=== PATIENT | male | born 1950 | race Caucasian/White ===

== ENCOUNTER 2017-06-16 07:45 | Day surgery (SDC) | payer MEDICARE, OTHER ==
[~2017-06-16] VITALS: Ht 188 cm; Wt 72.6 kg
--- OUTSIDE RECORDS SUMMARY | 2017-06-16 07:51 | XMS REPORT ---
Author Author [facility] Medical Staff Organization [facility] Address [address] [place] [id number] Phone [phone] Summary purpose CCDA Sent to [facility] Chief Complaint and Reason for Visit Admit Diagnosis 1 LEFT UPPER ARM PAIN - FALL Problem list No authorized problems tracked for continuity of care are available for this visit. Encounters No authorized problems tracked for encounter diagnoses are available for this visit. Medications Discharge Medications Status Medication Directions Current acetaminophen 500 mg tablet 500 miligram(s) oral oral FOUR TIMES A DAY NEEDED for pain Current amLODIPine 5 mg tablet 2.5 miligram(s) oral TWO TIMES A DAY Current aspirin 81 mg tablet 81 miligram(s) oral ONE TIME A DAY Current benztropine 2 mg tablet 2 miligram(s) oral TWO TIMES A DAY also may take 1 tab daily prn extra Current bethanechol chloride 25 mg tablet 50 miligram(s) oral FOUR TIMES A DAY Current busPIRone 10 mg tablet 20 miligram(s) oral THREE TIMES A DAY Current Calcium 500 + D 500 mg (1,250 mg)-200 unit tablet 2 tab(s) oral TWO TIMES A DAY Current carboxymethylcellulose sodium 0.5 % eye drops 1 drop(s) ophthalmic FOUR TIMES A DAY both eyes Current carvedilol 25 mg tablet 12.5 miligram(s) oral TWO TIMES A DAY Current cholecalciferol (vitamin D3) 1,000 unit capsule 2 tab(s) oral ONE TIME A DAY Current clomiPRAMINE 75 mg capsule 75 miligram(s) oral TWO TIMES A DAY Current cyanocobalamin (vit B-12) 1,000 mcg tablet 1 tab(s) oral ONE TIME A DAY Current donepezil 10 mg tablet 10 miligram(s) oral BEDTIME Current ferrous gluconate 325 mg (37.5 mg iron) tablet 325 miligram(s) oral ONE TIME A DAY Current FLUPHENAZINE DECANOATE 25MG/ML 37.5 miligram(s) Intramuscular EVERY TWO WEEKS Current ipratropium 20 mcg-albuterol 100 mcg/actuation mist for inhalation 1 puff(s) inhalation THREE TIMES A DAY Current latanoprost 0.005 % eye drops 1 drop(s) ophthalmic BEDTIME Current methenamine hippurate 1 gram tablet 1 gram(s) oral TWO TIMES A DAY Current Multivitamin & Mineral Formula tablet 1 tab(s) oral ONE TIME A DAY Current potassium chloride ER 20 mEq tablet,extended release 40 milliequivilant(s) oral ONE TIME A DAY Current sodium bicarbonate 325 mg tablet 325 miligram(s) oral ONE TIME A DAY Current sodium chloride 0.65 % nasal spray 1 spray(s) nasal nasl TWO TIMES A DAY NEEDED for nasal discharge each nostril Current tamsulosin ER 0.4 mg capsule,extended release 24 hr 0.4 miligram(s) oral ONE TIME A DAY Stopped lisinopril 10 mg tablet 5 miligram(s) oral ONE TIME A DAY Allergies, adverse reactions, alerts Allergen Category Ingredient Status Reaction Severity Onset [place] Drug [place] Active Penicillins Drug Penicillins Active Immunizations No immunizations recorded for this patient visit Relevant diagnostic tests and/or laboratory data RESULTS CBC [id number]:50:00 Result Normal Range Units WBC 7.63 4.60-10.20 x 103/uL RBC L 2.94 4.04-6.13 x 106/uL Hemoglobin L 10.2 12.2-18.1 g/dl Hematocrit L 30.4 37.7-53.7 % MCV H 103.4 80.0-97.0 FL MCH H 34.7 27.0-31.2 pg MCHC 33.6 31.8-35.4 g/dl RDW 12.7 11.6-14.8 % Platelets 228 142-424 x 103/uL MPV L 8.6 9.4-12.4 FL Manual Diff Not Indicated Neutrophil % 62.8 37-80 % Neutrophils 4.79 2.0-6.9 x 103/uL Lymphocyte % 19.1 10-50 % Lymphocytes 1.46 0.6-3.4 x 103/uL Monocyte % H 14.4 0-12 % Monocytes H 1.10 0.0-1.0 x 103/uL Eosinophil % 3.4 0-7 % Eosinophils 0.26 0-0.7 x 103/uL Basophil % 0.3 0-2 % Basophils 0.02 0.0-0.1 x 103/uL Urinalysis :55:00 Result Normal Range Units Site Voided Urine Color Yellow Yellow Urine Appearance Clear Clear Urine Glucose Negative Negative Urine Bilirubin Negative Negative Urine Ketones Negative Negative Urine Specific Frakes 1.010 1.010-1.020 Urine PH 7.0 5.5-7.5 Urine Protein Negative Negative Urine Urobilinogen 0.2 0.2-1.0 Urine Nitrites AB Positive Negative Urine Blood AB Trace Negative Urine Leukocytes AB Trace Negative Urine WBC's 11-15 Urine RBC's 0-2 Urine Bacteria 4+ Chemistry Group :50:00 Result Normal Range Units Glucose H 101 70-99 mg/dl BUN H 28 7-26 mg/dl Creatinine H 1.7 0.6-1.3 mg/dl Sodium 138 136-145 mmol/L Potassium 4.0 3.5-5.1 mmol/L Chloride 103 98-107 mmol/L CO2 H 30 22-29 mmol/L BUN/Creatinine Ratio 16 7-25 Ratio Calcium 9.4 8.4-10.2 mg/dl Protein Total L 6.1 6.4-8.3 g/dl Albumin L 3.2 3.5-5.0 g/dl A/G Ratio L 1.1 1.2-2.2 Ratio AST 16 5-34 U/L ALT 18 0-55 U/L ALP 67 40-150 U/L Bilirubin Total 0.5 0.2-1.2 mg/dl Osmolality 272 261-280 mOsm/kg Globulin 2.9 2.4-3.5 g/dl Amylase 29 25-125 U/L Lipase 16 8-78 U/L Urinalysis :55:00 Result Normal Range Units Site Voided Urine Color Yellow Yellow Urine Appearance Clear Clear Urine Glucose Negative Negative Urine Bilirubin Negative Negative Urine Ketones Negative Negative Urine Specific Frakes 1.010 1.010-1.020 Urine PH 7.0 5.5-7.5 Urine Protein Negative Negative Urine Urobilinogen 0.2 0.2-1.0 Urine Nitrites AB Positive Negative Urine Blood AB Trace Negative Urine Leukocytes AB Trace Negative Urine WBC's 11-15 Urine RBC's 0-2 Urine Bacteria 4+ History of procedures No procedures recorded for this patient visit. Functional status Cognitive Status Finding Observation Time Level of Consciousne Alert :15 Oriented to Person Yes :[address] Yes :15 Oriented to Time Yes :15 Vital signs Type Value Date Respirations 20 :05 Pulse 64 :05 O2 Saturation 95% :05 Systolic Blood Press 152mm/HG :05 Diastolic Blood Pres 88mm/HG :05 Temperature (Fahr) 97.5Degrees :05 Social history Type Value Smoking Status CURRENT EVERY DAY SMOKER Treatment Plan No treatment plan text is available for this visit. Hospital discharge instructions Diagnosis left humerus fracture, constipation, UTI Med Dispensed by [facility] macrobid 100mg by mouth twice per day x 7 days. lactulose 30ml by mouth every 12 hours until good bm. Dispense 6 doses. Follow up with PCP Appointment Date and tomorrow Follow up with Orthopedic specialis Comment: The clinic will set you up with an data support specialist in the morning and will let you know the date and time. Ice the arm three times per day for 20 minutes and take Tylenol for the pain. Avoid ibuprofen. Other Instructions Wear the shoulder immobilizer until seen by data support specialist and avoid use of left arm.
--- OUTSIDE RECORDS SUMMARY | 2017-06-16 07:51 | XMS REPORT ---
Author Author [facility] Medical Staff Organization [facility] Address [address] [place] [id number] Phone [phone] Summary purpose CCDA Sent to [facility] Chief Complaint and Reason for Visit No authorized Reason for Visit (Admitting Diagnosis) is available for this visit. Problem list No authorized problems tracked for continuity of care are available for this visit. Encounters No authorized problems tracked for encounter diagnoses are available for this visit. Medications No medications recorded for this patient visit Allergies, adverse reactions, alerts Allergen Category Ingredient Status Reaction Severity Onset [place] Drug [place] Active Penicillins Drug Penicillins Active Immunizations No immunizations recorded for this patient visit Relevant diagnostic tests and/or laboratory data No authorized results are available for this patient visit History of procedures Procedure Code Code Type Description Date Performed Performing Physician 70898 CPT-4 EMERGENCY DEPT VISIT 12-02-2015 SIMI SAVAGE Functional status No functional or cognitive status observations are available for this visit. Vital signs No authorized vital signs are available for this visit. Social history No Social History or smoking status observations were recorded for this visit. ( Unknown if ever smoked.) Treatment Plan No treatment plan text is available for this visit. Hospital discharge instructions No discharge instruction text is available for this visit.
--- OUTSIDE RECORDS SUMMARY | 2017-06-16 07:52 | XMS REPORT ---
Author Author [facility] Medical Staff Organization [facility] Address [address] [place] [id number] Phone [phone] Summary purpose CCDA Sent to [facility] Chief Complaint and Reason for [...] Allergen Category Ingredient Status Reaction Severity Onset [place] Drug [place] Active Penicillins Drug Penicillins Active Immunizations No immunizations recorded for this patient visit Relevant diagnostic tests and/or laboratory data No authorized results are available for this patient visit History of procedures Procedure Code Code Type Description Date Performed Performing Physician A0427 CPT-4 ALS1 EMERGENCY 12-07-2015 THOR SANCHEZ A0425 CPT-4 GROUND MILEAGE 12-07-2015 THOR SANCHEZ Functional status No functional or cognitive status [...]
--- OUTSIDE RECORDS SUMMARY | 2017-06-16 07:52 | XMS REPORT ---
Author Author [facility] Medical Staff Organization [facility] Address [address] [place] [id number] Phone [phone] Care Team Providers Care [place] Edger Name Role Phone SIMI SAVAGE DO PP [phone] SIMI SAVAGE DO PP [phone] Summary purpose CCDA Sent to [facility] Chief Complaint and Reason for Visit Admit Diagnosis 1 LT LEG PAIN - FALL Problem list No authorized problems tracked for continuity of care are available for this visit. Encounters No authorized problems tracked for encounter diagnoses are available for this visit. Medications No medications recorded for this patient visit Allergies, adverse reactions, alerts Allergen Category Ingredient Status Reaction Severity Onset [place] Drug [place] Active Penicillins Drug Penicillins Active Immunizations No immunizations recorded for this patient visit Relevant diagnostic tests and/or laboratory data No authorized results are available for this patient visit History of procedures Procedure Code Code Type Description Date Performed Performing Physician 38531 CPT-4 EMERGENCY DEPT VISIT 12-02-2015 SIMI JANETTE Functional status Cognitive Status Finding Observation Time Level of Consciousne Alert [id number]:15 Oriented to Person Yes [id number]:[address] Yes [id number]:15 Oriented to Time Yes :15 Vital signs Type Value Date Respirations 18 :56 Pulse 69 :56 O2 Saturation 97% :56 Systolic Blood Press 120mm/HG :56 Diastolic Blood Pres 80mm/HG :56 Temperature (Fahr) 97.6Degrees :56 Social history Type Value Smoking Status CURRENT EVERY DAY SMOKER Treatment Plan No treatment plan text is available for this visit. Hospital discharge instructions Diagnosis contushion to left leg but exam negative Diet Regular diet Activity Level as able Med Dispensed by Pro You are to continue the ibupropen for the pain and may use the cane in the left hand for support.. Follow up with your provider Appointment Date and next weej Other Instructions Notify if pain persists or worsens or if has further questions..
--- OUTSIDE RECORDS SUMMARY | 2017-06-16 07:52 | XMS REPORT ---
Author Author [facility] Medical Staff Organization [facility] Address [address] [place] [id number] Phone [phone] Summary purpose CCDA Sent to [facility] Chief Complaint and Reason for Visit Admit Diagnosis 1 CHEST PAIN MID STERNAL Problem list No authorized problems tracked for [...] 2 miligram(s) oral TWO TIMES A DAY Current bethanechol chloride 25 mg tablet 50 miligram(s) oral FOUR TIMES A DAY Current busPIRone 10 mg tablet 20 miligram(s) oral THREE TIMES A DAY Current carvedilol 25 mg tablet 12.5 miligram(s) [...] TIME A DAY Current FLUPHENAZINE DECANOATE 25MG/ML 25 miligram(s) Intramuscular EVERY TWO WEEKS Current latanoprost 0.005 % eye drops 1 drop(s) ophthalmic BEDTIME Current lisinopril 10 mg tablet 5 miligram(s) oral ONE TIME A DAY Current methenamine hippurate 1 gram tablet 1 gram(s) oral TWO TIMES A DAY Current Multivitamin & Mineral Formula tablet 1 tab(s) oral ONE TIME A DAY Current potassium chloride ER 20 mEq tablet,extended release 40 milliequivilant(s) oral ONE TIME A DAY Current sodium bicarbonate 325 mg tablet 325 miligram(s) oral ONE TIME A DAY Current tamsulosin ER 0.4 mg capsule,extended release 24 hr 0.4 miligram(s) oral ONE TIME A DAY Allergies, adverse reactions, alerts Allergen Category Ingredient Status Reaction Severity Onset [place] Drug [place] Active Penicillins Drug Penicillins Active Immunizations No immunizations recorded for this patient visit Relevant diagnostic tests and/or laboratory data RESULTS CBC :22:00 Result Normal Range Units WBC 7.99 4.60-10.20 x 103/uL RBC L 3.55 4.04-6.13 x 106/uL Hemoglobin 12.4 12.2-18.1 g/dl Hematocrit L 35.9 37.7-53.7 % MCV H 101.1 80.0-97.0 FL MCH H 34.9 27.0-31.2 pg MCHC 34.5 31.8-35.4 g/dl RDW 12.9 11.6-14.8 % Platelets 227 142-424 x 103/uL MPV 9.9 9.4-12.4 FL Manual Diff Not Indicated Neutrophil % 52.9 37-80 % Neutrophils 4.23 2.0-6.9 x 103/uL Lymphocyte % 28.3 10-50 % Lymphocytes 2.26 0.6-3.4 x 103/uL Monocyte % 12.0 0-12 % Monocytes 0.96 0.0-1.0 x 103/uL Eosinophil % 6.4 0-7 % Eosinophils 0.51 0-0.7 x 103/uL Basophil % 0.4 0-2 % Basophils 0.03 0.0-0.1 x 103/uL Chemistry Group :22:00 Result Normal Range Units Glucose 94 70-99 mg/dl BUN H 42 7-26 mg/dl Creatinine H 1.9 0.6-1.3 mg/dl Sodium 138 136-145 mmol/L Potassium 4.4 3.5-5.1 mmol/L Chloride 105 98-107 mmol/L CO2 25 22-29 mmol/L BUN/Creatinine Ratio 22 7-25 Ratio Calcium 9.3 8.4-10.2 mg/dl Protein Total 6.9 6.4-8.3 g/dl Albumin L 3.4 3.5-5.0 g/dl A/G Ratio L 1.0 1.2-2.2 Ratio AST 17 5-34 U/L ALT 12 0-55 U/L ALP 108 40-150 U/L Bilirubin Total 0.3 0.2-1.2 mg/dl Osmolality 277 261-280 mOsm/kg Globulin 3.5 2.4-3.5 g/dl CK 66 30-170 U/L CKMB 3.5 <=6 ng/ml BNP 17.6 <=100 pg/ml Troponin 0.02 <=0.20 ng/ml Magnesium 2.3 1.6-2.8 mg/dl Myoglobin H 127.1 10-85 ng/ml Reference Lab Group :21:00 EKG See Manual Report History of procedures No procedures recorded for this patient visit. Functional status Cognitive Status Finding Observation Time Level of Consciousne Alert :10 Oriented to Person Yes :[address] Yes [id number]:10 Oriented to Time Yes :10 Vital signs Type Value Date Respirations 18 :30 Pulse 65 :30 O2 Saturation 98% :30 Systolic Blood Press 148mm/HG :30 Diastolic Blood Pres 88mm/HG :30 Temperature (Fahr) 97.0Degrees :10 Social history Type Value Smoking Status CURRENT EVERY DAY SMOKER Treatment Plan No treatment plan text is available for this visit. Hospital discharge instructions Diagnosis Chest Pain, Dehydration Diet drink plenty of fluids Activity Level as tolerated Med Dispensed by Pro You were given IV fluids in the ER. Follow up with PA doctor Appointment Date and Thursday Other Instructions Please call the PA Thursday for an appointment so that you can have a full work up for your heart and leg pains.
--- OUTSIDE RECORDS SUMMARY | 2017-06-16 07:52 | XMS REPORT ---
Author Author [facility] Medical Staff Organization [facility] Address [address] [place] [id number] Phone [phone] Summary purpose CCDA Sent to [facility] Chief Complaint and Reason for Visit No [...] Allergen Category Ingredient Status Reaction Severity Onset [place] Drug [place] Active Penicillins Drug Penicillins Active Immunizations No immunizations recorded for this patient visit Relevant diagnostic tests and/or laboratory data No authorized results are available for this patient visit History of procedures No procedures recorded for this patient visit. Functional status No functional or cognitive status [...]
--- OUTSIDE RECORDS SUMMARY | 2017-06-16 07:52 | XMS REPORT ---
Author Author [facility] Medical Staff Organization [facility] Address [address] [place] [id number] Phone [phone] Summary purpose CCDA Sent to [facility] Chief Complaint and Reason for [...] Allergen Category Ingredient Status Reaction Severity Onset [place] Drug [place] Active Penicillins Drug Penicillins Active Immunizations No [...]
--- OUTSIDE RECORDS SUMMARY | 2017-06-16 07:52 | XMS REPORT ---
Author Author [facility] Medical Staff Organization [facility] Address [address] [place] [id number] Phone [phone] Summary purpose CCDA Sent to [facility] Chief Complaint and Reason for Visit Admit Diagnosis 1 R OUTER EYE RED & BLOODSHOT/HIT EYE Problem list No authorized problems tracked for continuity of care are available for this visit. Encounters No authorized problems tracked for encounter diagnoses are available for this visit. Medications No medications recorded for this patient visit Allergies, adverse reactions, alerts Allergen Category Ingredient Status Reaction Severity Onset [place] Drug [place] Active Penicillins Drug Penicillins Active Immunizations No immunizations recorded for this patient visit Relevant diagnostic tests and/or laboratory data No authorized results are available for this patient visit History of procedures Procedure Code Code Type Description Date Performed Performing Physician 59906 CPT-4 EMERGENCY DEPT VISIT 02-25-2016 DONALD OCONNELL Functional status Cognitive Status Finding Observation Time Level of Consciousne Alert :10 Oriented to Person Yes :[address] Yes [id number]:10 Oriented to Time Yes :10 Vital signs Type Value Date Respirations 18 :40 Pulse 67 :40 O2 Saturation 98% :40 Systolic Blood Press 140mm/HG [id number]:40 Diastolic Blood Pres 83mm/HG :40 Temperature (Fahr) 97.6Degrees :10 Social history Type Value Smoking Status CURRENT EVERY DAY SMOKER Treatment Plan No treatment plan text is available for this visit. Hospital discharge instructions Diagnosis Right eye injury/hematoma Diet as tolerated Activity Level as tolerated. Follow up with Dr. Robles Appointment Date and NOW Other Instructions Avoid touching your eye.
--- OUTSIDE RECORDS SUMMARY | 2017-06-16 07:52 | XMS REPORT ---
Author Author [facility] Medical Staff Organization [facility] Address [address] [place] [id number] Phone [phone] Summary purpose CCDA Sent to [facility] Chief Complaint and Reason for Visit [...] Allergen Category Ingredient Status Reaction Severity Onset [place] Drug [place] Active Penicillins Drug Penicillins Active Immunizations No immunizations recorded for this patient visit Relevant diagnostic tests and/or laboratory data No authorized results are available for this patient visit History of procedures Procedure Code Code Type Description Date Performed Performing Physician 63703 CPT-4 EMERGENCY DEPT VISIT 02-25-2016 DONALD OCONNELL Functional status No functional or cognitive status [...]
--- OUTSIDE RECORDS SUMMARY | 2017-06-16 07:52 | XMS REPORT ---
Author Author [facility] Medical Staff Organization [facility] Address [address] [place] [id number] Phone [phone] Summary purpose CCDA Sent to [facility] Chief Complaint and Reason for [...] Allergen Category Ingredient Status Reaction Severity Onset [place] Drug [place] Active Penicillins Drug Penicillins Active Immunizations No [...]
--- OUTSIDE RECORDS SUMMARY | 2017-06-16 07:53 | XMS REPORT | Continuity of Care Document ---
Author Author [facility] Organization [facility] Address Unknown Phone Unavailable Allergies Active Description Code Type Severity Reaction Onset Reported/Identified Relationship to Patient Clinical Status Yes [place] 1532 Drug Allergy N/A N/A 06/03/2013 Yes Penicillins 476 Drug Allergy N/ A N/A 06/03/2013 Medications There is no data. Problems Date Dx Coded Attending Type Code Diagnosis Diagnosed By 02/17/2011 D 870.8 OPN WND OCULAR ADNEX NEC 02/17/2011 D 959.01 HEAD INJURY UNSPECIFIED 02/17/2011 D E849.0 ACCIDENT IN HOME 02/17/2011 D E888.9 FALL NOS 11/11/2012 SIMI SAVAGE DO D 780.79 OTHER MALAISE & FATIGUE 11/11/2012 SIMI SAVAGE DO L D 787.91 DIARRHEA 11/11/2012 SIMI SAVAGE DO L D 789.00 ABDOMINAL PAIN, UNSPECIF 11/11/2012 SIMI SAVAGE DO D 038.10 STAPHYLOCOCC SEPT UNSPEC 11/11/2012 SIMI SAVAGE DO L D 427.89 CARDIAC DYSRHYTHMIAS NEC 11/11/2012 SIMI SAVAGE DO L D 458.9 HYPOTENSION NOS 11/11/2012 SIMI SAVAGE DO L D 995.91 SEPSIS 11/11/2012 SIMI SAVAGE DO D 038.10 STAPHYLOCOCC SEPT UNSPEC 11/11/2012 SIMI SAVAGE DO L D 427.89 CARDIAC DYSRHYTHMIAS NEC 11/11/2012 SIMI SAVAGE DO L D 458.9 HYPOTENSION NOS 11/11/2012 SIMI SAVAGE DO L D 995.91 SEPSIS 11/11/2012 SIMI SAVAGE DO D 038.10 STAPHYLOCOCC SEPT UNSPEC 11/11/2012 SIMI SAVAGE DO L D 427.89 CARDIAC DYSRHYTHMIAS NEC 11/11/2012 SIMI SAVAGE DO L D 458.9 HYPOTENSION NOS 11/11/2012 SIMI SAVAGE DO L D 995.91 SEPSIS 11/11/2012 Kassidy RENTERIA, Sherrie Lovell 009.2 INFECTIOUS DIARRHEA NOS 11/11/2012 Kassidy RENTERIA, Sherrie Lovell 038.9 SEPTICEMIA NOS 11/11/2012 Kassidy RENTERIA, Sherrie Lovell 272.4 HYPERLIPIDEMIA NEC/NOS 11/11/2012 Kassidy RENTERIA, Sherrie Lovell 276.1 HYPOSMOLALITY 11/11/2012 Kassidy RENTERIA, Sherrie Lovell 294.20 DEMENTIA, UNSPECIFIED, WITHOUT BEHAVIORAL DISTURBA 11/11/2012 Kassidy RENTERIA, Sherrie Lovell 295.90 SCHIZOPHRENIA NOS-UNSPEC 11/11/2012 Kassidy RENTERIA, Sherrie Lovell 401.9 HYPERTENSION NOS 11/11/2012 Kassidy RENTERIA, Sherrie Lovell 584.9 ACUTE RENAL FAILURE, UNSPECIFIED 11/11/2012 Kassidy RENTERIA, Sherrie Lovell 785.52 SEPTIC SHOCK 11/11/2012 Kassidy RENTERIA, Sherrie Lovell 995.92 SEVERE SEPSIS 06/03/2013 SIMI SAVAGE DO 276.1 HYPOSMOLALITY 06/03/2013 SIMI SAVAGE DO 276.1 HYPOSMOLALITY 12/02/2015 SIMI SAVAGE DO S83.92XA Sprain of unspecified site of left knee, initial encounter 12/02/2015 SIMI SAVAGE DO W08.XXXA Fall from other furniture, initial encounter 12/02/2015 SIMI SAVAGE DO Y92.[address] in single-family (private) house as place 12/02/2015 SIMI SAVAGE DO Y93.9 Activity, unspecified 12/02/2015 SIMI SAVAGE DO Y99.9 Unspecified external cause status 12/02/2015 SIMI SAVAGE DO S83.92XA Sprain of unspecified site of left knee, initial encounter 12/02/2015 SIMI SAVAGE DO W08.XXXA Fall from other furniture, initial encounter 12/02/2015 SIMI SAVAGE DO Y92.[address] in single-family (private) house as place 12/02/2015 SIMI SAVAGE DO Y93.9 Activity, unspecified 12/02/2015 SIMI SAVAGE DO Y99.9 Unspecified external cause status 12/07/2015 LAURA RENTERIA, THOR Rodrigues R07.9 Chest pain, unspecified 12/07/2015 THOR SANCHEZ MD E86.0 Dehydration 12/07/2015 THOR SANCHEZ MD M79.604 Pain in right leg 12/07/2015 LAURA RENTERIA, THOR Rodrigues M79.605 Pain in left leg 12/07/2015 THOR SANCHEZ MD R07.9 Chest pain, unspecified 12/07/2015 THOR SANCHEZ MD E86.0 Dehydration 12/07/2015 THOR SANCHEZ MD M79.604 Pain in right leg 12/07/2015 THOR SANCHEZ MD M79.605 Pain in left leg 12/07/2015 THOR SANCHEZ MD R07.9 Chest pain, unspecified 12/07/2015 THOR SANCHEZ MD E86.0 Dehydration 12/07/2015 THOR SANCHEZ MD M79.604 Pain in right leg 12/07/2015 THOR SANCHEZ MD M79.605 Pain in left leg 12/07/2015 THOR SANCHEZ MD R07.9 Chest pain, unspecified 02/25/2016 DONALD GONZÁLES S05.11XA Contusion of eyeball and orbital tissues, right eye, init 02/25/2016 DONALD GONZÁLES Y92.[address] or not applicable 02/25/2016 DONALD GONZÁLES Y93.9 Activity, unspecified 02/25/2016 DONALD GONZÁLES Y99.9 Unspecified external cause status 04/03/2016 DONALD GONZÁLES K59.00 Constipation, unspecified 04/03/2016 DONALD GONZÁLES N39.0 Urinary tract infection, site not specified 04/03/2016 DONALD GONZÁLES S42.292A Oth disp fx of upper end of left humerus, init for clos fx 04/03/2016 DONALD GONZÁLES W06.XXXA Fall from bed, initial encounter 04/03/2016 DONALD GONZÁLES Y92.003 [facility] (private) residence as place 04/03/2016 DONALD GONZÁLES Y93.9 Activity, unspecified 04/03/2016 DONALD GONZÁLES Y99.9 Unspecified external cause status Procedures Code Description [place] [address] REPAIR EYELID WOUND SIMI SAVAGE DO 02/17/2011 85778 IMMUNIZATION ADMIN SIMI SAVAGE DO 02/17/2011 82902 TD VACCINE > 7, IM SIMI SAVAGE DO 02/17/2011 95188 EMERGENCY DEPT VISIT SIMI SAVAGE DO 02/17/2011 92437 ROUTINE VENIPUNCTURE SIMI SAVAGE DO 11/11/2012 52181 INSERT TEMP BLADDER CATH SIMI SAVAGE DO 11/11/2012 18886 CHEST X-RAY SIMI SAVAGE DO 11/11/2012 14953 X-RAY EXAM OF ABDOMEN SIMI SAVAGE DO 11/11/2012 01952 COMPREHEN METABOLIC PANEL SIMI SAVAGE DO 11/11/2012 80561 URINALYSIS, AUTO W/SCOPE SIMI SAVAGE DO 11/11/2012 06123 ASSAY OF CK (CPK) SIMI SAVAGE DO 11/11/2012 34179 CREATINE, MB FRACTION SIMI SAVAGE DO 11/11/2012 98390 NATRIURETIC PEPTIDE SIMI SAVAGE DO 11/11/2012 71979 ASSAY OF TROPONIN, QUANT SIMI SAVAGE DO 11/11/2012 13851 COMPLETE CBC W/AUTO DIFF WBC SIMI SAVAGE DO 11/11/2012 66034 BLOOD CULTURE FOR BACTERIA SIMI SAVAGE DO 11/11/2012 08700 URINE CULTURE/COLONY COUNT SIMI SAVAGE DO 11/11/2012 00637 URINE BACTERIA CULTURE SIMI SAVAGE DO 11/11/2012 91215 CULTURE TYPE, IMMUNOLOGIC SIMI SAVAGE DO 11/11/2012 96438 MICROBE SUSCEPTIBLE, DWAIN SIMI SAVAGE DO 11/11/2012 50370 ELECTROCARDIOGRAM, TRACING SIMI SAVAGE DO 11/11/2012 70067 HYDRATE IV INFUSION, ADD-ON SIMI SAVAGE DO 11/11/2012 14966 THER/PROPH/DIAG INJ, IV PUSH SIMI SAVAGE DO 11/11/2012 35927 EMERGENCY DEPT VISIT SIMI SAVAGE DO 11/11/2012 J1265 DOPAMINE INJECTION SIMI SAVAGE DO 11/11/2012 J3370 VANCOMYCIN HCL INJECTION SIMI SAVAGE DO 11/11/2012 A0425 GROUND MILEAGE SIMI SAVAGE DO 11/11/2012 A0427 ALS1 EMERGENCY SIMI SAVAGE DO 11/11/2012 88972 ELECTROCARDIOGRAM REPORT FABIO RENTERIAMARIIA 11/11/2012 39517 EMERGENCY DEPT VISIT SIMI SAVAGE DO 11/11/2012 38.97 CENTRAL VENOUS CATHETER PLACEMENT WITH GUIDANCE Gopal De Los Santos MD 11/11/2012 74807 COMPREHEN METABOLIC PANEL SIMI SAVAGE DO 06/03/2013 20816 NATRIURETIC PEPTIDE SIMI SAVAGE DO 06/03/2013 11718 COMPLETE CBC W/AUTO DIFF WBC SIMI SAVAGE DO 06/03/2013 48721 HYDRATION IV INFUSION, INIT SIMI SAVAGE DO 06/03/2013 02012 EMERGENCY DEPT VISIT SIMI SAVAGE DO 06/03/2013 A9270 Non-covered item or service SIMI SAVAGE DO 06/03/2013 44498 EMERGENCY DEPT VISIT SIMI SAVAGE DO 06/03/2013 06856 EMERGENCY DEPT VISIT SIMI SAVAGE DO 12/02/2015 42250 EMERGENCY DEPT VISIT SIMI SAVAGE DO 12/02/2015 39630 CHEST X-RAY 1 VIEW FRONTAL THOR SANCHEZ MD 12/07/2015 60084 COMPREHEN METABOLIC PANEL THOR SANCHEZ MD 12/07/2015 77796 ASSAY OF CK (CPK) THOR SANCHEZ MD 12/07/2015 31502 CREATINE MB FRACTION THOR SANCHEZ MD 12/07/2015 58923 ASSAY OF MAGNESIUM THOR SANCHEZ MD 12/07/2015 99430 ASSAY OF MYOGLOBIN THOR SANCHEZ MD 12/07/2015 92307 ASSAY OF NATRIURETIC PEPTIDE THOR SANCHEZ MD 12/07/2015 42603 ASSAY OF TROPONIN QUANT THOR SANCHEZ MD 12/07/2015 18787 COMPLETE CBC W/AUTO DIFF WBC THOR SANCHEZ MD 12/07/2015 44230 ELECTROCARDIOGRAM TRACING THOR SANCHEZ MD 12/07/2015 92629 HYDRATION IV INFUSION INIT THOR SANCHEZ MD 12/07/2015 40748 EMERGENCY DEPT VISIT THOR SANCHEZ MD 12/07/2015 J7040 NORMAL SALINE SOLUTION INFUS THOR SANCHEZ MD 12/07/2015 A0425 [facility] THOR SANCHEZ MD 12/07/2015 A0427 ALS1-EMERGENCY THOR SANCHEZ MD 12/07/2015 37409 ELECTROCARDIOGRAM REPORT FABIO RENTERIA, MARIIA Reilly 12/07/2015 53621 EMERGENCY DEPT VISIT THOR SANCHEZ MD 12/07/2015 80867 EMERGENCY DEPT VISIT DONALD GONZÁLES 02/25/2016 27576 ROUTINE VENIPUNCTURE ANISH KRAMERDONALD Boothe 04/03/2016 30273 X-RAY EXAM OF HUMERUS ANISH DONALD NARANJO 04/03/2016 62412 X-RAY EXAM OF WRIST ANISH DONALD NARANJO 04/03/[address] ABD & PELVIS W/O CONTRAST ANISH DONALD NARANJO 04/03/2016 74967 COMPREHEN METABOLIC PANEL ANISH DONALD NARANJO 04/03/2016 83178 URINALYSIS AUTO W/SCOPE ANISH KRAMERDONALD Boothe 04/03/2016 90821 ASSAY OF AMYLASE ANISH DONALD NARANJO 04/03/2016 05954 ASSAY OF LIPASE ANISH KRAMERDONALD Boothe D 04/03/2016 15895 COMPLETE CBC W/AUTO DIFF WBC ANISH KRAMERDONALD Boothe D 04/03/2016 64431 CULTURE AEROBIC IDENTIFY ANISH DONALD NARANJO 04/03/2016 91243 URINE CULTURE/COLONY COUNT ANISH KRAMERDONALD Boothe D 04/03/2016 04254 MICROBE SUSCEPTIBLE DWAIN ANISH DONALD NARANJO D 04/03/2016 73515 THER/PROPH/DIAG INJ IV PUSH ANISH KRAMERDONALD Boothe 04/03/2016 52079 EMERGENCY DEPT VISIT DONALD GONZÁLES 04/03/2016 J0696 CEFTRIAXONE SODIUM INJECTION ANISH KRAMERDONALD Boothe 04/03/2016 J1885 KETOROLAC TROMETHAMINE INJ ANISH KRAMERDONALD Boothe 04/03/2016 J7050 NORMAL SALINE SOLUTION INFUS ANISH DONALD NARANJO 04/03/2016 < section xmlns="urn:hl7-org:v3" xmlns:xsi="http://www.3.org/2001/XMLSchema- instance"> <templateId root="[email or web address]" /> <templateId root="[email or web address]" /> <code codeSystemName="LOINC" codeSystem="[id number]" code="39805-3" displayName="Results" /> < title>Results</title> <text> <table> <thead> <tr> <th> Test</th> <th>Result</th> <th>Range</th> </tr> </ thead> <tbody> <tr> <th colspan="10">Blood Culture - 11:11</th> </tr> <tr> <td>Blood Culture</td> <td>SMR </td> <td /> </tr> <tr> <th colspan="10 ">Blood Culture - 11/11/12 11:11</th> </tr> <tr> <td> Blood Culture</td> <td>SMR </td> <td /> </tr> < tr> <th colspan="10">Troponin I - 11/11/12 11:29</th> </tr> <tr> <td>Troponin I</td> <td>0.01 NG/ML</td> <td> <=0.20</td> </tr> <tr> <th colspan="10">CPK - 11:29</th> </tr> <tr> <td>CPK</td> <td>126 U/ L</td> <td>30-170</td> </tr> <tr> <th colspan= "10">CKMB - 08/08/13 11:29</th> </tr> <tr> <td>CKMB</td> <td>5.5 NG/ML</td> <td><=6</td> </tr> <tr> <th colspan="10">[facility] - 11/11/12 11:29</th> </tr> <tr> <td>Osmo Calculated</td> <td>261 MOSM</td> <td>261-280< /td> </tr> <tr> <td>Sodium</td> <td>130 MMOLL</ td> <td>137-145</td> </tr> <tr> <td>T. Protein</ td> <td>6.6 G/DL</td> <td>6.3-8.2</td> </tr> <tr > <td>Potassium</td> <td>3.5 MMOLL</td> <td>3.6-5.0</ td> </tr> <tr> <td>T Bili</td> <td>1.1 MG/DL</td > <td>0.2-1.3</td> </tr> <tr> <td>Calcium</td> <td>9.5 MG/DL</td> <td>8.4-10.2</td> </tr> <tr> <td>BUN</td> <td>37 MG/DL</td> <td>7-21</td> </tr> <tr> <td>Chloride</td> <td>93 MMOLL</td> <td>98-107</td> </tr> <tr> <td>AST</td> <td> 34 U/L</td> <td>15-46</td> </tr> <tr> <td>ALT</ td> <td>27 U/L</td> <td>7-56</td> </tr> <tr> <td>Albumin</td> <td>3.7 G/DL</td> <td>3.5-5.0</td> </tr> <tr> <td>A/G Ratio</td> <td>1.3 RATIO</td> <td>1.2-2.2</td> </tr> <tr> <td>Bun/Creat</td> <td>20.2 RATIO</td> <td>7-25</td> </tr> <tr> <td>Alk Phos</td> <td>94 U/L</td> <td>38-126</td> </tr> <tr> <td>CO2</td> <td>23 MMOLL</td> < td>22-30</td> </tr> <tr> <td>Glucose</td> <td> 119 MG/DL</td> <td>65-110</td> </tr> <tr> <td> Globulin</td> <td>2.9 </td> <td>2.4-3.5</td> </tr> <tr> <td>Creatinine</td> <td>1.8 MG/DL</td> <td> 0.7-1.5</td> </tr> <tr> <th colspan="10">BNP - 11/11/12 11:29</th> </tr> <tr> <td>BNP</td> <td>33.3 PG/ ML</td> <td><=100</td> </tr> <tr> <th colspan ="10">COMPLETE BLOOD COUNT - 11/11/12 11:29</th> </tr> <tr> <td>Platelet</td> <td>246 10^3u</td> <td>142-424</td> </tr> <tr> <td>MPV</td> <td>8.9 FL</td> < td>9.4-12.4</td> </tr> <tr> <td>[place] #</td> <td> 0.29 10^3u</td> <td>0.0-1.0</td> </tr> <tr> <td> RBC</td> <td>3.67 10^6u</td> <td>4.04-6.13</td> </tr> <tr> <td>[place] %</td> <td>4.5 %</td> < td>0-12</td> </tr> <tr> <td>RDW</td> <td>11.9 &# 37;</td> <td>11.6-14.8</td> </tr> <tr> <td>Neut #</td> <td>5.08 10^3u</td> <td>2.0-6.9</td> </tr> <tr> <td>Neut %</td> <td>78.7 %</td> <td> 37-80</td> </tr> <tr> <td>WBC</td> <td>6.45 10^ 3u</td> <td>4.60-10.20</td> </tr> <tr> <td>MCV</ td> <td>92.4 FL</td> <td>80.0-97.0</td> </tr> < tr> <td>Baso #</td> <td>0.03 10^3u</td> <td>0.0-0.1</ td> </tr> <tr> <td>Baso %</td> <td>0.5 % </td> <td>0-2</td> </tr> <tr> <td>Eos #</td> <td>0.27 10^3u</td> <td>0-0.7</td> </tr> <tr> <td>Eos %</td> <td>4.2 %</td> <td>0-7</td> </tr> <tr> <td>Lymph %</td> <td>12.1 %</td> <td>10-50</td> </tr> <tr> <td>MCHC</td> <td>36.6 G/DL</td> <td>31.8-35.4</td> </tr> <tr> <td>MCH</td> <td>33.8 PG</td> <td>27.0-31.2</td> < /tr> <tr> <td>Lymph #</td> <td>0.78 10^3u</td> <td>0.6-3.4</td> </tr> <tr> <td>HGB</td> <td> 12.4 G/DL</td> <td>12.2-18.1</td> </tr> <tr> <td >HCT</td> <td>33.9 %</td> <td>37.7-53.7</td> </tr> <tr> < colspan="10">EKG - 11/11/12 11:29</th> </tr> <tr> <td>EKG</td> <td>SMR </td> <td /> < /tr> <tr> < colspan="10">Urinalysis - 11/11/12 12:46</th> </tr> <tr> <td>Glucose</td> <td>Negative </td> <td>Negative</td> </tr> <tr> <td>Leukocyte</td> <td>1+ </td> <td>Negative</td> </tr> <tr> <td>Nitrite</td> <td>Positive </td> <td>Negative</td> </tr> <tr> <td>pH</td> <td>6.5 </td> <td>5.5 -7.5</td> </tr> <tr> <td>Urine Appearance</td> < td>Clear </td> <td>Clear</td> </tr> <tr> <td> Protein</td> <td>Negative </td> <td>Negative</td> </tr > <tr> <td>Ketones</td> <td>Negative </td> <td >Negative</td> </tr> <tr> <td>Urobilinogen</td> <td>0.2 </td> <td>0.2-1.0</td> </tr> <tr> <td> Specific [place]</td> <td>1.010 </td> <td>1.010-1.020</td> </tr> <tr> <td>Urine WBC</td> <td>N3-5 </td> <td /> </tr> <tr> <td>Urine Bacteria</td> < td>3+ </td> <td /> </tr> <tr> <td>Blood</td> <td>Negative </td> <td>Negative</td> </tr> <tr> <td>Color</td> <td>Yellow </td> <td>Yellow</td> </tr> <tr> <td>Bilirubin</td> <td>Negative </td> <td>Negative</td> </tr> <tr> <th colspan="10"> Urine Culture - 11/11/12 13:05</th> </tr> <tr> <td>Urine Culture</td> <td>SMR </td> <td /> </tr> <tr> <th colspan="10">CHEM/HEM PROFILE-BEDSIDE - 11/11/12 14:15</th> </ tr> <tr> <td>POTASSIUM</td> <td>3.6 mmol/L</td> <td>3.5-5.3</td> </tr> <tr> <td>METHOD</td> < td>Bedside </td> <td /> </tr> <tr> <td>ANION GAP </td> <td>16 mmol/L</td> <td>10-20</td> </tr> < tr> <td>METHOD</td> <td>Bedside </td> <td /> < /tr> <tr> <td>GLUCOSE</td> <td>154 mg/dL</td> <td>70-99</td> </tr> <tr> <td>BLOOD UREA NITROGEN</td> <td>40 mg/dL</td> <td>7-20</td> </tr> <tr> <td>CREATININE</td> <td>2.2 mg/dL</td> <td>0.8-1.3</td> </tr> <tr> <td>HEMOGLOBIN</td> <td>13.3 gm/dL</td > <td>14.0-18.0</td> </tr> <tr> <td>HEMATOCRIT</ td> <td>39.0 %</td> <td>40.0-54.0</td> </tr> <tr> <td>SODIUM</td> <td>132 mmol/L</td> <td>135- 148</td> </tr> <tr> <td>CHLORIDE</td> <td>98 mmol/L</td> <td>98-110</td> </tr> <tr> <td> CARBON DIOXIDE</td> <td>22 mmol/L</td> <td>21-32</td> < /tr> <tr> <td>CALCIUM IONIZED</td> <td>4.7 mg/dL</td> <td>4.5-5.3</td> </tr> <tr> <th colspan="10"> TROPONIN I BEDSIDE - 11/11/12 14:19</th> </tr> <tr> <td> METHOD</td> <td>Bedside </td> <td /> </tr> <tr> <td>TROPONIN I</td> <td>< 0.04 ng/mL</td> <td>&lt ; 0.11</td> </tr> <tr> <th colspan="10">CBC W/DIFF - 11/16 14:20</th> </tr> <tr> <td>GRANULOCYTE #</td> <td>16.8 k/cumm</td> <td>2.0-9.0</td> </tr> <tr> <td>LYMPHOCYTE #</td> <td>0.9 k/cumm</td> <td>1.0-4.0</ td> </tr> <tr> <td>LYMPHOCYTE %</td> <td>5 & #37;</td> <td>20-30</td> </tr> <tr> <td>MEAN CELL HGB</td> <td>33.3 pg</td> <td>27.0-33.0</td> </tr > <tr> <td>MEAN CELL HGB CONCENTRATION</td> <td>35.5 g/ dL</td> <td>32.0-37.0</td> </tr> <tr> <td>MEAN CELL VOLUME</td> <td>93.7 fl</td> <td>80.0-100.0</td> < /tr> <tr> <td>MONOCYTE #</td> <td>0.2 k/cumm</td> <td>0.1-1.0</td> </tr> <tr> <td>MONOCYTE %</td> <td>1 %</td> <td>4-6</td> </tr> <tr> <td>RED BLOOD CELL</td> <td>4.12 m/cumm</td> <td>4.00-6.00 </td> </tr> <tr> <td>RED CELL DISTRIBUTION WIDTH</td> <td>12.0 %</td> <td>11.0-15.6</td> </tr> <tr> <td>WHITE BLOOD CELL</td> <td>17.9 k/cumm</td> <td> 5.0-10.0</td> </tr> <tr> <td>HEMOGLOBIN</td> <td >13.7 gm/dL</td> <td>14.0-18.0</td> </tr> <tr> < td>HEMATOCRIT</td> <td>38.6 %</td> <td>40.0-54.0</td> </tr> <tr> <td>PLATELET COUNT</td> <td>246 k/cumm</ td> <td>150-400</td> </tr> <tr> <th colspan="10 ">MANUAL DIFF(R) - 11/11/12 14:20</th> </tr> <tr> <td> BAND %</td> <td>8 %</td> <td>0-10</td> </tr> <tr> <td>DIFFERENTIAL</td> <td>MANUAL </td> < td /> </tr> <tr> <td>RBC MORPH</td> <td>NOTED </ td> <td /> </tr> <tr> <td>SEGMENTED NEUTROPHIL & #37;</td> <td>86 %</td> <td>50-70</td> </tr> <tr> <th colspan="10">METABOLIC PANEL, COMPREHN - 11/11/12 14:20</th > </tr> <tr> <td>POTASSIUM</td> <td>3.6 mmol/L</ td> <td>3.5-5.3</td> </tr> <tr> <td>EST GFR ( MDRD)</td> <td>33 mL/min</td> <td>> 59</td> </tr> <tr> <td>ANION GAP</td> <td>11 mmol/L</td> <td> 5-15</td> </tr> <tr> <td>GLUCOSE</td> <td>161 mg /dL</td> <td>70-99</td> </tr> <tr> <td>CALCIUM</ td> <td>9.1 mg/dL</td> <td>8.5-10.1</td> </tr> < tr> <td>BLOOD UREA NITROGEN</td> <td>43 mg/dL</td> < td>7-20</td> </tr> <tr> <td>CREATININE</td> <td> 2.2 mg/dL</td> <td>0.8-1.3</td> </tr> <tr> <td> SODIUM</td> <td>131 mmol/L</td> <td>135-148</td> </tr> <tr> <td>CHLORIDE</td> <td>96 mmol/L</td> <td >98-110</td> </tr> <tr> <td>AST/SGOT</td> <td> 29 Units/L</td> <td>10-37</td> </tr> <tr> <td> ALT/SGPT</td> <td>26 Units/L</td> <td>< 66</td> </tr > <tr> <td>CARBON DIOXIDE</td> <td>24 mmol/L</td> <td>21-32</td> </tr> <tr> <td>TOTAL PROTEIN</td> <td>6.9 gm/dL</td> <td>6.4-8.2</td> </tr> <tr> <td>ALBUMIN</td> <td>3.6 gm/dL</td> <td>3.4-5.0</td> </tr> <tr> <td>BILI TOTAL</td> <td>1.1 mg/dL</td > <td>0.0-1.0</td> </tr> <tr> <td>ALKALINE PHOSPHATASE TOTAL</td> <td>125 Units/L</td> <td>50-136</td> </tr> <tr> <th colspan="10">BLOOD CULTURE - 11/11/12 14:40 </th> </tr> <tr> <td>Uncategorized</td> <td> </ td> <td /> </tr> <tr> <th colspan="10">BLOOD CULTURE - 11/11/12 14:45</th> </tr> <tr> <td> Uncategorized</td> <td> </td> <td /> </tr> <tr> <th colspan="10">URINALYSIS, ROUTINE - 11/11/12 15:10</th> </tr > <tr> <td>UA LEUKOCYTE ESTERASE DIPSTICK</td> <td> TRACE </td> <td>NEGATIVE</td> </tr> <tr> <td>UA NITRITE DIPSTICK</td> <td>NEGATIVE </td> <td>NEGATIVE</td> </tr> <tr> <td>UA PROTEIN DIPSTICK</td> <td>1+ </ td> <td>NEGATIVE</td> </tr> <tr> <td>UA GLUCOSE DIPSTICK</td> <td>NEGATIVE </td> <td>NEGATIVE</td> </tr > <tr> <td>UA KETONE DIPSTICK</td> <td>NEGATIVE </td> <td>NEGATIVE</td> </tr> <tr> <td>UA UROBILINOGEN DIPSTICK</td> <td>2+ </td> <td>NORMAL</td> </tr> <tr> <td>UA BILIRUBIN DIPSTICK</td> <td> POSITIVE </td> <td>NEGATIVE</td> </tr> <tr> <td> UA BLOOD DIPSTICK</td> <td>2+ </td> <td>NEGATIVE</td> < /tr> <tr> <td>UA COMMENT</td> <td> </td> < td /> </tr> <tr> <td>UA SPECIFIC GRAVITY</td> < td>1.007 </td> <td>1.015-1.025</td> </tr> <tr> < td>UR PH</td> <td>7.0 </td> <td>5.0-7.0</td> </tr> <tr> <th colspan="10">UA MICROSCOPIC, NO REFLEX CULT - 11/11/12 15: 10</th> </tr> <tr> <td>UA EPITHELIAL CELLS</td> <td>4+ epi/hpf</td> <td>0 - 1+</td> </tr> <tr> < td>UA HYALINE CAST</td> <td>5-10 cast/lpf</td> <td>0 - 1</td> </tr> <tr> <td>UA MUCUS</td> <td>4+ </td> <td>NEG TO 1+</td> </tr> <tr> <td>UA RBC</td> <td>>100 rbc/hpf</td> <td>0 - 3</td> </tr> <tr> <td>UA VOLUME FOR EXAM</td> <td>12.0 mL</td> <td>( 12mL STD)</td> </tr> <tr> <td>UA WBC</td> <td>2- 5 wbc/hpf</td> <td>0 - 5</td> </tr> <tr> <th colspan="10">URINE CULTURE - 11/11/12 15:10</th> </tr> <tr> <td>Uncategorized</td> <td> </td> <td /> </tr> <tr> <th colspan="10">CLOSTRIDIUM DIFFICILE DNA - 11/11/12 16:09</ th> </tr> <tr> <td>Uncategorized</td> <td> </td > <td /> </tr> <tr> <th colspan="10">MRSA SURVEILLANCE SCREEN - 11/11/12 17:58</th> </tr> <tr> <td> Uncategorized</td> <td> </td> <td /> </tr> <tr> <th colspan="10">ARTERIAL BLOOD GAS - 11/11/12 19:35</th> </tr > <tr> <td>ABG BASE EXCESS</td> <td>-7.3 meq/L</td> <td>-3.0-3.0</td> </tr> <tr> <td>ABG DEVICE</td> <td>NC </td> <td /> </tr> <tr> <td>ABG BICARBONATE</td> <td>17.2 meq/L</td> <td>23.0-28.0</td> </tr> <tr> <td>ABG L/M</td> <td>4.0 </td> < td /> </tr> <tr> <td>ABG PCO2</td> <td>32 mm Hg< /td> <td>34-45</td> </tr> <tr> <td>ABG PH</td> <td>7.35 </td> <td>7.35-7.45</td> </tr> <tr> <td>ABG PO2</td> <td>98 mm Hg</td> <td>75-100</td> </tr> <tr> <td>ABG O2 SATURATION</td> <td>97 %< /td> <td>93-100</td> </tr> <tr> <td>ABG SITE</td > <td>ART LINE </td> <td /> </tr> <tr> < colspan="10">LACTIC ACID - 11/11/12 19:35</th> </tr> <tr> <td>LACTIC ACID</td> <td>0.7 mmol/L</td> <td>0.5-2.2</td > </tr> <tr> <th colspan="10">VALPROIC ACID (DEPAKENE) - 11/11/12 19:35</th> </tr> <tr> <td>VALPROIC ACID ( DEPAKENE)</td> <td>< 3 mcg/mL</td> <td>50-100</td> < /tr> <tr> <th colspan="10">AG STREPTOCOCCUS PNEUMONIAE - 20:08</th> </tr> <tr> <td>Uncategorized</td> <td> </td> <td /> </tr> <tr> <th colspan="10"> URINALYSIS, ROUTINE - 11/11/12 20:08</th> </tr> <tr> <td> UA LEUKOCYTE ESTERASE DIPSTICK</td> <td>NEGATIVE </td> <td> NEGATIVE</td> </tr> <tr> <td>UA NITRITE DIPSTICK</td> <td>NEGATIVE </td> <td>NEGATIVE</td> </tr> <tr> <td>UA PROTEIN DIPSTICK</td> <td>NEGATIVE </td> <td> NEGATIVE</td> </tr> <tr> <td>UA GLUCOSE DIPSTICK</td> <td>NEGATIVE </td> <td>NEGATIVE</td> </tr> <tr> <td>UA KETONE DIPSTICK</td> <td>NEGATIVE </td> <td> NEGATIVE</td> </tr> <tr> <td>UA UROBILINOGEN DIPSTICK</td > <td>NORMAL </td> <td>NORMAL</td> </tr> <tr> <td>UA BILIRUBIN DIPSTICK</td> <td>NEGATIVE </td> <td> NEGATIVE</td> </tr> <tr> <td>UA BLOOD DIPSTICK</td> <td>4+ </td> <td>NEGATIVE</td> </tr> <tr> < td>UA EPITHELIAL CELLS</td> <td>1+ epi/hpf</td> <td>0 - 1+</td > </tr> <tr> <td>UA MUCUS</td> <td>1+ </td> <td>NEG TO 1+</td> </tr> <tr> <td>UA RBC</td> <td>>100 rbc/hpf</td> <td>0 - 3</td> </tr> <tr> <td>UA VOLUME FOR EXAM</td> <td>12.0 mL</td> <td>( 12mL STD)</td> </tr> <tr> <td>UA WBC</td> <td>0- 1 wbc/hpf</td> <td>0 - 5</td> </tr> <tr> <td>UA SPECIFIC GRAVITY</td> <td>1.005 </td> <td>1.015-1.025</td> </tr> <tr> <td>UR PH</td> <td>5.0 </td> < td>5.0-7.0</td> </tr> <tr> <th colspan="10">GLUCOSE (POC ) - 11/11/12 22:25</th> </tr> <tr> <td>GLUCOSE (POC)</td > <td>160 mg/dL</td> <td>70-99</td> </tr> <tr> <th colspan="10">GLUCOSE (POC) - 11/11/12 23:39</th> </tr> <tr> <td>GLUCOSE (POC)</td> <td>203 mg/dL</td> <td >70-99</td> </tr> <tr> <th colspan="10">GLUCOSE (POC) - 11/11/12 23:49</th> </tr> <tr> <td>GLUCOSE (POC)</td> <td>140 mg/dL</td> <td>70-99</td> </tr> <tr> <th colspan="10">CBC W/DIFF - 11/12/12 04:23</th> </tr> <tr> <td>COMMENT</td> <td>REVIEWED </td> <td /> </ tr> <tr> <td>GRANULOCYTE #</td> <td>12.5 k/cumm</td> <td>2.0-9.0</td> </tr> <tr> <td>GRANULOCYTE % </td> <td>88 %</td> <td>50-75</td> </tr> <tr > <td>LYMPHOCYTE #</td> <td>0.7 k/cumm</td> <td>1.0- 4.0</td> </tr> <tr> <td>LYMPHOCYTE %</td> < td>5 %</td> <td>20-30</td> </tr> <tr> <td> MEAN CELL HGB</td> <td>33.5 pg</td> <td>27.0-33.0</td> </tr> <tr> <td>MEAN CELL HGB CONCENTRATION</td> <td> 35.5 g/dL</td> <td>32.0-37.0</td> </tr> <tr> <td >MEAN CELL VOLUME</td> <td>94.5 fl</td> <td>80.0-100.0</td> </tr> <tr> <td>MONOCYTE #</td> <td>1.0 k/cumm</td > <td>0.1-1.0</td> </tr> <tr> <td>MONOCYTE % </td> <td>7 %</td> <td>4-6</td> </tr> <tr> <td>RED BLOOD CELL</td> <td>3.10 m/cumm</td> <td>4.00 -6.00</td> </tr> <tr> <td>RED CELL DISTRIBUTION WIDTH</td > <td>12.1 %</td> <td>11.0-15.6</td> </tr> < tr> <td>WHITE BLOOD CELL</td> <td>14.3 k/cumm</td> < td>5.0-10.0</td> </tr> <tr> <td>HEMOGLOBIN</td> <td>10.4 gm/dL</td> <td>14.0-18.0</td> </tr> <tr> <td>HEMATOCRIT</td> <td>29.3 %</td> <td>40.0-54.0</td> </tr> <tr> <td>PLATELET COUNT</td> <td>176 k/ cumm</td> <td>150-400</td> </tr> <tr> <th colspan="10">PROTHROMBIN TIME WITH INR - 11/12/12 04:23</th> </tr> <tr> <td>INTERNATIONAL NORMAL RATIO</td> <td>1.1 </td> <td>0.9-1.1</td> </tr> <tr> <td>PROTHROMBIN TIME</td > <td>12.4 sec</td> <td>9.3-12.2</td> </tr> <tr > <th colspan="10">LACTIC ACID - 11/12/12 04:23</th> </tr> <tr> <td>LACTIC ACID</td> <td>0.8 mmol/L</td> <td> 0.5-2.2</td> </tr> <tr> <th colspan="10">RENAL FUNCTION PANEL - 11/12/12 04:23</th> </tr> <tr> <td>POTASSIUM</td > <td>2.9 mmol/L</td> <td>3.5-5.3</td> </tr> <tr > <td>EST GFR (MDRD)</td> <td>41 mL/min</td> <td>&gt ; 59</td> </tr> <tr> <td>ANION GAP</td> <td>12 mmol/L</td> <td>5-15</td> </tr> <tr> <td>GLUCOSE </td> <td>100 mg/dL</td> <td>70-99</td> </tr> < tr> <td>CALCIUM</td> <td>7.0 mg/dL</td> <td>8.5-10.1< /td> </tr> <tr> <td>BLOOD UREA NITROGEN</td> <td >31 mg/dL</td> <td>7-20</td> </tr> <tr> <td> CREATININE</td> <td>1.8 mg/dL</td> <td>0.8-1.3</td> </ tr> <tr> <td>SODIUM</td> <td>140 mmol/L</td> < td>135-148</td> </tr> <tr> <td>CHLORIDE</td> <td >108 mmol/L</td> <td>98-110</td> </tr> <tr> <td> CARBON DIOXIDE</td> <td>20 mmol/L</td> <td>21-32</td> < /tr> <tr> <td>ALBUMIN</td> <td>2.5 gm/dL</td> <td>3.4-5.0</td> </tr> <tr> <td>PHOSPHORUS</td> <td>4.5 mg/dL</td> <td>2.5-4.9</td> </tr> <tr> < th colspan="10">LIPID PANEL - 11/12/12 04:23</th> </tr> <tr> <td>CHOLESTEROL/HDL RATIO</td> <td>1.8 </td> <td> < 5.0</td> </tr> <tr> <td>LDL CHOLESTEROL</td> <td >31 mg/dL</td> <td>< 100</td> </tr> <tr> <td> VLDL CHOLESTEROL</td> <td>6 mg/dL</td> <td>< 30</td> </tr> <tr> <td>TRIGLYCERIDES</td> <td>31 mg/dL</td> <td>< 150</td> </tr> <tr> <td>CHOLESTEROL</td > <td>82 mg/dL</td> <td>< 200</td> </tr> <tr > <td>HDL CHOLESTEROL</td> <td>45 mg/dL</td> <td>&gt ; 39</td> </tr> <tr> <th colspan="10">MAGNESIUM - 04:23</th> </tr> <tr> <td>MAGNESIUM</td> <td> 1.4 mg/dL</td> <td>1.8-2.4</td> </tr> <tr> <th colspan="10">CAMPYLOBACTER ANTIGEN - 11/12/12 09:30</th> </tr> <tr > <td>Uncategorized</td> <td> </td> <td /> </ tr> <tr> <th colspan="10">STOOL LEUKOCYTES - 11/12/12 09:30</th > </tr> <tr> <td>Uncategorized</td> <td> </td> <td /> </tr> <tr> <th colspan="10">OVA AND PARASITES - 11/12/12 09:30</th> </tr> <tr> <td> Uncategorized</td> <td> </td> <td /> </tr> <tr> <th colspan="10">GLUCOSE (POC) - 11/12/12 17:02</th> </tr> <tr> <td>GLUCOSE (POC)</td> <td>131 mg/dL</td> < td>70-99</td> </tr> <tr> <th colspan="10">CBC W/DIFF - 04:09</th> </tr> <tr> <td>EOSINOPHIL #</td> <td>0.1 k/cumm</td> <td>0.1-0.5</td> </tr> <tr> <td>EOSINOPHIL %</td> <td>1 %</td> <td>2-4</td> </tr> <tr> <td>GRANULOCYTE #</td> <td>9.2 k/cumm </td> <td>2.0-9.0</td> </tr> <tr> <td> GRANULOCYTE %</td> <td>82 %</td> <td>50-75</td> </tr> <tr> <td>LYMPHOCYTE #</td> <td>1.0 k/cumm</td> <td>1.0-4.0</td> </tr> <tr> <td>LYMPHOCYTE &#37 ;</td> <td>9 %</td> <td>20-30</td> </tr> <tr > <td>MEAN CELL HGB</td> <td>33.4 pg</td> <td>27.0- 33.0</td> </tr> <tr> <td>MEAN CELL HGB CONCENTRATION</td > <td>34.9 g/dL</td> <td>32.0-37.0</td> </tr> < tr> <td>MEAN CELL VOLUME</td> <td>95.8 fl</td> <td> 80.0-100.0</td> </tr> <tr> <td>MONOCYTE #</td> < td>0.9 k/cumm</td> <td>0.1-1.0</td> </tr> <tr> < td>MONOCYTE %</td> <td>8 %</td> <td>4-6</td> </ tr> <tr> <td>RED BLOOD CELL</td> <td>3.11 m/cumm</td> <td>4.00-6.00</td> </tr> <tr> <td>RED CELL DISTRIBUTION WIDTH</td> <td>12.5 %</td> <td>11.0-15.6</td > </tr> <tr> <td>WHITE BLOOD CELL</td> <td>11.2 k/cumm</td> <td>5.0-10.0</td> </tr> <tr> <td> HEMOGLOBIN</td> <td>10.4 gm/dL</td> <td>14.0-18.0</td> </tr> <tr> <td>HEMATOCRIT</td> <td>29.8 %</td> <td>40.0-54.0</td> </tr> <tr> <td>PLATELET COUNT</ td> <td>166 k/cumm</td> <td>150-400</td> </tr> < tr> < colspan="10">RENAL FUNCTION PANEL - 11/13/12 04:09</th> </tr> <tr> <td>POTASSIUM</td> <td>2.8 mmol/L</td> <td>3.5-5.3</td> </tr> <tr> <td>EST GFR (MDRD)</td> <td>47 mL/min</td> <td>> 59</td> </tr> <tr> <td>ANION GAP</td> <td>9 mmol/L</td> <td>5-15</td> </tr> <tr> <td>GLUCOSE</td> <td>193 mg/dL</td> <td>70-99</td> </tr> <tr> <td>CALCIUM</td> <td>7.9 mg/dL</td> <td>8.5-10.1</td> </tr> <tr> <td>BLOOD UREA NITROGEN</td> <td>25 mg/dL</td> <td>7-20< /td> </tr> <tr> <td>CREATININE</td> <td>1.6 mg/ dL</td> <td>0.8-1.3</td> </tr> <tr> <td>SODIUM</ td> <td>140 mmol/L</td> <td>135-148</td> </tr> < tr> <td>CHLORIDE</td> <td>108 mmol/L</td> <td>98-110< /td> </tr> <tr> <td>CARBON DIOXIDE</td> <td>23 mmol/L</td> <td>21-32</td> </tr> <tr> <td> ALBUMIN</td> <td>2.3 gm/dL</td> <td>3.4-5.0</td> </tr> <tr> <td>PHOSPHORUS</td> <td>0.9 mg/dL</td> < td>2.5-4.9</td> </tr> <tr> <th colspan="10">MAGNESIUM - 11/13/12 04:09</th> </tr> <tr> <td>MAGNESIUM</td> <td>1.7 mg/dL</td> <td>1.8-2.4</td> </tr> <tr> <th colspan="10">GLUCOSE (POC) - 11/13/12 04:10</th> </tr> <tr > <td>GLUCOSE (POC)</td> <td>219 mg/dL</td> <td>70-99 </td> </tr> <tr> <th colspan="10">GLUCOSE (POC) - 10:50</th> </tr> <tr> <td>GLUCOSE (POC)</td> <td>67 mg/dL</td> <td>70-99</td> </tr> <tr> <th colspan="10">RENAL FUNCTION PANEL - 11/13/12 14:56</th> </tr> <tr > <td>POTASSIUM</td> <td>3.6 mmol/L</td> <td>3.5-5.3< /td> </tr> <tr> <td>EST GFR (MDRD)</td> <td>51 mL/min</td> <td>> 59</td> </tr> <tr> <td> ANION GAP</td> <td>8 mmol/L</td> <td>5-15</td> </tr> <tr> <td>GLUCOSE</td> <td>167 mg/dL</td> <td>70 -99</td> </tr> <tr> <td>CALCIUM</td> <td>7.8 mg/ dL</td> <td>8.5-10.1</td> </tr> <tr> <td>BLOOD UREA NITROGEN</td> <td>19 mg/dL</td> <td>7-20</td> </tr > <tr> <td>CREATININE</td> <td>1.5 mg/dL</td> <td>0.8-1.3</td> </tr> <tr> <td>SODIUM</td> <td> 137 mmol/L</td> <td>135-148</td> </tr> <tr> <td> CHLORIDE</td> <td>104 mmol/L</td> <td>98-110</td> </tr > <tr> <td>CARBON DIOXIDE</td> <td>25 mmol/L</td> <td>21-32</td> </tr> <tr> <td>ALBUMIN</td> <td>2.4 gm/dL</td> <td>3.4-5.0</td> </tr> <tr> < td>PHOSPHORUS</td> <td>2.8 mg/dL</td> <td>2.5-4.9</td> </tr> <tr> <th colspan="10">GLUCOSE (POC) - 11/13/12 16:30</th> </tr> <tr> <td>GLUCOSE (POC)</td> <td>107 mg/dL </td> <td>70-99</td> </tr> <tr> <th colspan="10 ">GLUCOSE (POC) - 11/13/12 19:38</th> </tr> <tr> <td> GLUCOSE (POC)</td> <td>87 mg/dL</td> <td>70-99</td> </ tr> <tr> <th colspan="10">GLUCOSE (POC) - 11/14/12 06:14</th> </tr> <tr> <td>GLUCOSE (POC)</td> <td>115 mg/dL</ td> <td>70-99</td> </tr> <tr> <th colspan="10"> GLUCOSE (POC) - 11/14/12 10:14</th> </tr> <tr> <td> GLUCOSE (POC)</td> <td>51 mg/dL</td> <td>70-99</td> </ tr> <tr> <th colspan="10">GLUCOSE (POC) - 11/14/12 11:43</th> </tr> <tr> <td>GLUCOSE (POC)</td> <td>102 mg/dL</ td> <td>70-99</td> </tr> <tr> <th colspan="10"> CBC W/DIFF - 11/14/12 12:13</th> </tr> <tr> <td> EOSINOPHIL #</td> <td>0.3 k/cumm</td> <td>0.1-0.5</td> </tr> <tr> <td>EOSINOPHIL %</td> <td>4 %</td> <td>2-4</td> </tr> <tr> <td>GRANULOCYTE #</td> <td>6.8 k/cumm</td> <td>2.0-9.0</td> </tr> <tr> <td>GRANULOCYTE %</td> <td>74 %</td> <td>50- 75</td> </tr> <tr> <td>LYMPHOCYTE #</td> <td> 1.4 k/cumm</td> <td>1.0-4.0</td> </tr> <tr> <td> LYMPHOCYTE %</td> <td>15 %</td> <td>20-30</td> </tr> <tr> <td>MEAN CELL HGB</td> <td>32.9 pg</td> <td>27.0-33.0</td> </tr> <tr> <td>MEAN CELL HGB CONCENTRATION</td> <td>34.1 g/dL</td> <td>32.0-37.0</td> </tr> <tr> <td>MEAN CELL VOLUME</td> <td>96.3 fl</td > <td>80.0-100.0</td> </tr> <tr> <td>MONOCYTE #< /td> <td>0.7 k/cumm</td> <td>0.1-1.0</td> </tr> <tr> <td>MONOCYTE %</td> <td>7 %</td> <td>4-6 </td> </tr> <tr> <td>RED BLOOD CELL</td> <td> 3.47 m/cumm</td> <td>4.00-6.00</td> </tr> <tr> < td>RED CELL DISTRIBUTION WIDTH</td> <td>13.0 %</td> <td> 11.0-15.6</td> </tr> <tr> <td>WHITE BLOOD CELL</td> <td>9.2 k/cumm</td> <td>5.0-10.0</td> </tr> <tr> <td>HEMOGLOBIN</td> <td>11.4 gm/dL</td> <td>14.0-18.0</ td> </tr> <tr> <td>HEMATOCRIT</td> <td>33.4 &#37 ;</td> <td>40.0-54.0</td> </tr> <tr> <td> PLATELET COUNT</td> <td>181 k/cumm</td> <td>150-400</td> </tr> <tr> <th colspan="10">RENAL FUNCTION PANEL - 11/14/12 12:13</th> </tr> <tr> <td>POTASSIUM</td> <td> 4.0 mmol/L</td> <td>3.5-5.3</td> </tr> <tr> <td> EST GFR (MDRD)</td> <td>60 mL/min</td> <td>> 59</td> </tr> <tr> <td>ANION GAP</td> <td>9 mmol/L</td> <td>5-15</td> </tr> <tr> <td>GLUCOSE</td> < td>107 mg/dL</td> <td>70-99</td> </tr> <tr> <td> CALCIUM</td> <td>8.7 mg/dL</td> <td>8.5-10.1</td> </tr > <tr> <td>BLOOD UREA NITROGEN</td> <td>17 mg/dL</td> <td>7-20</td> </tr> <tr> <td>CREATININE</td> <td>1.3 mg/dL</td> <td>0.8-1.3</td> </tr> <tr> <td>SODIUM</td> <td>137 mmol/L</td> <td>135-148</td> </tr> <tr> <td>CHLORIDE</td> <td>101 mmol/L</td> <td>98-110</td> </tr> <tr> <td>CARBON DIOXIDE</ td> <td>27 mmol/L</td> <td>21-32</td> </tr> <tr > <td>ALBUMIN</td> <td>3.0 gm/dL</td> <td>3.4-5.0</td > </tr> <tr> <td>PHOSPHORUS</td> <td>2.9 mg/dL</ td> <td>2.5-4.9</td> </tr> <tr> < colspan="10 ">MAGNESIUM - 11/14/12 12:13</th> </tr> <tr> <td> MAGNESIUM</td> <td>1.5 mg/dL</td> <td>1.8-2.4</td> </tr > <tr> <th colspan="10">GLUCOSE (POC) - 11/14/12 14:34</th> </tr> <tr> <td>GLUCOSE (POC)</td> <td>63 mg/dL</td > <td>70-99</td> </tr> <tr> <th colspan="10"> GLUCOSE (POC) - 11/14/12 15:02</th> </tr> <tr> <td> GLUCOSE (POC)</td> <td>40 mg/dL</td> <td>70-99</td> </ tr> <tr> <th colspan="10">GLUCOSE (POC) - 11/14/12 15:43</th> </tr> <tr> <td>GLUCOSE (POC)</td> <td>88 mg/dL</ td> <td>70-99</td> </tr> <tr> <th colspan="10"> GLUCOSE (POC) - 11/14/12 19:49</th> </tr> <tr> <td> GLUCOSE (POC)</td> <td>97 mg/dL</td> <td>70-99</td> </ tr> <tr> <th colspan="10">GLUCOSE (POC) - 11/15/12 05:42</th> </tr> <tr> <td>GLUCOSE (POC)</td> <td>148 mg/dL</ td> <td>70-99</td> </tr> <tr> <th colspan="10"> CBC W/DIFF - 11/15/12 06:20</th> </tr> <tr> <td> EOSINOPHIL #</td> <td>0.4 k/cumm</td> <td>0.1-0.5</td> </tr> <tr> <td>EOSINOPHIL %</td> <td>5 %</td> <td>2-4</td> </tr> <tr> <td>GRANULOCYTE #</td> <td>5.2 k/cumm</td> <td>2.0-9.0</td> </tr> <tr> <td>GRANULOCYTE %</td> <td>67 %</td> <td>50- 75</td> </tr> <tr> <td>LYMPHOCYTE #</td> <td> 1.3 k/cumm</td> <td>1.0-4.0</td> </tr> <tr> <td> LYMPHOCYTE %</td> <td>17 %</td> <td>20-30</td> </tr> <tr> <td>MEAN CELL HGB</td> <td>32.6 pg</td> <td>27.0-33.0</td> </tr> <tr> <td>MEAN CELL HGB CONCENTRATION</td> <td>34.1 g/dL</td> <td>32.0-37.0</td> </tr> <tr> <td>MEAN CELL VOLUME</td> <td>95.3 fl</td > <td>80.0-100.0</td> </tr> <tr> <td>MONOCYTE #< /td> <td>0.8 k/cumm</td> <td>0.1-1.0</td> </tr> <tr> <td>MONOCYTE %</td> <td>10 %</td> <td>4- 6</td> </tr> <tr> <td>RED BLOOD CELL</td> <td> 3.44 m/cumm</td> <td>4.00-6.00</td> </tr> <tr> < td>RED CELL DISTRIBUTION WIDTH</td> <td>12.9 %</td> <td> 11.0-15.6</td> </tr> <tr> <td>WHITE BLOOD CELL</td> <td>7.8 k/cumm</td> <td>5.0-10.0</td> </tr> <tr> <td>HEMOGLOBIN</td> <td>11.2 gm/dL</td> <td>14.0-18.0</ td> </tr> <tr> <td>HEMATOCRIT</td> <td>32.8 &#37 ;</td> <td>40.0-54.0</td> </tr> <tr> <td> PLATELET COUNT</td> <td>202 k/cumm</td> <td>150-400</td> </tr> <tr> <th colspan="10">RENAL FUNCTION PANEL - 11/15/12 06:20</th> </tr> <tr> <td>POTASSIUM</td> <td> 3.9 mmol/L</td> <td>3.5-5.3</td> </tr> <tr> <td> EST GFR (MDRD)</td> <td>> 60 mL/min</td> <td>> 59</td> </tr> <tr> <td>ANION GAP</td> <td>10 mmol/L</td > <td>5-15</td> </tr> <tr> <td>GLUCOSE</td> <td>107 mg/dL</td> <td>70-99</td> </tr> <tr> <td>CALCIUM</td> <td>8.9 mg/dL</td> <td>8.5-10.1</td> </tr> <tr> <td>BLOOD UREA NITROGEN</td> <td>21 mg/ dL</td> <td>7-20</td> </tr> <tr> <td>CREATININE< /td> <td>1.2 mg/dL</td> <td>0.8-1.3</td> </tr> < tr> <td>SODIUM</td> <td>141 mmol/L</td> <td>135-148</ td> </tr> <tr> <td>CHLORIDE</td> <td>106 mmol/L< /td> <td>98-110</td> </tr> <tr> <td>CARBON DIOXIDE</td> <td>25 mmol/L</td> <td>21-32</td> </tr> <tr> <td>ALBUMIN</td> <td>2.9 gm/dL</td> <td> 3.4-5.0</td> </tr> <tr> <td>PHOSPHORUS</td> <td> 3.7 mg/dL</td> <td>2.5-4.9</td> </tr> <tr> < colspan="10">MAGNESIUM - 11/15/12 06:20</th> </tr> <tr> < td>MAGNESIUM</td> <td>1.4 mg/dL</td> <td>1.8-2.4</td> < /tr> <tr> < colspan="10">GLUCOSE (POC) - 11/15/12 11:04</th> </tr> <tr> <td>GLUCOSE (POC)</td> <td>59 mg/dL</ td> <td>70-99</td> </tr> <tr> < colspan="10"> GLUCOSE (POC) - 11/15/12 11:25</th> </tr> <tr> <td> GLUCOSE (POC)</td> <td>104 mg/dL</td> <td>70-99</td> </ tr> <tr> <th colspan="10">GLUCOSE (POC) - 11/15/12 16:40</th> </tr> <tr> <td>GLUCOSE (POC)</td> <td>101 mg/dL</ td> <td>70-99</td> </tr> <tr> <th colspan="10"> GLUCOSE (POC) - 11/15/12 20:06</th> </tr> <tr> <td> GLUCOSE (POC)</td> <td>57 mg/dL</td> <td>70-99</td> </ tr> <tr> <th colspan="10">GLUCOSE (POC) - 11/15/12 21:06</th> </tr> <tr> <td>GLUCOSE (POC)</td> <td>108 mg/dL</ td> <td>70-99</td> </tr> <tr> <th colspan="10"> CBC W/DIFF - 11/16/12 05:19</th> </tr> <tr> <td>BASOPHIL #</td> <td>0.0 k/cumm</td> <td>0.0-0.2</td> </tr> <tr> <td>BASOPHIL %</td> <td>1 %</td> <td> 0-1</td> </tr> <tr> <td>EOSINOPHIL #</td> <td> 0.6 k/cumm</td> <td>0.1-0.5</td> </tr> <tr> <td> EOSINOPHIL %</td> <td>7 %</td> <td>2-4</td> </ tr> <tr> <td>GRANULOCYTE #</td> <td>4.5 k/cumm</td> <td>2.0-9.0</td> </tr> <tr> <td>GRANULOCYTE %< /td> <td>53 %</td> <td>50-75</td> </tr> <tr > <td>LYMPHOCYTE #</td> <td>2.1 k/cumm</td> <td>1.0- 4.0</td> </tr> <tr> <td>LYMPHOCYTE %</td> < td>25 %</td> <td>20-30</td> </tr> <tr> <td> MEAN CELL HGB</td> <td>32.3 pg</td> <td>27.0-33.0</td> </tr> <tr> <td>MEAN CELL HGB CONCENTRATION</td> <td> 33.8 g/dL</td> <td>32.0-37.0</td> </tr> <tr> <td >MEAN CELL VOLUME</td> <td>95.4 fl</td> <td>80.0-100.0</td> </tr> <tr> <td>MONOCYTE #</td> <td>1.1 k/cumm</td > <td>0.1-1.0</td> </tr> <tr> <td>MONOCYTE % </td> <td>13 %</td> <td>4-6</td> </tr> <tr> <td>RED BLOOD CELL</td> <td>3.47 m/cumm</td> <td> 4.00-6.00</td> </tr> <tr> <td>RED CELL DISTRIBUTION WIDTH </td> <td>12.8 %</td> <td>11.0-15.6</td> </tr> <tr> <td>WHITE BLOOD CELL</td> <td>8.4 k/cumm</td> <td>5.0-10.0</td> </tr> <tr> <td>HEMOGLOBIN</td> <td>11.2 gm/dL</td> <td>14.0-18.0</td> </tr> <tr> <td>HEMATOCRIT</td> <td>33.1 %</td> <td>40.0-54.0< /td> </tr> <tr> <td>PLATELET COUNT</td> <td>231 k/cumm</td> <td>150-400</td> </tr> <tr> <th colspan="10">METABOLIC PANEL, BASIC - 11/16/12 05:19</th> </tr> < tr> <td>POTASSIUM</td> <td>3.9 mmol/L</td> <td>3.5- 5.3</td> </tr> <tr> <td>EST GFR (MDRD)</td> <td> 60 mL/min</td> <td>> 59</td> </tr> <tr> <td> ANION GAP</td> <td>10 mmol/L</td> <td>5-15</td> </tr> <tr> <td>GLUCOSE</td> <td>78 mg/dL</td> <td>70 -99</td> </tr> <tr> <td>CALCIUM</td> <td>9.1 mg/ dL</td> <td>8.5-10.1</td> </tr> <tr> <td>BLOOD UREA NITROGEN</td> <td>24 mg/dL</td> <td>7-20</td> </tr > <tr> <td>CREATININE</td> <td>1.3 mg/dL</td> <td>0.8-1.3</td> </tr> <tr> <td>SODIUM</td> <td> 128 mmol/L</td> <td>135-148</td> </tr> <tr> <td> CHLORIDE</td> <td>93 mmol/L</td> <td>98-110</td> </tr> <tr> <td>CARBON DIOXIDE</td> <td>25 mmol/L</td> <td>21-32</td> </tr> <tr> <th colspan="10">MAGNESIUM - 11/16/12 05:19</th> </tr> <tr> <td>MAGNESIUM</td> <td>1.6 mg/dL</td> <td>1.8-2.4</td> </tr> <tr> <th colspan="10">GLUCOSE (POC) - 11/16/12 06:10</th> </tr> < tr> <td>GLUCOSE (POC)</td> <td>43 mg/dL</td> <td>70- 99</td> </tr> <tr> <th colspan="10">GLUCOSE (POC) - 11/16 06:12</th> </tr> <tr> <td>GLUCOSE (POC)</td> <td>34 mg/dL</td> <td>70-99</td> </tr> <tr> < th colspan="10">GLUCOSE (POC) - 11/16/12 07:11</th> </tr> <tr> <td>GLUCOSE (POC)</td> <td>39 mg/dL</td> <td>70-99</td > </tr> <tr> <th colspan="10">GLUCOSE (POC) - 11/16/12 11 :11</th> </tr> <tr> <td>GLUCOSE (POC)</td> <td> 88 mg/dL</td> <td>70-99</td> </tr> <tr> <th colspan="10">METABOLIC PANEL, BASIC - 11/16/12 13:54</th> </tr> < tr> <td>POTASSIUM</td> <td>3.8 mmol/L</td> <td>3.5- 5.3</td> </tr> <tr> <td>EST GFR (MDRD)</td> <td> 60 mL/min</td> <td>> 59</td> </tr> <tr> <td> ANION GAP</td> <td>10 mmol/L</td> <td>5-15</td> </tr> <tr> <td>GLUCOSE</td> <td>82 mg/dL</td> <td>70 -99</td> </tr> <tr> <td>CALCIUM</td> <td>9.0 mg/ dL</td> <td>8.5-10.1</td> </tr> <tr> <td>BLOOD UREA NITROGEN</td> <td>28 mg/dL</td> <td>7-20</td> </tr > <tr> <td>CREATININE</td> <td>1.3 mg/dL</td> <td>0.8-1.3</td> </tr> <tr> <td>SODIUM</td> <td> 132 mmol/L</td> <td>135-148</td> </tr> <tr> <td> CHLORIDE</td> <td>94 mmol/L</td> <td>98-110</td> </tr> <tr> <td>CARBON DIOXIDE</td> <td>28 mmol/L</td> <td>21-32</td> </tr> <tr> <th colspan="10">COMPLETE BLOOD COUNT - 06/03/13 10:55</th> </tr> <tr> <td>Platelet </td> <td>217 10^3u</td> <td>142-424</td> </tr> <tr> <td>MPV</td> <td>8.8 FL</td> <td>9.4-12.4</td> </tr> <tr> <td>Bre[place] #</td> <td>0.65 10^3u</td> <td>0.0-1.0</td> </tr> <tr> <td>RBC</td> <td>3.45 10^6u</td> <td>4.04-6.13</td> </tr> <tr> <td>Breathitt %</td> <td>8.9 %</td> <td>0-12</td> </tr> <tr> <td>RDW</td> <td>12.6 %</td> <td>11.6-14.8</td> </tr> <tr> <td>Neut #</td> <td>4.81 10^3u</td> <td>2.0-6.9</td> </tr> <tr> <td>Neut %</td> <td>65.6 %</td> <td>37-80</td> </tr> <tr> <td>WBC</td> <td>7.33 10^3u</td> <td>4.60-10.20</td> </tr> <tr> <td>MCV</td> <td>96.5 FL</td> <td>80.0-97.0</td> </tr> <tr> < td>Baso #</td> <td>0.04 10^3u</td> <td>0.0-0.1</td> </ tr> <tr> <td>Baso %</td> <td>0.5 %</td> <td>0-2</td> </tr> <tr> <td>Eos #</td> <td> 0.38 10^3u</td> <td>0-0.7</td> </tr> <tr> <td> Eos %</td> <td>5.2 %</td> <td>0-7</td> </tr> <tr> <td>Lymph %</td> <td>19.8 %</td> < td>10-50</td> </tr> <tr> <td>MCHC</td> <td>34.5 G/DL</td> <td>31.8-35.4</td> </tr> <tr> <td>MCH< /td> <td>33.3 PG</td> <td>27.0-31.2</td> </tr> < tr> <td>Lymph #</td> <td>1.45 10^3u</td> <td>0.6-3.4< /td> </tr> <tr> <td>HGB</td> <td>11.5 G/DL</td> <td>12.2-18.1</td> </tr> <tr> <td>HCT</td> <td>33.3 %</td> <td>37.7-53.7</td> </tr> <tr> <th colspan="10">[facility] - 06/03/13 10:55</th> </tr> <tr> <td>Osmo Calculated</td> <td>267 MOSM</td> <td>261-280< /td> </tr> <tr> <td>Sodium</td> <td>135 MMOLL</ td> <td>137-145</td> </tr> <tr> <td>T. Protein</ td> <td>6.3 G/DL</td> <td>6.3-8.2</td> </tr> <tr > <td>Potassium</td> <td>4.0 MMOLL</td> <td>3.6-5.0</ td> </tr> <tr> <td>T Bili</td> <td>0.3 MG/DL</td > <td>0.2-1.3</td> </tr> <tr> <td>Calcium</td> <td>9.2 MG/DL</td> <td>8.4-10.2</td> </tr> <tr> <td>BUN</td> <td>30 MG/DL</td> <td>7-21</td> </tr> <tr> <td>Chloride</td> <td>99 MMOLL</td> <td>98-107</td> </tr> <tr> <td>AST</td> <td> 20 U/L</td> <td>15-46</td> </tr> <tr> <td>ALT</ td> <td>28 U/L</td> <td>7-56</td> </tr> <tr> <td>Albumin</td> <td>3.6 G/DL</td> <td>3.5-5.0</td> </tr> <tr> <td>A/G Ratio</td> <td>1.4 RATIO</td> <td>1.2-2.2</td> </tr> <tr> <td>Bun/Creat</td> <td>18.5 RATIO</td> <td>7-25</td> </tr> <tr> <td>Alk Phos</td> <td>88 U/L</td> <td>38-126</td> </tr> <tr> <td>CO2</td> <td>29 MMOLL</td> < td>22-30</td> </tr> <tr> <td>Glucose</td> <td> 73 MG/DL</td> <td>65-110</td> </tr> <tr> <td> Globulin</td> <td>2.7 </td> <td>2.4-3.5</td> </tr> <tr> <td>Creatinine</td> <td>1.6 MG/DL</td> <td> 0.7-1.5</td> </tr> <tr> <th colspan="10">BNP - 06/03/13 10:55</th> </tr> <tr> <td>BNP</td> <td>57.0 PG/ ML</td> <td><=100</td> </tr> <tr> <th colspan ="10">COMPLETE BLOOD COUNT - 12/07/15 17:34</th> </tr> <tr> <td>Platelet</td> <td>227 10^3u</td> <td>142-424</td> </tr> <tr> <td>MPV</td> <td>9.9 FL</td> < td>9.4-12.4</td> </tr> <tr> <td>Breath[place] #</td> <td> 0.96 10^3u</td> <td>0.0-1.0</td> </tr> <tr> <td> RBC</td> <td>3.55 10^6u</td> <td>4.04-6.13</td> </tr> <tr> <td>Breath[place] %</td> <td>12.0 %</td> < td>0-12</td> </tr> <tr> <td>RDW</td> <td>12.9 &# 37;</td> <td>11.6-14.8</td> </tr> <tr> <td>Neut #</td> <td>4.23 10^3u</td> <td>2.0-6.9</td> </tr> <tr> <td>Neut %</td> <td>52.9 %</td> <td> 37-80</td> </tr> <tr> <td>WBC</td> <td>7.99 10^ 3u</td> <td>4.60-10.20</td> </tr> <tr> <td>MCV</ td> <td>101.1 FL</td> <td>80.0-97.0</td> </tr> < tr> <td>Baso #</td> <td>0.03 10^3u</td> <td>0.0-0.1</ td> </tr> <tr> <td>Baso %</td> <td>0.4 % </td> <td>0-2</td> </tr> <tr> <td>Eos #</td> <td>0.51 10^3u</td> <td>0-0.7</td> </tr> <tr> <td>Eos %</td> <td>6.4 %</td> <td>0-7</td> </tr> <tr> <td>Lymph %</td> <td>28.3 %</td> <td>10-50</td> </tr> <tr> <td>MCHC</td> <td>34.5 G/DL</td> <td>31.8-35.4</td> </tr> <tr> <td>MCH</td> <td>34.9 PG</td> <td>27.0-31.2</td> < /tr> <tr> <td>Lymph #</td> <td>2.26 10^3u</td> <td>0.6-3.4</td> </tr> <tr> <td>HGB</td> <td> 12.4 G/DL</td> <td>12.2-18.1</td> </tr> <tr> <td >HCT</td> <td>35.9 %</td> <td>37.7-53.7</td> </tr> <tr> <th colspan="10">BNP - 12/07/15 17:59</th> </tr> <tr> <td>BNP</td> <td>17.6 PG/ML</td> <td><= 100</td> </tr> <tr> <th colspan="10">Troponin I - 18:09</th> </tr> <tr> <td>Troponin I</td> <td >0.02 NG/ML</td> <td><=0.20</td> </tr> <tr> < th colspan="10">CPK - 12/07/15 18:09</th> </tr> <tr> <td> CPK</td> <td>66 U/L</td> <td>30-170</td> </tr> < tr> <th colspan="10">CKMB - 12/07/15 18:09</th> </tr> <tr > <td>CKMB</td> <td>3.5 NG/ML</td> <td><=6</td> </tr> <tr> <th colspan="10">CMP - 12/07/15 18:09</th> </tr> <tr> <td>Osmo Calculated</td> <td>277 MOSM</ td> <td>261-280</td> </tr> <tr> <td>Sodium</td> <td>138 MMOLL</td> <td>136-145</td> </tr> <tr> <td>T. Protein</td> <td>6.9 G/DL</td> <td>6.4-8.3</ td> </tr> <tr> <td>Potassium</td> <td>4.4 MMOLL< /td> <td>3.5-5.1</td> </tr> <tr> <td>T Bili</td > <td>0.3 MG/DL</td> <td>0.2-1.2</td> </tr> <tr > <td>Calcium</td> <td>9.3 MG/DL</td> <td>8.4-10.2</ td> </tr> <tr> <td>BUN</td> <td>42 MG/DL</td> <td>7-26</td> </tr> <tr> <td>Chloride</td> <td>105 MMOLL</td> <td>98-107</td> </tr> <tr> <td>AST</td> <td>17 U/L</td> <td>5-34</td> </tr> <tr> <td>ALT</td> <td>12 U/L</td> <td>0-55</td> </tr> <tr> <td>Albumin</td> <td>3.4 G/DL</td> <td>3.5-5.0</td> </tr> <tr> <td>A/G Ratio</td> <td>1.0 RATIO</td> <td>1.2-2.2</td> </tr> <tr> <td>Bun/Creat</td> <td>22 RATIO</td> <td>7-25</td> </tr> <tr> <td>Alk Phos</td> <td>108 U/L</td> <td>40-150</td> </tr> <tr> <td>CO2</td> < td>25 MMOLL</td> <td>22-29</td> </tr> <tr> <td> Glucose</td> <td>94 MG/DL</td> <td>70-99</td> </tr> <tr> <td>Globulin</td> <td>3.5 G/DL</td> <td>2.4 -3.5</td> </tr> <tr> <td>Creatinine</td> <td> 1.9 MG/DL</td> <td>0.6-1.3</td> </tr> <tr> < colspan="10">Magnesium - 12/07/15 18:09</th> </tr> <tr> < td>Magnesium</td> <td>2.3 MG/DL</td> <td>1.6-2.8</td> < /tr> <tr> < colspan="10">Myoglobin - 12/07/15 18:09</th> </tr> <tr> <td>Myoglobin</td> <td>127.1 NG/ML</td> <td>10-85</td> </tr> <tr> < colspan="10">EKG - 12/11/15 03:26</th> </tr> <tr> <td>EKG</td> < td>SMR </td> <td /> </tr> <tr> <th colspan="10"> [facility] - 04/03/16 16:22</th> </tr> <tr> <td>Osmo Calculated< /td> <td>272 MOSM</td> <td>261-280</td> </tr> < tr> <td>Sodium</td> <td>138 MMOLL</td> <td>136-145</ td> </tr> <tr> <td>T. Protein</td> <td>6.1 G/DL< /td> <td>6.4-8.3</td> </tr> <tr> <td>Potassium</ td> <td>4.0 MMOLL</td> <td>3.5-5.1</td> </tr> < tr> <td>T Bili</td> <td>0.5 MG/DL</td> <td>0.2-1.2</ td> </tr> <tr> <td>Calcium</td> <td>9.4 MG/DL</ td> <td>8.4-10.2</td> </tr> <tr> <td>BUN</td> <td>28 MG/DL</td> <td>7-26</td> </tr> <tr> <td>Chloride</td> <td>103 MMOLL</td> <td>98-107</td> </tr> <tr> <td>AST</td> <td>16 U/L</td> <td >5-34</td> </tr> <tr> <td>ALT</td> <td>18 U/L</ td> <td>0-55</td> </tr> <tr> <td>Albumin</td> <td>3.2 G/DL</td> <td>3.5-5.0</td> </tr> <tr> <td>A/G Ratio</td> <td>1.1 RATIO</td> <td>1.2-2.2</td> </tr> <tr> <td>Bun/Creat</td> <td>16 RATIO</td > <td>7-25</td> </tr> <tr> <td>Alk Phos</td> <td>67 U/L</td> <td>40-150</td> </tr> <tr> <td>CO2</td> <td>30 MMOLL</td> <td>22-29</td> </tr> <tr> <td>Glucose</td> <td>101 MG/DL</td> <td> 70-99</td> </tr> <tr> <td>Globulin</td> <td>2.9 G/DL</td> <td>2.4-3.5</td> </tr> <tr> <td> Creatinine</td> <td>1.7 MG/DL</td> <td>0.6-1.3</td> </ tr> <tr> <th colspan="10">Amylase - 04/03/16 16:22</th> < /tr> <tr> <td>Amylase</td> <td>29 U/L</td> <td >25-125</td> </tr> <tr> <th colspan="10">Lipase - 16:22</th> </tr> <tr> <td>Lipase</td> <td>16 U/L</td> <td>8-78</td> </tr> <tr> <th colspan= "10">COMPLETE BLOOD COUNT - 04/03/16 16:29</th> </tr> <tr> <td>Platelet</td> <td>228 10^3u</td> <td>142-424</td> </tr> <tr> <td>MPV</td> <td>8.6 FL</td> <td >9.4-12.4</td> </tr> <tr> <td>Bre[place] #</td> <td> 1.10 10^3u</td> <td>0.0-1.0</td> </tr> <tr> <td> RBC</td> <td>2.94 10^6u</td> <td>4.04-6.13</td> </tr> <tr> <td>Breathitt %</td> <td>14.4 %</td> < td>0-12</td> </tr> <tr> <td>RDW</td> <td>12.7 &# 37;</td> <td>11.6-14.8</td> </tr> <tr> <td>Neut #</td> <td>4.79 10^3u</td> <td>2.0-6.9</td> </tr> <tr> <td>Neut %</td> <td>62.8 %</td> <td> 37-80</td> </tr> <tr> <td>WBC</td> <td>7.63 10^ 3u</td> <td>4.60-10.20</td> </tr> <tr> <td>MCV</ td> <td>103.4 FL</td> <td>80.0-97.0</td> </tr> < tr> <td>Baso #</td> <td>0.02 10^3u</td> <td>0.0-0.1</ td> </tr> <tr> <td>Baso %</td> <td>0.3 % </td> <td>0-2</td> </tr> <tr> <td>Eos #</td> <td>0.26 10^3u</td> <td>0-0.7</td> </tr> <tr> <td>Eos %</td> <td>3.4 %</td> <td>0-7</td> </tr> <tr> <td>Lymph %</td> <td>19.1 %</td> <td>10-50</td> </tr> <tr> <td>MCHC</td> <td>33.6 G/DL</td> <td>31.8-35.4</td> </tr> <tr> <td>MCH</td> <td>34.7 PG</td> <td>27.0-31.2</td> < /tr> <tr> <td>Lymph #</td> <td>1.46 10^3u</td> <td>0.6-3.4</td> </tr> <tr> <td>HGB</td> <td> 10.2 G/DL</td> <td>12.2-18.1</td> </tr> <tr> <td >HCT</td> <td>30.4 %</td> <td>37.7-53.7</td> </tr> <tr> < colspan="10">Urinalysis - 04/03/16 17:16</th> < /tr> <tr> <td>Glucose</td> <td>Negative </td> <td>Negative</td> </tr> <tr> <td>Leukocyte</td> <td>Trace </td> <td>Negative</td> </tr> <tr> <td >Nitrite</td> <td>Positive </td> <td>Negative</td> </tr > <tr> <td>pH</td> <td>7.0 </td> <td>5.5-7.5</ td> </tr> <tr> <td>Urine Appearance</td> <td> Clear </td> <td>Clear</td> </tr> <tr> <td> Protein</td> <td>Negative </td> <td>Negative</td> </tr > <tr> <td>Ketones</td> <td>Negative </td> <td >Negative</td> </tr> <tr> <td>Urobilinogen</td> <td>0.2 </td> <td>0.2-1.0</td> </tr> <tr> <td> Urine RBC</td> <td>N0-2 </td> <td /> </tr> <tr> <td>Specific [place]</td> <td>1.010 </td> <td>1.010- 1.020</td> </tr> <tr> <td>Urine WBC</td> <td>N11 -15 </td> <td /> </tr> <tr> <td>Urine Bacteria</ td> <td>4+ </td> <td /> </tr> <tr> <td> Blood</td> <td>Trace </td> <td>Negative</td> </tr> <tr> <td>Color</td> <td>Yellow </td> <td>Yellow</ td> </tr> <tr> <td>Bilirubin</td> <td>Negative < /td> <td>Negative</td> </tr> <tr> <td>Site</td> <td>VOID </td> <td /> </tr> </tbody> </table> </text> <entry> <organizer moodCode="EVN" classCode="BATTERY"> < templateId root="05.22.840.1.331511.10..4.1" /> <id nullFlavor="NA" /> <code codeSystem="local" code="CBLDR" displayName="Blood Culture" /> <statusCode code="completed" /> <component> <observation moodCode= "EVN" classCode="OBS"> <templateId root="16.840.1.393309.10...4.2 " /> <id nullFlavor="NA" /> <code codeSystem="local" code= "CBLDR" displayName="Blood Culture" /> <statusCode code="completed" /> <effectiveTime value="[id number]" /> <value unit="" xsi: type="PQ" value="SMR" /> <referenceRange> <observationRange > <text /> </observationRange> </referenceRange > </observation> </component> </organizer> </entry> <entry> <organizer moodCode="EVN" classCode="BATTERY"> <templateId root= "16.840.1.917524.01.23.22.4.1" /> <id nullFlavor="NA" /> <code codeSystem="local" code="CBLDR" displayName="Blood Culture" /> <statusCode code="completed" /> <component> <observation moodCode="EVN" classCode="OBS"> <templateId root="16.840.1.993973.01.23.22.4.2" /> <id nullFlavor="NA" /> <code codeSystem="local" code="CBLDR" displayName="Blood Culture" /> <statusCode code="completed" /> <effectiveTime value="" /> <value unit="" xsi:type="PQ" value="SMR" /> <referenceRange> <observationRange> <text /> </observationRange> </referenceRange> < /observation> </component> </organizer> </entry> <entry> < organizer moodCode="EVN" classCode="BATTERY"> <templateId root= "05.22.840.1.965141.01.23.22.4.1" /> <id nullFlavor="NA" /> <code codeSystem="local" code="TROP" displayName="Troponin I" /> <statusCode code ="completed" /> <component> <observation moodCode="EVN" classCode= "OBS"> <templateId root="05.22.840.1.291441.01.23.22.4.2" /> < id nullFlavor="NA" /> <code codeSystem="local" code="TROP" displayName= "Troponin I" /> <statusCode code="completed" /> < effectiveTime value="987038310820" /> <value unit="NG/ML" xsi:type="PQ " value="0.01" /> <referenceRange> <observationRange> <text><=0.20</text> </observationRange> </ referenceRange> </observation> </component> </organizer> </entry > <entry> <organizer moodCode="EVN" classCode="BATTERY"> <templateId root="16.840.1.300973.10..22.4.1" /> <id nullFlavor="NA" /> <code codeSystem="local" code="CK" displayName="CPK" /> <statusCode code= "completed" /> <component> <observation moodCode="EVN" classCode= "OBS"> <templateId root="16.840.1.635575.10..22.4.2" /> < id nullFlavor="NA" /> <code codeSystem="local" code="CK" displayName= "CPK" /> <statusCode code="completed" /> <effectiveTime value= "137332938143" /> <value unit="U/L" xsi:type="PQ" value="126" /> <referenceRange> <observationRange> <text>30-170</ text> </observationRange> </referenceRange> </ observation> </component> </organizer> </entry> <entry> <organizer moodCode="EVN" classCode="BATTERY"> <templateId root= "16.840.1.434059.10..22.4.1" /> <id nullFlavor="NA" /> <code codeSystem="local" code="MB" displayName="CKMB" /> <statusCode code= "completed" /> <component> <observation moodCode="EVN" classCode= "OBS"> <templateId root="16.840.1.615321.10...4.2" /> < id nullFlavor="NA" /> <code codeSystem="local" code="MB" displayName= "CKMB" /> <statusCode code="completed" /> <effectiveTime value ="070900025006" /> <value unit="NG/ML" xsi:type="PQ" value="5.5" /> <referenceRange> <observationRange> <text><=6< /text> </observationRange> </referenceRange> </ observation> </component> </organizer> </entry> <entry> <organizer moodCode="EVN" classCode="BATTERY"> <templateId root= "05.22.840.1.950522.10...4.1" /> <id nullFlavor="NA" /> <code codeSystem="local" code="CMP11" displayName="CMP" /> <statusCode code= "completed" /> <component> <observation moodCode="EVN" classCode= "OBS"> <templateId root="05.22.840.1.859041.10...4.2" /> < id nullFlavor="NA" /> <code codeSystem="local" code="OSMCAL" displayName="Osmo Calculated" /> <statusCode code="completed" /> <effectiveTime value="820421519720" /> <value unit="MOSM" xsi:type= "PQ" value="261" /> <referenceRange> <observationRange> <text>261-280</text> </observationRange> </ referenceRange> </observation> </component> <component> <observation moodCode="EVN" classCode="OBS"> <templateId root= "16.840.1.381737.10..22.4.2" /> <id nullFlavor="NA" /> < code codeSystem="local" code="NA" displayName="Sodium" /> <statusCode code="completed" /> <effectiveTime value="" /> < value unit="MMOLL" xsi:type="PQ" value="130" /> <interpretationCode codeSystem="local" code="L" /> <referenceRange> < observationRange> <text>137-145</text> </ observationRange> </referenceRange> </observation> </ component> <component> <observation moodCode="EVN" classCode="OBS"> <templateId root="16.840.1.169910...4.2" /> <id nullFlavor="NA" /> <code codeSystem="local" code="TP" displayName="T. Protein" /> <statusCode code="completed" /> <effectiveTime value="" /> <value unit="G/DL" xsi:type="PQ" value="6.6" / > <referenceRange> <observationRange> <text>6.3 -8.2</text> </observationRange> </referenceRange> </ observation> </component> <component> <observation moodCode= "EVN" classCode="OBS"> <templateId root="05.22.840.1.867775.10.20.22.4.2 " /> <id nullFlavor="NA" /> <code codeSystem="local" code="K" displayName="Potassium" /> <statusCode code="completed" /> < effectiveTime value="" /> <value unit="MMOLL" xsi:type="PQ " value="3.5" /> <interpretationCode codeSystem="local" code="L" /> <referenceRange> <observationRange> <text>3.6-5.0 </text> </observationRange> </referenceRange> </ observation> </component> <component> <observation moodCode= "EVN" classCode="OBS"> <templateId root="16.840.1.015733.10..22.4.2 " /> <id nullFlavor="NA" /> <code codeSystem="local" code= "TBIL" displayName="T Bili" /> <statusCode code="completed" /> <effectiveTime value="549498590965" /> <value unit="MG/DL" xsi:type= "PQ" value="1.1" /> <referenceRange> <observationRange> <text>0.2-1.3</text> </observationRange> </ referenceRange> </observation> </component> <component> <observation moodCode="EVN" classCode="OBS"> <templateId root= "05.22.840.1.974394.10...4.2" /> <id nullFlavor="NA" /> < code codeSystem="local" code="CA" displayName="Calcium" /> <statusCode code="completed" /> <effectiveTime value="168639828591" /> < value unit="MG/DL" xsi:type="PQ" value="9.5" /> <referenceRange> <observationRange> <text>8.4-10.2</text> </ observationRange> </referenceRange> </observation> </ component> <component> <observation moodCode="EVN" classCode="OBS"> <templateId root="05.22.840.1.110454.10..22.4.2" /> <id nullFlavor="NA" /> <code codeSystem="local" code="BUN" displayName="BUN " /> <statusCode code="completed" /> <effectiveTime value= "475384409831" /> <value unit="MG/DL" xsi:type="PQ" value="37" /> <interpretationCode codeSystem="local" code="H" /> <referenceRange > <observationRange> <text>7-21</text> </ observationRange> </referenceRange> </observation> </ component> <component> <observation moodCode="EVN" classCode="OBS"> <templateId root="216.840.1.300625.10..22.4.2" /> <id nullFlavor="NA" /> <code codeSystem="local" code="CL" displayName= "Chloride" /> <statusCode code="completed" /> <effectiveTime value="838160878003" /> <value unit="MMOLL" xsi:type="PQ" value="93" / > <interpretationCode codeSystem="local" code="L" /> < referenceRange> <observationRange> <text>98-107</text> </observationRange> </referenceRange> </observation> </component> <component> <observation moodCode="EVN" classCode ="OBS"> <templateId root="16.840.1.588793.10.20.22.4.2" /> < id nullFlavor="NA" /> <code codeSystem="local" code="AST" displayName= "AST" /> <statusCode code="completed" /> <effectiveTime value= "119417120928" /> <value unit="U/L" xsi:type="PQ" value="34" /> <referenceRange> <observationRange> <text>15-46</text > </observationRange> </referenceRange> </observation > </component> <component> <observation moodCode="EVN" classCode="OBS"> <templateId root="16.840.1.399592.10..22.4.2" /> <id nullFlavor="NA" /> <code codeSystem="local" code="ALT" displayName="ALT" /> <statusCode code="completed" /> < effectiveTime value="" /> <value unit="U/L" xsi:type="PQ" value="27" /> <referenceRange> <observationRange> <text>7-56</text> </observationRange> </referenceRange> </observation> </component> <component> <observation moodCode="EVN" classCode="OBS"> <templateId root= "16.840.1.719615.01.23.22.4.2" /> <id nullFlavor="NA" /> < code codeSystem="local" code="ALB" displayName="Albumin" /> < statusCode code="completed" /> <effectiveTime value="" /> <value unit="G/DL" xsi:type="PQ" value="3.7" /> < referenceRange> <observationRange> <text>3.5-5.0</text> </observationRange> </referenceRange> </observation > </component> <component> <observation moodCode="EVN" classCode="OBS"> <templateId root="05.22.840.1.795204.22.4.2" /> <id nullFlavor="NA" /> <code codeSystem="local" code="AG" displayName="A/G Ratio" /> <statusCode code="completed" /> < effectiveTime value="" /> <value unit="RATIO" xsi:type="PQ " value="1.3" /> <referenceRange> <observationRange> <text>1.2-2.2</text> </observationRange> </ referenceRange> </observation> </component> <component> <observation moodCode="EVN" classCode="OBS"> <templateId root= "216.840.1.843422.10.22.4.2" /> <id nullFlavor="NA" /> < code codeSystem="local" code="BCR" displayName="Bun/Creat" /> < statusCode code="completed" /> <effectiveTime value="" /> <value unit="RATIO" xsi:type="PQ" value="20.2" /> < referenceRange> <observationRange> <text>7-25</text> </observationRange> </referenceRange> </observation> </component> <component> <observation moodCode="EVN" classCode= "OBS"> <templateId root="2.840.1.880274.22.4.2" /> < id nullFlavor="NA" /> <code codeSystem="local" code="ALP" displayName= "Alk Phos" /> <statusCode code="completed" /> <effectiveTime value="" /> <value unit="U/L" xsi:type="PQ" value="94" /> <referenceRange> <observationRange> <text>38- 126</text> </observationRange> </referenceRange> </ observation> </component> <component> <observation moodCode= "EVN" classCode="OBS"> <templateId root="216.840.1.117034.10.22.4.2 " /> <id nullFlavor="NA" /> <code codeSystem="local" code="CO2 " displayName="CO2" /> <statusCode code="completed" /> < effectiveTime value="" /> <value unit="MMOLL" xsi:type="PQ " value="23" /> <referenceRange> <observationRange> <text>22-30</text> </observationRange> </ referenceRange> </observation> </component> <component> <observation moodCode="EVN" classCode="OBS"> <templateId root= "05.22.840.1.856946.10.20.22.4.2" /> <id nullFlavor="NA" /> < code codeSystem="local" code="GLU" displayName="Glucose" /> < statusCode code="completed" /> <effectiveTime value="951340412801" /> <value unit="MG/DL" xsi:type="PQ" value="119" /> < interpretationCode codeSystem="local" code="H" /> <referenceRange> <observationRange> <text>65-110</text> </ observationRange> </referenceRange> </observation> </ component> <component> <observation moodCode="EVN" classCode="OBS"> <templateId root="840.1.960109.1022.4.2" /> <id nullFlavor="NA" /> <code codeSystem="local" code="GLOB" displayName= "Globulin" /> <statusCode code="completed" /> <effectiveTime value="228906558137" /> <value unit="" xsi:type="PQ" value="2.9" /> <referenceRange> <observationRange> <text>2.4-3.5 </text> </observationRange> </referenceRange> </ observation> </component> <component> <observation moodCode= "EVN" classCode="OBS"> <templateId root="05.22.840.1.708988.10.20.22.4.2 " /> <id nullFlavor="NA" /> <code codeSystem="local" code= "CREAT" displayName="Creatinine" /> <statusCode code="completed" /> <effectiveTime value="535646445413" /> <value unit="MG/DL" xsi: type="PQ" value="1.8" /> <interpretationCode codeSystem="local" code="H " /> <referenceRange> <observationRange> <text> 0.7-1.5</text> </observationRange> </referenceRange> </observation> </component> </organizer> </entry> <entry> < organizer moodCode="EVN" classCode="BATTERY"> <templateId root= "216.840.1.591017.10..22.4.1" /> <id nullFlavor="NA" /> <code codeSystem="local" code="BNP" displayName="BNP" /> <statusCode code= "completed" /> <component> <observation moodCode="EVN" classCode= "OBS"> <templateId root="216.840.1.996381.10..22.4.2" /> < id nullFlavor="NA" /> <code codeSystem="local" code="BNP" displayName= "BNP" /> <statusCode code="completed" /> <effectiveTime value= "283324827883" /> <value unit="PG/ML" xsi:type="PQ" value="33.3" /> <referenceRange> <observationRange> <text><= 100</text> </observationRange> </referenceRange> </ observation> </component> </organizer> </entry> <entry> <organizer moodCode="EVN" classCode="BATTERY"> <templateId root= "216.840.1.832657.10..22.4.1" /> <id nullFlavor="NA" /> <code codeSystem="local" code="CBC" displayName="COMPLETE BLOOD COUNT" /> < statusCode code="completed" /> <component> <observation moodCode= "EVN" classCode="OBS"> <templateId root="05.22.840.1.835482.10.2022.4.2 " /> <id nullFlavor="NA" /> <code codeSystem="local" code="PLT " displayName="Platelet" /> <statusCode code="completed" /> < effectiveTime value="" /> <value unit="10^3u" xsi:type="PQ " value="246" /> <referenceRange> <observationRange> <text>142-424</text> </observationRange> </ referenceRange> </observation> </component> <component> <observation moodCode="EVN" classCode="OBS"> <templateId root= "840.1.533528.22.4.2" /> <id nullFlavor="NA" /> < code codeSystem="local" code="MPV" displayName="MPV" /> <statusCode code="completed" /> <effectiveTime value="" /> < value unit="FL" xsi:type="PQ" value="8.9" /> <interpretationCode codeSystem="local" code="L" /> <referenceRange> < observationRange> <text>9.4-12.4</text> </ observationRange> </referenceRange> </observation> </ component> <component> <observation moodCode="EVN" classCode="OBS"> <templateId root="05.22.840.1.855596.10.20.22.4.2" /> <id nullFlavor="NA" /> <code codeSystem="local" code="MONO#" displayName= "[place] #" /> <statusCode code="completed" /> <effectiveTime value="" /> <value unit="10^3u" xsi:type="PQ" value="0.29" /> <referenceRange> <observationRange> <text> 0.0-1.0</text> </observationRange> </referenceRange> </observation> </component> <component> <observation moodCode= "EVN" classCode="OBS"> <templateId root="216.840.1.535584.10..22.4.2 " /> <id nullFlavor="NA" /> <code codeSystem="local" code="RBC " displayName="RBC" /> <statusCode code="completed" /> < effectiveTime value="149721064832" /> <value unit="10^6u" xsi:type="PQ " value="3.67" /> <interpretationCode codeSystem="local" code="L" /> <referenceRange> <observationRange> <text>4.04- 6.13</text> </observationRange> </referenceRange> </ observation> </component> <component> <observation moodCode= "EVN" classCode="OBS"> <templateId root="05.22.840.1.926689...4.2 " /> <id nullFlavor="NA" /> <code codeSystem="local" code= "MONO%" displayName="[place] %" /> <statusCode code="completed" / > <effectiveTime value="275132850731" /> <value unit="%" xsi:type="PQ" value="4.5" /> <referenceRange> < observationRange> <text>0-12</text> </observationRange> </referenceRange> </observation> </component> < component> <observation moodCode="EVN" classCode="OBS"> < templateId root="216.840.1.747090.10..22.4.2" /> <id nullFlavor="NA " /> <code codeSystem="local" code="RDW" displayName="RDW" /> <statusCode code="completed" /> <effectiveTime value="766589374825" /> <value unit="%" xsi:type="PQ" value="11.9" /> < referenceRange> <observationRange> <text>11.6-14.8</text > </observationRange> </referenceRange> </observation > </component> <component> <observation moodCode="EVN" classCode="OBS"> <templateId root="2.16.840.1.435845.10.20.22.4.2" /> <id nullFlavor="NA" /> <code codeSystem="local" code="SEG#" displayName="Neut #" /> <statusCode code="completed" /> < effectiveTime value="702105044177" /> <value unit="10^3u" xsi:type="PQ " value="5.08" /> <referenceRange> <observationRange> <text>2.0-6.9</text> </observationRange> </ referenceRange> </observation> </component> <component> <observation moodCode="EVN" classCode="OBS"> <templateId root= "2.16.840.1.388851.10.20.22.4.2" /> <id nullFlavor="NA" /> < code codeSystem="local" code="SEG%" displayName="Neut %" /> < statusCode code="completed" /> <effectiveTime value="143128704964" /> <value unit="%" xsi:type="PQ" value="78.7" /> < referenceRange> <observationRange> <text>37-80</text> </observationRange> </referenceRange> </observation> </component> <component> <observation moodCode="EVN" classCode= "OBS"> <templateId root="840.1.283757.10.20.22.4.2" /> < id nullFlavor="NA" /> <code codeSystem="local" code="WBC" displayName= "WBC" /> <statusCode code="completed" /> <effectiveTime value= "" /> <value unit="10^3u" xsi:type="PQ" value="6.45" /> <referenceRange> <observationRange> <text>4.60- 10.20</text> </observationRange> </referenceRange> </ observation> </component> <component> <observation moodCode= "EVN" classCode="OBS"> <templateId root="840.1.833607.102022.4.2 " /> <id nullFlavor="NA" /> <code codeSystem="local" code="MCV " displayName="MCV" /> <statusCode code="completed" /> < effectiveTime value="" /> <value unit="FL" xsi:type="PQ" value="92.4" /> <referenceRange> <observationRange> <text>80.0-97.0</text> </observationRange> </ referenceRange> </observation> </component> <component> <observation moodCode="EVN" classCode="OBS"> <templateId root= "840.1.712672.10.20.22.4.2" /> <id nullFlavor="NA" /> < code codeSystem="local" code="BASO#" displayName="Baso #" /> < statusCode code="completed" /> <effectiveTime value="" /> <value unit="10^3u" xsi:type="PQ" value="0.03" /> < referenceRange> <observationRange> <text>0.0-0.1</text> </observationRange> </referenceRange> </observation > </component> <component> <observation moodCode="EVN" classCode="OBS"> <templateId root="216.840.1.225256.10..4.2" /> <id nullFlavor="NA" /> <code codeSystem="local" code="BASO&#37 ;" displayName="Baso %" /> <statusCode code="completed" /> <effectiveTime value="393426439488" /> <value unit="%" xsi:type= "PQ" value="0.5" /> <referenceRange> <observationRange> <text>0-2</text> </observationRange> </ referenceRange> </observation> </component> <component> <observation moodCode="EVN" classCode="OBS"> <templateId root= "05.22.840.1.501992.01.23.22.4.2" /> <id nullFlavor="NA" /> < code codeSystem="local" code="EOS#" displayName="Eos #" /> <statusCode code="completed" /> <effectiveTime value="451605225969" /> < value unit="10^3u" xsi:type="PQ" value="0.27" /> <referenceRange> <observationRange> <text>0-0.7</text> </ observationRange> </referenceRange> </observation> </ component> <component> <observation moodCode="EVN" classCode="OBS"> <templateId root="216.840.1.796413.10..4.2" /> <id nullFlavor="NA" /> <code codeSystem="local" code="EOS%" displayName ="Eos %" /> <statusCode code="completed" /> < effectiveTime value="008007975096" /> <value unit="%" xsi:type="PQ " value="4.2" /> <referenceRange> <observationRange> <text>0-7</text> </observationRange> </referenceRange > </observation> </component> <component> <observation moodCode="EVN" classCode="OBS"> <templateId root= "216.840.1.888946.10..4.2" /> <id nullFlavor="NA" /> < code codeSystem="local" code="LYMPH%" displayName="Lymph %" /> <statusCode code="completed" /> <effectiveTime value="821990183730" /> <value unit="%" xsi:type="PQ" value="12.1" /> < referenceRange> <observationRange> <text>10-50</text> </observationRange> </referenceRange> </observation> </component> <component> <observation moodCode="EVN" classCode= "OBS"> <templateId root="216.840.1.797768.10...4.2" /> < id nullFlavor="NA" /> <code codeSystem="local" code="MCHC" displayName= "MCHC" /> <statusCode code="completed" /> <effectiveTime value ="161625495059" /> <value unit="G/DL" xsi:type="PQ" value="36.6" /> <interpretationCode codeSystem="local" code="H" /> < referenceRange> <observationRange> <text>31.8-35.4</text > </observationRange> </referenceRange> </observation > </component> <component> <observation moodCode="EVN" classCode="OBS"> <templateId root="05.22.840.1.614757.10..22.4.2" /> <id nullFlavor="NA" /> <code codeSystem="local" code="MCH" displayName="MCH" /> <statusCode code="completed" /> < effectiveTime value="" /> <value unit="PG" xsi:type="PQ" value="33.8" /> <interpretationCode codeSystem="local" code="H" /> <referenceRange> <observationRange> <text>27.0- 31.2</text> </observationRange> </referenceRange> </ observation> </component> <component> <observation moodCode= "EVN" classCode="OBS"> <templateId root="840.1.342806..22.4.2 " /> <id nullFlavor="NA" /> <code codeSystem="local" code= "LYMPH#" displayName="Lymph #" /> <statusCode code="completed" /> <effectiveTime value="" /> <value unit="10^3u" xsi: type="PQ" value="0.78" /> <referenceRange> <observationRange > <text>0.6-3.4</text> </observationRange> </ referenceRange> </observation> </component> <component> <observation moodCode="EVN" classCode="OBS"> <templateId root= "840.1.473616.10.20.22.4.2" /> <id nullFlavor="NA" /> < code codeSystem="local" code="HGB" displayName="HGB" /> <statusCode code="completed" /> <effectiveTime value="" /> < value unit="G/DL" xsi:type="PQ" value="12.4" /> <referenceRange> <observationRange> <text>12.2-18.1</text> </ observationRange> </referenceRange> </observation> </ component> <component> <observation moodCode="EVN" classCode="OBS"> <templateId root="05.22.840.1.288658.1022.4.2" /> <id nullFlavor="NA" /> <code codeSystem="local" code="HCT" displayName="HCT " /> <statusCode code="completed" /> <effectiveTime value= "382699532553" /> <value unit="%" xsi:type="PQ" value="33.9" /> <interpretationCode codeSystem="local" code="L" /> < referenceRange> <observationRange> <text>37.7-53.7</text > </observationRange> </referenceRange> </observation > </component> </organizer> </entry> <entry> <organizer moodCode= "EVN" classCode="BATTERY"> <templateId root="05.22.840.1.706190.10...4.1 " /> <id nullFlavor="NA" /> <code codeSystem="local" code="EKG" displayName="EKG" /> <statusCode code="completed" /> <component> <observation moodCode="EVN" classCode="OBS"> <templateId root= "05.22.840.1.486231.10.22.4.2" /> <id nullFlavor="NA" /> < code codeSystem="local" code="EKG" displayName="EKG" /> <statusCode code="completed" /> <effectiveTime value="546062899081" /> < value unit="" xsi:type="PQ" value="SMR" /> <referenceRange> <observationRange> <text /> </observationRange> </referenceRange> </observation> </component> </organizer> </ entry> <entry> <organizer moodCode="EVN" classCode="BATTERY"> < templateId root="840.1.026770.10.22.4.1" /> <id nullFlavor="NA" /> <code codeSystem="local" code="UAD" displayName="Urinalysis" /> < statusCode code="completed" /> <component> <observation moodCode= "EVN" classCode="OBS"> <templateId root="05.22.840.1.175947.10..[id number] " /> <id nullFlavor="NA" /> <code codeSystem="local" code= "UAGLU" displayName="Glucose" /> <statusCode code="completed" /> <effectiveTime value="[id number]" /> <value unit="" xsi:type="PQ " value="Negative" /> <referenceRange> <observationRange> <text>Negative</text> </observationRange> </ referenceRange> </observation> </component> <component> <observation moodCode="EVN" classCode="OBS"> <templateId root= "[id number]...4.2" /> <id nullFlavor="NA" /> < code codeSystem="local" code="UALEUK" displayName="Leukocyte" /> < statusCode code="completed" /> <effectiveTime value="[id number]" /> <value unit="" xsi:type="PQ" value="1+" /> < interpretationCode codeSystem="local" code="AB" /> <referenceRange> <observationRange> <text>Negative</text> </ observationRange> </referenceRange> </observation> </ component> <component> <observation moodCode="EVN" classCode="OBS"> <templateId root=".1.862015.10.4.2" /> <id nullFlavor="NA" /> <code codeSystem="local" code="UANIT" displayName= "Nitrite" /> <statusCode code="completed" /> <effectiveTime value="[id number]" /> <value unit="" xsi:type="PQ" value="Positive" / > <interpretationCode codeSystem="local" code="AB" /> < referenceRange> <observationRange> <text>Negative</text > </observationRange> </referenceRange> </observation > </component> <component> <observation moodCode="EVN" classCode="OBS"> <templateId root="16.840.1.126730.01.23.22.4.2" /> <id nullFlavor="NA" /> <code codeSystem="local" code="UAPH" displayName="pH" /> <statusCode code="completed" /> < effectiveTime value="" /> <value unit="" xsi:type="PQ" value="6.5" /> <referenceRange> <observationRange> <text>5.5-7.5</text> </observationRange> </ referenceRange> </observation> </component> <component> <observation moodCode="EVN" classCode="OBS"> <templateId root= "16.840.1.675343.01.23.22.4.2" /> <id nullFlavor="NA" /> < code codeSystem="local" code="UAPP" displayName="Urine Appearance" /> < statusCode code="completed" /> <effectiveTime value="" /> <value unit="" xsi:type="PQ" value="Clear" /> <referenceRange > <observationRange> <text>Clear</text> </ observationRange> </referenceRange> </observation> </ component> <component> <observation moodCode="EVN" classCode="OBS"> <templateId root="216.840.1.102378.10..4.2" /> <id nullFlavor="NA" /> <code codeSystem="local" code="UAPRO" displayName= "Protein" /> <statusCode code="completed" /> <effectiveTime value="" /> <value unit="" xsi:type="PQ" value="Negative" / > <referenceRange> <observationRange> <text> Negative</text> </observationRange> </referenceRange> </observation> </component> <component> <observation moodCode ="EVN" classCode="OBS"> <templateId root= "216.840.1.991683...4.2" /> <id nullFlavor="NA" /> < code codeSystem="local" code="UAKET" displayName="Ketones" /> < statusCode code="completed" /> <effectiveTime value="" /> <value unit="" xsi:type="PQ" value="Negative" /> < referenceRange> <observationRange> <text>Negative</text > </observationRange> </referenceRange> </observation > </component> <component> <observation moodCode="EVN" classCode="OBS"> <templateId root="16.840.1.940795.10.22.4.2" /> <id nullFlavor="NA" /> <code codeSystem="local" code="UAURO" displayName="Urobilinogen" /> <statusCode code="completed" /> <effectiveTime value="" /> <value unit="" xsi:type="PQ" value="0.2" /> <referenceRange> <observationRange> <text>0.2-1.0</text> </observationRange> </ referenceRange> </observation> </component> <component> <observation moodCode="EVN" classCode="OBS"> <templateId root= "16.840.1.605160.01.23.22.4.2" /> <id nullFlavor="NA" /> < code codeSystem="local" code="USG" displayName="Specific [place]" /> < statusCode code="completed" /> <effectiveTime value="" /> <value unit="" xsi:type="PQ" value="1.010" /> <referenceRange > <observationRange> <text>1.010-1.020</text> </observationRange> </referenceRange> </observation> </ component> <component> <observation moodCode="EVN" classCode="OBS"> <templateId root="05.22.840.1.729462.01.23.22.4.2" /> <id nullFlavor="NA" /> <code codeSystem="local" code="UWBC" displayName= "Urine WBC" /> <statusCode code="completed" /> <effectiveTime value="" /> <value unit="" xsi:type="PQ" value="N3-5" /> <referenceRange> <observationRange> <text /> </observationRange> </referenceRange> </observation> </component> <component> <observation moodCode="EVN" classCode= "OBS"> <templateId root="16.840.1.529988.01.23.22.4.2" /> < id nullFlavor="NA" /> <code codeSystem="local" code="UBACT+" displayName="Urine Bacteria" /> <statusCode code="completed" /> <effectiveTime value="" /> <value unit="" xsi:type="PQ" value="3+" /> <referenceRange> <observationRange> <text /> </observationRange> </referenceRange> </ observation> </component> <component> <observation moodCode= "EVN" classCode="OBS"> <templateId root="16.840.1.276097.10..4.2 " /> <id nullFlavor="NA" /> <code codeSystem="local" code= "UABLD" displayName="Blood" /> <statusCode code="completed" /> <effectiveTime value="" /> <value unit="" xsi:type="PQ" value="Negative" /> <referenceRange> <observationRange> <text>Negative</text> </observationRange> </ referenceRange> </observation> </component> <component> <observation moodCode="EVN" classCode="OBS"> <templateId root= "05.22.840.1.510468.10.4.2" /> <id nullFlavor="NA" /> < code codeSystem="local" code="UACOLOR" displayName="Color" /> < statusCode code="completed" /> <effectiveTime value="[id number]" /> <value unit="" xsi:type="PQ" value="Yellow" /> <referenceRange > <observationRange> <text>Yellow</text> </ observationRange> </referenceRange> </observation> </ component> <component> <observation moodCode="EVN" classCode="OBS"> <templateId root="05.22.840.1.549369.10.4.2" /> <id nullFlavor="NA" /> <code codeSystem="local" code="UABILI" displayName= "Bilirubin" /> <statusCode code="completed" /> <effectiveTime value="155832213511" /> <value unit="" xsi:type="PQ" value="Negative" / > <referenceRange> <observationRange> <text> Negative</text> </observationRange> </referenceRange> </observation> </component> </organizer> </entry> <entry> < organizer moodCode="EVN" classCode="BATTERY"> <templateId root= "840.1.630787.10..22.4.1" /> <id nullFlavor="NA" /> <code codeSystem="local" code="CUAR" displayName="Urine Culture" /> <statusCode code="completed" /> <component> <observation moodCode="EVN" classCode="OBS"> <templateId root="840.1.790992.10...4.2" /> <id nullFlavor="NA" /> <code codeSystem="local" code="CUAR" displayName="Urine Culture" /> <statusCode code="completed" /> <effectiveTime value="264836101891" /> <value unit="" xsi:type="PQ" value="SMR" /> <referenceRange> <observationRange> <text /> </observationRange> </referenceRange> < /observation> </component> </organizer> </entry> <entry> < organizer moodCode="EVN" classCode="BATTERY"> <templateId root= "05.22.840.1.260756.10..22.4.1" /> <id nullFlavor="NA" /> <code codeSystem="local" code="iCHEM8" displayName="CHEM/HEM PROFILE-BEDSIDE" /> <statusCode code="completed" /> <component> <observation moodCode= "EVN" classCode="OBS"> <templateId root="05.22.840.1.541416.10...4.2 " /> <id nullFlavor="NA" /> <code codeSystem="local" code="K" displayName="POTASSIUM" /> <statusCode code="completed" /> < effectiveTime value="" /> <value unit="mmol/L" xsi:type="PQ " value="3.6" /> <referenceRange> <observationRange> <text>3.5-5.3</text> </observationRange> </ referenceRange> </observation> </component> <component> <observation moodCode="EVN" classCode="OBS"> <templateId root= "216.840.1.639444.10..22.4.2" /> <id nullFlavor="NA" /> < code codeSystem="local" code="CMETHOD" displayName="METHOD" /> < statusCode code="completed" /> <effectiveTime value="" /> <value unit="" xsi:type="PQ" value="Bedside" /> < referenceRange> <observationRange> <text /> < /observationRange> </referenceRange> </observation> </ component> <component> <observation moodCode="EVN" classCode="OBS"> <templateId root="16.840.1.118935.10..22.4.2" /> <id nullFlavor="NA" /> <code codeSystem="local" code="GAP" displayName= "ANION GAP" /> <statusCode code="completed" /> <effectiveTime value="" /> <value unit="mmol/L" xsi:type="PQ" value="16" / > <referenceRange> <observationRange> <text>10- 20</text> </observationRange> </referenceRange> </ observation> </component> <component> <observation moodCode= "EVN" classCode="OBS"> <templateId root="840.1.744174.10..22.4.2 " /> <id nullFlavor="NA" /> <code codeSystem="local" code= "HMETHOD" displayName="METHOD" /> <statusCode code="completed" /> <effectiveTime value="" /> <value unit="" xsi:type="PQ " value="Bedside" /> <referenceRange> <observationRange> <text /> </observationRange> </referenceRange> </observation> </component> <component> <observation moodCode="EVN" classCode="OBS"> <templateId root= "216.840.1.246514...4.2" /> <id nullFlavor="NA" /> < code codeSystem="local" code="GLU" displayName="GLUCOSE" /> < statusCode code="completed" /> <effectiveTime value="" /> <value unit="mg/dL" xsi:type="PQ" value="154" /> < interpretationCode codeSystem="local" code="*" /> <referenceRange> <observationRange> <text>70-99</text> </ observationRange> </referenceRange> </observation> </ component> <component> <observation moodCode="EVN" classCode="OBS"> <templateId root="216.840.1.518719...4.2" /> <id nullFlavor="NA" /> <code codeSystem="local" code="BUN" displayName= "BLOOD UREA NITROGEN" /> <statusCode code="completed" /> < effectiveTime value="" /> <value unit="mg/dL" xsi:type="PQ " value="40" /> <interpretationCode codeSystem="local" code="*" /> <referenceRange> <observationRange> <text>7-20</ text> </observationRange> </referenceRange> </ observation> </component> <component> <observation moodCode= "EVN" classCode="OBS"> <templateId root="16.840.1.407481.10.22.4.2 " /> <id nullFlavor="NA" /> <code codeSystem="local" code= "CREAT" displayName="CREATININE" /> <statusCode code="completed" /> <effectiveTime value="" /> <value unit="mg/dL" xsi: type="PQ" value="2.2" /> <interpretationCode codeSystem="local" code="* " /> <referenceRange> <observationRange> <text> 0.8-1.3</text> </observationRange> </referenceRange> </observation> </component> <component> <observation moodCode= "EVN" classCode="OBS"> <templateId root="05.22.840.1.444319.22.4.2 " /> <id nullFlavor="NA" /> <code codeSystem="local" code= "HGBT" displayName="HEMOGLOBIN" /> <statusCode code="completed" /> <effectiveTime value="" /> <value unit="gm/dL" xsi: type="PQ" value="13.3" /> <interpretationCode codeSystem="local" code= "*" /> <referenceRange> <observationRange> < text>14.0-18.0</text> </observationRange> </referenceRange> </observation> </component> <component> <observation moodCode="EVN" classCode="OBS"> <templateId root= "05.22.840.1.980141.10.2022.4.2" /> <id nullFlavor="NA" /> < code codeSystem="local" code="HCTT" displayName="HEMATOCRIT" /> < statusCode code="completed" /> <effectiveTime value="" /> <value unit="%" xsi:type="PQ" value="39.0" /> < interpretationCode codeSystem="local" code="*" /> <referenceRange> <observationRange> <text>40.0-54.0</text> </ observationRange> </referenceRange> </observation> </ component> <component> <observation moodCode="EVN" classCode="OBS"> <templateId root="2.16.840.1.760779.10.20.22.4.2" /> <id nullFlavor="NA" /> <code codeSystem="local" code="NA" displayName= "SODIUM" /> <statusCode code="completed" /> <effectiveTime value="" /> <value unit="mmol/L" xsi:type="PQ" value="132" /> <interpretationCode codeSystem="local" code="*" /> < referenceRange> <observationRange> <text>135-148</text> </observationRange> </referenceRange> </observation > </component> <component> <observation moodCode="EVN" classCode="OBS"> <templateId root="2.16.840.1.585145.10.20.22.4.2" /> <id nullFlavor="NA" /> <code codeSystem="local" code="CL" displayName="CHLORIDE" /> <statusCode code="completed" /> < effectiveTime value="" /> <value unit="mmol/L" xsi:type="PQ " value="98" /> <referenceRange> <observationRange> <text>98-110</text> </observationRange> </ referenceRange> </observation> </component> <component> <observation moodCode="EVN" classCode="OBS"> <templateId root= "05.22.840.1.946518.10.22.4.2" /> <id nullFlavor="NA" /> < code codeSystem="local" code="CO2" displayName="CARBON DIOXIDE" /> < statusCode code="completed" /> <effectiveTime value="[id number]" /> <value unit="mmol/L" xsi:type="PQ" value="22" /> < referenceRange> <observationRange> <text>21-32</text> </observationRange> </referenceRange> </observation> </component> <component> <observation moodCode="EVN" classCode= "OBS"> <templateId root="840.1.482276.01.23.22.4.2" /> < id nullFlavor="NA" /> <code codeSystem="local" code="CAION" displayName ="CALCIUM IONIZED" /> <statusCode code="completed" /> < effectiveTime value="782639141085" /> <value unit="mg/dL" xsi:type="PQ " value="4.7" /> <referenceRange> <observationRange> <text>4.5-5.3</text> </observationRange> </ referenceRange> </observation> </component> </organizer> </entry > <entry> <organizer moodCode="EVN" classCode="BATTERY"> <templateId root="05.22.840.1.769091.22.4.1" /> <id nullFlavor="NA" /> <code codeSystem="local" code="iTROPI" displayName="TROPONIN I BEDSIDE" /> < statusCode code="completed" /> <component> <observation moodCode= "EVN" classCode="OBS"> <templateId root="05.22.840.1.222710.22.4.2 " /> <id nullFlavor="NA" /> <code codeSystem="local" code= "CMETHOD" displayName="METHOD" /> <statusCode code="completed" /> <effectiveTime value="" /> <value unit="" xsi:type="PQ " value="Bedside" /> <referenceRange> <observationRange> <text /> </observationRange> </referenceRange> </observation> </component> <component> <observation moodCode="EVN" classCode="OBS"> <templateId root= "840.1.439296.01.23.22.4.2" /> <id nullFlavor="NA" /> < code codeSystem="local" code="TROPI" displayName="TROPONIN I" /> < statusCode code="completed" /> <effectiveTime value="" /> <value unit="ng/mL" xsi:type="PQ" value="< 0.04" /> < referenceRange> <observationRange> <text>< 0.11</text > </observationRange> </referenceRange> </observation > </component> </organizer> </entry> <entry> <organizer moodCode= "EVN" classCode="BATTERY"> <templateId root="05.22.840.1.981262.01.23.22.4.1 " /> <id nullFlavor="NA" /> <code codeSystem="local" code="CBCD" displayName="CBC W/DIFF" /> <statusCode code="completed" /> <component > <observation moodCode="EVN" classCode="OBS"> <templateId root= "05.22.840.1.781390.01.23.22.4.2" /> <id nullFlavor="NA" /> < code codeSystem="local" code="GR#" displayName="GRANULOCYTE #" /> < statusCode code="completed" /> <effectiveTime value="" /> <value unit="k/cumm" xsi:type="PQ" value="16.8" /> < interpretationCode codeSystem="local" code="*" /> <referenceRange> <observationRange> <text>2.0-9.0</text> </ observationRange> </referenceRange> </observation> </ component> <component> <observation moodCode="EVN" classCode="OBS"> <templateId root="16.840.1.704966.10..22.4.2" /> <id nullFlavor="NA" /> <code codeSystem="local" code="LY#" displayName= "LYMPHOCYTE #" /> <statusCode code="completed" /> < effectiveTime value="" /> <value unit="k/cumm" xsi:type="PQ " value="0.9" /> <interpretationCode codeSystem="local" code="*" /> <referenceRange> <observationRange> <text>1.0-4.0 </text> </observationRange> </referenceRange> </ observation> </component> <component> <observation moodCode= "EVN" classCode="OBS"> <templateId root="16.840.1.836404.10.22.4.2 " /> <id nullFlavor="NA" /> <code codeSystem="local" code="LY& #37;" displayName="LYMPHOCYTE %" /> <statusCode code="completed" / > <effectiveTime value="" /> <value unit="%" xsi:type="PQ" value="5" /> <interpretationCode codeSystem="local" code= "*" /> <referenceRange> <observationRange> < text>20-30</text> </observationRange> </referenceRange> </observation> </component> <component> <observation moodCode="EVN" classCode="OBS"> <templateId root= "216.840.1.790232.10..4.2" /> <id nullFlavor="NA" /> < code codeSystem="local" code="MCH" displayName="MEAN CELL HGB" /> < statusCode code="completed" /> <effectiveTime value="" /> <value unit="pg" xsi:type="PQ" value="33.3" /> < interpretationCode codeSystem="local" code="*" /> <referenceRange> <observationRange> <text>27.0-33.0</text> </ observationRange> </referenceRange> </observation> </ component> <component> <observation moodCode="EVN" classCode="OBS"> <templateId root="05.22.840.1.755606.01.23.22.4.2" /> <id nullFlavor="NA" /> <code codeSystem="local" code="MCHC" displayName= "MEAN CELL HGB CONCENTRATION" /> <statusCode code="completed" /> <effectiveTime value="" /> <value unit="g/dL" xsi:type= "PQ" value="35.5" /> <referenceRange> <observationRange> <text>32.0-37.0</text> </observationRange> </ referenceRange> </observation> </component> <component> <observation moodCode="EVN" classCode="OBS"> <templateId root= "216.840.1.402792.01.23.22.4.2" /> <id nullFlavor="NA" /> < code codeSystem="local" code="MCV" displayName="MEAN CELL VOLUME" /> < statusCode code="completed" /> <effectiveTime value="" /> <value unit="fl" xsi:type="PQ" value="93.7" /> <referenceRange > <observationRange> <text>80.0-100.0</text> </observationRange> </referenceRange> </observation> </ component> <component> <observation moodCode="EVN" classCode="OBS"> <templateId root="216.840.1.432907.01.23.22.4.2" /> <id nullFlavor="NA" /> <code codeSystem="local" code="MO#" displayName= "MONOCYTE #" /> <statusCode code="completed" /> < effectiveTime value="" /> <value unit="k/cumm" xsi:type="PQ " value="0.2" /> <referenceRange> <observationRange> <text>0.1-1.0</text> </observationRange> </ referenceRange> </observation> </component> <component> <observation moodCode="EVN" classCode="OBS"> <templateId root= "216.840.1.513694.01.23.22.4.2" /> <id nullFlavor="NA" /> < code codeSystem="local" code="MO%" displayName="MONOCYTE %" /> <statusCode code="completed" /> <effectiveTime value="" /> <value unit="%" xsi:type="PQ" value="1" /> < interpretationCode codeSystem="local" code="*" /> <referenceRange> <observationRange> <text>4-6</text> </ observationRange> </referenceRange> </observation> </ component> <component> <observation moodCode="EVN" classCode="OBS"> <templateId root="216.840.1.653307.01.23.22.4.2" /> <id nullFlavor="NA" /> <code codeSystem="local" code="RBC" displayName=" RED BLOOD CELL" /> <statusCode code="completed" /> < effectiveTime value="" /> <value unit="m/cumm" xsi:type="PQ " value="4.12" /> <referenceRange> <observationRange> <text>4.00-6.00</text> </observationRange> </ referenceRange> </observation> </component> <component> <observation moodCode="EVN" classCode="OBS"> <templateId root= "2.16.840.1.687266.01.23.22.4.2" /> <id nullFlavor="NA" /> < code codeSystem="local" code="RDW" displayName="RED CELL DISTRIBUTION WIDTH" /> <statusCode code="completed" /> <effectiveTime value= "" /> <value unit="%" xsi:type="PQ" value="12.0" /> <referenceRange> <observationRange> <text>11.0- 15.6</text> </observationRange> </referenceRange> </ observation> </component> <component> <observation moodCode= "EVN" classCode="OBS"> <templateId root="2.16.840.1.478611.01.23.22.4.2 " /> <id nullFlavor="NA" /> <code codeSystem="local" code="WBC " displayName="WHITE BLOOD CELL" /> <statusCode code="completed" /> <effectiveTime value="" /> <value unit="k/cumm" xsi: type="PQ" value="17.9" /> <interpretationCode codeSystem="local" code= "*" /> <referenceRange> <observationRange> < text>5.0-10.0</text> </observationRange> </referenceRange> </observation> </component> <component> <observation moodCode="EVN" classCode="OBS"> <templateId root= "216.840.1.595673.10..4.2" /> <id nullFlavor="NA" /> < code codeSystem="local" code="HGBT" displayName="HEMOGLOBIN" /> < statusCode code="completed" /> <effectiveTime value="" /> <value unit="gm/dL" xsi:type="PQ" value="13.7" /> < interpretationCode codeSystem="local" code="*" /> <referenceRange> <observationRange> <text>14.0-18.0</text> </ observationRange> </referenceRange> </observation> </ component> <component> <observation moodCode="EVN" classCode="OBS"> <templateId root="05.22.840.1.598435...4.2" /> <id nullFlavor="NA" /> <code codeSystem="local" code="HCTT" displayName= "HEMATOCRIT" /> <statusCode code="completed" /> < effectiveTime value="" /> <value unit="%" xsi:type="PQ " value="38.6" /> <interpretationCode codeSystem="local" code="*" /> <referenceRange> <observationRange> <text>40.0- 54.0</text> </observationRange> </referenceRange> </ observation> </component> <component> <observation moodCode= "EVN" classCode="OBS"> <templateId root="16.840.1.909432.10.2022.4.2 " /> <id nullFlavor="NA" /> <code codeSystem="local" code="PLT " displayName="PLATELET COUNT" /> <statusCode code="completed" /> <effectiveTime value="" /> <value unit="k/cumm" xsi: type="PQ" value="246" /> <referenceRange> <observationRange > <text>150-400</text> </observationRange> </ referenceRange> </observation> </component> </organizer> </entry > <entry> <organizer moodCode="EVN" classCode="BATTERY"> <templateId root="216.840.1.576801.10...4.1" /> <id nullFlavor="NA" /> <code codeSystem="local" code="DIFFM" displayName="MANUAL DIFF(R)" /> < statusCode code="completed" /> <component> <observation moodCode= "EVN" classCode="OBS"> <templateId root="216.840.1.733092.10..4.2 " /> <id nullFlavor="NA" /> <code codeSystem="local" code= "BAND%" displayName="BAND %" /> <statusCode code="completed" / > <effectiveTime value="" /> <value unit="%" xsi:type="PQ" value="8" /> <referenceRange> < observationRange> <text>0-10</text> </observationRange> </referenceRange> </observation> </component> < component> <observation moodCode="EVN" classCode="OBS"> < templateId root="216.840.1.749284....4.2" /> <id nullFlavor="NA " /> <code codeSystem="local" code="MANDIFF" displayName="DIFFERENTIAL " /> <statusCode code="completed" /> <effectiveTime value= "" /> <value unit="" xsi:type="PQ" value="MANUAL" /> <referenceRange> <observationRange> <text /> </observationRange> </referenceRange> </observation> < /component> <component> <observation moodCode="EVN" classCode="OBS" > <templateId root="16.840.1.974558.10...4.2" /> <id nullFlavor="NA" /> <code codeSystem="local" code="RMORPH" displayName= "RBC MORPH" /> <statusCode code="completed" /> <effectiveTime value="" /> <value unit="" xsi:type="PQ" value="NOTED" /> <referenceRange> <observationRange> <text /> </observationRange> </referenceRange> </observation> </component> <component> <observation moodCode="EVN" classCode= "OBS"> <templateId root="16.840.1.631643.10...4.2" /> < id nullFlavor="NA" /> <code codeSystem="local" code="SEG%" displayName="SEGMENTED NEUTROPHIL %" /> <statusCode code="completed " /> <effectiveTime value="" /> <value unit="% " xsi:type="PQ" value="86" /> <interpretationCode codeSystem="local" code="*" /> <referenceRange> <observationRange> <text>50-70</text> </observationRange> </referenceRange> </observation> </component> </organizer> </entry> <entry> < organizer moodCode="EVN" classCode="BATTERY"> <templateId root= "16.840.1.770145.10..22.4.1" /> <id nullFlavor="NA" /> <code codeSystem="local" code="METABC" displayName="METABOLIC PANEL, COMPREHN" /> <statusCode code="completed" /> <component> <observation moodCode= "EVN" classCode="OBS"> <templateId root="05.22.840.1.938719.10..4.2 " /> <id nullFlavor="NA" /> <code codeSystem="local" code="K" displayName="POTASSIUM" /> <statusCode code="completed" /> < effectiveTime value="" /> <value unit="mmol/L" xsi:type="PQ " value="3.6" /> <referenceRange> <observationRange> <text>3.5-5.3</text> </observationRange> </ referenceRange> </observation> </component> <component> <observation moodCode="EVN" classCode="OBS"> <templateId root= "840.1.568388.01.23.22.4.2" /> <id nullFlavor="NA" /> < code codeSystem="local" code="eGFR" displayName="EST GFR (MDRD)" /> < statusCode code="completed" /> <effectiveTime value="" /> <value unit="mL/min" xsi:type="PQ" value="33" /> < interpretationCode codeSystem="local" code="*" /> <referenceRange> <observationRange> <text>> 59</text> </ observationRange> </referenceRange> </observation> </ component> <component> <observation moodCode="EVN" classCode="OBS"> <templateId root="05.22.840.1.144287.01.23.22.4.2" /> <id nullFlavor="NA" /> <code codeSystem="local" code="GAP" displayName= "ANION GAP" /> <statusCode code="completed" /> <effectiveTime value="" /> <value unit="mmol/L" xsi:type="PQ" value="11" / > <referenceRange> <observationRange> <text>5- 15</text> </observationRange> </referenceRange> </ observation> </component> <component> <observation moodCode= "EVN" classCode="OBS"> <templateId root="216.840.1.987053.10..4.2 " /> <id nullFlavor="NA" /> <code codeSystem="local" code="GLU " displayName="GLUCOSE" /> <statusCode code="completed" /> < effectiveTime value="" /> <value unit="mg/dL" xsi:type="PQ " value="161" /> <interpretationCode codeSystem="local" code="*" /> <referenceRange> <observationRange> <text>70-99</ text> </observationRange> </referenceRange> </ observation> </component> <component> <observation moodCode= "EVN" classCode="OBS"> <templateId root="05.22.840.1.133094.22.4.2 " /> <id nullFlavor="NA" /> <code codeSystem="local" code="CA " displayName="CALCIUM" /> <statusCode code="completed" /> < effectiveTime value="" /> <value unit="mg/dL" xsi:type="PQ " value="9.1" /> <referenceRange> <observationRange> <text>8.5-10.1</text> </observationRange> </ referenceRange> </observation> </component> <component> <observation moodCode="EVN" classCode="OBS"> <templateId root= "216.840.1.443926.01.23.22.4.2" /> <id nullFlavor="NA" /> < code codeSystem="local" code="BUN" displayName="BLOOD UREA NITROGEN" /> <statusCode code="completed" /> <effectiveTime value="" / > <value unit="mg/dL" xsi:type="PQ" value="43" /> < interpretationCode codeSystem="local" code="*" /> <referenceRange> <observationRange> <text>7-20</text> </ observationRange> </referenceRange> </observation> </ component> <component> <observation moodCode="EVN" classCode="OBS"> <templateId root="216.840.1.552155.01.23.22.4.2" /> <id nullFlavor="NA" /> <code codeSystem="local" code="CREAT" displayName= "CREATININE" /> <statusCode code="completed" /> < effectiveTime value="" /> <value unit="mg/dL" xsi:type="PQ " value="2.2" /> <interpretationCode codeSystem="local" code="*" /> <referenceRange> <observationRange> <text>0.8-1.3 </text> </observationRange> </referenceRange> </ observation> </component> <component> <observation moodCode= "EVN" classCode="OBS"> <templateId root="16.840.1.954140...4.2 " /> <id nullFlavor="NA" /> <code codeSystem="local" code="NA " displayName="SODIUM" /> <statusCode code="completed" /> < effectiveTime value="" /> <value unit="mmol/L" xsi:type="PQ " value="131" /> <interpretationCode codeSystem="local" code="*" /> <referenceRange> <observationRange> <text>135-148 </text> </observationRange> </referenceRange> </ observation> </component> <component> <observation moodCode= "EVN" classCode="OBS"> <templateId root="16.840.1.675828.10.20.22.4.2 " /> <id nullFlavor="NA" /> <code codeSystem="local" code="CL " displayName="CHLORIDE" /> <statusCode code="completed" /> < effectiveTime value="" /> <value unit="mmol/L" xsi:type="PQ " value="96" /> <interpretationCode codeSystem="local" code="*" /> <referenceRange> <observationRange> <text>98-110</ text> </observationRange> </referenceRange> </ observation> </component> <component> <observation moodCode= "EVN" classCode="OBS"> <templateId root="05.22.840.1.589138.10..4.2 " /> <id nullFlavor="NA" /> <code codeSystem="local" code="AST " displayName="AST/SGOT" /> <statusCode code="completed" /> < effectiveTime value="" /> <value unit="Units/L" xsi:type= "PQ" value="29" /> <referenceRange> <observationRange> <text>10-37</text> </observationRange> </ referenceRange> </observation> </component> <component> <observation moodCode="EVN" classCode="OBS"> <templateId root= "05.22.840.1.878275.10...4.2" /> <id nullFlavor="NA" /> < code codeSystem="local" code="ALT" displayName="ALT/SGPT" /> < statusCode code="completed" /> <effectiveTime value="" /> <value unit="Units/L" xsi:type="PQ" value="26" /> < referenceRange> <observationRange> <text>< 66</text> </observationRange> </referenceRange> </observation > </component> <component> <observation moodCode="EVN" classCode="OBS"> <templateId root="216.840.1.504559.1022.4.2" /> <id nullFlavor="NA" /> <code codeSystem="local" code="CO2" displayName="CARBON DIOXIDE" /> <statusCode code="completed" /> <effectiveTime value="" /> <value unit="mmol/L" xsi:type ="PQ" value="24" /> <referenceRange> <observationRange> <text>21-32</text> </observationRange> </ referenceRange> </observation> </component> <component> <observation moodCode="EVN" classCode="OBS"> <templateId root= "05.22.840.1.853072.22.4.2" /> <id nullFlavor="NA" /> < code codeSystem="local" code="TP" displayName="TOTAL PROTEIN" /> < statusCode code="completed" /> <effectiveTime value="" /> <value unit="gm/dL" xsi:type="PQ" value="6.9" /> < referenceRange> <observationRange> <text>6.4-8.2</text> </observationRange> </referenceRange> </observation > </component> <component> <observation moodCode="EVN" classCode="OBS"> <templateId root="216.840.1.821762..22.4.2" /> <id nullFlavor="NA" /> <code codeSystem="local" code="ALB" displayName="ALBUMIN" /> <statusCode code="completed" /> < effectiveTime value="" /> <value unit="gm/dL" xsi:type="PQ " value="3.6" /> <referenceRange> <observationRange> <text>3.4-5.0</text> </observationRange> </ referenceRange> </observation> </component> <component> <observation moodCode="EVN" classCode="OBS"> <templateId root= "2.16.840.1.419279.10..22.4.2" /> <id nullFlavor="NA" /> < code codeSystem="local" code="BILTOT" displayName="BILI TOTAL" /> < statusCode code="completed" /> <effectiveTime value="" /> <value unit="mg/dL" xsi:type="PQ" value="1.1" /> < interpretationCode codeSystem="local" code="*" /> <referenceRange> <observationRange> <text>0.0-1.0</text> </ observationRange> </referenceRange> </observation> </ component> <component> <observation moodCode="EVN" classCode="OBS"> <templateId root="2.16.840.1.009263.10..22.4.2" /> <id nullFlavor="NA" /> <code codeSystem="local" code="ALKP" displayName= "ALKALINE PHOSPHATASE TOTAL" /> <statusCode code="completed" /> <effectiveTime value="" /> <value unit="Units/L" xsi: type="PQ" value="125" /> <referenceRange> <observationRange > <text>50-136</text> </observationRange> </ referenceRange> </observation> </component> </organizer> </entry > <entry> <organizer moodCode="EVN" classCode="BATTERY"> <templateId root="216.840.1.831097.10...4.1" /> <id nullFlavor="NA" /> <code codeSystem="local" code="BC" displayName="BLOOD CULTURE" /> <statusCode code="completed" /> <component> <observation moodCode="EVN" classCode="OBS"> <templateId root="05.22.840.1.158626.10..4.2" /> <id nullFlavor="NA" /> <code codeSystem="local" code="UNC" displayName="Uncategorized" /> <statusCode code="completed" /> <effectiveTime value="[id number]" /> <value xsi:type="ST" value="< pre><b>BLOOD CULTURE</b> See BelowBLOOD CULTURE(F) Albaro Date/Time : 11/11/2012 14:40 Liza Date/Time: 11/17/2012 01: 25SOURCE: BLOODSPEC DESC: [id number] [phone] [place] [address]</pre>" /> <referenceRange> <observationRange> <text /> </observationRange> </referenceRange> </observation> </component> </ organizer> </entry> <entry> <organizer moodCode="EVN" classCode="BATTERY"> <templateId root="216.840.1.446994.10...4.1" /> <id nullFlavor= "NA" /> <code codeSystem="local" code="BC" displayName="BLOOD CULTURE" /> <statusCode code="completed" /> <component> <observation moodCode="EVN" classCode="OBS"> <templateId root= "216.840.1.514917.10..22.4.2" /> <id nullFlavor="NA" /> < code codeSystem="local" code="UNC" displayName="Uncategorized" /> < statusCode code="completed" /> <effectiveTime value="[id number]" /> <value xsi:type="ST" value="<pre><b>BLOOD CULTURE</b> See BelowBLOOD CULTURE(F) Albaro Date/Time: 11/11/2012 14:45 Liza Date/Time: 11/17/2012 01:25SOURCE: BLOODSPEC DESC: [id number] [id number] [place] [address]</ pre>" /> <referenceRange> <observationRange> < text /> </observationRange> </referenceRange> </ observation> </component> </organizer> </entry> <entry> <organizer moodCode="EVN" classCode="BATTERY"> <templateId root= "2.16.840.1.854761.10..22.4.1" /> <id nullFlavor="NA" /> <code codeSystem="local" code="UA" displayName="URINALYSIS, ROUTINE" /> < statusCode code="completed" /> <component> <observation moodCode= "EVN" classCode="OBS"> <templateId root="2.16.840.1.614815.10..22.4.2 " /> <id nullFlavor="NA" /> <code codeSystem="local" code= "LEUESU" displayName="UA LEUKOCYTE ESTERASE DIPSTICK" /> <statusCode code="completed" /> <effectiveTime value="[id number]" /> < value unit="" xsi:type="PQ" value="TRACE" /> <interpretationCode codeSystem="local" code="*" /> <referenceRange> < observationRange> <text>NEGATIVE</text> </ observationRange> </referenceRange> </observation> </ component> <component> <observation moodCode="EVN" classCode="OBS"> <templateId root="216.840.1.262382.10..4.2" /> <id nullFlavor="NA" /> <code codeSystem="local" code="NITRIU" displayName= "UA NITRITE DIPSTICK" /> <statusCode code="completed" /> < effectiveTime value="" /> <value unit="" xsi:type="PQ" value="NEGATIVE" /> <referenceRange> <observationRange> <text>NEGATIVE</text> </observationRange> </ referenceRange> </observation> </component> <component> <observation moodCode="EVN" classCode="OBS"> <templateId root= "216.840.1.134665.01.23.22.4.2" /> <id nullFlavor="NA" /> < code codeSystem="local" code="PROTEIU" displayName="UA PROTEIN DIPSTICK" /> <statusCode code="completed" /> <effectiveTime value= "" /> <value unit="" xsi:type="PQ" value="1+" /> < interpretationCode codeSystem="local" code="*" /> <referenceRange> <observationRange> <text>NEGATIVE</text> </ observationRange> </referenceRange> </observation> </ component> <component> <observation moodCode="EVN" classCode="OBS"> <templateId root="216.840.1.384614...4.2" /> <id nullFlavor="NA" /> <code codeSystem="local" code="DGLUU" displayName= "UA GLUCOSE DIPSTICK" /> <statusCode code="completed" /> < effectiveTime value="" /> <value unit="" xsi:type="PQ" value="NEGATIVE" /> <referenceRange> <observationRange> <text>NEGATIVE</text> </observationRange> </ referenceRange> </observation> </component> <component> <observation moodCode="EVN" classCode="OBS"> <templateId root= "16.840.1.658241.10..22.4.2" /> <id nullFlavor="NA" /> < code codeSystem="local" code="KETONU" displayName="UA KETONE DIPSTICK" /> <statusCode code="completed" /> <effectiveTime value="[id number] " /> <value unit="" xsi:type="PQ" value="NEGATIVE" /> < referenceRange> <observationRange> <text>NEGATIVE</text > </observationRange> </referenceRange> </observation > </component> <component> <observation moodCode="EVN" classCode="OBS"> <templateId root="05.22.840.1.659378.10..22.4.2" /> <id nullFlavor="NA" /> <code codeSystem="local" code="UROBILU " displayName="UA UROBILINOGEN DIPSTICK" /> <statusCode code="completed " /> <effectiveTime value="" /> <value unit="" xsi :type="PQ" value="2+" /> <interpretationCode codeSystem="local" code="* " /> <referenceRange> <observationRange> <text> NORMAL</text> </observationRange> </referenceRange> < /observation> </component> <component> <observation moodCode= "EVN" classCode="OBS"> <templateId root="05.22.840.1.301518.10..22.4.2 " /> <id nullFlavor="NA" /> <code codeSystem="local" code= "BILU" displayName="UA BILIRUBIN DIPSTICK" /> <statusCode code= "completed" /> <effectiveTime value="" /> <value unit="" xsi:type="PQ" value="POSITIVE" /> <interpretationCode codeSystem="local" code="*" /> <referenceRange> < observationRange> <text>NEGATIVE</text> </ observationRange> </referenceRange> </observation> </ component> <component> <observation moodCode="EVN" classCode="OBS"> <templateId root="2.16.840.1.196091.10..22.4.2" /> <id nullFlavor="NA" /> <code codeSystem="local" code="HEIDI" displayName="UA BLOOD DIPSTICK" /> <statusCode code="completed" /> < effectiveTime value="" /> <value unit="" xsi:type="PQ" value="2+" /> <interpretationCode codeSystem="local" code="*" /> <referenceRange> <observationRange> <text>NEGATIVE</ text> </observationRange> </referenceRange> </ observation> </component> <component> <observation moodCode= "EVN" classCode="OBS"> <templateId root="2.16.840.1.851258.10..22.4.2 " /> <id nullFlavor="NA" /> <code codeSystem="local" code= "COMU" displayName="UA COMMENT" /> <statusCode code="completed" /> <effectiveTime value="" /> <value unit="" xsi:type= "PQ" value="" /> <referenceRange> <observationRange> <text /> </observationRange> </referenceRange> </observation> </component> <component> <observation moodCode="EVN" classCode="OBS"> <templateId root= "05.22.840.1.796950.10..22.4.2" /> <id nullFlavor="NA" /> < code codeSystem="local" code="SPGRU" displayName="UA SPECIFIC GRAVITY" /> <statusCode code="completed" /> <effectiveTime value=" " /> <value unit="" xsi:type="PQ" value="1.007" /> < interpretationCode codeSystem="local" code="*" /> <referenceRange> <observationRange> <text>1.015-1.025</text> </ observationRange> </referenceRange> </observation> </ component> <component> <observation moodCode="EVN" classCode="OBS"> <templateId root="05.22.840.1.611577.01.23.22.4.2" /> <id nullFlavor="NA" /> <code codeSystem="local" code="MARISA" displayName="UR PH" /> <statusCode code="completed" /> <effectiveTime value= "" /> <value unit="" xsi:type="PQ" value="7.0" /> <referenceRange> <observationRange> <text>5.0-7.0</text > </observationRange> </referenceRange> </observation > </component> </organizer> </entry> <entry> <organizer moodCode= "EVN" classCode="BATTERY"> <templateId root="05.22.840.1.960690.10..22.4.1 " /> <id nullFlavor="NA" /> <code codeSystem="local" code="UAMICRONRC " displayName="UA MICROSCOPIC, NO REFLEX CULT" /> <statusCode code= "completed" /> <component> <observation moodCode="EVN" classCode= "OBS"> <templateId root="2.16.840.1.826094.10.22.4.2" /> < id nullFlavor="NA" /> <code codeSystem="local" code="EPIU" displayName= "UA EPITHELIAL CELLS" /> <statusCode code="completed" /> < effectiveTime value="" /> <value unit="epi/hpf" xsi:type= "PQ" value="4+" /> <interpretationCode codeSystem="local" code="*" /> <referenceRange> <observationRange> <text>0 - 1 +</text> </observationRange> </referenceRange> </ observation> </component> <component> <observation moodCode= "EVN" classCode="OBS"> <templateId root="840.1.394824.01.23.22.4.2 " /> <id nullFlavor="NA" /> <code codeSystem="local" code= "HYALU" displayName="UA HYALINE CAST" /> <statusCode code="completed" / > <effectiveTime value="" /> <value unit="cast/lpf " xsi:type="PQ" value="5-10" /> <interpretationCode codeSystem="local" code="*" /> <referenceRange> <observationRange> <text>0 - 1</text> </observationRange> </referenceRange> </observation> </component> <component> <observation moodCode="EVN" classCode="OBS"> <templateId root= "05.22.840.1.697967.10.22.4.2" /> <id nullFlavor="NA" /> < code codeSystem="local" code="MUCUSU" displayName="UA MUCUS" /> < statusCode code="completed" /> <effectiveTime value="" /> <value unit="" xsi:type="PQ" value="4+" /> < interpretationCode codeSystem="local" code="*" /> <referenceRange> <observationRange> <text>NEG TO 1+</text> </ observationRange> </referenceRange> </observation> </ component> <component> <observation moodCode="EVN" classCode="OBS"> <templateId root="216.840.1.683491.10.20.22.4.2" /> <id nullFlavor="NA" /> <code codeSystem="local" code="RBCU" displayName=" UA RBC" /> <statusCode code="completed" /> <effectiveTime value="" /> <value unit="rbc/hpf" xsi:type="PQ" value="> 100" /> <interpretationCode codeSystem="local" code="*" /> < referenceRange> <observationRange> <text>0 - 3</text> </observationRange> </referenceRange> </observation> </component> <component> <observation moodCode="EVN" classCode= "OBS"> <templateId root="05.22.840.1.698018...4.2" /> < id nullFlavor="NA" /> <code codeSystem="local" code="UAVOL" displayName ="UA VOLUME FOR EXAM" /> <statusCode code="completed" /> < effectiveTime value="" /> <value unit="mL" xsi:type="PQ" value="12.0" /> <referenceRange> <observationRange> <text>(12mL STD)</text> </observationRange> </ referenceRange> </observation> </component> <component> <observation moodCode="EVN" classCode="OBS"> <templateId root= "216.840.1.060589.10.20.22.4.2" /> <id nullFlavor="NA" /> < code codeSystem="local" code="WBCU" displayName="UA WBC" /> < statusCode code="completed" /> <effectiveTime value="895389108423" /> <value unit="wbc/hpf" xsi:type="PQ" value="2-5" /> < referenceRange> <observationRange> <text>0 - 5</text> </observationRange> </referenceRange> </observation> </component> </organizer> </entry> <entry> <organizer moodCode="EVN " classCode="BATTERY"> <templateId root="2.16.840.1.825682.10.20.22.4.1" / > <id nullFlavor="NA" /> <code codeSystem="local" code="UC" displayName="URINE CULTURE" /> <statusCode code="completed" /> < component> <observation moodCode="EVN" classCode="OBS"> < templateId root="2.16.840.1.452412.10.20.22.4.2" /> <id nullFlavor="NA " /> <code codeSystem="local" code="UNC" displayName="Uncategorized" / > <statusCode code="completed" /> <effectiveTime value= "601779463794" /> <value xsi:type="ST" value="<pre><b>URINE CULTURE</b > See BelowURINE CULTURE(F) Albaro Date/Time: 11/11/2012 15:10 Liza Date/Time: 11/13/2012 10:47SOURCE: URINESPEC DESC: CATHETERTREATMENT OF ASYMPTOMATIC BACTERIURIA IS NOT USUALLYCLINICALLY INDICATED.MIXED GRAM POSITIVE?[facility] [phone] [place] [address]</pre>" /> <referenceRange> <observationRange> <text /> </observationRange> </referenceRange> </observation> </component> </ organizer> </entry> <entry> <organizer moodCode="EVN" classCode="BATTERY"> <templateId root="216.840.1.551578.10..22.4.1" /> <id nullFlavor= "NA" /> <code codeSystem="local" code="CDTOX" displayName="CLOSTRIDIUM DIFFICILE DNA" /> <statusCode code="completed" /> <component> < observation moodCode="EVN" classCode="OBS"> <templateId root= "216.840.1.812722.10...4.2" /> <id nullFlavor="NA" /> < code codeSystem="local" code="UNC" displayName="Uncategorized" /> < statusCode code="completed" /> <effectiveTime value="769203021034" /> <value xsi:type="ST" value="<pre><b>CLOSTRIDIUM DIFFICILE DNA</b> See BelowCLOSTRIDIUM DIFFICILE DNA(F) Albaro Date/Time: 11/11/2012 16:09 Liza Date/Time: 11/12/2012 11:09SOURCE: STOOLSPEC DESC: LIQUIDC.DIFFICILE TOXINNEGATIVE FOR CLOSTRIDIUM DIFFICILE TOXIN B GENE [facility] - [id number] [place] [address]</pre>" /> <referenceRange> <observationRange> <text /> </observationRange> </referenceRange> </observation> </ component> </organizer> </entry> <entry> <organizer moodCode="EVN" classCode="BATTERY"> <templateId root="216.840.1.162515.10..22.4.1" /> <id nullFlavor="NA" /> <code codeSystem="local" code="MRSAS" displayName="MRSA SURVEILLANCE SCREEN" /> <statusCode code="completed" /> <component> <observation moodCode="EVN" classCode="OBS"> < templateId root="216.840.1.783482.10..22.4.2" /> <id nullFlavor="NA " /> <code codeSystem="local" code="UNC" displayName="Uncategorized" / > <statusCode code="completed" /> <effectiveTime value= "663279991148" /> <value xsi:type="ST" value="<pre><b>MRSA SURVEILLANCE SCREEN</b> See BelowMRSA SURVEILLANCE SCREEN(F) Albaro Date/Time: 11/11/2012 17:58 Liza Date/Time: 11/13/2012 07: 26SOURCE: ANTERIOR NARESSPEC DESC: NNO METHICILLIN [facility] [id number] [place] [address]</pre>" /> <referenceRange> <observationRange> <text /> </observationRange> </referenceRange> </observation> </component> </organizer> </entry> <entry> <organizer moodCode="EVN " classCode="BATTERY"> <templateId root="2.16.840.1.033010.10..22.4.1" / > <id nullFlavor="NA" /> <code codeSystem="local" code="ABG" displayName="ARTERIAL BLOOD GAS" /> <statusCode code="completed" /> < component> <observation moodCode="EVN" classCode="OBS"> < templateId root="2.16.840.1.445712.10..22.4.2" /> <id nullFlavor="NA " /> <code codeSystem="local" code="RICCI" displayName="ABG BASE EXCESS" /> <statusCode code="completed" /> <effectiveTime value= "993990349679" /> <value unit="meq/L" xsi:type="PQ" value="-7.3" /> <interpretationCode codeSystem="local" code="*" /> < referenceRange> <observationRange> <text>-3.0-3.0</text > </observationRange> </referenceRange> </observation > </component> <component> <observation moodCode="EVN" classCode="OBS"> <templateId root="216.840.1.656415.10...4.2" /> <id nullFlavor="NA" /> <code codeSystem="local" code="JN" displayName="ABG DEVICE" /> <statusCode code="completed" /> < effectiveTime value="" /> <value unit="" xsi:type="PQ" value="NC" /> <referenceRange> <observationRange> <text /> </observationRange> </referenceRange> </ observation> </component> <component> <observation moodCode= "EVN" classCode="OBS"> <templateId root="2.840.1.932107...4.2 " /> <id nullFlavor="NA" /> <code codeSystem="local" code= "HCO3A" displayName="ABG BICARBONATE" /> <statusCode code="completed" / > <effectiveTime value="" /> <value unit="meq/L" xsi:type="PQ" value="17.2" /> <interpretationCode codeSystem="local" code="*" /> <referenceRange> <observationRange> <text>23.0-28.0</text> </observationRange> </ referenceRange> </observation> </component> <component> <observation moodCode="EVN" classCode="OBS"> <templateId root= "216.840.1.339528.10...4.2" /> <id nullFlavor="NA" /> < code codeSystem="local" code="L/MA" displayName="ABG L/M" /> < statusCode code="completed" /> <effectiveTime value="" /> <value unit="" xsi:type="PQ" value="4.0" /> <referenceRange> <observationRange> <text /> </ observationRange> </referenceRange> </observation> </ component> <component> <observation moodCode="EVN" classCode="OBS"> <templateId root="216.840.1.367068.10..22.4.2" /> <id nullFlavor="NA" /> <code codeSystem="local" code="PCO2A" displayName= "ABG PCO2" /> <statusCode code="completed" /> <effectiveTime value="" /> <value unit="mmHg" xsi:type="PQ" value="32" /> <interpretationCode codeSystem="local" code="*" /> < referenceRange> <observationRange> <text>34-45</text> </observationRange> </referenceRange> </observation> </component> <component> <observation moodCode="EVN" classCode= "OBS"> <templateId root="05.22.840.1.212554.10.22.4.2" /> < id nullFlavor="NA" /> <code codeSystem="local" code="PHAX" displayName= "ABG PH" /> <statusCode code="completed" /> <effectiveTime value="" /> <value unit="" xsi:type="PQ" value="7.35" /> <referenceRange> <observationRange> <text>7.35- 7.45</text> </observationRange> </referenceRange> </ observation> </component> <component> <observation moodCode= "EVN" classCode="OBS"> <templateId root="16.840.1.516440.10.20.22.4.2 " /> <id nullFlavor="NA" /> <code codeSystem="local" code= "PO2A" displayName="ABG PO2" /> <statusCode code="completed" /> <effectiveTime value="" /> <value unit="mmHg" xsi:type= "PQ" value="98" /> <referenceRange> <observationRange> <text>75-100</text> </observationRange> </ referenceRange> </observation> </component> <component> <observation moodCode="EVN" classCode="OBS"> <templateId root= "16.840.1.473218.10.20.22.4.2" /> <id nullFlavor="NA" /> < code codeSystem="local" code="SATA" displayName="ABG O2 SATURATION" /> <statusCode code="completed" /> <effectiveTime value="" /> <value unit="%" xsi:type="PQ" value="97" /> < referenceRange> <observationRange> <text>93-100</text> </observationRange> </referenceRange> </observation> </component> <component> <observation moodCode="EVN" classCode ="OBS"> <templateId root="05.22.840.1.320076.10.20.22.4.2" /> < id nullFlavor="NA" /> <code codeSystem="local" code="SITEA" displayName ="ABG SITE" /> <statusCode code="completed" /> <effectiveTime value="" /> <value unit="" xsi:type="PQ" value="ART LINE" / > <referenceRange> <observationRange> <text /> </observationRange> </referenceRange> </observation > </component> </organizer> </entry> <entry> <organizer moodCode= "EVN" classCode="BATTERY"> <templateId root="05.22.840.1.577464.10..4.1 " /> <id nullFlavor="NA" /> <code codeSystem="local" code="LACT" displayName="LACTIC ACID" /> <statusCode code="completed" /> < component> <observation moodCode="EVN" classCode="OBS"> < templateId root="05.22.840.1.559622.01.23.22.4.2" /> <id nullFlavor="NA " /> <code codeSystem="local" code="LACT" displayName="LACTIC ACID" /> <statusCode code="completed" /> <effectiveTime value= "824743269493" /> <value unit="mmol/L" xsi:type="PQ" value="0.7" /> <referenceRange> <observationRange> <text>0.5-2.2 </text> </observationRange> </referenceRange> </ observation> </component> </organizer> </entry> <entry> <organizer moodCode="EVN" classCode="BATTERY"> <templateId root= "05.22.840.1.857692.01.23.22.4.1" /> <id nullFlavor="NA" /> <code codeSystem="local" code="VALP" displayName="VALPROIC ACID (DEPAKENE)" /> < statusCode code="completed" /> <component> <observation moodCode= "EVN" classCode="OBS"> <templateId root="05.22.840.1.280492.10..4.2 " /> <id nullFlavor="NA" /> <code codeSystem="local" code= "VALP" displayName="VALPROIC ACID (DEPAKENE)" /> <statusCode code= "completed" /> <effectiveTime value="266089146243" /> <value unit="mcg/mL" xsi:type="PQ" value="< 3" /> <interpretationCode codeSystem="local" code="*" /> <referenceRange> < observationRange> <text>50-100</text> </observationRange > </referenceRange> </observation> </component> </ organizer> </entry> <entry> <organizer moodCode="EVN" classCode="BATTERY"> <templateId root="216.840.1.928496.10.20.22.4.1" /> <id nullFlavor= "NA" /> <code codeSystem="local" code="SPNAG" displayName="AG STREPTOCOCCUS PNEUMONIAE" /> <statusCode code="completed" /> < component> <observation moodCode="EVN" classCode="OBS"> < templateId root="2.16.840.1.711998.10..22.4.2" /> <id nullFlavor="NA " /> <code codeSystem="local" code="UNC" displayName="Uncategorized" / > <statusCode code="completed" /> <effectiveTime value= "[id number]" /> <value xsi:type="ST" value="<pre><b>AG STREPTOCOCCUS PNEUMONIAE</b> See BelowAG STREPTOCOCCUS PNEUMONIAE(F) Albaro Date/Time: 2012 20:08 Liza Date/Time: 11/11/2012 22:06SOURCE : URINESPEC DESC: STREPTOCOCCUS PNEUMONIAENEGATIVE FOR [facility] - [id number] [place] [address]</pre>" /> <referenceRange> <observationRange> <text /> </observationRange> </referenceRange> </observation> </component> </organizer> </entry> <entry> <organizer moodCode= "EVN" classCode="BATTERY"> <templateId root="216.840.1.076872.10..22.4.1 " /> <id nullFlavor="NA" /> <code codeSystem="local" code="UA" displayName="URINALYSIS, ROUTINE" /> <statusCode code="completed" /> < component> <observation moodCode="EVN" classCode="OBS"> < templateId root="16.840.1.363955.10.4.2" /> <id nullFlavor="NA " /> <code codeSystem="local" code="LEUESU" displayName="UA LEUKOCYTE ESTERASE DIPSTICK" /> <statusCode code="completed" /> < effectiveTime value="527864197717" /> <value unit="" xsi:type="PQ" value="NEGATIVE" /> <referenceRange> <observationRange> <text>NEGATIVE</text> </observationRange> </ referenceRange> </observation> </component> <component> <observation moodCode="EVN" classCode="OBS"> <templateId root= "05.22.840.1.006073.01.23.224.2" /> <id nullFlavor="NA" /> < code codeSystem="local" code="NITRIU" displayName="UA NITRITE DIPSTICK" /> <statusCode code="completed" /> <effectiveTime value="923958487840 " /> <value unit="" xsi:type="PQ" value="NEGATIVE" /> < referenceRange> <observationRange> <text>NEGATIVE</text > </observationRange> </referenceRange> </observation > </component> <component> <observation moodCode="EVN" classCode="OBS"> <templateId root="05.22.840.1.145018.01.23.22.4.2" /> <id nullFlavor="NA" /> <code codeSystem="local" code="PROTEIU " displayName="UA PROTEIN DIPSTICK" /> <statusCode code="completed" /> <effectiveTime value="310327351576" /> <value unit="" xsi: type="PQ" value="NEGATIVE" /> <referenceRange> < observationRange> <text>NEGATIVE</text> </ observationRange> </referenceRange> </observation> </ component> <component> <observation moodCode="EVN" classCode="OBS"> <templateId root="16.840.1.490017.10..4.2" /> <id nullFlavor="NA" /> <code codeSystem="local" code="DGLUU" displayName= "UA GLUCOSE DIPSTICK" /> <statusCode code="completed" /> < effectiveTime value="171646928513" /> <value unit="" xsi:type="PQ" value="NEGATIVE" /> <referenceRange> <observationRange> <text>NEGATIVE</text> </observationRange> </ referenceRange> </observation> </component> <component> <observation moodCode="EVN" classCode="OBS"> <templateId root= "840.1.045724.01.23.22.4.2" /> <id nullFlavor="NA" /> < code codeSystem="local" code="KETONU" displayName="UA KETONE DIPSTICK" /> <statusCode code="completed" /> <effectiveTime value="456613577418 " /> <value unit="" xsi:type="PQ" value="NEGATIVE" /> < referenceRange> <observationRange> <text>NEGATIVE</text > </observationRange> </referenceRange> </observation > </component> <component> <observation moodCode="EVN" classCode="OBS"> <templateId root="05.22.840.1.828681.22.4.2" /> <id nullFlavor="NA" /> <code codeSystem="local" code="UROBILU " displayName="UA UROBILINOGEN DIPSTICK" /> <statusCode code="completed " /> <effectiveTime value="269699647349" /> <value unit="" xsi :type="PQ" value="NORMAL" /> <referenceRange> < observationRange> <text>NORMAL</text> </observationRange > </referenceRange> </observation> </component> < component> <observation moodCode="EVN" classCode="OBS"> < templateId root="216.840.1.023374.01.23.22.4.2" /> <id nullFlavor="NA " /> <code codeSystem="local" code="BILU" displayName="UA BILIRUBIN DIPSTICK" /> <statusCode code="completed" /> <effectiveTime value="669299158532" /> <value unit="" xsi:type="PQ" value="NEGATIVE" / > <referenceRange> <observationRange> <text> NEGATIVE</text> </observationRange> </referenceRange> </observation> </component> <component> <observation moodCode ="EVN" classCode="OBS"> <templateId root= "216.840.1.461462.01.23.22.4.2" /> <id nullFlavor="NA" /> < code codeSystem="local" code="HEIDI" displayName="UA BLOOD DIPSTICK" /> < statusCode code="completed" /> <effectiveTime value="911784590200" /> <value unit="" xsi:type="PQ" value="4+" /> < interpretationCode codeSystem="local" code="*" /> <referenceRange> <observationRange> <text>NEGATIVE</text> </ observationRange> </referenceRange> </observation> </ component> <component> <observation moodCode="EVN" classCode="OBS"> <templateId root="216.840.1.774884.01.23.22.4.2" /> <id nullFlavor="NA" /> <code codeSystem="local" code="EPIU" displayName=" UA EPITHELIAL CELLS" /> <statusCode code="completed" /> < effectiveTime value="079850195145" /> <value unit="epi/hpf" xsi:type= "PQ" value="1+" /> <referenceRange> <observationRange> <text>0 - 1+</text> </observationRange> </ referenceRange> </observation> </component> <component> <observation moodCode="EVN" classCode="OBS"> <templateId root= "216.840.1.338202.01.23.22.4.2" /> <id nullFlavor="NA" /> < code codeSystem="local" code="MUCUSU" displayName="UA MUCUS" /> < statusCode code="completed" /> <effectiveTime value="388893983047" /> <value unit="" xsi:type="PQ" value="1+" /> <referenceRange> <observationRange> <text>NEG TO 1+</text> </ observationRange> </referenceRange> </observation> </ component> <component> <observation moodCode="EVN" classCode="OBS"> <templateId root="2.16.840.1.790380...4.2" /> <id nullFlavor="NA" /> <code codeSystem="local" code="RBCU" displayName=" UA RBC" /> <statusCode code="completed" /> <effectiveTime value="455921679874" /> <value unit="rbc/hpf" xsi:type="PQ" value="> 100" /> <interpretationCode codeSystem="local" code="*" /> < referenceRange> <observationRange> <text>0 - 3</text> </observationRange> </referenceRange> </observation> </component> <component> <observation moodCode="EVN" classCode= "OBS"> <templateId root="216.840.1.196354.10..4.2" /> < id nullFlavor="NA" /> <code codeSystem="local" code="UAVOL" displayName ="UA VOLUME FOR EXAM" /> <statusCode code="completed" /> < effectiveTime value="241912669186" /> <value unit="mL" xsi:type="PQ" value="12.0" /> <referenceRange> <observationRange> <text>(12mL STD)</text> </observationRange> </ referenceRange> </observation> </component> <component> <observation moodCode="EVN" classCode="OBS"> <templateId root= "216.840.1.185609.01.23.22.4.2" /> <id nullFlavor="NA" /> < code codeSystem="local" code="WBCU" displayName="UA WBC" /> < statusCode code="completed" /> <effectiveTime value="949365545088" /> <value unit="wbc/hpf" xsi:type="PQ" value="0-1" /> < referenceRange> <observationRange> <text>0 - 5</text> </observationRange> </referenceRange> </observation> </component> <component> <observation moodCode="EVN" classCode= "OBS"> <templateId root="16.840.1.151986.10...4.2" /> < id nullFlavor="NA" /> <code codeSystem="local" code="SPGRU" displayName ="UA SPECIFIC GRAVITY" /> <statusCode code="completed" /> < effectiveTime value="538632645321" /> <value unit="" xsi:type="PQ" value="1.005" /> <interpretationCode codeSystem="local" code="*" /> <referenceRange> <observationRange> <text>1.015- 1.025</text> </observationRange> </referenceRange> </ observation> </component> <component> <observation moodCode= "EVN" classCode="OBS"> <templateId root="216.840.1.552646.10.4.2 " /> <id nullFlavor="NA" /> <code codeSystem="local" code="MARISA " displayName="UR PH" /> <statusCode code="completed" /> < effectiveTime value="276135178104" /> <value unit="" xsi:type="PQ" value="5.0" /> <referenceRange> <observationRange> <text>5.0-7.0</text> </observationRange> </ referenceRange> </observation> </component> </organizer> </entry > <entry> <organizer moodCode="EVN" classCode="BATTERY"> <templateId root="05.22.840.1.554589.01.23.22.4.1" /> <id nullFlavor="NA" /> <code codeSystem="local" code="GLUMON" displayName="GLUCOSE (POC)" /> < statusCode code="completed" /> <component> <observation moodCode= "EVN" classCode="OBS"> <templateId root="16.840.1.664481.10..4.2 " /> <id nullFlavor="NA" /> <code codeSystem="local" code= "GLUMON" displayName="GLUCOSE (POC)" /> <statusCode code="completed" / > <effectiveTime value="303567175254" /> <value unit="mg/dL" xsi:type="PQ" value="160" /> <interpretationCode codeSystem="local" code="*" /> <referenceRange> <observationRange> <text>70-99</text> </observationRange> </referenceRange> </observation> </component> </organizer> </entry> <entry> < organizer moodCode="EVN" classCode="BATTERY"> <templateId root= "16.840.1.583907.10...4.1" /> <id nullFlavor="NA" /> <code codeSystem="local" code="GLUMON" displayName="GLUCOSE (POC)" /> < statusCode code="completed" /> <component> <observation moodCode= "EVN" classCode="OBS"> <templateId root="05.22.840.1.676834.10..4.2 " /> <id nullFlavor="NA" /> <code codeSystem="local" code= "GLUMON" displayName="GLUCOSE (POC)" /> <statusCode code="completed" / > <effectiveTime value="219595059399" /> <value unit="mg/dL" xsi:type="PQ" value="203" /> <interpretationCode codeSystem="local" code="*" /> <referenceRange> <observationRange> <text>70-99</text> </observationRange> </referenceRange> </observation> </component> </organizer> </entry> <entry> < organizer moodCode="EVN" classCode="BATTERY"> <templateId root= "05.22.840.1.058568.10..4.1" /> <id nullFlavor="NA" /> <code codeSystem="local" code="GLUMON" displayName="GLUCOSE (POC)" /> < statusCode code="completed" /> <component> <observation moodCode= "EVN" classCode="OBS"> <templateId root="05.22.840.1.418128.01.23.22.4.2 " /> <id nullFlavor="NA" /> <code codeSystem="local" code= "GLUMON" displayName="GLUCOSE (POC)" /> <statusCode code="completed" / > <effectiveTime value="761389716105" /> <value unit="mg/dL" xsi:type="PQ" value="140" /> <interpretationCode codeSystem="local" code="*" /> <referenceRange> <observationRange> <text>70-99</text> </observationRange> </referenceRange> </observation> </component> </organizer> </entry> <entry> < organizer moodCode="EVN" classCode="BATTERY"> <templateId root= "05.22.840.1.667879.22.4.1" /> <id nullFlavor="NA" /> <code codeSystem="local" code="CBCD" displayName="CBC W/DIFF" /> <statusCode code ="completed" /> <component> <observation moodCode="EVN" classCode= "OBS"> <templateId root="05.22.840.1.842474.01.23.22.4.2" /> < id nullFlavor="NA" /> <code codeSystem="local" code="CBCCOM" displayName="COMMENT" /> <statusCode code="completed" /> < effectiveTime value="382260407267" /> <value unit="" xsi:type="PQ" value="REVIEWED" /> <referenceRange> <observationRange> <text /> </observationRange> </referenceRange> </observation> </component> <component> <observation moodCode="EVN" classCode="OBS"> <templateId root= "05.22.840.1.485179.10.22.4.2" /> <id nullFlavor="NA" /> < code codeSystem="local" code="GR#" displayName="GRANULOCYTE #" /> < statusCode code="completed" /> <effectiveTime value="" /> <value unit="k/cumm" xsi:type="PQ" value="12.5" /> < interpretationCode codeSystem="local" code="*" /> <referenceRange> <observationRange> <text>2.0-9.0</text> </ observationRange> </referenceRange> </observation> </ component> <component> <observation moodCode="EVN" classCode="OBS"> <templateId root="216.840.1.519688.10.4.2" /> <id nullFlavor="NA" /> <code codeSystem="local" code="GR%" displayName= "GRANULOCYTE %" /> <statusCode code="completed" /> < effectiveTime value="" /> <value unit="%" xsi:type="PQ " value="88" /> <interpretationCode codeSystem="local" code="*" /> <referenceRange> <observationRange> <text>50-75</ text> </observationRange> </referenceRange> </ observation> </component> <component> <observation moodCode= "EVN" classCode="OBS"> <templateId root="16.840.1.086891.10.4.2 " /> <id nullFlavor="NA" /> <code codeSystem="local" code="LY# " displayName="LYMPHOCYTE #" /> <statusCode code="completed" /> <effectiveTime value="" /> <value unit="k/cumm" xsi:type ="PQ" value="0.7" /> <interpretationCode codeSystem="local" code="*" / > <referenceRange> <observationRange> <text>1.0 -4.0</text> </observationRange> </referenceRange> </ observation> </component> <component> <observation moodCode= "EVN" classCode="OBS"> <templateId root="05.22.840.1.491637.10.20.22.4.2 " /> <id nullFlavor="NA" /> <code codeSystem="local" code="LY& #37;" displayName="LYMPHOCYTE %" /> <statusCode code="completed" / > <effectiveTime value="126130648675" /> <value unit="%" xsi:type="PQ" value="5" /> <interpretationCode codeSystem="local" code= "*" /> <referenceRange> <observationRange> < text>20-30</text> </observationRange> </referenceRange> </observation> </component> <component> <observation moodCode="EVN" classCode="OBS"> <templateId root= "05.22.840.1.281163.10.2022.4.2" /> <id nullFlavor="NA" /> < code codeSystem="local" code="MCH" displayName="MEAN CELL HGB" /> < statusCode code="completed" /> <effectiveTime value="471951594909" /> <value unit="pg" xsi:type="PQ" value="33.5" /> < interpretationCode codeSystem="local" code="*" /> <referenceRange> <observationRange> <text>27.0-33.0</text> </ observationRange> </referenceRange> </observation> </ component> <component> <observation moodCode="EVN" classCode="OBS"> <templateId root="05.22.840.1.950023.10.20.22.4.2" /> <id nullFlavor="NA" /> <code codeSystem="local" code="MCHC" displayName= "MEAN CELL HGB CONCENTRATION" /> <statusCode code="completed" /> <effectiveTime value="" /> <value unit="g/dL" xsi:type= "PQ" value="35.5" /> <referenceRange> <observationRange> <text>32.0-37.0</text> </observationRange> </ referenceRange> </observation> </component> <component> <observation moodCode="EVN" classCode="OBS"> <templateId root= "216.840.1.681736.10.20.22.4.2" /> <id nullFlavor="NA" /> < code codeSystem="local" code="MCV" displayName="MEAN CELL VOLUME" /> < statusCode code="completed" /> <effectiveTime value="" /> <value unit="fl" xsi:type="PQ" value="94.5" /> <referenceRange > <observationRange> <text>80.0-100.0</text> </observationRange> </referenceRange> </observation> </ component> <component> <observation moodCode="EVN" classCode="OBS"> <templateId root="216.840.1.595543.10.20.22.4.2" /> <id nullFlavor="NA" /> <code codeSystem="local" code="MO#" displayName= "MONOCYTE #" /> <statusCode code="completed" /> < effectiveTime value="" /> <value unit="k/cumm" xsi:type="PQ " value="1.0" /> <referenceRange> <observationRange> <text>0.1-1.0</text> </observationRange> </ referenceRange> </observation> </component> <component> <observation moodCode="EVN" classCode="OBS"> <templateId root= "216.840.1.561332.10..22.4.2" /> <id nullFlavor="NA" /> < code codeSystem="local" code="MO%" displayName="MONOCYTE %" /> <statusCode code="completed" /> <effectiveTime value="" /> <value unit="%" xsi:type="PQ" value="7" /> < interpretationCode codeSystem="local" code="*" /> <referenceRange> <observationRange> <text>4-6</text> </ observationRange> </referenceRange> </observation> </ component> <component> <observation moodCode="EVN" classCode="OBS"> <templateId root="05.22.840.1.034564.10..4.2" /> <id nullFlavor="NA" /> <code codeSystem="local" code="RBC" displayName=" RED BLOOD CELL" /> <statusCode code="completed" /> < effectiveTime value="" /> <value unit="m/cumm" xsi:type="PQ " value="3.10" /> <interpretationCode codeSystem="local" code="*" /> <referenceRange> <observationRange> <text>4.00- 6.00</text> </observationRange> </referenceRange> </ observation> </component> <component> <observation moodCode= "EVN" classCode="OBS"> <templateId root="16.840.1.546111.10.20.22.4.2 " /> <id nullFlavor="NA" /> <code codeSystem="local" code="RDW " displayName="RED CELL DISTRIBUTION WIDTH" /> <statusCode code= "completed" /> <effectiveTime value="" /> <value unit="%" xsi:type="PQ" value="12.1" /> <referenceRange> <observationRange> <text>11.0-15.6</text> </ observationRange> </referenceRange> </observation> </ component> <component> <observation moodCode="EVN" classCode="OBS"> <templateId root="216.840.1.343260.01.23.22.4.2" /> <id nullFlavor="NA" /> <code codeSystem="local" code="WBC" displayName= "WHITE BLOOD CELL" /> <statusCode code="completed" /> < effectiveTime value="413539015142" /> <value unit="k/cumm" xsi:type="PQ " value="14.3" /> <interpretationCode codeSystem="local" code="*" /> <referenceRange> <observationRange> <text>5.0- 10.0</text> </observationRange> </referenceRange> </ observation> </component> <component> <observation moodCode= "EVN" classCode="OBS"> <templateId root="216.840.1.643492.01.23.22.4.2 " /> <id nullFlavor="NA" /> <code codeSystem="local" code= "HGBT" displayName="HEMOGLOBIN" /> <statusCode code="completed" /> <effectiveTime value="574525400606" /> <value unit="gm/dL" xsi: type="PQ" value="10.4" /> <interpretationCode codeSystem="local" code= "*" /> <referenceRange> <observationRange> < text>14.0-18.0</text> </observationRange> </referenceRange> </observation> </component> <component> <observation moodCode="EVN" classCode="OBS"> <templateId root= "216.840.1.965373.01.23.22.4.2" /> <id nullFlavor="NA" /> < code codeSystem="local" code="HCTT" displayName="HEMATOCRIT" /> < statusCode code="completed" /> <effectiveTime value="861841090996" /> <value unit="%" xsi:type="PQ" value="29.3" /> < interpretationCode codeSystem="local" code="*" /> <referenceRange> <observationRange> <text>40.0-54.0</text> </ observationRange> </referenceRange> </observation> </ component> <component> <observation moodCode="EVN" classCode="OBS"> <templateId root="840.1.369036.01.23.22.4.2" /> <id nullFlavor="NA" /> <code codeSystem="local" code="PLT" displayName= "PLATELET COUNT" /> <statusCode code="completed" /> < effectiveTime value="" /> <value unit="k/cumm" xsi:type="PQ " value="176" /> <referenceRange> <observationRange> <text>150-400</text> </observationRange> </ referenceRange> </observation> </component> </organizer> </entry > <entry> <organizer moodCode="EVN" classCode="BATTERY"> <templateId root="840.1.239060.22.4.1" /> <id nullFlavor="NA" /> <code codeSystem="local" code="PT" displayName="PROTHROMBIN TIME WITH INR" /> < statusCode code="completed" /> <component> <observation moodCode= "EVN" classCode="OBS"> <templateId root="05.22.840.1.070846.22.4.2 " /> <id nullFlavor="NA" /> <code codeSystem="local" code= "INRX" displayName="INTERNATIONAL NORMAL RATIO" /> <statusCode code= "completed" /> <effectiveTime value="436170267195" /> <value unit="" xsi:type="PQ" value="1.1" /> <referenceRange> < observationRange> <text>0.9-1.1</text> </ observationRange> </referenceRange> </observation> </ component> <component> <observation moodCode="EVN" classCode="OBS"> <templateId root="840.1.633453.01.23.22.4.2" /> <id nullFlavor="NA" /> <code codeSystem="local" code="PTPAT" displayName= "PROTHROMBIN TIME" /> <statusCode code="completed" /> < effectiveTime value="460453932319" /> <value unit="sec" xsi:type="PQ" value="12.4" /> <interpretationCode codeSystem="local" code="*" /> <referenceRange> <observationRange> <text>9.3-12.2 </text> </observationRange> </referenceRange> </ observation> </component> </organizer> </entry> <entry> <organizer moodCode="EVN" classCode="BATTERY"> <templateId root= "840.1.208771.22.4.1" /> <id nullFlavor="NA" /> <code codeSystem="local" code="LACT" displayName="LACTIC ACID" /> <statusCode code="completed" /> <component> <observation moodCode="EVN" classCode="OBS"> <templateId root="840.1.872018.2022.4.2" /> <id nullFlavor="NA" /> <code codeSystem="local" code="LACT" displayName="LACTIC ACID" /> <statusCode code="completed" /> < effectiveTime value="587551962862" /> <value unit="mmol/L" xsi:type="PQ " value="0.8" /> <referenceRange> <observationRange> <text>0.5-2.2</text> </observationRange> </ referenceRange> </observation> </component> </organizer> </entry > <entry> <organizer moodCode="EVN" classCode="BATTERY"> <templateId root="05.22.840.1.946433.10...4.1" /> <id nullFlavor="NA" /> <code codeSystem="local" code="RENAL" displayName="RENAL FUNCTION PANEL" /> < statusCode code="completed" /> <component> <observation moodCode= "EVN" classCode="OBS"> <templateId root="05.22.840.1.700441.10..22.4.2 " /> <id nullFlavor="NA" /> <code codeSystem="local" code="K" displayName="POTASSIUM" /> <statusCode code="completed" /> < effectiveTime value="751694594508" /> <value unit="mmol/L" xsi:type="PQ " value="2.9" /> <interpretationCode codeSystem="local" code="*" /> <referenceRange> <observationRange> <text>3.5-5.3 </text> </observationRange> </referenceRange> </ observation> </component> <component> <observation moodCode= "EVN" classCode="OBS"> <templateId root="05.22.840.1.309306.10..22.4.2 " /> <id nullFlavor="NA" /> <code codeSystem="local" code= "eGFR" displayName="EST GFR (MDRD)" /> <statusCode code="completed" /> <effectiveTime value="" /> <value unit="mL/min" xsi:type="PQ" value="41" /> <interpretationCode codeSystem="local" code ="*" /> <referenceRange> <observationRange> < text>> 59</text> </observationRange> </referenceRange> </observation> </component> <component> <observation moodCode="EVN" classCode="OBS"> <templateId root= "216.840.1.800760.10.20.22.4.2" /> <id nullFlavor="NA" /> < code codeSystem="local" code="GAP" displayName="ANION GAP" /> < statusCode code="completed" /> <effectiveTime value="" /> <value unit="mmol/L" xsi:type="PQ" value="12" /> < referenceRange> <observationRange> <text>5-15</text> </observationRange> </referenceRange> </observation> </component> <component> <observation moodCode="EVN" classCode= "OBS"> <templateId root="216.840.1.734298.10..22.4.2" /> < id nullFlavor="NA" /> <code codeSystem="local" code="GLU" displayName= "GLUCOSE" /> <statusCode code="completed" /> <effectiveTime value="" /> <value unit="mg/dL" xsi:type="PQ" value="100" / > <interpretationCode codeSystem="local" code="*" /> < referenceRange> <observationRange> <text>70-99</text> </observationRange> </referenceRange> </observation> </component> <component> <observation moodCode="EVN" classCode= "OBS"> <templateId root="216.840.1.482656.10.20.22.4.2" /> < id nullFlavor="NA" /> <code codeSystem="local" code="CA" displayName= "CALCIUM" /> <statusCode code="completed" /> <effectiveTime value="" /> <value unit="mg/dL" xsi:type="PQ" value="7.0" / > <interpretationCode codeSystem="local" code="*" /> < referenceRange> <observationRange> <text>8.5-10.1</text > </observationRange> </referenceRange> </observation > </component> <component> <observation moodCode="EVN" classCode="OBS"> <templateId root="16.840.1.100800.10..22.4.2" /> <id nullFlavor="NA" /> <code codeSystem="local" code="BUN" displayName="BLOOD UREA NITROGEN" /> <statusCode code="completed" /> <effectiveTime value="" /> <value unit="mg/dL" xsi: type="PQ" value="31" /> <interpretationCode codeSystem="local" code="* " /> <referenceRange> <observationRange> <text> 7-20</text> </observationRange> </referenceRange> </ observation> </component> <component> <observation moodCode= "EVN" classCode="OBS"> <templateId root="16.840.1.512735.10.20.22.4.2 " /> <id nullFlavor="NA" /> <code codeSystem="local" code= "CREAT" displayName="CREATININE" /> <statusCode code="completed" /> <effectiveTime value="" /> <value unit="mg/dL" xsi: type="PQ" value="1.8" /> <interpretationCode codeSystem="local" code="* " /> <referenceRange> <observationRange> <text> 0.8-1.3</text> </observationRange> </referenceRange> </observation> </component> <component> <observation moodCode= "EVN" classCode="OBS"> <templateId root="216.840.1.031524.10..22.4.2 " /> <id nullFlavor="NA" /> <code codeSystem="local" code="NA " displayName="SODIUM" /> <statusCode code="completed" /> < effectiveTime value="" /> <value unit="mmol/L" xsi:type="PQ " value="140" /> <referenceRange> <observationRange> <text>135-148</text> </observationRange> </ referenceRange> </observation> </component> <component> <observation moodCode="EVN" classCode="OBS"> <templateId root= "05.22.840.1.916484...4.2" /> <id nullFlavor="NA" /> < code codeSystem="local" code="CL" displayName="CHLORIDE" /> < statusCode code="completed" /> <effectiveTime value="" /> <value unit="mmol/L" xsi:type="PQ" value="108" /> < referenceRange> <observationRange> <text>98-110</text> </observationRange> </referenceRange> </observation> </component> <component> <observation moodCode="EVN" classCode ="OBS"> <templateId root="05.22.840.1.778682.10.22.4.2" /> < id nullFlavor="NA" /> <code codeSystem="local" code="CO2" displayName= "CARBON DIOXIDE" /> <statusCode code="completed" /> < effectiveTime value="" /> <value unit="mmol/L" xsi:type="PQ " value="20" /> <interpretationCode codeSystem="local" code="*" /> <referenceRange> <observationRange> <text>21-32</ text> </observationRange> </referenceRange> </ observation> </component> <component> <observation moodCode= "EVN" classCode="OBS"> <templateId root="216.840.1.109311.10..22.4.2 " /> <id nullFlavor="NA" /> <code codeSystem="local" code="ALB " displayName="ALBUMIN" /> <statusCode code="completed" /> < effectiveTime value="" /> <value unit="gm/dL" xsi:type="PQ " value="2.5" /> <interpretationCode codeSystem="local" code="*" /> <referenceRange> <observationRange> <text>3.4-5.0 </text> </observationRange> </referenceRange> </ observation> </component> <component> <observation moodCode= "EVN" classCode="OBS"> <templateId root="216.840.1.705387.10.20.22.4.2 " /> <id nullFlavor="NA" /> <code codeSystem="local" code= "PHOS" displayName="PHOSPHORUS" /> <statusCode code="completed" /> <effectiveTime value="" /> <value unit="mg/dL" xsi: type="PQ" value="4.5" /> <referenceRange> <observationRange > <text>2.5-4.9</text> </observationRange> </ referenceRange> </observation> </component> </organizer> </entry > <entry> <organizer moodCode="EVN" classCode="BATTERY"> <templateId root="05.22.840.1.391406.10...4.1" /> <id nullFlavor="NA" /> <code codeSystem="local" code="HDLPRO" displayName="LIPID PANEL" /> <statusCode code="completed" /> <component> <observation moodCode="EVN" classCode="OBS"> <templateId root="05.22.840.1.753024...4.2" /> <id nullFlavor="NA" /> <code codeSystem="local" code="CHOL/HDL " displayName="CHOLESTEROL/HDL RATIO" /> <statusCode code="completed" / > <effectiveTime value="" /> <value unit="" xsi: type="PQ" value="1.8" /> <referenceRange> <observationRange > <text> < 5.0</text> </observationRange> </ referenceRange> </observation> </component> <component> <observation moodCode="EVN" classCode="OBS"> <templateId root= "05.22.840.1.558437.01.23.22.4.2" /> <id nullFlavor="NA" /> < code codeSystem="local" code="LDLX" displayName="LDL CHOLESTEROL" /> < statusCode code="completed" /> <effectiveTime value="" /> <value unit="mg/dL" xsi:type="PQ" value="31" /> < referenceRange> <observationRange> <text>< 100</text > </observationRange> </referenceRange> </observation > </component> <component> <observation moodCode="EVN" classCode="OBS"> <templateId root="05.22.840.1.766035...4.2" /> <id nullFlavor="NA" /> <code codeSystem="local" code="VLDL" displayName="VLDL CHOLESTEROL" /> <statusCode code="completed" /> <effectiveTime value="" /> <value unit="mg/dL" xsi: type="PQ" value="6" /> <referenceRange> <observationRange> <text>< 30</text> </observationRange> </ referenceRange> </observation> </component> <component> <observation moodCode="EVN" classCode="OBS"> <templateId root= "216.840.1.038490.10..4.2" /> <id nullFlavor="NA" /> < code codeSystem="local" code="TRIG" displayName="TRIGLYCERIDES" /> < statusCode code="completed" /> <effectiveTime value="" /> <value unit="mg/dL" xsi:type="PQ" value="31" /> < referenceRange> <observationRange> <text>< 150</text > </observationRange> </referenceRange> </observation > </component> <component> <observation moodCode="EVN" classCode="OBS"> <templateId root="216.840.1.814938.10...4.2" /> <id nullFlavor="NA" /> <code codeSystem="local" code="CHOL" displayName="CHOLESTEROL" /> <statusCode code="completed" /> < effectiveTime value="" /> <value unit="mg/dL" xsi:type="PQ " value="82" /> <referenceRange> <observationRange> <text>< 200</text> </observationRange> </ referenceRange> </observation> </component> <component> <observation moodCode="EVN" classCode="OBS"> <templateId root= "216.840.1.674200.10..4.2" /> <id nullFlavor="NA" /> < code codeSystem="local" code="HDL" displayName="HDL CHOLESTEROL" /> < statusCode code="completed" /> <effectiveTime value="" /> <value unit="mg/dL" xsi:type="PQ" value="45" /> < referenceRange> <observationRange> <text>> 39</text> </observationRange> </referenceRange> </observation > </component> </organizer> </entry> <entry> <organizer moodCode= "EVN" classCode="BATTERY"> <templateId root="216.840.1.364840.10...4.1 " /> <id nullFlavor="NA" /> <code codeSystem="local" code="MAG" displayName="MAGNESIUM" /> <statusCode code="completed" /> <component > <observation moodCode="EVN" classCode="OBS"> <templateId root= "216.840.1.723940.10..22.4.2" /> <id nullFlavor="NA" /> < code codeSystem="local" code="MAG" displayName="MAGNESIUM" /> < statusCode code="completed" /> <effectiveTime value="" /> <value unit="mg/dL" xsi:type="PQ" value="1.4" /> < interpretationCode codeSystem="local" code="*" /> <referenceRange> <observationRange> <text>1.8-2.4</text> </ observationRange> </referenceRange> </observation> </ component> </organizer> </entry> <entry> <organizer moodCode="EVN" classCode="BATTERY"> <templateId root="216.840.1.775684.10.20.22.4.1" /> <id nullFlavor="NA" /> <code codeSystem="local" code="AMANDA" displayName="CAMPYLOBACTER ANTIGEN" /> <statusCode code="completed" /> <component> <observation moodCode="EVN" classCode="OBS"> < templateId root="2.16.840.1.717002.10.20.22.4.2" /> <id nullFlavor="NA " /> <code codeSystem="local" code="UNC" displayName="Uncategorized" / > <statusCode code="completed" /> <effectiveTime value= "[id number]" /> <value xsi:type="ST" value="<pre><b>CAMPYLOBACTER ANTIGEN - STOOL CULTURE - E. COLI SHIGA-LIKE TOXIN</b> See BelowCAMPYLOBACTER ANTIGEN(F) Albaro Date/Time: 11/12/2012 09:30 Liza Date/Time: 11/14/2012 08:27SOURCE: STOOLSPEC DESC: CAMPYLOBACTER ANTIGENNEGATIVEBINGHAM [facility] [id number] [place], [place] [address]See BelowSTOOL CULTURE(F) Albaro Date/Time: 11/12/2012 09:30 Liza Date/Time: 11/14/2012 08:27SOURCE: STOOLSPEC DESC: NO ANTONETTE OR SHIGNEGATIVE FOR SALMONELLA AND SHIGELLANO E. COLI 0157NO E. COLI 0157 :H7 ISOLATEDBINGHAM MEMORIAL [facility]OSP[facility] [id number] [place], [place] [id number] BelowE. COLI SHIGA-LIKE TOXIN(F) Albaro Date/Time: 11/12/2012 09:30 Liza Date/Time: 11/14/2012 08:27SOURCE: STOOLSPEC DESC: SHIGA-TOXIN 1NEGATIVESHIGA-TOXIN 2NEGATIVEBINGHAM [facility] [id number] [place] [address]</pre>" /> <referenceRange> < observationRange> <text /> </observationRange> </referenceRange> </observation> </component> </organizer> </ entry> <entry> <organizer moodCode="EVN" classCode="BATTERY"> < templateId root="05.22.840.1.331880.10..22.4.1" /> <id nullFlavor="NA" /> <code codeSystem="local" code="STWBC" displayName="STOOL LEUKOCYTES" /> <statusCode code="completed" /> <component> <observation moodCode="EVN" classCode="OBS"> <templateId root= "05.22.840.1.968248.10...4.2" /> <id nullFlavor="NA" /> < code codeSystem="local" code="UNC" displayName="Uncategorized" /> < statusCode code="completed" /> <effectiveTime value="[id number]" /> <value xsi:type="ST" value="<pre><b>STOOL LEUKOCYTES</b> See BelowSTOOL LEUKOCYTES(F) Albaro Date/Time: 11/12/2012 09:30 Liza Date/Time: 11/12/2012 11:47SOURCE: STOOLSPEC DESC: UNKNOWNSTWBC RESULT (Abnormal)MANY NEUTROPHILS SEEN (Abnormal)[facility] - [id number] [place] [address]</pre>" /> <referenceRange> <observationRange> <text /> </observationRange > </referenceRange> </observation> </component> </ organizer> </entry> <entry> <organizer moodCode="EVN" classCode="BATTERY"> <templateId root="2.840.1.044780.10...4.1" /> <id nullFlavor= "NA" /> <code codeSystem="local" code="OP" displayName="OVA AND PARASITES" /> <statusCode code="completed" /> <component> <observation moodCode="EVN" classCode="OBS"> <templateId root= "05.22.830.1.087171.10.20.22.4.2" /> <id nullFlavor="NA" /> < code codeSystem="local" code="UNC" displayName="Uncategorized" /> < statusCode code="completed" /> <effectiveTime value="564788304516" /> <value xsi:type="ST" value="<pre><b>OVA AND PARASITES</b> See BelowOVA AND PARASITES(F) Albaro Date/Time: 11/12/2012 09:30 Liza Date/Time: 11/12/2012 14:20SOURCE: STOOLSPEC DESC: CRYPTOSPORIDIUM, CYCLOSPORA AND MICROSPORIDIA WILL NOT BEDETECTED BY THIS METHOD.OP REPORTMODERATE BLASTOCYSTIS HOMINIS (Abnormal)[facility] - [id number] [place] [address]</pre>" /> <referenceRange> <observationRange> <text /> </observationRange> </referenceRange> </observation> </component> </ organizer> </entry> <entry> <organizer moodCode="EVN" classCode="BATTERY"> <templateId root="2.16.840.1.850826.10.20.22.4.1" /> <id nullFlavor= "NA" /> <code codeSystem="local" code="GLUMON" displayName="GLUCOSE (POC)" /> <statusCode code="completed" /> <component> <observation moodCode="EVN" classCode="OBS"> <templateId root= "2.16.840.1.405545.10.20.22.4.2" /> <id nullFlavor="NA" /> < code codeSystem="local" code="GLUMON" displayName="GLUCOSE (POC)" /> < statusCode code="completed" /> <effectiveTime value="043784413932" /> <value unit="mg/dL" xsi:type="PQ" value="131" /> < interpretationCode codeSystem="local" code="*" /> <referenceRange> <observationRange> <text>70-99</text> </ observationRange> </referenceRange> </observation> </ component> </organizer> </entry> <entry> <organizer moodCode="EVN" classCode="BATTERY"> <templateId root="16.840.1.540035.10..4.1" /> <id nullFlavor="NA" /> <code codeSystem="local" code="CBCD" displayName="CBC W/DIFF" /> <statusCode code="completed" /> <component > <observation moodCode="EVN" classCode="OBS"> <templateId root= "16.840.1.086546...4.2" /> <id nullFlavor="NA" /> < code codeSystem="local" code="EO#" displayName="EOSINOPHIL #" /> < statusCode code="completed" /> <effectiveTime value="" /> <value unit="k/cumm" xsi:type="PQ" value="0.1" /> < referenceRange> <observationRange> <text>0.1-0.5</text> </observationRange> </referenceRange> </observation > </component> <component> <observation moodCode="EVN" classCode="OBS"> <templateId root="05.22.840.1.094947.01.23.22.4.2" /> <id nullFlavor="NA" /> <code codeSystem="local" code="EO% " displayName="EOSINOPHIL %" /> <statusCode code="completed" /> <effectiveTime value="" /> <value unit="%" xsi: type="PQ" value="1" /> <interpretationCode codeSystem="local" code="*" /> <referenceRange> <observationRange> <text>2- 4</text> </observationRange> </referenceRange> </ observation> </component> <component> <observation moodCode= "EVN" classCode="OBS"> <templateId root="16.840.1.927195.10.20.22.4.2 " /> <id nullFlavor="NA" /> <code codeSystem="local" code="GR# " displayName="GRANULOCYTE #" /> <statusCode code="completed" /> <effectiveTime value="912031773231" /> <value unit="k/cumm" xsi: type="PQ" value="9.2" /> <interpretationCode codeSystem="local" code="* " /> <referenceRange> <observationRange> <text> 2.0-9.0</text> </observationRange> </referenceRange> </observation> </component> <component> <observation moodCode= "EVN" classCode="OBS"> <templateId root="05.22.840.1.879139.10..22.4.2 " /> <id nullFlavor="NA" /> <code codeSystem="local" code="GR& #37;" displayName="GRANULOCYTE %" /> <statusCode code="completed" / > <effectiveTime value="658385255745" /> <value unit="%" xsi:type="PQ" value="82" /> <interpretationCode codeSystem="local" code ="*" /> <referenceRange> <observationRange> < text>50-75</text> </observationRange> </referenceRange> </observation> </component> <component> <observation moodCode="EVN" classCode="OBS"> <templateId root= "05.22.840.1.421550.10.20.22.4.2" /> <id nullFlavor="NA" /> < code codeSystem="local" code="LY#" displayName="LYMPHOCYTE #" /> < statusCode code="completed" /> <effectiveTime value="906917561046" /> <value unit="k/cumm" xsi:type="PQ" value="1.0" /> < referenceRange> <observationRange> <text>1.0-4.0</text> </observationRange> </referenceRange> </observation > </component> <component> <observation moodCode="EVN" classCode="OBS"> <templateId root="2.16.840.1.072430.10..4.2" /> <id nullFlavor="NA" /> <code codeSystem="local" code="LY% " displayName="LYMPHOCYTE %" /> <statusCode code="completed" /> <effectiveTime value="984140868912" /> <value unit="%" xsi: type="PQ" value="9" /> <interpretationCode codeSystem="local" code="*" /> <referenceRange> <observationRange> <text>20 -30</text> </observationRange> </referenceRange> </ observation> </component> <component> <observation moodCode= "EVN" classCode="OBS"> <templateId root="216.840.1.623381.10.2022.4.2 " /> <id nullFlavor="NA" /> <code codeSystem="local" code="MCH " displayName="MEAN CELL HGB" /> <statusCode code="completed" /> <effectiveTime value="190792571421" /> <value unit="pg" xsi:type= "PQ" value="33.4" /> <interpretationCode codeSystem="local" code="*" / > <referenceRange> <observationRange> <text> 27.0-33.0</text> </observationRange> </referenceRange> </observation> </component> <component> <observation moodCode="EVN" classCode="OBS"> <templateId root= "216.840.1.625057.10.4.2" /> <id nullFlavor="NA" /> < code codeSystem="local" code="MCHC" displayName="MEAN CELL HGB CONCENTRATION" / > <statusCode code="completed" /> <effectiveTime value= "" /> <value unit="g/dL" xsi:type="PQ" value="34.9" /> <referenceRange> <observationRange> <text>32.0- 37.0</text> </observationRange> </referenceRange> </ observation> </component> <component> <observation moodCode= "EVN" classCode="OBS"> <templateId root="05.22.840.1.465298.01.23.22.4.2 " /> <id nullFlavor="NA" /> <code codeSystem="local" code="MCV " displayName="MEAN CELL VOLUME" /> <statusCode code="completed" /> <effectiveTime value="" /> <value unit="fl" xsi:type ="PQ" value="95.8" /> <referenceRange> <observationRange> <text>80.0-100.0</text> </observationRange> </ referenceRange> </observation> </component> <component> <observation moodCode="EVN" classCode="OBS"> <templateId root= "05.22.840.1.308595.01.23.22.4.2" /> <id nullFlavor="NA" /> < code codeSystem="local" code="MO#" displayName="MONOCYTE #" /> < statusCode code="completed" /> <effectiveTime value="" /> <value unit="k/cumm" xsi:type="PQ" value="0.9" /> < referenceRange> <observationRange> <text>0.1-1.0</text> </observationRange> </referenceRange> </observation > </component> <component> <observation moodCode="EVN" classCode="OBS"> <templateId root="2.16.840.1.065156.01.23.22.4.2" /> <id nullFlavor="NA" /> <code codeSystem="local" code="MO% " displayName="MONOCYTE %" /> <statusCode code="completed" /> <effectiveTime value="711712574905" /> <value unit="%" xsi: type="PQ" value="8" /> <interpretationCode codeSystem="local" code="*" /> <referenceRange> <observationRange> <text>4- 6</text> </observationRange> </referenceRange> </ observation> </component> <component> <observation moodCode= "EVN" classCode="OBS"> <templateId root="2.16.840.1.043145.01.23.22.4.2 " /> <id nullFlavor="NA" /> <code codeSystem="local" code="RBC " displayName="RED BLOOD CELL" /> <statusCode code="completed" /> <effectiveTime value="559944943590" /> <value unit="m/cumm" xsi: type="PQ" value="3.11" /> <interpretationCode codeSystem="local" code= "*" /> <referenceRange> <observationRange> < text>4.00-6.00</text> </observationRange> </referenceRange> </observation> </component> <component> <observation moodCode="EVN" classCode="OBS"> <templateId root= "05.22.840.1.756921.102022.4.2" /> <id nullFlavor="NA" /> < code codeSystem="local" code="RDW" displayName="RED CELL DISTRIBUTION WIDTH" /> <statusCode code="completed" /> <effectiveTime value= "" /> <value unit="%" xsi:type="PQ" value="12.5" /> <referenceRange> <observationRange> <text>11.0- 15.6</text> </observationRange> </referenceRange> </ observation> </component> <component> <observation moodCode= "EVN" classCode="OBS"> <templateId root="840.1.148245.22.4.2 " /> <id nullFlavor="NA" /> <code codeSystem="local" code="WBC " displayName="WHITE BLOOD CELL" /> <statusCode code="completed" /> <effectiveTime value="" /> <value unit="k/cumm" xsi: type="PQ" value="11.2" /> <interpretationCode codeSystem="local" code= "*" /> <referenceRange> <observationRange> < text>5.0-10.0</text> </observationRange> </referenceRange> </observation> </component> <component> <observation moodCode="EVN" classCode="OBS"> <templateId root= "840.1.621425.1022.4.2" /> <id nullFlavor="NA" /> < code codeSystem="local" code="HGBT" displayName="HEMOGLOBIN" /> < statusCode code="completed" /> <effectiveTime value="" /> <value unit="gm/dL" xsi:type="PQ" value="10.4" /> < interpretationCode codeSystem="local" code="*" /> <referenceRange> <observationRange> <text>14.0-18.0</text> </ observationRange> </referenceRange> </observation> </ component> <component> <observation moodCode="EVN" classCode="OBS"> <templateId root="216.840.1.026880.10.20.22.4.2" /> <id nullFlavor="NA" /> <code codeSystem="local" code="HCTT" displayName= "HEMATOCRIT" /> <statusCode code="completed" /> < effectiveTime value="223086957210" /> <value unit="%" xsi:type="PQ " value="29.8" /> <interpretationCode codeSystem="local" code="*" /> <referenceRange> <observationRange> <text>40.0- 54.0</text> </observationRange> </referenceRange> </ observation> </component> <component> <observation moodCode= "EVN" classCode="OBS"> <templateId root="16.840.1.084728.10...4.2 " /> <id nullFlavor="NA" /> <code codeSystem="local" code="PLT " displayName="PLATELET COUNT" /> <statusCode code="completed" /> <effectiveTime value="592277617140" /> <value unit="k/cumm" xsi: type="PQ" value="166" /> <referenceRange> <observationRange > <text>150-400</text> </observationRange> </ referenceRange> </observation> </component> </organizer> </entry > <entry> <organizer moodCode="EVN" classCode="BATTERY"> <templateId root="216.840.1.616183.10..22.4.1" /> <id nullFlavor="NA" /> <code codeSystem="local" code="RENAL" displayName="RENAL FUNCTION PANEL" /> < statusCode code="completed" /> <component> <observation moodCode= "EVN" classCode="OBS"> <templateId root="840.1.760958.10..4.2 " /> <id nullFlavor="NA" /> <code codeSystem="local" code="K" displayName="POTASSIUM" /> <statusCode code="completed" /> < effectiveTime value="964321069961" /> <value unit="mmol/L" xsi:type="PQ " value="2.8" /> <interpretationCode codeSystem="local" code="*" /> <referenceRange> <observationRange> <text>3.5-5.3 </text> </observationRange> </referenceRange> </ observation> </component> <component> <observation moodCode= "EVN" classCode="OBS"> <templateId root="840.1.959720.10.4.2 " /> <id nullFlavor="NA" /> <code codeSystem="local" code= "eGFR" displayName="EST GFR (MDRD)" /> <statusCode code="completed" /> <effectiveTime value="878358906375" /> <value unit="mL/min" xsi:type="PQ" value="47" /> <interpretationCode codeSystem="local" code ="*" /> <referenceRange> <observationRange> < text>> 59</text> </observationRange> </referenceRange> </observation> </component> <component> <observation moodCode="EVN" classCode="OBS"> <templateId root= "05.22.840.1.395911.10..22.4.2" /> <id nullFlavor="NA" /> < code codeSystem="local" code="GAP" displayName="ANION GAP" /> < statusCode code="completed" /> <effectiveTime value="033487108396" /> <value unit="mmol/L" xsi:type="PQ" value="9" /> < referenceRange> <observationRange> <text>5-15</text> </observationRange> </referenceRange> </observation> </component> <component> <observation moodCode="EVN" classCode= "OBS"> <templateId root="216.840.1.276020.10.20.22.4.2" /> < id nullFlavor="NA" /> <code codeSystem="local" code="GLU" displayName= "GLUCOSE" /> <statusCode code="completed" /> <effectiveTime value="047008634202" /> <value unit="mg/dL" xsi:type="PQ" value="193" / > <interpretationCode codeSystem="local" code="*" /> < referenceRange> <observationRange> <text>70-99</text> </observationRange> </referenceRange> </observation> </component> <component> <observation moodCode="EVN" classCode= "OBS"> <templateId root="216.840.1.865841.10.20.22.4.2" /> < id nullFlavor="NA" /> <code codeSystem="local" code="CA" displayName= "CALCIUM" /> <statusCode code="completed" /> <effectiveTime value="501002406374" /> <value unit="mg/dL" xsi:type="PQ" value="7.9" / > <interpretationCode codeSystem="local" code="*" /> < referenceRange> <observationRange> <text>8.5-10.1</text > </observationRange> </referenceRange> </observation > </component> <component> <observation moodCode="EVN" classCode="OBS"> <templateId root="16.840.1.365732.10...4.2" /> <id nullFlavor="NA" /> <code codeSystem="local" code="BUN" displayName="BLOOD UREA NITROGEN" /> <statusCode code="completed" /> <effectiveTime value="429909325329" /> <value unit="mg/dL" xsi: type="PQ" value="25" /> <interpretationCode codeSystem="local" code="* " /> <referenceRange> <observationRange> <text> 7-20</text> </observationRange> </referenceRange> </ observation> </component> <component> <observation moodCode= "EVN" classCode="OBS"> <templateId root="05.22.840.1.817217.01.23.22.4.2 " /> <id nullFlavor="NA" /> <code codeSystem="local" code= "CREAT" displayName="CREATININE" /> <statusCode code="completed" /> <effectiveTime value="610145256512" /> <value unit="mg/dL" xsi: type="PQ" value="1.6" /> <interpretationCode codeSystem="local" code="* " /> <referenceRange> <observationRange> <text> 0.8-1.3</text> </observationRange> </referenceRange> </observation> </component> <component> <observation moodCode= "EVN" classCode="OBS"> <templateId root="05.22.840.1.756796...4.2 " /> <id nullFlavor="NA" /> <code codeSystem="local" code="NA " displayName="SODIUM" /> <statusCode code="completed" /> < effectiveTime value="607749227877" /> <value unit="mmol/L" xsi:type="PQ " value="140" /> <referenceRange> <observationRange> <text>135-148</text> </observationRange> </ referenceRange> </observation> </component> <component> <observation moodCode="EVN" classCode="OBS"> <templateId root= "16.840.1.610420.10...4.2" /> <id nullFlavor="NA" /> < code codeSystem="local" code="CL" displayName="CHLORIDE" /> < statusCode code="completed" /> <effectiveTime value="631217060266" /> <value unit="mmol/L" xsi:type="PQ" value="108" /> < referenceRange> <observationRange> <text>98-110</text> </observationRange> </referenceRange> </observation> </component> <component> <observation moodCode="EVN" classCode ="OBS"> <templateId root="05.22.840.1.546150.10..4.2" /> < id nullFlavor="NA" /> <code codeSystem="local" code="CO2" displayName= "CARBON DIOXIDE" /> <statusCode code="completed" /> < effectiveTime value="544158301750" /> <value unit="mmol/L" xsi:type="PQ " value="23" /> <referenceRange> <observationRange> <text>21-32</text> </observationRange> </ referenceRange> </observation> </component> <component> <observation moodCode="EVN" classCode="OBS"> <templateId root= "05.22.840.1.625892.10..22.4.2" /> <id nullFlavor="NA" /> < code codeSystem="local" code="ALB" displayName="ALBUMIN" /> < statusCode code="completed" /> <effectiveTime value="[id number]" /> <value unit="gm/dL" xsi:type="PQ" value="2.3" /> < interpretationCode codeSystem="local" code="*" /> <referenceRange> <observationRange> <text>3.4-5.0</text> </ observationRange> </referenceRange> </observation> </ component> <component> <observation moodCode="EVN" classCode="OBS"> <templateId root="[id number]" /> <id nullFlavor="NA" /> <code codeSystem="local" code="PHOS" displayName= "PHOSPHORUS" /> <statusCode code="completed" /> < effectiveTime value="946369771677" /> <value unit="mg/dL" xsi:type="PQ " value="0.9" /> <interpretationCode codeSystem="local" code="" /> <referenceRange> <observationRange> <text>2.5- 4.9</text> </observationRange> </referenceRange> </ observation> </component> </organizer> </entry> <entry> <organizer moodCode="EVN" classCode="BATTERY"> <templateId root= "840.1.675604.01.23.22.4.1" /> <id nullFlavor="NA" /> <code codeSystem="local" code="MAG" displayName="MAGNESIUM" /> <statusCode code= "completed" /> <component> <observation moodCode="EVN" classCode= "OBS"> <templateId root="05.22.840.1.228657.22.4.2" /> < id nullFlavor="NA" /> <code codeSystem="local" code="MAG" displayName= "MAGNESIUM" /> <statusCode code="completed" /> <effectiveTime value="160827301185" /> <value unit="mg/dL" xsi:type="PQ" value="1.7" / > <interpretationCode codeSystem="local" code="*" /> < referenceRange> <observationRange> <text>1.8-2.4</text> </observationRange> </referenceRange> </observation > </component> </organizer> </entry> <entry> <organizer moodCode= "EVN" classCode="BATTERY"> <templateId root="16.840.1.153538.10..22.4.1 " /> <id nullFlavor="NA" /> <code codeSystem="local" code="GLUMON" displayName="GLUCOSE (POC)" /> <statusCode code="completed" /> < component> <observation moodCode="EVN" classCode="OBS"> < templateId root="05.22.840.1.186496.10.20.22.4.2" /> <id nullFlavor="NA " /> <code codeSystem="local" code="GLUMON" displayName="GLUCOSE (POC) " /> <statusCode code="completed" /> <effectiveTime value= "175805628024" /> <value unit="mg/dL" xsi:type="PQ" value="219" /> <interpretationCode codeSystem="local" code="*" /> < referenceRange> <observationRange> <text>70-99</text> </observationRange> </referenceRange> </observation> </component> </organizer> </entry> <entry> <organizer moodCode="EVN " classCode="BATTERY"> <templateId root="05.22.840.1.239937.10.20.22.4.1" / > <id nullFlavor="NA" /> <code codeSystem="local" code="GLUMON" displayName="GLUCOSE (POC)" /> <statusCode code="completed" /> < component> <observation moodCode="EVN" classCode="OBS"> < templateId root="216.840.1.461180.10.4.2" /> <id nullFlavor="NA " /> <code codeSystem="local" code="GLUMON" displayName="GLUCOSE (POC) " /> <statusCode code="completed" /> <effectiveTime value= "430029794534" /> <value unit="mg/dL" xsi:type="PQ" value="67" /> <interpretationCode codeSystem="local" code="*" /> <referenceRange > <observationRange> <text>70-99</text> </ observationRange> </referenceRange> </observation> </ component> </organizer> </entry> <entry> <organizer moodCode="EVN" classCode="BATTERY"> <templateId root="216.840.1.324969.10..4.1" /> <id nullFlavor="NA" /> <code codeSystem="local" code="RENAL" displayName="RENAL FUNCTION PANEL" /> <statusCode code="completed" /> <component> <observation moodCode="EVN" classCode="OBS"> < templateId root="216.840.1.134439.10.22.4.2" /> <id nullFlavor="NA " /> <code codeSystem="local" code="K" displayName="POTASSIUM" /> <statusCode code="completed" /> <effectiveTime value="856589240566 " /> <value unit="mmol/L" xsi:type="PQ" value="3.6" /> < referenceRange> <observationRange> <text>3.5-5.3</text> </observationRange> </referenceRange> </observation > </component> <component> <observation moodCode="EVN" classCode="OBS"> <templateId root="2.16.840.1.733720.10..22.4.2" /> <id nullFlavor="NA" /> <code codeSystem="local" code="eGFR" displayName="EST GFR (MDRD)" /> <statusCode code="completed" /> <effectiveTime value="" /> <value unit="mL/min" xsi:type ="PQ" value="51" /> <interpretationCode codeSystem="local" code="*" /> <referenceRange> <observationRange> <text>&gt ; 59</text> </observationRange> </referenceRange> </ observation> </component> <component> <observation moodCode= "EVN" classCode="OBS"> <templateId root="216.840.1.502305.01.23.22.4.2 " /> <id nullFlavor="NA" /> <code codeSystem="local" code="GAP " displayName="ANION GAP" /> <statusCode code="completed" /> < effectiveTime value="" /> <value unit="mmol/L" xsi:type="PQ " value="8" /> <referenceRange> <observationRange> <text>5-15</text> </observationRange> </referenceRange > </observation> </component> <component> <observation moodCode="EVN" classCode="OBS"> <templateId root= "216.840.1.916675.10..22.4.2" /> <id nullFlavor="NA" /> < code codeSystem="local" code="GLU" displayName="GLUCOSE" /> < statusCode code="completed" /> <effectiveTime value="" /> <value unit="mg/dL" xsi:type="PQ" value="167" /> < interpretationCode codeSystem="local" code="*" /> <referenceRange> <observationRange> <text>70-99</text> </ observationRange> </referenceRange> </observation> </ component> <component> <observation moodCode="EVN" classCode="OBS"> <templateId root="216.840.1.277228.1022.4.2" /> <id nullFlavor="NA" /> <code codeSystem="local" code="CA" displayName= "CALCIUM" /> <statusCode code="completed" /> <effectiveTime value="824247105141" /> <value unit="mg/dL" xsi:type="PQ" value="7.8" / > <interpretationCode codeSystem="local" code="*" /> < referenceRange> <observationRange> <text>8.5-10.1</text > </observationRange> </referenceRange> </observation > </component> <component> <observation moodCode="EVN" classCode="OBS"> <templateId root="05.22.840.1.359707.22.4.2" /> <id nullFlavor="NA" /> <code codeSystem="local" code="BUN" displayName="BLOOD UREA NITROGEN" /> <statusCode code="completed" /> <effectiveTime value="681160455356" /> <value unit="mg/dL" xsi: type="PQ" value="19" /> <referenceRange> <observationRange> <text>7-20</text> </observationRange> </ referenceRange> </observation> </component> <component> <observation moodCode="EVN" classCode="OBS"> <templateId root= "05.22.840.1.030321..20.22.4.2" /> <id nullFlavor="NA" /> < code codeSystem="local" code="CREAT" displayName="CREATININE" /> < statusCode code="completed" /> <effectiveTime value="" /> <value unit="mg/dL" xsi:type="PQ" value="1.5" /> < interpretationCode codeSystem="local" code="*" /> <referenceRange> <observationRange> <text>0.8-1.3</text> </ observationRange> </referenceRange> </observation> </ component> <component> <observation moodCode="EVN" classCode="OBS"> <templateId root="2.16.840.1.093793.10...4.2" /> <id nullFlavor="NA" /> <code codeSystem="local" code="NA" displayName= "SODIUM" /> <statusCode code="completed" /> <effectiveTime value="" /> <value unit="mmol/L" xsi:type="PQ" value="137" /> <referenceRange> <observationRange> <text> 135-148</text> </observationRange> </referenceRange> </observation> </component> <component> <observation moodCode= "EVN" classCode="OBS"> <templateId root="2.16.840.1.712989.10..22.4.2 " /> <id nullFlavor="NA" /> <code codeSystem="local" code="CL " displayName="CHLORIDE" /> <statusCode code="completed" /> < effectiveTime value="" /> <value unit="mmol/L" xsi:type="PQ " value="104" /> <referenceRange> <observationRange> <text>98-110</text> </observationRange> </ referenceRange> </observation> </component> <component> <observation moodCode="EVN" classCode="OBS"> <templateId root= "16.840.1.235030.10..22.4.2" /> <id nullFlavor="NA" /> < code codeSystem="local" code="CO2" displayName="CARBON DIOXIDE" /> < statusCode code="completed" /> <effectiveTime value="" /> <value unit="mmol/L" xsi:type="PQ" value="25" /> < referenceRange> <observationRange> <text>21-32</text> </observationRange> </referenceRange> </observation> </component> <component> <observation moodCode="EVN" classCode= "OBS"> <templateId root="05.22.840.1.820376.01.23.22.4.2" /> < id nullFlavor="NA" /> <code codeSystem="local" code="ALB" displayName= "ALBUMIN" /> <statusCode code="completed" /> <effectiveTime value="" /> <value unit="gm/dL" xsi:type="PQ" value="2.4" / > <interpretationCode codeSystem="local" code="*" /> < referenceRange> <observationRange> <text>3.4-5.0</text> </observationRange> </referenceRange> </observation > </component> <component> <observation moodCode="EVN" classCode="OBS"> <templateId root="05.22.840.1.088454.10.2022.4.2" /> <id nullFlavor="NA" /> <code codeSystem="local" code="PHOS" displayName="PHOSPHORUS" /> <statusCode code="completed" /> < effectiveTime value="" /> <value unit="mg/dL" xsi:type="PQ " value="2.8" /> <referenceRange> <observationRange> <text>2.5-4.9</text> </observationRange> </ referenceRange> </observation> </component> </organizer> </entry > <entry> <organizer moodCode="EVN" classCode="BATTERY"> <templateId root="05.22.840.1.323630.10..22.4.1" /> <id nullFlavor="NA" /> <code codeSystem="local" code="GLUMON" displayName="GLUCOSE (POC)" /> < statusCode code="completed" /> <component> <observation moodCode= "EVN" classCode="OBS"> <templateId root="840.1.315379...4.2 " /> <id nullFlavor="NA" /> <code codeSystem="local" code= "GLUMON" displayName="GLUCOSE (POC)" /> <statusCode code="completed" / > <effectiveTime value="787656145903" /> <value unit="mg/dL" xsi:type="PQ" value="107" /> <interpretationCode codeSystem="local" code="*" /> <referenceRange> <observationRange> <text>70-99</text> </observationRange> </referenceRange> </observation> </component> </organizer> </entry> <entry> < organizer moodCode="EVN" classCode="BATTERY"> <templateId root= "05.22.840.1.410850.10.22.4.1" /> <id nullFlavor="NA" /> <code codeSystem="local" code="GLUMON" displayName="GLUCOSE (POC)" /> < statusCode code="completed" /> <component> <observation moodCode= "EVN" classCode="OBS"> <templateId root="05.22.840.1.094964.10..4.2 " /> <id nullFlavor="NA" /> <code codeSystem="local" code= "GLUMON" displayName="GLUCOSE (POC)" /> <statusCode code="completed" / > <effectiveTime value="212352497556" /> <value unit="mg/dL" xsi:type="PQ" value="87" /> <referenceRange> < observationRange> <text>70-99</text> </observationRange > </referenceRange> </observation> </component> </ organizer> </entry> <entry> <organizer moodCode="EVN" classCode="BATTERY"> <templateId root="216.840.1.753864.10..4.1" /> <id nullFlavor= "NA" /> <code codeSystem="local" code="GLUMON" displayName="GLUCOSE (POC)" /> <statusCode code="completed" /> <component> <observation moodCode="EVN" classCode="OBS"> <templateId root= "216.840.1.591350.10..22.4.2" /> <id nullFlavor="NA" /> < code codeSystem="local" code="GLUMON" displayName="GLUCOSE (POC)" /> < statusCode code="completed" /> <effectiveTime value="206249196537" /> <value unit="mg/dL" xsi:type="PQ" value="115" /> < interpretationCode codeSystem="local" code="*" /> <referenceRange> <observationRange> <text>70-99</text> </ observationRange> </referenceRange> </observation> </ component> </organizer> </entry> <entry> <organizer moodCode="EVN" classCode="BATTERY"> <templateId root="216.840.1.954070.10..4.1" /> <id nullFlavor="NA" /> <code codeSystem="local" code="GLUMON" displayName="GLUCOSE (POC)" /> <statusCode code="completed" /> < component> <observation moodCode="EVN" classCode="OBS"> < templateId root="16.840.1.193653.10..22.4.2" /> <id nullFlavor="NA " /> <code codeSystem="local" code="GLUMON" displayName="GLUCOSE (POC) " /> <statusCode code="completed" /> <effectiveTime value= "546567134801" /> <value unit="mg/dL" xsi:type="PQ" value="51" /> <interpretationCode codeSystem="local" code="*" /> <referenceRange > <observationRange> <text>70-99</text> </ observationRange> </referenceRange> </observation> </ component> </organizer> </entry> <entry> <organizer moodCode="EVN" classCode="BATTERY"> <templateId root="05.22.840.1.367733.10..4.1" /> <id nullFlavor="NA" /> <code codeSystem="local" code="GLUMON" displayName="GLUCOSE (POC)" /> <statusCode code="completed" /> < component> <observation moodCode="EVN" classCode="OBS"> < templateId root="05.22.840.1.384960.10..22.4.2" /> <id nullFlavor="NA " /> <code codeSystem="local" code="GLUMON" displayName="GLUCOSE (POC) " /> <statusCode code="completed" /> <effectiveTime value= "604750488095" /> <value unit="mg/dL" xsi:type="PQ" value="102" /> <interpretationCode codeSystem="local" code="*" /> < referenceRange> <observationRange> <text>70-99</text> </observationRange> </referenceRange> </observation> </component> </organizer> </entry> <entry> <organizer moodCode="EVN " classCode="BATTERY"> <templateId root="16.840.1.838650.10...4.1" / > <id nullFlavor="NA" /> <code codeSystem="local" code="CBCD" displayName="CBC W/DIFF" /> <statusCode code="completed" /> <component > <observation moodCode="EVN" classCode="OBS"> <templateId root= "216.840.1.246292.10...4.2" /> <id nullFlavor="NA" /> < code codeSystem="local" code="EO#" displayName="EOSINOPHIL #" /> < statusCode code="completed" /> <effectiveTime value="251858402871" /> <value unit="k/cumm" xsi:type="PQ" value="0.3" /> < referenceRange> <observationRange> <text>0.1-0.5</text> </observationRange> </referenceRange> </observation > </component> <component> <observation moodCode="EVN" classCode="OBS"> <templateId root="05.22.840.1.754235.01.23.22.4.2" /> <id nullFlavor="NA" /> <code codeSystem="local" code="EO% " displayName="EOSINOPHIL %" /> <statusCode code="completed" /> <effectiveTime value="469408959423" /> <value unit="%" xsi: type="PQ" value="4" /> <referenceRange> <observationRange> <text>2-4</text> </observationRange> </ referenceRange> </observation> </component> <component> <observation moodCode="EVN" classCode="OBS"> <templateId root= "216.840.1.772223.10.4.2" /> <id nullFlavor="NA" /> < code codeSystem="local" code="GR#" displayName="GRANULOCYTE #" /> < statusCode code="completed" /> <effectiveTime value="846500151352" /> <value unit="k/cumm" xsi:type="PQ" value="6.8" /> < referenceRange> <observationRange> <text>2.0-9.0</text> </observationRange> </referenceRange> </observation > </component> <component> <observation moodCode="EVN" classCode="OBS"> <templateId root="05.22.840.1.633795.01.23.224.2" /> <id nullFlavor="NA" /> <code codeSystem="local" code="GR% " displayName="GRANULOCYTE %" /> <statusCode code="completed" /> <effectiveTime value="955731507495" /> <value unit="%" xsi: type="PQ" value="74" /> <referenceRange> <observationRange> <text>50-75</text> </observationRange> </ referenceRange> </observation> </component> <component> <observation moodCode="EVN" classCode="OBS"> <templateId root= "16.840.1.417053.01.23.22.4.2" /> <id nullFlavor="NA" /> < code codeSystem="local" code="LY#" displayName="LYMPHOCYTE #" /> < statusCode code="completed" /> <effectiveTime value="264408639536" /> <value unit="k/cumm" xsi:type="PQ" value="1.4" /> < referenceRange> <observationRange> <text>1.0-4.0</text> </observationRange> </referenceRange> </observation > </component> <component> <observation moodCode="EVN" classCode="OBS"> <templateId root="216.840.1.955765.01.23.22.4.2" /> <id nullFlavor="NA" /> <code codeSystem="local" code="LY% " displayName="LYMPHOCYTE %" /> <statusCode code="completed" /> <effectiveTime value="495018307322" /> <value unit="%" xsi: type="PQ" value="15" /> <interpretationCode codeSystem="local" code="* " /> <referenceRange> <observationRange> <text> 20-30</text> </observationRange> </referenceRange> </ observation> </component> <component> <observation moodCode= "EVN" classCode="OBS"> <templateId root="05.22.840.1.362532.01.23.22.4.2 " /> <id nullFlavor="NA" /> <code codeSystem="local" code="MCH " displayName="MEAN CELL HGB" /> <statusCode code="completed" /> <effectiveTime value="275843177347" /> <value unit="pg" xsi:type= "PQ" value="32.9" /> <referenceRange> <observationRange> <text>27.0-33.0</text> </observationRange> </ referenceRange> </observation> </component> <component> <observation moodCode="EVN" classCode="OBS"> <templateId root= "05.22.840.1.109021.01.23.22.4.2" /> <id nullFlavor="NA" /> < code codeSystem="local" code="MCHC" displayName="MEAN CELL HGB CONCENTRATION" / > <statusCode code="completed" /> <effectiveTime value= "479087010543" /> <value unit="g/dL" xsi:type="PQ" value="34.1" /> <referenceRange> <observationRange> <text>32.0- 37.0</text> </observationRange> </referenceRange> </ observation> </component> <component> <observation moodCode= "EVN" classCode="OBS"> <templateId root="2.16.840.1.188708.10..4.2 " /> <id nullFlavor="NA" /> <code codeSystem="local" code="MCV " displayName="MEAN CELL VOLUME" /> <statusCode code="completed" /> <effectiveTime value="404223277764" /> <value unit="fl" xsi:type ="PQ" value="96.3" /> <referenceRange> <observationRange> <text>80.0-100.0</text> </observationRange> </ referenceRange> </observation> </component> <component> <observation moodCode="EVN" classCode="OBS"> <templateId root= "2.16.840.1.584091.01.23.22.4.2" /> <id nullFlavor="NA" /> < code codeSystem="local" code="MO#" displayName="MONOCYTE #" /> < statusCode code="completed" /> <effectiveTime value="342014250195" /> <value unit="k/cumm" xsi:type="PQ" value="0.7" /> < referenceRange> <observationRange> <text>0.1-1.0</text> </observationRange> </referenceRange> </observation > </component> <component> <observation moodCode="EVN" classCode="OBS"> <templateId root="2.16.840.1.433541.10..4.2" /> <id nullFlavor="NA" /> <code codeSystem="local" code="MO% " displayName="MONOCYTE %" /> <statusCode code="completed" /> <effectiveTime value="633395245859" /> <value unit="%" xsi: type="PQ" value="7" /> <interpretationCode codeSystem="local" code="*" /> <referenceRange> <observationRange> <text>4- 6</text> </observationRange> </referenceRange> </ observation> </component> <component> <observation moodCode= "EVN" classCode="OBS"> <templateId root="216.840.1.255983.01.23.22.4.2 " /> <id nullFlavor="NA" /> <code codeSystem="local" code="RBC " displayName="RED BLOOD CELL" /> <statusCode code="completed" /> <effectiveTime value="831225795851" /> <value unit="m/cumm" xsi: type="PQ" value="3.47" /> <interpretationCode codeSystem="local" code= "*" /> <referenceRange> <observationRange> < text>4.00-6.00</text> </observationRange> </referenceRange> </observation> </component> <component> <observation moodCode="EVN" classCode="OBS"> <templateId root= "216.840.1.842400.10..4.2" /> <id nullFlavor="NA" /> < code codeSystem="local" code="RDW" displayName="RED CELL DISTRIBUTION WIDTH" /> <statusCode code="completed" /> <effectiveTime value= "211181726064" /> <value unit="%" xsi:type="PQ" value="13.0" /> <referenceRange> <observationRange> <text>11.0- 15.6</text> </observationRange> </referenceRange> </ observation> </component> <component> <observation moodCode= "EVN" classCode="OBS"> <templateId root="2.16.840.1.675414.01.23.22.4.2 " /> <id nullFlavor="NA" /> <code codeSystem="local" code="WBC " displayName="WHITE BLOOD CELL" /> <statusCode code="completed" /> <effectiveTime value="554146910631" /> <value unit="k/cumm" xsi: type="PQ" value="9.2" /> <referenceRange> <observationRange > <text>5.0-10.0</text> </observationRange> </ referenceRange> </observation> </component> <component> <observation moodCode="EVN" classCode="OBS"> <templateId root= "2.16.840.1.290215.01.23.22.4.2" /> <id nullFlavor="NA" /> < code codeSystem="local" code="HGBT" displayName="HEMOGLOBIN" /> < statusCode code="completed" /> <effectiveTime value="985731131624" /> <value unit="gm/dL" xsi:type="PQ" value="11.4" /> < interpretationCode codeSystem="local" code="*" /> <referenceRange> <observationRange> <text>14.0-18.0</text> </ observationRange> </referenceRange> </observation> </ component> <component> <observation moodCode="EVN" classCode="OBS"> <templateId root="2.16840.1.565213.01.23.22.4.2" /> <id nullFlavor="NA" /> <code codeSystem="local" code="HCTT" displayName= "HEMATOCRIT" /> <statusCode code="completed" /> < effectiveTime value="532447933777" /> <value unit="%" xsi:type="PQ " value="33.4" /> <interpretationCode codeSystem="local" code="*" /> <referenceRange> <observationRange> <text>40.0- 54.0</text> </observationRange> </referenceRange> </ observation> </component> <component> <observation moodCode= "EVN" classCode="OBS"> <templateId root="840.1.481684.01.23.22.4.2 " /> <id nullFlavor="NA" /> <code codeSystem="local" code="PLT " displayName="PLATELET COUNT" /> <statusCode code="completed" /> <effectiveTime value="133214991517" /> <value unit="k/cumm" xsi: type="PQ" value="181" /> <referenceRange> <observationRange > <text>150-400</text> </observationRange> </ referenceRange> </observation> </component> </organizer> </entry > <entry> <organizer moodCode="EVN" classCode="BATTERY"> <templateId root="05.22.840.1.526708.22.4.1" /> <id nullFlavor="NA" /> <code codeSystem="local" code="RENAL" displayName="RENAL FUNCTION PANEL" /> < statusCode code="completed" /> <component> <observation moodCode= "EVN" classCode="OBS"> <templateId root="05.22.840.1.600578.22.4.2 " /> <id nullFlavor="NA" /> <code codeSystem="local" code="K" displayName="POTASSIUM" /> <statusCode code="completed" /> < effectiveTime value="221035872519" /> <value unit="mmol/L" xsi:type="PQ " value="4.0" /> <referenceRange> <observationRange> <text>3.5-5.3</text> </observationRange> </ referenceRange> </observation> </component> <component> <observation moodCode="EVN" classCode="OBS"> <templateId root= "2.16.840.1.117664.10..22.4.2" /> <id nullFlavor="NA" /> < code codeSystem="local" code="eGFR" displayName="EST GFR (MDRD)" /> < statusCode code="completed" /> <effectiveTime value="297916060776" /> <value unit="mL/min" xsi:type="PQ" value="60" /> < referenceRange> <observationRange> <text>> 59</text> </observationRange> </referenceRange> </observation > </component> <component> <observation moodCode="EVN" classCode="OBS"> <templateId root="2.16.840.1.815770.10..22.4.2" /> <id nullFlavor="NA" /> <code codeSystem="local" code="GAP" displayName="ANION GAP" /> <statusCode code="completed" /> < effectiveTime value="256192407353" /> <value unit="mmol/L" xsi:type="PQ " value="9" /> <referenceRange> <observationRange> <text>5-15</text> </observationRange> </referenceRange > </observation> </component> <component> <observation moodCode="EVN" classCode="OBS"> <templateId root= "16.840.1.252690.10.20.22.4.2" /> <id nullFlavor="NA" /> < code codeSystem="local" code="GLU" displayName="GLUCOSE" /> < statusCode code="completed" /> <effectiveTime value="077121150802" /> <value unit="mg/dL" xsi:type="PQ" value="107" /> < interpretationCode codeSystem="local" code="*" /> <referenceRange> <observationRange> <text>70-99</text> </ observationRange> </referenceRange> </observation> </ component> <component> <observation moodCode="EVN" classCode="OBS"> <templateId root="05.22.840.1.138898..22.4.2" /> <id nullFlavor="NA" /> <code codeSystem="local" code="CA" displayName= "CALCIUM" /> <statusCode code="completed" /> <effectiveTime value="475854486792" /> <value unit="mg/dL" xsi:type="PQ" value="8.7" / > <referenceRange> <observationRange> <text>8.5 -10.1</text> </observationRange> </referenceRange> </ observation> </component> <component> <observation moodCode= "EVN" classCode="OBS"> <templateId root="05.22.840.1.575861.10.20.22.4.2 " /> <id nullFlavor="NA" /> <code codeSystem="local" code="BUN " displayName="BLOOD UREA NITROGEN" /> <statusCode code="completed" /> <effectiveTime value="457813349572" /> <value unit="mg/dL" xsi:type="PQ" value="17" /> <referenceRange> < observationRange> <text>7-20</text> </observationRange> </referenceRange> </observation> </component> < component> <observation moodCode="EVN" classCode="OBS"> < templateId root="216.840.1.705690.10..22.4.2" /> <id nullFlavor="NA " /> <code codeSystem="local" code="CREAT" displayName="CREATININE" /> <statusCode code="completed" /> <effectiveTime value= "431171209418" /> <value unit="mg/dL" xsi:type="PQ" value="1.3" /> <referenceRange> <observationRange> <text>0.8-1.3< /text> </observationRange> </referenceRange> </ observation> </component> <component> <observation moodCode= "EVN" classCode="OBS"> <templateId root="05.22.840.1.823702.01.23.22.4.2 " /> <id nullFlavor="NA" /> <code codeSystem="local" code="NA " displayName="SODIUM" /> <statusCode code="completed" /> < effectiveTime value="349674357482" /> <value unit="mmol/L" xsi:type="PQ " value="137" /> <referenceRange> <observationRange> <text>135-148</text> </observationRange> </ referenceRange> </observation> </component> <component> <observation moodCode="EVN" classCode="OBS"> <templateId root= "16.840.1.642682....4.2" /> <id nullFlavor="NA" /> < code codeSystem="local" code="CL" displayName="CHLORIDE" /> < statusCode code="completed" /> <effectiveTime value="[id number]" /> <value unit="mmol/L" xsi:type="PQ" value="101" /> < referenceRange> <observationRange> <text>98-110</text> </observationRange> </referenceRange> </observation> </component> <component> <observation moodCode="EVN" classCode ="OBS"> <templateId root="05.22.840.1.356661.10.20.22.4.2" /> < id nullFlavor="NA" /> <code codeSystem="local" code="CO2" displayName= "CARBON DIOXIDE" /> <statusCode code="completed" /> < effectiveTime value="706685922910" /> <value unit="mmol/L" xsi:type="PQ " value="27" /> <referenceRange> <observationRange> <text>21-32</text> </observationRange> </ referenceRange> </observation> </component> <component> <observation moodCode="EVN" classCode="OBS"> <templateId root= "05.22.840.1.199242.10...4.2" /> <id nullFlavor="NA" /> < code codeSystem="local" code="ALB" displayName="ALBUMIN" /> < statusCode code="completed" /> <effectiveTime value="182514848618" /> <value unit="gm/dL" xsi:type="PQ" value="3.0" /> < interpretationCode codeSystem="local" code="*" /> <referenceRange> <observationRange> <text>3.4-5.0</text> </ observationRange> </referenceRange> </observation> </ component> <component> <observation moodCode="EVN" classCode="OBS"> <templateId root="05.22.840.1.712713.10.20.22.4.2" /> <id nullFlavor="NA" /> <code codeSystem="local" code="PHOS" displayName= "PHOSPHORUS" /> <statusCode code="completed" /> < effectiveTime value="[id number]" /> <value unit="mg/dL" xsi:type="PQ " value="2.9" /> <referenceRange> <observationRange> <text>2.5-4.9</text> </observationRange> </ referenceRange> </observation> </component> </organizer> </entry > <entry> <organizer moodCode="EVN" classCode="BATTERY"> <templateId root="05.22.840.1.665567.10.20.22.4.1" /> <id nullFlavor="NA" /> <code codeSystem="local" code="MAG" displayName="MAGNESIUM" /> <statusCode code= "completed" /> <component> <observation moodCode="EVN" classCode= "OBS"> <templateId root="05.22.840.1.256422.10.20.22.4.2" /> < id nullFlavor="NA" /> <code codeSystem="local" code="MAG" displayName= "MAGNESIUM" /> <statusCode code="completed" /> <effectiveTime value="505687862952" /> <value unit="mg/dL" xsi:type="PQ" value="1.5" / > <interpretationCode codeSystem="local" code="*" /> < referenceRange> <observationRange> <text>1.8-2.4</text> </observationRange> </referenceRange> </observation > </component> </organizer> </entry> <entry> <organizer moodCode= "EVN" classCode="BATTERY"> <templateId root="05.22.840.1.605374.10.20.22.4.1 " /> <id nullFlavor="NA" /> <code codeSystem="local" code="GLUMON" displayName="GLUCOSE (POC)" /> <statusCode code="completed" /> < component> <observation moodCode="EVN" classCode="OBS"> < templateId root="216.840.1.893040.10.4.2" /> <id nullFlavor="NA " /> <code codeSystem="local" code="GLUMON" displayName="GLUCOSE (POC) " /> <statusCode code="completed" /> <effectiveTime value= "" /> <value unit="mg/dL" xsi:type="PQ" value="63" /> <interpretationCode codeSystem="local" code="*" /> <referenceRange > <observationRange> <text>70-99</text> </ observationRange> </referenceRange> </observation> </ component> </organizer> </entry> <entry> <organizer moodCode="EVN" classCode="BATTERY"> <templateId root="16.840.1.345688.10..4.1" /> <id nullFlavor="NA" /> <code codeSystem="local" code="GLUMON" displayName="GLUCOSE (POC)" /> <statusCode code="completed" /> < component> <observation moodCode="EVN" classCode="OBS"> < templateId root="16.840.1.330917.10.4.2" /> <id nullFlavor="NA " /> <code codeSystem="local" code="GLUMON" displayName="GLUCOSE (POC) " /> <statusCode code="completed" /> <effectiveTime value= "923350692956" /> <value unit="mg/dL" xsi:type="PQ" value="40" /> <interpretationCode codeSystem="local" code="" /> < referenceRange> <observationRange> <text>70-99</text> </observationRange> </referenceRange> </observation> </component> </organizer> </entry> <entry> <organizer moodCode="EVN " classCode="BATTERY"> <templateId root="05.22.840.1.930172.10..22.4.1" / > <id nullFlavor="NA" /> <code codeSystem="local" code="GLUMON" displayName="GLUCOSE (POC)" /> <statusCode code="completed" /> < component> <observation moodCode="EVN" classCode="OBS"> < templateId root="840.1.495768...4.2" /> <id nullFlavor="NA " /> <code codeSystem="local" code="GLUMON" displayName="GLUCOSE (POC) " /> <statusCode code="completed" /> <effectiveTime value= "303219806799" /> <value unit="mg/dL" xsi:type="PQ" value="88" /> <referenceRange> <observationRange> <text>70-99</ text> </observationRange> </referenceRange> </ observation> </component> </organizer> </entry> <entry> <organizer moodCode="EVN" classCode="BATTERY"> <templateId root= "840.1.153974.01.23.22.4.1" /> <id nullFlavor="NA" /> <code codeSystem="local" code="GLUMON" displayName="GLUCOSE (POC)" /> < statusCode code="completed" /> <component> <observation moodCode= "EVN" classCode="OBS"> <templateId root="05.22.840.1.953214.10..22.4.2 " /> <id nullFlavor="NA" /> <code codeSystem="local" code= "GLUMON" displayName="GLUCOSE (POC)" /> <statusCode code="completed" / > <effectiveTime value="479970428806" /> <value unit="mg/dL" xsi:type="PQ" value="97" /> <referenceRange> < observationRange> <text>70-99</text> </observationRange > </referenceRange> </observation> </component> </ organizer> </entry> <entry> <organizer moodCode="EVN" classCode="BATTERY"> <templateId root="16.840.1.189325.10.20.22.4.1" /> <id nullFlavor= "NA" /> <code codeSystem="local" code="GLUMON" displayName="GLUCOSE (POC)" /> <statusCode code="completed" /> <component> <observation moodCode="EVN" classCode="OBS"> <templateId root= "05.22.840.1.613226.10.20.22.4.2" /> <id nullFlavor="NA" /> < code codeSystem="local" code="GLUMON" displayName="GLUCOSE (POC)" /> < statusCode code="completed" /> <effectiveTime value="837397563357" /> <value unit="mg/dL" xsi:type="PQ" value="148" /> < interpretationCode codeSystem="local" code="*" /> <referenceRange> <observationRange> <text>70-99</text> </ observationRange> </referenceRange> </observation> </ component> </organizer> </entry> <entry> <organizer moodCode="EVN" classCode="BATTERY"> <templateId root="05.22.840.1.837838.10.20.22.4.1" /> <id nullFlavor="NA" /> <code codeSystem="local" code="CBCD" displayName="CBC W/DIFF" /> <statusCode code="completed" /> <component > <observation moodCode="EVN" classCode="OBS"> <templateId root= "216.840.1.369566.10.22.4.2" /> <id nullFlavor="NA" /> < code codeSystem="local" code="EO#" displayName="EOSINOPHIL #" /> < statusCode code="completed" /> <effectiveTime value="" /> <value unit="k/cumm" xsi:type="PQ" value="0.4" /> < referenceRange> <observationRange> <text>0.1-0.5</text> </observationRange> </referenceRange> </observation > </component> <component> <observation moodCode="EVN" classCode="OBS"> <templateId root="05.22.840.1.171821.104.2" /> <id nullFlavor="NA" /> <code codeSystem="local" code="EO% " displayName="EOSINOPHIL %" /> <statusCode code="completed" /> <effectiveTime value="" /> <value unit="%" xsi: type="PQ" value="5" /> <interpretationCode codeSystem="local" code="*" /> <referenceRange> <observationRange> <text>2- 4</text> </observationRange> </referenceRange> </ observation> </component> <component> <observation moodCode= "EVN" classCode="OBS"> <templateId root="16.840.1.421476.10.22.4.2 " /> <id nullFlavor="NA" /> <code codeSystem="local" code="GR# " displayName="GRANULOCYTE #" /> <statusCode code="completed" /> <effectiveTime value="" /> <value unit="k/cumm" xsi: type="PQ" value="5.2" /> <referenceRange> <observationRange > <text>2.0-9.0</text> </observationRange> </ referenceRange> </observation> </component> <component> <observation moodCode="EVN" classCode="OBS"> <templateId root= "05.22.840.1.925264.10.2022.4.2" /> <id nullFlavor="NA" /> < code codeSystem="local" code="GR%" displayName="GRANULOCYTE %" /> <statusCode code="completed" /> <effectiveTime value=" " /> <value unit="%" xsi:type="PQ" value="67" /> < referenceRange> <observationRange> <text>50-75</text> </observationRange> </referenceRange> </observation> </component> <component> <observation moodCode="EVN" classCode= "OBS"> <templateId root="05.22.840.1.276637.22.4.2" /> < id nullFlavor="NA" /> <code codeSystem="local" code="LY#" displayName= "LYMPHOCYTE #" /> <statusCode code="completed" /> < effectiveTime value="" /> <value unit="k/cumm" xsi:type="PQ " value="1.3" /> <referenceRange> <observationRange> <text>1.0-4.0</text> </observationRange> </ referenceRange> </observation> </component> <component> <observation moodCode="EVN" classCode="OBS"> <templateId root= "16.840.1.718258.10.20.22.4.2" /> <id nullFlavor="NA" /> < code codeSystem="local" code="LY%" displayName="LYMPHOCYTE %" /> <statusCode code="completed" /> <effectiveTime value="" /> <value unit="%" xsi:type="PQ" value="17" /> < interpretationCode codeSystem="local" code="*" /> <referenceRange> <observationRange> <text>20-30</text> </ observationRange> </referenceRange> </observation> </ component> <component> <observation moodCode="EVN" classCode="OBS"> <templateId root="2.16.840.1.253038.10..4.2" /> <id nullFlavor="NA" /> <code codeSystem="local" code="MCH" displayName= "MEAN CELL HGB" /> <statusCode code="completed" /> < effectiveTime value="" /> <value unit="pg" xsi:type="PQ" value="32.6" /> <referenceRange> <observationRange> <text>27.0-33.0</text> </observationRange> </ referenceRange> </observation> </component> <component> <observation moodCode="EVN" classCode="OBS"> <templateId root= "2.16.840.1.763854.10.22.4.2" /> <id nullFlavor="NA" /> < code codeSystem="local" code="MCHC" displayName="MEAN CELL HGB CONCENTRATION" / > <statusCode code="completed" /> <effectiveTime value= "" /> <value unit="g/dL" xsi:type="PQ" value="34.1" /> <referenceRange> <observationRange> <text>32.0- 37.0</text> </observationRange> </referenceRange> </ observation> </component> <component> <observation moodCode= "EVN" classCode="OBS"> <templateId root="05.22.840.1.512559.01.23.22.4.2 " /> <id nullFlavor="NA" /> <code codeSystem="local" code="MCV " displayName="MEAN CELL VOLUME" /> <statusCode code="completed" /> <effectiveTime value="" /> <value unit="fl" xsi:type ="PQ" value="95.3" /> <referenceRange> <observationRange> <text>80.0-100.0</text> </observationRange> </ referenceRange> </observation> </component> <component> <observation moodCode="EVN" classCode="OBS"> <templateId root= "840.1.263789.01.23.22.4.2" /> <id nullFlavor="NA" /> < code codeSystem="local" code="MO#" displayName="MONOCYTE #" /> < statusCode code="completed" /> <effectiveTime value="" /> <value unit="k/cumm" xsi:type="PQ" value="0.8" /> < referenceRange> <observationRange> <text>0.1-1.0</text> </observationRange> </referenceRange> </observation > </component> <component> <observation moodCode="EVN" classCode="OBS"> <templateId root="840.1.045757.10.2022.4.2" /> <id nullFlavor="NA" /> <code codeSystem="local" code="MO% " displayName="MONOCYTE %" /> <statusCode code="completed" /> <effectiveTime value="" /> <value unit="%" xsi: type="PQ" value="10" /> <interpretationCode codeSystem="local" code="* " /> <referenceRange> <observationRange> <text> 4-6</text> </observationRange> </referenceRange> </ observation> </component> <component> <observation moodCode= "EVN" classCode="OBS"> <templateId root="216.840.1.537637.10.22.4.2 " /> <id nullFlavor="NA" /> <code codeSystem="local" code="RBC " displayName="RED BLOOD CELL" /> <statusCode code="completed" /> <effectiveTime value="033821306143" /> <value unit="m/cumm" xsi: type="PQ" value="3.44" /> <interpretationCode codeSystem="local" code= "*" /> <referenceRange> <observationRange> < text>4.00-6.00</text> </observationRange> </referenceRange> </observation> </component> <component> <observation moodCode="EVN" classCode="OBS"> <templateId root= "05.22.840.1.748552.01.23.22.4.2" /> <id nullFlavor="NA" /> < code codeSystem="local" code="RDW" displayName="RED CELL DISTRIBUTION WIDTH" /> <statusCode code="completed" /> <effectiveTime value= "488009958613" /> <value unit="%" xsi:type="PQ" value="12.9" /> <referenceRange> <observationRange> <text>11.0- 15.6</text> </observationRange> </referenceRange> </ observation> </component> <component> <observation moodCode= "EVN" classCode="OBS"> <templateId root="216.840.1.838092.22.4.2 " /> <id nullFlavor="NA" /> <code codeSystem="local" code="WBC " displayName="WHITE BLOOD CELL" /> <statusCode code="completed" /> <effectiveTime value="" /> <value unit="k/cumm" xsi: type="PQ" value="7.8" /> <referenceRange> <observationRange > <text>5.0-10.0</text> </observationRange> </ referenceRange> </observation> </component> <component> <observation moodCode="EVN" classCode="OBS"> <templateId root= "2.16.840.1.162773.10..22.4.2" /> <id nullFlavor="NA" /> < code codeSystem="local" code="HGBT" displayName="HEMOGLOBIN" /> < statusCode code="completed" /> <effectiveTime value="" /> <value unit="gm/dL" xsi:type="PQ" value="11.2" /> < interpretationCode codeSystem="local" code="*" /> <referenceRange> <observationRange> <text>14.0-18.0</text> </ observationRange> </referenceRange> </observation> </ component> <component> <observation moodCode="EVN" classCode="OBS"> <templateId root="2.16.840.1.816840.10.20.22.4.2" /> <id nullFlavor="NA" /> <code codeSystem="local" code="HCTT" displayName= "HEMATOCRIT" /> <statusCode code="completed" /> < effectiveTime value="" /> <value unit="%" xsi:type="PQ " value="32.8" /> <interpretationCode codeSystem="local" code="*" /> <referenceRange> <observationRange> <text>40.0- 54.0</text> </observationRange> </referenceRange> </ observation> </component> <component> <observation moodCode= "EVN" classCode="OBS"> <templateId root="216.840.1.890116.10..22.4.2 " /> <id nullFlavor="NA" /> <code codeSystem="local" code="PLT " displayName="PLATELET COUNT" /> <statusCode code="completed" /> <effectiveTime value="930090286573" /> <value unit="k/cumm" xsi: type="PQ" value="202" /> <referenceRange> <observationRange > <text>150-400</text> </observationRange> </ referenceRange> </observation> </component> </organizer> </entry > <entry> <organizer moodCode="EVN" classCode="BATTERY"> <templateId root="216.840.1.223127.10..22.4.1" /> <id nullFlavor="NA" /> <code codeSystem="local" code="RENAL" displayName="RENAL FUNCTION PANEL" /> < statusCode code="completed" /> <component> <observation moodCode= "EVN" classCode="OBS"> <templateId root="216.840.1.257942.10..22.4.2 " /> <id nullFlavor="NA" /> <code codeSystem="local" code="K" displayName="POTASSIUM" /> <statusCode code="completed" /> < effectiveTime value="288484722531" /> <value unit="mmol/L" xsi:type="PQ " value="3.9" /> <referenceRange> <observationRange> <text>3.5-5.3</text> </observationRange> </ referenceRange> </observation> </component> <component> <observation moodCode="EVN" classCode="OBS"> <templateId root= "05.22.840.1.556252.10..22.4.2" /> <id nullFlavor="NA" /> < code codeSystem="local" code="eGFR" displayName="EST GFR (MDRD)" /> < statusCode code="completed" /> <effectiveTime value="" /> <value unit="mL/min" xsi:type="PQ" value="> 60" /> < referenceRange> <observationRange> <text>> 59</text> </observationRange> </referenceRange> </observation > </component> <component> <observation moodCode="EVN" classCode="OBS"> <templateId root="05.22.840.1.603542.01.23.22.4.2" /> <id nullFlavor="NA" /> <code codeSystem="local" code="GAP" displayName="ANION GAP" /> <statusCode code="completed" /> < effectiveTime value="" /> <value unit="mmol/L" xsi:type="PQ " value="10" /> <referenceRange> <observationRange> <text>5-15</text> </observationRange> </referenceRange > </observation> </component> <component> <observation moodCode="EVN" classCode="OBS"> <templateId root= "05.22.840.1.298635.10..22.4.2" /> <id nullFlavor="NA" /> < code codeSystem="local" code="GLU" displayName="GLUCOSE" /> < statusCode code="completed" /> <effectiveTime value="" /> <value unit="mg/dL" xsi:type="PQ" value="107" /> < interpretationCode codeSystem="local" code="*" /> <referenceRange> <observationRange> <text>70-99</text> </ observationRange> </referenceRange> </observation> </ component> <component> <observation moodCode="EVN" classCode="OBS"> <templateId root="16.840.1.387592.10...4.2" /> <id nullFlavor="NA" /> <code codeSystem="local" code="CA" displayName= "CALCIUM" /> <statusCode code="completed" /> <effectiveTime value="" /> <value unit="mg/dL" xsi:type="PQ" value="8.9" / > <referenceRange> <observationRange> <text>8.5 -10.1</text> </observationRange> </referenceRange> </ observation> </component> <component> <observation moodCode= "EVN" classCode="OBS"> <templateId root="05.22.840.1.273026.01.23.22.4.2 " /> <id nullFlavor="NA" /> <code codeSystem="local" code="BUN " displayName="BLOOD UREA NITROGEN" /> <statusCode code="completed" /> <effectiveTime value="" /> <value unit="mg/dL" xsi:type="PQ" value="21" /> <interpretationCode codeSystem="local" code ="*" /> <referenceRange> <observationRange> < text>7-20</text> </observationRange> </referenceRange> </observation> </component> <component> <observation moodCode="EVN" classCode="OBS"> <templateId root= "05.22.840.1.364191...4.2" /> <id nullFlavor="NA" /> < code codeSystem="local" code="CREAT" displayName="CREATININE" /> < statusCode code="completed" /> <effectiveTime value="" /> <value unit="mg/dL" xsi:type="PQ" value="1.2" /> < referenceRange> <observationRange> <text>0.8-1.3</text> </observationRange> </referenceRange> </observation > </component> <component> <observation moodCode="EVN" classCode="OBS"> <templateId root="216.840.1.040994.10.22.4.2" /> <id nullFlavor="NA" /> <code codeSystem="local" code="NA" displayName="SODIUM" /> <statusCode code="completed" /> < effectiveTime value="" /> <value unit="mmol/L" xsi:type="PQ " value="141" /> <referenceRange> <observationRange> <text>135-148</text> </observationRange> </ referenceRange> </observation> </component> <component> <observation moodCode="EVN" classCode="OBS"> <templateId root= "05.22.840.1.340652..22.4.2" /> <id nullFlavor="NA" /> < code codeSystem="local" code="CL" displayName="CHLORIDE" /> < statusCode code="completed" /> <effectiveTime value="" /> <value unit="mmol/L" xsi:type="PQ" value="106" /> < referenceRange> <observationRange> <text>98-110</text> </observationRange> </referenceRange> </observation> </component> <component> <observation moodCode="EVN" classCode ="OBS"> <templateId root="16.840.1.336668.10.2022.4.2" /> < id nullFlavor="NA" /> <code codeSystem="local" code="CO2" displayName= "CARBON DIOXIDE" /> <statusCode code="completed" /> < effectiveTime value="" /> <value unit="mmol/L" xsi:type="PQ " value="25" /> <referenceRange> <observationRange> <text>21-32</text> </observationRange> </ referenceRange> </observation> </component> <component> <observation moodCode="EVN" classCode="OBS"> <templateId root= "2.16.840.1.484492.10.20.22.4.2" /> <id nullFlavor="NA" /> < code codeSystem="local" code="ALB" displayName="ALBUMIN" /> < statusCode code="completed" /> <effectiveTime value="" /> <value unit="gm/dL" xsi:type="PQ" value="2.9" /> < interpretationCode codeSystem="local" code="*" /> <referenceRange> <observationRange> <text>3.4-5.0</text> </ observationRange> </referenceRange> </observation> </ component> <component> <observation moodCode="EVN" classCode="OBS"> <templateId root="2.16.840.1.299125.10.20.22.4.2" /> <id nullFlavor="NA" /> <code codeSystem="local" code="PHOS" displayName= "PHOSPHORUS" /> <statusCode code="completed" /> < effectiveTime value="" /> <value unit="mg/dL" xsi:type="PQ " value="3.7" /> <referenceRange> <observationRange> <text>2.5-4.9</text> </observationRange> </ referenceRange> </observation> </component> </organizer> </entry > <entry> <organizer moodCode="EVN" classCode="BATTERY"> <templateId root="840.1.698509.22.4.1" /> <id nullFlavor="NA" /> <code codeSystem="local" code="MAG" displayName="MAGNESIUM" /> <statusCode code= "completed" /> <component> <observation moodCode="EVN" classCode= "OBS"> <templateId root="840.1.674410.01.23.22.4.2" /> < id nullFlavor="NA" /> <code codeSystem="local" code="MAG" displayName= "MAGNESIUM" /> <statusCode code="completed" /> <effectiveTime value="094688518039" /> <value unit="mg/dL" xsi:type="PQ" value="1.4" / > <interpretationCode codeSystem="local" code="*" /> < referenceRange> <observationRange> <text>1.8-2.4</text> </observationRange> </referenceRange> </observation > </component> </organizer> </entry> <entry> <organizer moodCode= "EVN" classCode="BATTERY"> <templateId root="840.1.801788.01.23.22.4.1 " /> <id nullFlavor="NA" /> <code codeSystem="local" code="GLUMON" displayName="GLUCOSE (POC)" /> <statusCode code="completed" /> < component> <observation moodCode="EVN" classCode="OBS"> < templateId root="840.1.683031.01.23.22.4.2" /> <id nullFlavor="NA " /> <code codeSystem="local" code="GLUMON" displayName="GLUCOSE (POC) " /> <statusCode code="completed" /> <effectiveTime value= "390930694582" /> <value unit="mg/dL" xsi:type="PQ" value="59" /> <interpretationCode codeSystem="local" code="*" /> <referenceRange > <observationRange> <text>70-99</text> </ observationRange> </referenceRange> </observation> </ component> </organizer> </entry> <entry> <organizer moodCode="EVN" classCode="BATTERY"> <templateId root="216.840.1.551154.10..22.4.1" /> <id nullFlavor="NA" /> <code codeSystem="local" code="GLUMON" displayName="GLUCOSE (POC)" /> <statusCode code="completed" /> < component> <observation moodCode="EVN" classCode="OBS"> < templateId root="216.840.1.004328.10..22.4.2" /> <id nullFlavor="NA " /> <code codeSystem="local" code="GLUMON" displayName="GLUCOSE (POC) " /> <statusCode code="completed" /> <effectiveTime value= "084858231469" /> <value unit="mg/dL" xsi:type="PQ" value="104" /> <interpretationCode codeSystem="local" code="*" /> < referenceRange> <observationRange> <text>70-99</text> </observationRange> </referenceRange> </observation> </component> </organizer> </entry> <entry> <organizer moodCode="EVN " classCode="BATTERY"> <templateId root="2.16.840.1.740861.10..22.4.1" / > <id nullFlavor="NA" /> <code codeSystem="local" code="GLUMON" displayName="GLUCOSE (POC)" /> <statusCode code="completed" /> < component> <observation moodCode="EVN" classCode="OBS"> < templateId root="2.16.840.1.179658.10..22.4.2" /> <id nullFlavor="NA " /> <code codeSystem="local" code="GLUMON" displayName="GLUCOSE (POC) " /> <statusCode code="completed" /> <effectiveTime value= "395920430357" /> <value unit="mg/dL" xsi:type="PQ" value="101" /> <interpretationCode codeSystem="local" code="*" /> < referenceRange> <observationRange> <text>70-99</text> </observationRange> </referenceRange> </observation> </component> </organizer> </entry> <entry> <organizer moodCode="EVN " classCode="BATTERY"> <templateId root="216.840.1.879165.10..22.4.1" / > <id nullFlavor="NA" /> <code codeSystem="local" code="GLUMON" displayName="GLUCOSE (POC)" /> <statusCode code="completed" /> < component> <observation moodCode="EVN" classCode="OBS"> < templateId root="2.16.840.1.715715.10..22.4.2" /> <id nullFlavor="NA " /> <code codeSystem="local" code="GLUMON" displayName="GLUCOSE (POC) " /> <statusCode code="completed" /> <effectiveTime value= "775660883341" /> <value unit="mg/dL" xsi:type="PQ" value="57" /> <interpretationCode codeSystem="local" code="*" /> <referenceRange > <observationRange> <text>70-99</text> </ observationRange> </referenceRange> </observation> </ component> </organizer> </entry> <entry> <organizer moodCode="EVN" classCode="BATTERY"> <templateId root="840.1.227868.01.23.22.4.1" /> <id nullFlavor="NA" /> <code codeSystem="local" code="GLUMON" displayName="GLUCOSE (POC)" /> <statusCode code="completed" /> < component> <observation moodCode="EVN" classCode="OBS"> < templateId root="840.1.318972.01.23.22.4.2" /> <id nullFlavor="NA " /> <code codeSystem="local" code="GLUMON" displayName="GLUCOSE (POC) " /> <statusCode code="completed" /> <effectiveTime value= "307897772208" /> <value unit="mg/dL" xsi:type="PQ" value="108" /> <interpretationCode codeSystem="local" code="*" /> < referenceRange> <observationRange> <text>70-99</text> </observationRange> </referenceRange> </observation> </component> </organizer> </entry> <entry> <organizer moodCode="EVN " classCode="BATTERY"> <templateId root="840.1.439439.01.23.22.4.1" / > <id nullFlavor="NA" /> <code codeSystem="local" code="CBCD" displayName="CBC W/DIFF" /> <statusCode code="completed" /> <component > <observation moodCode="EVN" classCode="OBS"> <templateId root= "840.1.386964.01.23.22.4.2" /> <id nullFlavor="NA" /> < code codeSystem="local" code="BA#" displayName="BASOPHIL #" /> < statusCode code="completed" /> <effectiveTime value="" /> <value unit="k/cumm" xsi:type="PQ" value="0.0" /> < referenceRange> <observationRange> <text>0.0-0.2</text> </observationRange> </referenceRange> </observation > </component> <component> <observation moodCode="EVN" classCode="OBS"> <templateId root="216.840.1.829875.10..22.4.2" /> <id nullFlavor="NA" /> <code codeSystem="local" code="BA% " displayName="BASOPHIL %" /> <statusCode code="completed" /> <effectiveTime value="" /> <value unit="%" xsi: type="PQ" value="1" /> <referenceRange> <observationRange> <text>0-1</text> </observationRange> </ referenceRange> </observation> </component> <component> <observation moodCode="EVN" classCode="OBS"> <templateId root= "216.840.1.468677.10...4.2" /> <id nullFlavor="NA" /> < code codeSystem="local" code="EO#" displayName="EOSINOPHIL #" /> < statusCode code="completed" /> <effectiveTime value="" /> <value unit="k/cumm" xsi:type="PQ" value="0.6" /> < interpretationCode codeSystem="local" code="*" /> <referenceRange> <observationRange> <text>0.1-0.5</text> </ observationRange> </referenceRange> </observation> </ component> <component> <observation moodCode="EVN" classCode="OBS"> <templateId root="16.840.1.807616.10.20.22.4.2" /> <id nullFlavor="NA" /> <code codeSystem="local" code="EO%" displayName= "EOSINOPHIL %" /> <statusCode code="completed" /> < effectiveTime value="" /> <value unit="%" xsi:type="PQ " value="7" /> <interpretationCode codeSystem="local" code="*" /> <referenceRange> <observationRange> <text>2-4</text > </observationRange> </referenceRange> </observation > </component> <component> <observation moodCode="EVN" classCode="OBS"> <templateId root="05.22.840.1.438354...4.2" /> <id nullFlavor="NA" /> <code codeSystem="local" code="GR#" displayName="GRANULOCYTE #" /> <statusCode code="completed" /> <effectiveTime value="" /> <value unit="k/cumm" xsi:type= "PQ" value="4.5" /> <referenceRange> <observationRange> <text>2.0-9.0</text> </observationRange> </ referenceRange> </observation> </component> <component> <observation moodCode="EVN" classCode="OBS"> <templateId root= "05.22.840.1.024002.10.2022.4.2" /> <id nullFlavor="NA" /> < code codeSystem="local" code="GR%" displayName="GRANULOCYTE %" /> <statusCode code="completed" /> <effectiveTime value=" " /> <value unit="%" xsi:type="PQ" value="53" /> < referenceRange> <observationRange> <text>50-75</text> </observationRange> </referenceRange> </observation> </component> <component> <observation moodCode="EVN" classCode= "OBS"> <templateId root="05.22.840.1.097504.10..4.2" /> < id nullFlavor="NA" /> <code codeSystem="local" code="LY#" displayName= "LYMPHOCYTE #" /> <statusCode code="completed" /> < effectiveTime value="[id number]" /> <value unit="k/cumm" xsi:type="PQ " value="2.1" /> <referenceRange> <observationRange> <text>1.0-4.0</text> </observationRange> </ referenceRange> </observation> </component> <component> <observation moodCode="EVN" classCode="OBS"> <templateId root= "840.1.364924.10.4.2" /> <id nullFlavor="NA" /> < code codeSystem="local" code="LY%" displayName="LYMPHOCYTE %" /> <statusCode code="completed" /> <effectiveTime value="251760245482" /> <value unit="%" xsi:type="PQ" value="25" /> < referenceRange> <observationRange> <text>20-30</text> </observationRange> </referenceRange> </observation> </component> <component> <observation moodCode="EVN" classCode= "OBS"> <templateId root="05.22.840.1.683714.10.20.4.2" /> < id nullFlavor="NA" /> <code codeSystem="local" code="MCH" displayName= "MEAN CELL HGB" /> <statusCode code="completed" /> < effectiveTime value="" /> <value unit="pg" xsi:type="PQ" value="32.3" /> <referenceRange> <observationRange> <text>27.0-33.0</text> </observationRange> </ referenceRange> </observation> </component> <component> <observation moodCode="EVN" classCode="OBS"> <templateId root= "216.840.1.490324.10..22.4.2" /> <id nullFlavor="NA" /> < code codeSystem="local" code="MCHC" displayName="MEAN CELL HGB CONCENTRATION" / > <statusCode code="completed" /> <effectiveTime value= "" /> <value unit="g/dL" xsi:type="PQ" value="33.8" /> <referenceRange> <observationRange> <text>32.0- 37.0</text> </observationRange> </referenceRange> </ observation> </component> <component> <observation moodCode= "EVN" classCode="OBS"> <templateId root="216.840.1.506124.10...4.2 " /> <id nullFlavor="NA" /> <code codeSystem="local" code="MCV " displayName="MEAN CELL VOLUME" /> <statusCode code="completed" /> <effectiveTime value="" /> <value unit="fl" xsi:type ="PQ" value="95.4" /> <referenceRange> <observationRange> <text>80.0-100.0</text> </observationRange> </ referenceRange> </observation> </component> <component> <observation moodCode="EVN" classCode="OBS"> <templateId root= "216.840.1.495596.10..22.4.2" /> <id nullFlavor="NA" /> < code codeSystem="local" code="MO#" displayName="MONOCYTE #" /> < statusCode code="completed" /> <effectiveTime value="[id number]" /> <value unit="k/cumm" xsi:type="PQ" value="1.1" /> < interpretationCode codeSystem="local" code="*" /> <referenceRange> <observationRange> <text>0.1-1.0</text> </ observationRange> </referenceRange> </observation> </ component> <component> <observation moodCode="EVN" classCode="OBS"> <templateId root="216.840.1.988640.01.23.224.2" /> <id nullFlavor="NA" /> <code codeSystem="local" code="MO%" displayName= "MONOCYTE %" /> <statusCode code="completed" /> < effectiveTime value="" /> <value unit="%" xsi:type="PQ " value="13" /> <interpretationCode codeSystem="local" code="*" /> <referenceRange> <observationRange> <text>4-6</ text> </observationRange> </referenceRange> </ observation> </component> <component> <observation moodCode= "EVN" classCode="OBS"> <templateId root="16.840.1.219758.10.4.2 " /> <id nullFlavor="NA" /> <code codeSystem="local" code="RBC " displayName="RED BLOOD CELL" /> <statusCode code="completed" /> <effectiveTime value="086914702085" /> <value unit="m/cumm" xsi: type="PQ" value="3.47" /> <interpretationCode codeSystem="local" code= "*" /> <referenceRange> <observationRange> < text>4.00-6.00</text> </observationRange> </referenceRange> </observation> </component> <component> <observation moodCode="EVN" classCode="OBS"> <templateId root= "16.840.1.093208.10.20.22.4.2" /> <id nullFlavor="NA" /> < code codeSystem="local" code="RDW" displayName="RED CELL DISTRIBUTION WIDTH" /> <statusCode code="completed" /> <effectiveTime value= "749995809701" /> <value unit="%" xsi:type="PQ" value="12.8" /> <referenceRange> <observationRange> <text>11.0- 15.6</text> </observationRange> </referenceRange> </ observation> </component> <component> <observation moodCode= "EVN" classCode="OBS"> <templateId root="840.1.258099.10.2022.4.2 " /> <id nullFlavor="NA" /> <code codeSystem="local" code="WBC " displayName="WHITE BLOOD CELL" /> <statusCode code="completed" /> <effectiveTime value="" /> <value unit="k/cumm" xsi: type="PQ" value="8.4" /> <referenceRange> <observationRange > <text>5.0-10.0</text> </observationRange> </ referenceRange> </observation> </component> <component> <observation moodCode="EVN" classCode="OBS"> <templateId root= "840.1.771420.10.20.22.4.2" /> <id nullFlavor="NA" /> < code codeSystem="local" code="HGBT" displayName="HEMOGLOBIN" /> < statusCode code="completed" /> <effectiveTime value="" /> <value unit="gm/dL" xsi:type="PQ" value="11.2" /> < interpretationCode codeSystem="local" code="*" /> <referenceRange> <observationRange> <text>14.0-18.0</text> </ observationRange> </referenceRange> </observation> </ component> <component> <observation moodCode="EVN" classCode="OBS"> <templateId root="2.16.840.1.413728.10.20.22.4.2" /> <id nullFlavor="NA" /> <code codeSystem="local" code="HCTT" displayName= "HEMATOCRIT" /> <statusCode code="completed" /> < effectiveTime value="" /> <value unit="%" xsi:type="PQ " value="33.1" /> <interpretationCode codeSystem="local" code="*" /> <referenceRange> <observationRange> <text>40.0- 54.0</text> </observationRange> </referenceRange> </ observation> </component> <component> <observation moodCode= "EVN" classCode="OBS"> <templateId root="2.16.840.1.522416.10.20.22.4.2 " /> <id nullFlavor="NA" /> <code codeSystem="local" code="PLT " displayName="PLATELET COUNT" /> <statusCode code="completed" /> <effectiveTime value="" /> <value unit="k/cumm" xsi: type="PQ" value="231" /> <referenceRange> <observationRange > <text>150-400</text> </observationRange> </ referenceRange> </observation> </component> </organizer> </entry > <entry> <organizer moodCode="EVN" classCode="BATTERY"> <templateId root="05.22.840.1.850539.10..4.1" /> <id nullFlavor="NA" /> <code codeSystem="local" code="METAB" displayName="METABOLIC PANEL, BASIC" /> < statusCode code="completed" /> <component> <observation moodCode= "EVN" classCode="OBS"> <templateId root="840.1.702077.01.23.22.4.2 " /> <id nullFlavor="NA" /> <code codeSystem="local" code="K" displayName="POTASSIUM" /> <statusCode code="completed" /> < effectiveTime value="502209837592" /> <value unit="mmol/L" xsi:type="PQ " value="3.9" /> <referenceRange> <observationRange> <text>3.5-5.3</text> </observationRange> </ referenceRange> </observation> </component> <component> <observation moodCode="EVN" classCode="OBS"> <templateId root= "840.1.404655.01.23.22.4.2" /> <id nullFlavor="NA" /> < code codeSystem="local" code="eGFR" displayName="EST GFR (MDRD)" /> < statusCode code="completed" /> <effectiveTime value="161041699805" /> <value unit="mL/min" xsi:type="PQ" value="60" /> < referenceRange> <observationRange> <text>> 59</text> </observationRange> </referenceRange> </observation > </component> <component> <observation moodCode="EVN" classCode="OBS"> <templateId root="05.22.840.1.427647.01.23.22.4.2" /> <id nullFlavor="NA" /> <code codeSystem="local" code="GAP" displayName="ANION GAP" /> <statusCode code="completed" /> < effectiveTime value="" /> <value unit="mmol/L" xsi:type="PQ " value="10" /> <referenceRange> <observationRange> <text>5-15</text> </observationRange> </referenceRange > </observation> </component> <component> <observation moodCode="EVN" classCode="OBS"> <templateId root= "216.840.1.850969.10..22.4.2" /> <id nullFlavor="NA" /> < code codeSystem="local" code="GLU" displayName="GLUCOSE" /> < statusCode code="completed" /> <effectiveTime value="" /> <value unit="mg/dL" xsi:type="PQ" value="78" /> < referenceRange> <observationRange> <text>70-99</text> </observationRange> </referenceRange> </observation> </component> <component> <observation moodCode="EVN" classCode= "OBS"> <templateId root="216.840.1.071036.10.20.22.4.2" /> < id nullFlavor="NA" /> <code codeSystem="local" code="CA" displayName= "CALCIUM" /> <statusCode code="completed" /> <effectiveTime value="" /> <value unit="mg/dL" xsi:type="PQ" value="9.1" / > <referenceRange> <observationRange> <text>8.5 -10.1</text> </observationRange> </referenceRange> </ observation> </component> <component> <observation moodCode= "EVN" classCode="OBS"> <templateId root="2.16.840.1.011069.10.20.22.4.2 " /> <id nullFlavor="NA" /> <code codeSystem="local" code="BUN " displayName="BLOOD UREA NITROGEN" /> <statusCode code="completed" /> <effectiveTime value="193466568168" /> <value unit="mg/dL" xsi:type="PQ" value="24" /> <interpretationCode codeSystem="local" code ="*" /> <referenceRange> <observationRange> < text>7-20</text> </observationRange> </referenceRange> </observation> </component> <component> <observation moodCode="EVN" classCode="OBS"> <templateId root= "16.840.1.432755.10.22.4.2" /> <id nullFlavor="NA" /> < code codeSystem="local" code="CREAT" displayName="CREATININE" /> < statusCode code="completed" /> <effectiveTime value="518528087890" /> <value unit="mg/dL" xsi:type="PQ" value="1.3" /> < referenceRange> <observationRange> <text>0.8-1.3</text> </observationRange> </referenceRange> </observation > </component> <component> <observation moodCode="EVN" classCode="OBS"> <templateId root="05.22.840.1.767346.10.20.22.4.2" /> <id nullFlavor="NA" /> <code codeSystem="local" code="NA" displayName="SODIUM" /> <statusCode code="completed" /> < effectiveTime value="422059028961" /> <value unit="mmol/L" xsi:type="PQ " value="128" /> <interpretationCode codeSystem="local" code="*" /> <referenceRange> <observationRange> <text>135-148 </text> </observationRange> </referenceRange> </ observation> </component> <component> <observation moodCode= "EVN" classCode="OBS"> <templateId root="16.840.1.501839.10.20.22.4.2 " /> <id nullFlavor="NA" /> <code codeSystem="local" code="CL " displayName="CHLORIDE" /> <statusCode code="completed" /> < effectiveTime value="994735559477" /> <value unit="mmol/L" xsi:type="PQ " value="93" /> <interpretationCode codeSystem="local" code="*" /> <referenceRange> <observationRange> <text>98-110</ text> </observationRange> </referenceRange> </ observation> </component> <component> <observation moodCode= "EVN" classCode="OBS"> <templateId root="05.22.840.1.178085.10...4.2 " /> <id nullFlavor="NA" /> <code codeSystem="local" code="CO2 " displayName="CARBON DIOXIDE" /> <statusCode code="completed" /> <effectiveTime value="982644880942" /> <value unit="mmol/L" xsi: type="PQ" value="25" /> <referenceRange> <observationRange> <text>21-32</text> </observationRange> </ referenceRange> </observation> </component> </organizer> </entry > <entry> <organizer moodCode="EVN" classCode="BATTERY"> <templateId root="16.840.1.341760.10..22.4.1" /> <id nullFlavor="NA" /> <code codeSystem="local" code="MAG" displayName="MAGNESIUM" /> <statusCode code= "completed" /> <component> <observation moodCode="EVN" classCode= "OBS"> <templateId root="216.840.1.310090.10..22.4.2" /> < id nullFlavor="NA" /> <code codeSystem="local" code="MAG" displayName= "MAGNESIUM" /> <statusCode code="completed" /> <effectiveTime value="430070499405" /> <value unit="mg/dL" xsi:type="PQ" value="1.6" / > <interpretationCode codeSystem="local" code="*" /> < referenceRange> <observationRange> <text>1.8-2.4</text> </observationRange> </referenceRange> </observation > </component> </organizer> </entry> <entry> <organizer moodCode= "EVN" classCode="BATTERY"> <templateId root="216.840.1.458018.10..22.4.1 " /> <id nullFlavor="NA" /> <code codeSystem="local" code="GLUMON" displayName="GLUCOSE (POC)" /> <statusCode code="completed" /> < component> <observation moodCode="EVN" classCode="OBS"> < templateId root="216.840.1.891162.10..22.4.2" /> <id nullFlavor="NA " /> <code codeSystem="local" code="GLUMON" displayName="GLUCOSE (POC) " /> <statusCode code="completed" /> <effectiveTime value= "182421376605" /> <value unit="mg/dL" xsi:type="PQ" value="43" /> <interpretationCode codeSystem="local" code="" /> < referenceRange> <observationRange> <text>70-99</text> </observationRange> </referenceRange> </observation> </component> </organizer> </entry> <entry> <organizer moodCode="EVN " classCode="BATTERY"> <templateId root="05.22.840.1.657861.01.23.22.4.1" / > <id nullFlavor="NA" /> <code codeSystem="local" code="GLUMON" displayName="GLUCOSE (POC)" /> <statusCode code="completed" /> < component> <observation moodCode="EVN" classCode="OBS"> < templateId root="840.1.484193.01.23.224.2" /> <id nullFlavor="NA " /> <code codeSystem="local" code="GLUMON" displayName="GLUCOSE (POC) " /> <statusCode code="completed" /> <effectiveTime value= "070354427874" /> <value unit="mg/dL" xsi:type="PQ" value="34" /> <interpretationCode codeSystem="local" code="" /> < referenceRange> <observationRange> <text>70-99</text> </observationRange> </referenceRange> </observation> </component> </organizer> </entry> <entry> <organizer moodCode="EVN " classCode="BATTERY"> <templateId root="840.1.767672.01.23.22.4.1" / > <id nullFlavor="NA" /> <code codeSystem="local" code="GLUMON" displayName="GLUCOSE (POC)" /> <statusCode code="completed" /> < component> <observation moodCode="EVN" classCode="OBS"> < templateId root="05.22.840.1.630864.1022.4.2" /> <id nullFlavor="NA " /> <code codeSystem="local" code="GLUMON" displayName="GLUCOSE (POC) " /> <statusCode code="completed" /> <effectiveTime value= "472502773115" /> <value unit="mg/dL" xsi:type="PQ" value="39" /> <interpretationCode codeSystem="local" code="" /> < referenceRange> <observationRange> <text>70-99</text> </observationRange> </referenceRange> </observation> </component> </organizer> </entry> <entry> <organizer moodCode="EVN " classCode="BATTERY"> <templateId root="216.840.1.395457.10..22.4.1" / > <id nullFlavor="NA" /> <code codeSystem="local" code="GLUMON" displayName="GLUCOSE (POC)" /> <statusCode code="completed" /> < component> <observation moodCode="EVN" classCode="OBS"> < templateId root="16.840.1.970723.10..22.4.2" /> <id nullFlavor="NA " /> <code codeSystem="local" code="GLUMON" displayName="GLUCOSE (POC) " /> <statusCode code="completed" /> <effectiveTime value= "758939627479" /> <value unit="mg/dL" xsi:type="PQ" value="88" /> <referenceRange> <observationRange> <text>70-99</ text> </observationRange> </referenceRange> </ observation> </component> </organizer> </entry> <entry> <organizer moodCode="EVN" classCode="BATTERY"> <templateId root= "16.840.1.896035.10..22.4.1" /> <id nullFlavor="NA" /> <code codeSystem="local" code="METAB" displayName="METABOLIC PANEL, BASIC" /> < statusCode code="completed" /> <component> <observation moodCode= "EVN" classCode="OBS"> <templateId root="05.22.840.1.079508.10.4.2 " /> <id nullFlavor="NA" /> <code codeSystem="local" code="K" displayName="POTASSIUM" /> <statusCode code="completed" /> < effectiveTime value="" /> <value unit="mmol/L" xsi:type="PQ " value="3.8" /> <referenceRange> <observationRange> <text>3.5-5.3</text> </observationRange> </ referenceRange> </observation> </component> <component> <observation moodCode="EVN" classCode="OBS"> <templateId root= "840.1.485506.01.23.22.4.2" /> <id nullFlavor="NA" /> < code codeSystem="local" code="eGFR" displayName="EST GFR (MDRD)" /> < statusCode code="completed" /> <effectiveTime value="" /> <value unit="mL/min" xsi:type="PQ" value="60" /> < referenceRange> <observationRange> <text>> 59</text> </observationRange> </referenceRange> </observation > </component> <component> <observation moodCode="EVN" classCode="OBS"> <templateId root="05.22.840.1.580251.01.23.22.4.2" /> <id nullFlavor="NA" /> <code codeSystem="local" code="GAP" displayName="ANION GAP" /> <statusCode code="completed" /> < effectiveTime value="505067231639" /> <value unit="mmol/L" xsi:type="PQ " value="10" /> <referenceRange> <observationRange> <text>5-15</text> </observationRange> </referenceRange > </observation> </component> <component> <observation moodCode="EVN" classCode="OBS"> <templateId root= "16.840.1.073827.10.20.22.4.2" /> <id nullFlavor="NA" /> < code codeSystem="local" code="GLU" displayName="GLUCOSE" /> < statusCode code="completed" /> <effectiveTime value="347332591608" /> <value unit="mg/dL" xsi:type="PQ" value="82" /> < referenceRange> <observationRange> <text>70-99</text> </observationRange> </referenceRange> </observation> </component> <component> <observation moodCode="EVN" classCode= "OBS"> <templateId root="05.22.840.1.194914.1022.4.2" /> < id nullFlavor="NA" /> <code codeSystem="local" code="CA" displayName= "CALCIUM" /> <statusCode code="completed" /> <effectiveTime value="986636769427" /> <value unit="mg/dL" xsi:type="PQ" value="9.0" / > <referenceRange> <observationRange> <text>8.5 -10.1</text> </observationRange> </referenceRange> </ observation> </component> <component> <observation moodCode= "EVN" classCode="OBS"> <templateId root="05.22.840.1.869110.10.20.22.4.2 " /> <id nullFlavor="NA" /> <code codeSystem="local" code="BUN " displayName="BLOOD UREA NITROGEN" /> <statusCode code="completed" /> <effectiveTime value="725921300639" /> <value unit="mg/dL" xsi:type="PQ" value="28" /> <interpretationCode codeSystem="local" code ="*" /> <referenceRange> <observationRange> < text>7-20</text> </observationRange> </referenceRange> </observation> </component> <component> <observation moodCode="EVN" classCode="OBS"> <templateId root= "05.22.840.1.478787.10..22.4.2" /> <id nullFlavor="NA" /> < code codeSystem="local" code="CREAT" displayName="CREATININE" /> < statusCode code="completed" /> <effectiveTime value="485708219979" /> <value unit="mg/dL" xsi:type="PQ" value="1.3" /> < referenceRange> <observationRange> <text>0.8-1.3</text> </observationRange> </referenceRange> </observation > </component> <component> <observation moodCode="EVN" classCode="OBS"> <templateId root="05.22.840.1.586548.10..22.4.2" /> <id nullFlavor="NA" /> <code codeSystem="local" code="NA" displayName="SODIUM" /> <statusCode code="completed" /> < effectiveTime value="641327695503" /> <value unit="mmol/L" xsi:type="PQ " value="132" /> <interpretationCode codeSystem="local" code="*" /> <referenceRange> <observationRange> <text>135-148 </text> </observationRange> </referenceRange> </ observation> </component> <component> <observation moodCode= "EVN" classCode="OBS"> <templateId root="840.1.008363.1022.4.2 " /> <id nullFlavor="NA" /> <code codeSystem="local" code="CL " displayName="CHLORIDE" /> <statusCode code="completed" /> < effectiveTime value="732923696866" /> <value unit="mmol/L" xsi:type="PQ " value="94" /> <interpretationCode codeSystem="local" code="*" /> <referenceRange> <observationRange> <text>98-110</ text> </observationRange> </referenceRange> </ observation> </component> <component> <observation moodCode= "EVN" classCode="OBS"> <templateId root="840.1.206963.01.23.22.4.2 " /> <id nullFlavor="NA" /> <code codeSystem="local" code="CO2 " displayName="CARBON DIOXIDE" /> <statusCode code="completed" /> <effectiveTime value="812510928206" /> <value unit="mmol/L" xsi: type="PQ" value="28" /> <referenceRange> <observationRange> <text>21-32</text> </observationRange> </ referenceRange> </observation> </component> </organizer> </entry > <entry> <organizer moodCode="EVN" classCode="BATTERY"> <templateId root="840.1.549665.10.22.4.1" /> <id nullFlavor="NA" /> <code codeSystem="local" code="CBC" displayName="COMPLETE BLOOD COUNT" /> < statusCode code="completed" /> <component> <observation moodCode= "EVN" classCode="OBS"> <templateId root="840.1.792447.102022.4.2 " /> <id nullFlavor="NA" /> <code codeSystem="local" code="PLT " displayName="Platelet" /> <statusCode code="completed" /> < effectiveTime value="362454121115" /> <value unit="10^3u" xsi:type="PQ " value="217" /> <referenceRange> <observationRange> <text>142-424</text> </observationRange> </ referenceRange> </observation> </component> <component> <observation moodCode="EVN" classCode="OBS"> <templateId root= "216.840.1.495197.10..22.4.2" /> <id nullFlavor="NA" /> < code codeSystem="local" code="MPV" displayName="MPV" /> <statusCode code="completed" /> <effectiveTime value="964653743170" /> < value unit="FL" xsi:type="PQ" value="8.8" /> <interpretationCode codeSystem="local" code="L" /> <referenceRange> < observationRange> <text>9.4-12.4</text> </ observationRange> </referenceRange> </observation> </ component> <component> <observation moodCode="EVN" classCode="OBS"> <templateId root="16.840.1.379537.10..22.4.2" /> <id nullFlavor="NA" /> <code codeSystem="local" code="MONO#" displayName= "Breathitt #" /> <statusCode code="completed" /> <effectiveTime value="559208567461" /> <value unit="10^3u" xsi:type="PQ" value="0.65" /> <referenceRange> <observationRange> <text> 0.0-1.0</text> </observationRange> </referenceRange> </observation> </component> <component> <observation moodCode= "EVN" classCode="OBS"> <templateId root="2.16.840.1.102524.10..22.4.2 " /> <id nullFlavor="NA" /> <code codeSystem="local" code="RBC " displayName="RBC" /> <statusCode code="completed" /> < effectiveTime value="165892257306" /> <value unit="10^6u" xsi:type="PQ " value="3.45" /> <interpretationCode codeSystem="local" code="L" /> <referenceRange> <observationRange> <text>4.04- 6.13</text> </observationRange> </referenceRange> </ observation> </component> <component> <observation moodCode= "EVN" classCode="OBS"> <templateId root="216.840.1.229682.01.23.22.4.2 " /> <id nullFlavor="NA" /> <code codeSystem="local" code= "MONO%" displayName="Breath[place] %" /> <statusCode code="completed" / > <effectiveTime value="595149744302" /> <value unit="%" xsi:type="PQ" value="8.9" /> <referenceRange> < observationRange> <text>0-12</text> </observationRange> </referenceRange> </observation> </component> < component> <observation moodCode="EVN" classCode="OBS"> < templateId root="2.16.840.1.493495.10...4.2" /> <id nullFlavor="NA " /> <code codeSystem="local" code="RDW" displayName="RDW" /> <statusCode code="completed" /> <effectiveTime value="971332049811" /> <value unit="%" xsi:type="PQ" value="12.6" /> < referenceRange> <observationRange> <text>11.6-14.8</text > </observationRange> </referenceRange> </observation > </component> <component> <observation moodCode="EVN" classCode="OBS"> <templateId root="216.840.1.483613.10...4.2" /> <id nullFlavor="NA" /> <code codeSystem="local" code="SEG#" displayName="Neut #" /> <statusCode code="completed" /> < effectiveTime value="870167297191" /> <value unit="10^3u" xsi:type="PQ " value="4.81" /> <referenceRange> <observationRange> <text>2.0-6.9</text> </observationRange> </ referenceRange> </observation> </component> <component> <observation moodCode="EVN" classCode="OBS"> <templateId root= "16.840.1.711209.10..4.2" /> <id nullFlavor="NA" /> < code codeSystem="local" code="SEG%" displayName="Neut %" /> < statusCode code="completed" /> <effectiveTime value="423488321884" /> <value unit="%" xsi:type="PQ" value="65.6" /> < referenceRange> <observationRange> <text>37-80</text> </observationRange> </referenceRange> </observation> </component> <component> <observation moodCode="EVN" classCode= "OBS"> <templateId root="16.840.1.514117.10..22.4.2" /> < id nullFlavor="NA" /> <code codeSystem="local" code="WBC" displayName= "WBC" /> <statusCode code="completed" /> <effectiveTime value= "775905582890" /> <value unit="10^3u" xsi:type="PQ" value="7.33" /> <referenceRange> <observationRange> <text>4.60- 10.20</text> </observationRange> </referenceRange> </ observation> </component> <component> <observation moodCode= "EVN" classCode="OBS"> <templateId root="05.22.840.1.152221.10.20.22.4.2 " /> <id nullFlavor="NA" /> <code codeSystem="local" code="MCV " displayName="MCV" /> <statusCode code="completed" /> < effectiveTime value="729450443937" /> <value unit="FL" xsi:type="PQ" value="96.5" /> <referenceRange> <observationRange> <text>80.0-97.0</text> </observationRange> </ referenceRange> </observation> </component> <component> <observation moodCode="EVN" classCode="OBS"> <templateId root= "05.22.840.1.603638.10.20.22.4.2" /> <id nullFlavor="NA" /> < code codeSystem="local" code="BASO#" displayName="Baso #" /> < statusCode code="completed" /> <effectiveTime value="280197398701" /> <value unit="10^3u" xsi:type="PQ" value="0.04" /> < referenceRange> <observationRange> <text>0.0-0.1</text> </observationRange> </referenceRange> </observation > </component> <component> <observation moodCode="EVN" classCode="OBS"> <templateId root="16.840.1.597597.10.22.4.2" /> <id nullFlavor="NA" /> <code codeSystem="local" code="BASO&#37 ;" displayName="Baso %" /> <statusCode code="completed" /> <effectiveTime value="657481016209" /> <value unit="%" xsi:type= "PQ" value="0.5" /> <referenceRange> <observationRange> <text>0-2</text> </observationRange> </ referenceRange> </observation> </component> <component> <observation moodCode="EVN" classCode="OBS"> <templateId root= "05.22.840.1.379816.10.22.4.2" /> <id nullFlavor="NA" /> < code codeSystem="local" code="EOS#" displayName="Eos #" /> <statusCode code="completed" /> <effectiveTime value="904563920560" /> < value unit="10^3u" xsi:type="PQ" value="0.38" /> <referenceRange> <observationRange> <text>0-0.7</text> </ observationRange> </referenceRange> </observation> </ component> <component> <observation moodCode="EVN" classCode="OBS"> <templateId root="05.22.840.1.028498.10.20.22.4.2" /> <id nullFlavor="NA" /> <code codeSystem="local" code="EOS%" displayName ="Eos %" /> <statusCode code="completed" /> < effectiveTime value="160115799190" /> <value unit="%" xsi:type="PQ " value="5.2" /> <referenceRange> <observationRange> <text>0-7</text> </observationRange> </referenceRange > </observation> </component> <component> <observation moodCode="EVN" classCode="OBS"> <templateId root= "216.840.1.542234.10.22.4.2" /> <id nullFlavor="NA" /> < code codeSystem="local" code="LYMPH%" displayName="Lymph %" /> <statusCode code="completed" /> <effectiveTime value="039624541756" /> <value unit="%" xsi:type="PQ" value="19.8" /> < referenceRange> <observationRange> <text>10-50</text> </observationRange> </referenceRange> </observation> </component> <component> <observation moodCode="EVN" classCode= "OBS"> <templateId root="05.22.840.1.854282.01.23.22.4.2" /> < id nullFlavor="NA" /> <code codeSystem="local" code="MCHC" displayName= "MCHC" /> <statusCode code="completed" /> <effectiveTime value ="865758406458" /> <value unit="G/DL" xsi:type="PQ" value="34.5" /> <referenceRange> <observationRange> <text>31.8- 35.4</text> </observationRange> </referenceRange> </ observation> </component> <component> <observation moodCode= "EVN" classCode="OBS"> <templateId root="216.840.1.399891.22.4.2 " /> <id nullFlavor="NA" /> <code codeSystem="local" code="MCH " displayName="MCH" /> <statusCode code="completed" /> < effectiveTime value="114472147364" /> <value unit="PG" xsi:type="PQ" value="33.3" /> <interpretationCode codeSystem="local" code="H" /> <referenceRange> <observationRange> <text>27.0- 31.2</text> </observationRange> </referenceRange> </ observation> </component> <component> <observation moodCode= "EVN" classCode="OBS"> <templateId root="16.840.1.378447.01.23.22.4.2 " /> <id nullFlavor="NA" /> <code codeSystem="local" code= "LYMPH#" displayName="Lymph #" /> <statusCode code="completed" /> <effectiveTime value="726470562205" /> <value unit="10^3u" xsi: type="PQ" value="1.45" /> <referenceRange> <observationRange > <text>0.6-3.4</text> </observationRange> </ referenceRange> </observation> </component> <component> <observation moodCode="EVN" classCode="OBS"> <templateId root= "05.22.840.1.363421.01.23.22.4.2" /> <id nullFlavor="NA" /> < code codeSystem="local" code="HGB" displayName="HGB" /> <statusCode code="completed" /> <effectiveTime value="782273187496" /> < value unit="G/DL" xsi:type="PQ" value="11.5" /> <interpretationCode codeSystem="local" code="L" /> <referenceRange> < observationRange> <text>12.2-18.1</text> </ observationRange> </referenceRange> </observation> </ component> <component> <observation moodCode="EVN" classCode="OBS"> <templateId root="05.22.840.1.853687.10..4.2" /> <id nullFlavor="NA" /> <code codeSystem="local" code="HCT" displayName="HCT " /> <statusCode code="completed" /> <effectiveTime value= "990930717199" /> <value unit="%" xsi:type="PQ" value="33.3" /> <interpretationCode codeSystem="local" code="L" /> < referenceRange> <observationRange> <text>37.7-53.7</text > </observationRange> </referenceRange> </observation > </component> </organizer> </entry> <entry> <organizer moodCode= "EVN" classCode="BATTERY"> <templateId root="05.22.840.1.470987.10..4.1 " /> <id nullFlavor="NA" /> <code codeSystem="local" code="CMP11" displayName="CMP" /> <statusCode code="completed" /> <component> <observation moodCode="EVN" classCode="OBS"> <templateId root= "05.22.840.1.559907.10...4.2" /> <id nullFlavor="NA" /> < code codeSystem="local" code="OSMCAL" displayName="Osmo Calculated" /> <statusCode code="completed" /> <effectiveTime value="559841468582" /> <value unit="MOSM" xsi:type="PQ" value="267" /> < referenceRange> <observationRange> <text>261-280</text> </observationRange> </referenceRange> </observation > </component> <component> <observation moodCode="EVN" classCode="OBS"> <templateId root="05.22.840.1.414888.01.23.22.4.2" /> <id nullFlavor="NA" /> <code codeSystem="local" code="NA" displayName="Sodium" /> <statusCode code="completed" /> < effectiveTime value="093745072229" /> <value unit="MMOLL" xsi:type="PQ " value="135" /> <interpretationCode codeSystem="local" code="L" /> <referenceRange> <observationRange> <text>137-145 </text> </observationRange> </referenceRange> </ observation> </component> <component> <observation moodCode= "EVN" classCode="OBS"> <templateId root="2.16.840.1.011070.01.23.224.2 " /> <id nullFlavor="NA" /> <code codeSystem="local" code="TP " displayName="T. Protein" /> <statusCode code="completed" /> <effectiveTime value="008839560460" /> <value unit="G/DL" xsi:type="PQ " value="6.3" /> <referenceRange> <observationRange> <text>6.3-8.2</text> </observationRange> </ referenceRange> </observation> </component> <component> <observation moodCode="EVN" classCode="OBS"> <templateId root= "2.16.840.1.731130.01.23.22.4.2" /> <id nullFlavor="NA" /> < code codeSystem="local" code="K" displayName="Potassium" /> < statusCode code="completed" /> <effectiveTime value="503491672336" /> <value unit="MMOLL" xsi:type="PQ" value="4.0" /> < referenceRange> <observationRange> <text>3.6-5.0</text> </observationRange> </referenceRange> </observation > </component> <component> <observation moodCode="EVN" classCode="OBS"> <templateId root="16.840.1.523133.10.4.2" /> <id nullFlavor="NA" /> <code codeSystem="local" code="TBIL" displayName="T Bili" /> <statusCode code="completed" /> < effectiveTime value="617107104966" /> <value unit="MG/DL" xsi:type="PQ " value="0.3" /> <referenceRange> <observationRange> <text>0.2-1.3</text> </observationRange> </ referenceRange> </observation> </component> <component> <observation moodCode="EVN" classCode="OBS"> <templateId root= "05.22.840.1.867409.01.23.22.4.2" /> <id nullFlavor="NA" /> < code codeSystem="local" code="CA" displayName="Calcium" /> <statusCode code="completed" /> <effectiveTime value="255582625116" /> < value unit="MG/DL" xsi:type="PQ" value="9.2" /> <referenceRange> <observationRange> <text>8.4-10.2</text> </ observationRange> </referenceRange> </observation> </ component> <component> <observation moodCode="EVN" classCode="OBS"> <templateId root="05.22.840.1.951294...4.2" /> <id nullFlavor="NA" /> <code codeSystem="local" code="BUN" displayName="BUN " /> <statusCode code="completed" /> <effectiveTime value= "221125893249" /> <value unit="MG/DL" xsi:type="PQ" value="30" /> <interpretationCode codeSystem="local" code="H" /> <referenceRange > <observationRange> <text>7-21</text> </ observationRange> </referenceRange> </observation> </ component> <component> <observation moodCode="EVN" classCode="OBS"> <templateId root="05.22.840.1.173286.10..4.2" /> <id nullFlavor="NA" /> <code codeSystem="local" code="CL" displayName= "Chloride" /> <statusCode code="completed" /> <effectiveTime value="" /> <value unit="MMOLL" xsi:type="PQ" value="99" / > <referenceRange> <observationRange> <text>98- 107</text> </observationRange> </referenceRange> </ observation> </component> <component> <observation moodCode= "EVN" classCode="OBS"> <templateId root="840.1.119183.01.23.22.4.2 " /> <id nullFlavor="NA" /> <code codeSystem="local" code="AST " displayName="AST" /> <statusCode code="completed" /> < effectiveTime value="" /> <value unit="U/L" xsi:type="PQ" value="20" /> <referenceRange> <observationRange> <text>15-46</text> </observationRange> </referenceRange > </observation> </component> <component> <observation moodCode="EVN" classCode="OBS"> <templateId root= "05.22.840.1.283907.10.4.2" /> <id nullFlavor="NA" /> < code codeSystem="local" code="ALT" displayName="ALT" /> <statusCode code="completed" /> <effectiveTime value="032984572796" /> < value unit="U/L" xsi:type="PQ" value="28" /> <referenceRange> <observationRange> <text>7-56</text> </ observationRange> </referenceRange> </observation> </ component> <component> <observation moodCode="EVN" classCode="OBS"> <templateId root="16.840.1.976237.10.22.4.2" /> <id nullFlavor="NA" /> <code codeSystem="local" code="ALB" displayName= "Albumin" /> <statusCode code="completed" /> <effectiveTime value="411650222123" /> <value unit="G/DL" xsi:type="PQ" value="3.6" / > <referenceRange> <observationRange> <text>3.5 -5.0</text> </observationRange> </referenceRange> </ observation> </component> <component> <observation moodCode= "EVN" classCode="OBS"> <templateId root="05.22.840.1.750486.22.4.2 " /> <id nullFlavor="NA" /> <code codeSystem="local" code="AG " displayName="A/G Ratio" /> <statusCode code="completed" /> < effectiveTime value="887413968032" /> <value unit="RATIO" xsi:type="PQ " value="1.4" /> <referenceRange> <observationRange> <text>1.2-2.2</text> </observationRange> </ referenceRange> </observation> </component> <component> <observation moodCode="EVN" classCode="OBS"> <templateId root= "16.840.1.359444.10.2022.4.2" /> <id nullFlavor="NA" /> < code codeSystem="local" code="BCR" displayName="Bun/Creat" /> < statusCode code="completed" /> <effectiveTime value="457036225464" /> <value unit="RATIO" xsi:type="PQ" value="18.5" /> < referenceRange> <observationRange> <text>7-25</text> </observationRange> </referenceRange> </observation> </component> <component> <observation moodCode="EVN" classCode= "OBS"> <templateId root="216.840.1.442204.10.20.22.4.2" /> < id nullFlavor="NA" /> <code codeSystem="local" code="ALP" displayName= "Alk Phos" /> <statusCode code="completed" /> <effectiveTime value="175380358070" /> <value unit="U/L" xsi:type="PQ" value="88" /> <referenceRange> <observationRange> <text>38- 126</text> </observationRange> </referenceRange> </ observation> </component> <component> <observation moodCode= "EVN" classCode="OBS"> <templateId root="16.840.1.114943.10.20.22.4.2 " /> <id nullFlavor="NA" /> <code codeSystem="local" code="CO2 " displayName="CO2" /> <statusCode code="completed" /> < effectiveTime value="217702990902" /> <value unit="MMOLL" xsi:type="PQ " value="29" /> <referenceRange> <observationRange> <text>22-30</text> </observationRange> </ referenceRange> </observation> </component> <component> <observation moodCode="EVN" classCode="OBS"> <templateId root= "16.840.1.892842.01.23.22.4.2" /> <id nullFlavor="NA" /> < code codeSystem="local" code="GLU" displayName="Glucose" /> < statusCode code="completed" /> <effectiveTime value="183876731059" /> <value unit="MG/DL" xsi:type="PQ" value="73" /> < referenceRange> <observationRange> <text>65-110</text> </observationRange> </referenceRange> </observation> </component> <component> <observation moodCode="EVN" classCode ="OBS"> <templateId root="16.840.1.387698.01.23.22.4.2" /> < id nullFlavor="NA" /> <code codeSystem="local" code="GLOB" displayName= "Globulin" /> <statusCode code="completed" /> <effectiveTime value="507821320168" /> <value unit="" xsi:type="PQ" value="2.7" /> <referenceRange> <observationRange> <text>2.4-3.5 </text> </observationRange> </referenceRange> </ observation> </component> <component> <observation moodCode= "EVN" classCode="OBS"> <templateId root="16.840.1.099757.01.23.22.4.2 " /> <id nullFlavor="NA" /> <code codeSystem="local" code= "CREAT" displayName="Creatinine" /> <statusCode code="completed" /> <effectiveTime value="235696203088" /> <value unit="MG/DL" xsi: type="PQ" value="1.6" /> <interpretationCode codeSystem="local" code="H " /> <referenceRange> <observationRange> <text> 0.7-1.5</text> </observationRange> </referenceRange> </observation> </component> </organizer> </entry> <entry> < organizer moodCode="EVN" classCode="BATTERY"> <templateId root= "05.22.840.1.062208.01.23.22.4.1" /> <id nullFlavor="NA" /> <code codeSystem="local" code="BNP" displayName="BNP" /> <statusCode code= "completed" /> <component> <observation moodCode="EVN" classCode= "OBS"> <templateId root="840.1.861328.01.23.224.2" /> < id nullFlavor="NA" /> <code codeSystem="local" code="BNP" displayName= "BNP" /> <statusCode code="completed" /> <effectiveTime value= "667021166822" /> <value unit="PG/ML" xsi:type="PQ" value="57.0" /> <referenceRange> <observationRange> <text><= 100</text> </observationRange> </referenceRange> </ observation> </component> </organizer> </entry> <entry> <organizer moodCode="EVN" classCode="BATTERY"> <templateId root= "840.1.398625.01.23.22.4.1" /> <id nullFlavor="NA" /> <code codeSystem="local" code="CBC" displayName="COMPLETE BLOOD COUNT" /> < statusCode code="completed" /> <component> <observation moodCode= "EVN" classCode="OBS"> <templateId root="05.22.840.1.833513.01.23.22.4.2 " /> <id nullFlavor="NA" /> <code codeSystem="local" code="PLT " displayName="Platelet" /> <statusCode code="completed" /> < effectiveTime value="" /> <value unit="10^3u" xsi:type="PQ " value="227" /> <referenceRange> <observationRange> <text>142-424</text> </observationRange> </ referenceRange> </observation> </component> <component> <observation moodCode="EVN" classCode="OBS"> <templateId root= "16.840.1.523263.22.4.2" /> <id nullFlavor="NA" /> < code codeSystem="local" code="MPV" displayName="MPV" /> <statusCode code="completed" /> <effectiveTime value="" /> < value unit="FL" xsi:type="PQ" value="9.9" /> <referenceRange> <observationRange> <text>9.4-12.4</text> </ observationRange> </referenceRange> </observation> </ component> <component> <observation moodCode="EVN" classCode="OBS"> <templateId root="05.22.840.1.975809.01.23.22.4.2" /> <id nullFlavor="NA" /> <code codeSystem="local" code="MONO#" displayName= "Breath[place] #" /> <statusCode code="completed" /> <effectiveTime value="" /> <value unit="10^3u" xsi:type="PQ" value="0.96" /> <referenceRange> <observationRange> <text> 0.0-1.0</text> </observationRange> </referenceRange> </observation> </component> <component> <observation moodCode= "EVN" classCode="OBS"> <templateId root="16.840.1.719020..2022.4.2 " /> <id nullFlavor="NA" /> <code codeSystem="local" code="RBC " displayName="RBC" /> <statusCode code="completed" /> < effectiveTime value="" /> <value unit="10^6u" xsi:type="PQ " value="3.55" /> <interpretationCode codeSystem="local" code="L" /> <referenceRange> <observationRange> <text>4.04- 6.13</text> </observationRange> </referenceRange> </ observation> </component> <component> <observation moodCode= "EVN" classCode="OBS"> <templateId root="2.16.840.1.479545...4.2 " /> <id nullFlavor="NA" /> <code codeSystem="local" code= "MONO%" displayName="[place] %" /> <statusCode code="completed" / > <effectiveTime value="" /> <value unit="%" xsi:type="PQ" value="12.0" /> <referenceRange> < observationRange> <text>0-12</text> </observationRange> </referenceRange> </observation> </component> < component> <observation moodCode="EVN" classCode="OBS"> < templateId root="2.16.840.1.048852.01.23.22.4.2" /> <id nullFlavor="NA " /> <code codeSystem="local" code="RDW" displayName="RDW" /> <statusCode code="completed" /> <effectiveTime value="" /> <value unit="%" xsi:type="PQ" value="12.9" /> < referenceRange> <observationRange> <text>11.6-14.8</text > </observationRange> </referenceRange> </observation > </component> <component> <observation moodCode="EVN" classCode="OBS"> <templateId root="16.840.1.755438.10.4.2" /> <id nullFlavor="NA" /> <code codeSystem="local" code="SEG#" displayName="Neut #" /> <statusCode code="completed" /> < effectiveTime value="" /> <value unit="10^3u" xsi:type="PQ " value="4.23" /> <referenceRange> <observationRange> <text>2.0-6.9</text> </observationRange> </ referenceRange> </observation> </component> <component> <observation moodCode="EVN" classCode="OBS"> <templateId root= "05.22.840.1.921833.01.23.22.4.2" /> <id nullFlavor="NA" /> < code codeSystem="local" code="SEG%" displayName="Neut %" /> < statusCode code="completed" /> <effectiveTime value="" /> <value unit="%" xsi:type="PQ" value="52.9" /> < referenceRange> <observationRange> <text>37-80</text> </observationRange> </referenceRange> </observation> </component> <component> <observation moodCode="EVN" classCode= "OBS"> <templateId root="16.840.1.637335..22.4.2" /> < id nullFlavor="NA" /> <code codeSystem="local" code="WBC" displayName= "WBC" /> <statusCode code="completed" /> <effectiveTime value= "" /> <value unit="10^3u" xsi:type="PQ" value="7.99" /> <referenceRange> <observationRange> <text>4.60- 10.20</text> </observationRange> </referenceRange> </ observation> </component> <component> <observation moodCode= "EVN" classCode="OBS"> <templateId root="216.840.1.192774.1022.4.2 " /> <id nullFlavor="NA" /> <code codeSystem="local" code="MCV " displayName="MCV" /> <statusCode code="completed" /> < effectiveTime value="" /> <value unit="FL" xsi:type="PQ" value="101.1" /> <interpretationCode codeSystem="local" code="H" /> <referenceRange> <observationRange> <text>80.0- 97.0</text> </observationRange> </referenceRange> </ observation> </component> <component> <observation moodCode= "EVN" classCode="OBS"> <templateId root="05.22.840.1.228192.01.23.22.4.2 " /> <id nullFlavor="NA" /> <code codeSystem="local" code= "BASO#" displayName="Baso #" /> <statusCode code="completed" /> <effectiveTime value="" /> <value unit="10^3u" xsi:type= "PQ" value="0.03" /> <referenceRange> <observationRange> <text>0.0-0.1</text> </observationRange> </ referenceRange> </observation> </component> <component> <observation moodCode="EVN" classCode="OBS"> <templateId root= "16.840.1.880752..22.4.2" /> <id nullFlavor="NA" /> < code codeSystem="local" code="BASO%" displayName="Baso %" /> < statusCode code="completed" /> <effectiveTime value="294757097818" /> <value unit="%" xsi:type="PQ" value="0.4" /> < referenceRange> <observationRange> <text>0-2</text> </observationRange> </referenceRange> </observation> </component> <component> <observation moodCode="EVN" classCode= "OBS"> <templateId root="2.16.840.1.209805...4.2" /> < id nullFlavor="NA" /> <code codeSystem="local" code="EOS#" displayName= "Eos #" /> <statusCode code="completed" /> <effectiveTime value="" /> <value unit="10^3u" xsi:type="PQ" value="0.51" /> <referenceRange> <observationRange> <text>0- 0.7</text> </observationRange> </referenceRange> </ observation> </component> <component> <observation moodCode= "EVN" classCode="OBS"> <templateId root="2.16.840.1.643044.10.22.4.2 " /> <id nullFlavor="NA" /> <code codeSystem="local" code="EOS %" displayName="Eos %" /> <statusCode code="completed" /> <effectiveTime value="784068149124" /> <value unit="%" xsi: type="PQ" value="6.4" /> <referenceRange> <observationRange > <text>0-7</text> </observationRange> </ referenceRange> </observation> </component> <component> <observation moodCode="EVN" classCode="OBS"> <templateId root= "216.840.1.529821.10..22.4.2" /> <id nullFlavor="NA" /> < code codeSystem="local" code="LYMPH%" displayName="Lymph %" /> <statusCode code="completed" /> <effectiveTime value="" /> <value unit="%" xsi:type="PQ" value="28.3" /> < referenceRange> <observationRange> <text>10-50</text> </observationRange> </referenceRange> </observation> </component> <component> <observation moodCode="EVN" classCode= "OBS"> <templateId root="16.840.1.914930.10..4.2" /> < id nullFlavor="NA" /> <code codeSystem="local" code="MCHC" displayName= "MCHC" /> <statusCode code="completed" /> <effectiveTime value ="" /> <value unit="G/DL" xsi:type="PQ" value="34.5" /> <referenceRange> <observationRange> <text>31.8- 35.4</text> </observationRange> </referenceRange> </ observation> </component> <component> <observation moodCode= "EVN" classCode="OBS"> <templateId root="16.840.1.063720.10..22.4.2 " /> <id nullFlavor="NA" /> <code codeSystem="local" code="MCH " displayName="MCH" /> <statusCode code="completed" /> < effectiveTime value="" /> <value unit="PG" xsi:type="PQ" value="34.9" /> <interpretationCode codeSystem="local" code="H" /> <referenceRange> <observationRange> <text>27.0- 31.2</text> </observationRange> </referenceRange> </ observation> </component> <component> <observation moodCode= "EVN" classCode="OBS"> <templateId root="05.22.840.1.967643.10.20.22.4.2 " /> <id nullFlavor="NA" /> <code codeSystem="local" code= "LYMPH#" displayName="Lymph #" /> <statusCode code="completed" /> <effectiveTime value="" /> <value unit="10^3u" xsi: type="PQ" value="2.26" /> <referenceRange> <observationRange > <text>0.6-3.4</text> </observationRange> </ referenceRange> </observation> </component> <component> <observation moodCode="EVN" classCode="OBS"> <templateId root= "840.1.382557.10.2022.4.2" /> <id nullFlavor="NA" /> < code codeSystem="local" code="HGB" displayName="HGB" /> <statusCode code="completed" /> <effectiveTime value="" /> < value unit="G/DL" xsi:type="PQ" value="12.4" /> <referenceRange> <observationRange> <text>12.2-18.1</text> </ observationRange> </referenceRange> </observation> </ component> <component> <observation moodCode="EVN" classCode="OBS"> <templateId root="05.22.840.1.746272.10.20.22.4.2" /> <id nullFlavor="NA" /> <code codeSystem="local" code="HCT" displayName="HCT " /> <statusCode code="completed" /> <effectiveTime value= "[id number]" /> <value unit="%" xsi:type="PQ" value="35.9" /> <interpretationCode codeSystem="local" code="L" /> < referenceRange> <observationRange> <text>37.7-53.7</text > </observationRange> </referenceRange> </observation > </component> </organizer> </entry> <entry> <organizer moodCode= "EVN" classCode="BATTERY"> <templateId root="216.840.1.530669.10..22.4.1 " /> <id nullFlavor="NA" /> <code codeSystem="local" code="BNP" displayName="BNP" /> <statusCode code="completed" /> <component> <observation moodCode="EVN" classCode="OBS"> <templateId root= "216.840.1.209013.10..22.4.2" /> <id nullFlavor="NA" /> < code codeSystem="local" code="BNP" displayName="BNP" /> <statusCode code="completed" /> <effectiveTime value="[id number]" /> < value unit="PG/ML" xsi:type="PQ" value="17.6" /> <referenceRange> <observationRange> <text><=100</text> </ observationRange> </referenceRange> </observation> </ component> </organizer> </entry> <entry> <organizer moodCode="EVN" classCode="BATTERY"> <templateId root="216.840.1.543708.10.20.22.4.1" /> <id nullFlavor="NA" /> <code codeSystem="local" code="TROP" displayName="Troponin I" /> <statusCode code="completed" /> <component > <observation moodCode="EVN" classCode="OBS"> <templateId root= "2.16.840.1.078469.10..22.4.2" /> <id nullFlavor="NA" /> < code codeSystem="local" code="TROP" displayName="Troponin I" /> < statusCode code="completed" /> <effectiveTime value="[id number]" /> <value unit="NG/ML" xsi:type="PQ" value="0.02" /> < referenceRange> <observationRange> <text><=0.20</text > </observationRange> </referenceRange> </observation > </component> </organizer> </entry> <entry> <organizer moodCode= "EVN" classCode="BATTERY"> <templateId root="2.16.840.1.943600.10..22.4.1 " /> <id nullFlavor="NA" /> <code codeSystem="local" code="CK" displayName="CPK" /> <statusCode code="completed" /> <component> <observation moodCode="EVN" classCode="OBS"> <templateId root= "2.16.840.1.462741.10..22.4.2" /> <id nullFlavor="NA" /> < code codeSystem="local" code="CK" displayName="CPK" /> <statusCode code ="completed" /> <effectiveTime value="[id number]" /> <value unit="U/L" xsi:type="PQ" value="66" /> <referenceRange> < observationRange> <text>30-170</text> </observationRange > </referenceRange> </observation> </component> </ organizer> </entry> <entry> <organizer moodCode="EVN" classCode="BATTERY"> <templateId root="05.22.840.1.807457.01.23.22.4.1" /> <id nullFlavor= "NA" /> <code codeSystem="local" code="MB" displayName="CKMB" /> < statusCode code="completed" /> <component> <observation moodCode= "EVN" classCode="OBS"> <templateId root="840.1.697266.01.23.22.4.2 " /> <id nullFlavor="NA" /> <code codeSystem="local" code="MB " displayName="CKMB" /> <statusCode code="completed" /> < effectiveTime value="" /> <value unit="NG/ML" xsi:type="PQ " value="3.5" /> <referenceRange> <observationRange> <text><=6</text> </observationRange> </ referenceRange> </observation> </component> </organizer> </entry > <entry> <organizer moodCode="EVN" classCode="BATTERY"> <templateId root="840.1.575281.01.23.22.4.1" /> <id nullFlavor="NA" /> <code codeSystem="local" code="CMP11" displayName="CMP" /> <statusCode code= "completed" /> <component> <observation moodCode="EVN" classCode= "OBS"> <templateId root="840.1.174779.01.23.22.4.2" /> < id nullFlavor="NA" /> <code codeSystem="local" code="OSMCAL" displayName="Osmo Calculated" /> <statusCode code="completed" /> <effectiveTime value="" /> <value unit="MOSM" xsi:type= "PQ" value="277" /> <referenceRange> <observationRange> <text>261-280</text> </observationRange> </ referenceRange> </observation> </component> <component> <observation moodCode="EVN" classCode="OBS"> <templateId root= "216.840.1.753483.10.20.22.4.2" /> <id nullFlavor="NA" /> < code codeSystem="local" code="NA" displayName="Sodium" /> <statusCode code="completed" /> <effectiveTime value="" /> < value unit="MMOLL" xsi:type="PQ" value="138" /> <referenceRange> <observationRange> <text>136-145</text> </ observationRange> </referenceRange> </observation> </ component> <component> <observation moodCode="EVN" classCode="OBS"> <templateId root="05.22.840.1.476349.10..4.2" /> <id nullFlavor="NA" /> <code codeSystem="local" code="TP" displayName="T. Protein" /> <statusCode code="completed" /> <effectiveTime value="" /> <value unit="G/DL" xsi:type="PQ" value="6.9" / > <referenceRange> <observationRange> <text>6.4 -8.3</text> </observationRange> </referenceRange> </ observation> </component> <component> <observation moodCode= "EVN" classCode="OBS"> <templateId root="05.22.840.1.767156.10.2022.4.2 " /> <id nullFlavor="NA" /> <code codeSystem="local" code="K" displayName="Potassium" /> <statusCode code="completed" /> < effectiveTime value="" /> <value unit="MMOLL" xsi:type="PQ " value="4.4" /> <referenceRange> <observationRange> <text>3.5-5.1</text> </observationRange> </ referenceRange> </observation> </component> <component> <observation moodCode="EVN" classCode="OBS"> <templateId root= "216.840.1.861967.10..22.4.2" /> <id nullFlavor="NA" /> < code codeSystem="local" code="TBIL" displayName="T Bili" /> < statusCode code="completed" /> <effectiveTime value="" /> <value unit="MG/DL" xsi:type="PQ" value="0.3" /> < referenceRange> <observationRange> <text>0.2-1.2</text> </observationRange> </referenceRange> </observation > </component> <component> <observation moodCode="EVN" classCode="OBS"> <templateId root="16.840.1.318074.10..22.4.2" /> <id nullFlavor="NA" /> <code codeSystem="local" code="CA" displayName="Calcium" /> <statusCode code="completed" /> < effectiveTime value="" /> <value unit="MG/DL" xsi:type="PQ " value="9.3" /> <referenceRange> <observationRange> <text>8.4-10.2</text> </observationRange> </ referenceRange> </observation> </component> <component> <observation moodCode="EVN" classCode="OBS"> <templateId root= "216.840.1.996154.10.20.22.4.2" /> <id nullFlavor="NA" /> < code codeSystem="local" code="BUN" displayName="BUN" /> <statusCode code="completed" /> <effectiveTime value="" /> < value unit="MG/DL" xsi:type="PQ" value="42" /> <interpretationCode codeSystem="local" code="H" /> <referenceRange> < observationRange> <text>7-26</text> </observationRange> </referenceRange> </observation> </component> < component> <observation moodCode="EVN" classCode="OBS"> < templateId root="216.840.1.938274.10..22.4.2" /> <id nullFlavor="NA " /> <code codeSystem="local" code="CL" displayName="Chloride" /> <statusCode code="completed" /> <effectiveTime value=" " /> <value unit="MMOLL" xsi:type="PQ" value="105" /> < referenceRange> <observationRange> <text>98-107</text> </observationRange> </referenceRange> </observation> </component> <component> <observation moodCode="EVN" classCode ="OBS"> <templateId root="216.840.1.446322.10..22.4.2" /> < id nullFlavor="NA" /> <code codeSystem="local" code="AST" displayName= "AST" /> <statusCode code="completed" /> <effectiveTime value= "" /> <value unit="U/L" xsi:type="PQ" value="17" /> <referenceRange> <observationRange> <text>5-34</text > </observationRange> </referenceRange> </observation > </component> <component> <observation moodCode="EVN" classCode="OBS"> <templateId root="2.16.840.1.193565.10..22.4.2" /> <id nullFlavor="NA" /> <code codeSystem="local" code="ALT" displayName="ALT" /> <statusCode code="completed" /> < effectiveTime value="" /> <value unit="U/L" xsi:type="PQ" value="12" /> <referenceRange> <observationRange> <text>0-55</text> </observationRange> </referenceRange> </observation> </component> <component> <observation moodCode="EVN" classCode="OBS"> <templateId root= "05.22.840.1.106909.10..4.2" /> <id nullFlavor="NA" /> < code codeSystem="local" code="ALB" displayName="Albumin" /> < statusCode code="completed" /> <effectiveTime value="" /> <value unit="G/DL" xsi:type="PQ" value="3.4" /> < interpretationCode codeSystem="local" code="L" /> <referenceRange> <observationRange> <text>3.5-5.0</text> </ observationRange> </referenceRange> </observation> </ component> <component> <observation moodCode="EVN" classCode="OBS"> <templateId root="05.22.840.1.637634.10.22.4.2" /> <id nullFlavor="NA" /> <code codeSystem="local" code="AG" displayName="A/G Ratio" /> <statusCode code="completed" /> <effectiveTime value ="" /> <value unit="RATIO" xsi:type="PQ" value="1.0" /> <interpretationCode codeSystem="local" code="L" /> < referenceRange> <observationRange> <text>1.2-2.2</text> </observationRange> </referenceRange> </observation > </component> <component> <observation moodCode="EVN" classCode="OBS"> <templateId root="216.840.1.457079.10.20.22.4.2" /> <id nullFlavor="NA" /> <code codeSystem="local" code="BCR" displayName="Bun/Creat" /> <statusCode code="completed" /> < effectiveTime value="" /> <value unit="RATIO" xsi:type="PQ " value="22" /> <referenceRange> <observationRange> <text>7-25</text> </observationRange> </referenceRange > </observation> </component> <component> <observation moodCode="EVN" classCode="OBS"> <templateId root= "05.22.840.1.987748.10.22.4.2" /> <id nullFlavor="NA" /> < code codeSystem="local" code="ALP" displayName="Alk Phos" /> < statusCode code="completed" /> <effectiveTime value="" /> <value unit="U/L" xsi:type="PQ" value="108" /> <referenceRange > <observationRange> <text>40-150</text> </ observationRange> </referenceRange> </observation> </ component> <component> <observation moodCode="EVN" classCode="OBS"> <templateId root="05.22.840.1.432301.10.2022.4.2" /> <id nullFlavor="NA" /> <code codeSystem="local" code="CO2" displayName="CO2 " /> <statusCode code="completed" /> <effectiveTime value= "" /> <value unit="MMOLL" xsi:type="PQ" value="25" /> <referenceRange> <observationRange> <text>22-29</ text> </observationRange> </referenceRange> </ observation> </component> <component> <observation moodCode= "EVN" classCode="OBS"> <templateId root="16.840.1.119610.10...4.2 " /> <id nullFlavor="NA" /> <code codeSystem="local" code="GLU " displayName="Glucose" /> <statusCode code="completed" /> < effectiveTime value="" /> <value unit="MG/DL" xsi:type="PQ " value="94" /> <referenceRange> <observationRange> <text>70-99</text> </observationRange> </ referenceRange> </observation> </component> <component> <observation moodCode="EVN" classCode="OBS"> <templateId root= "05.22.840.1.035462.10..4.2" /> <id nullFlavor="NA" /> < code codeSystem="local" code="GLOB" displayName="Globulin" /> < statusCode code="completed" /> <effectiveTime value="" /> <value unit="G/DL" xsi:type="PQ" value="3.5" /> < referenceRange> <observationRange> <text>2.4-3.5</text> </observationRange> </referenceRange> </observation > </component> <component> <observation moodCode="EVN" classCode="OBS"> <templateId root="16.840.1.633527.10.22.4.2" /> <id nullFlavor="NA" /> <code codeSystem="local" code="CREAT" displayName="Creatinine" /> <statusCode code="completed" /> < effectiveTime value="[id number]" /> <value unit="MG/DL" xsi:type="PQ " value="1.9" /> <interpretationCode codeSystem="local" code="H" /> <referenceRange> <observationRange> <text>0.6-1.3 </text> </observationRange> </referenceRange> </ observation> </component> </organizer> </entry> <entry> <organizer moodCode="EVN" classCode="BATTERY"> <templateId root= "216.840.1.864272.10..22.4.1" /> <id nullFlavor="NA" /> <code codeSystem="local" code="MG" displayName="Magnesium" /> <statusCode code= "completed" /> <component> <observation moodCode="EVN" classCode= "OBS"> <templateId root="16.840.1.892782.10..22.4.2" /> < id nullFlavor="NA" /> <code codeSystem="local" code="MG" displayName= "Magnesium" /> <statusCode code="completed" /> <effectiveTime value="830143491406" /> <value unit="MG/DL" xsi:type="PQ" value="2.3" / > <referenceRange> <observationRange> <text>1.6 -2.8</text> </observationRange> </referenceRange> </ observation> </component> </organizer> </entry> <entry> <organizer moodCode="EVN" classCode="BATTERY"> <templateId root= "16.840.1.453009.10..22.4.1" /> <id nullFlavor="NA" /> <code codeSystem="local" code="KE" displayName="Myoglobin" /> <statusCode code= "completed" /> <component> <observation moodCode="EVN" classCode= "OBS"> <templateId root="216.840.1.305971.10.4.2" /> < id nullFlavor="NA" /> <code codeSystem="local" code="KE" displayName= "Myoglobin" /> <statusCode code="completed" /> <effectiveTime value="982527890852" /> <value unit="NG/ML" xsi:type="PQ" value="127.1 " /> <interpretationCode codeSystem="local" code="H" /> < referenceRange> <observationRange> <text>10-</text> </observationRange> </referenceRange> </observation> </component> </organizer> </entry> <entry> <organizer moodCode="EVN " classCode="BATTERY"> <templateId root="216.840.1.462993.10..4.1" / > <id nullFlavor="NA" /> <code codeSystem="local" code="EKG" displayName="EKG" /> <statusCode code="completed" /> <component> <observation moodCode="EVN" classCode="OBS"> <templateId root= "216.840.1.127587.10...4.2" /> <id nullFlavor="NA" /> < code codeSystem="local" code="EKG" displayName="EKG" /> <statusCode code="completed" /> <effectiveTime value="577479376632" /> < value unit="" xsi:type="PQ" value="SMR" /> <referenceRange> <observationRange> <text /> </observationRange> </referenceRange> </observation> </component> </organizer> </ entry> <entry> <organizer moodCode="EVN" classCode="BATTERY"> < templateId root="216.840.1.776307.10...4.1" /> <id nullFlavor="NA" /> <code codeSystem="local" code="CMP11" displayName="CMP" /> < statusCode code="completed" /> <component> <observation moodCode= "EVN" classCode="OBS"> <templateId root="05.22.840.1.040816.01.23.22.4.2 " /> <id nullFlavor="NA" /> <code codeSystem="local" code= "OSMCAL" displayName="Osmo Calculated" /> <statusCode code="completed" /> <effectiveTime value="" /> <value unit="MOSM" xsi:type="PQ" value="272" /> <referenceRange> < observationRange> <text>261-280</text> </ observationRange> </referenceRange> </observation> </ component> <component> <observation moodCode="EVN" classCode="OBS"> <templateId root="05.22.840.1.069528.01.23.22.4.2" /> <id nullFlavor="NA" /> <code codeSystem="local" code="NA" displayName= "Sodium" /> <statusCode code="completed" /> <effectiveTime value="" /> <value unit="MMOLL" xsi:type="PQ" value="138" / > <referenceRange> <observationRange> <text>136 -145</text> </observationRange> </referenceRange> </ observation> </component> <component> <observation moodCode= "EVN" classCode="OBS"> <templateId root="16.840.1.785940...4.2 " /> <id nullFlavor="NA" /> <code codeSystem="local" code="TP " displayName="T. Protein" /> <statusCode code="completed" /> <effectiveTime value="" /> <value unit="G/DL" xsi:type="PQ " value="6.1" /> <interpretationCode codeSystem="local" code="L" /> <referenceRange> <observationRange> <text>6.4-8.3 </text> </observationRange> </referenceRange> </ observation> </component> <component> <observation moodCode= "EVN" classCode="OBS"> <templateId root="2.16.840.1.657047.10...4.2 " /> <id nullFlavor="NA" /> <code codeSystem="local" code="K" displayName="Potassium" /> <statusCode code="completed" /> < effectiveTime value="" /> <value unit="MMOLL" xsi:type="PQ " value="4.0" /> <referenceRange> <observationRange> <text>3.5-5.1</text> </observationRange> </ referenceRange> </observation> </component> <component> <observation moodCode="EVN" classCode="OBS"> <templateId root= "2.16.840.1.714833.10..22.4.2" /> <id nullFlavor="NA" /> < code codeSystem="local" code="TBIL" displayName="T Bili" /> < statusCode code="completed" /> <effectiveTime value="" /> <value unit="MG/DL" xsi:type="PQ" value="0.5" /> < referenceRange> <observationRange> <text>0.2-1.2</text> </observationRange> </referenceRange> </observation > </component> <component> <observation moodCode="EVN" classCode="OBS"> <templateId root="16.840.1.965562.10.22.4.2" /> <id nullFlavor="NA" /> <code codeSystem="local" code="CA" displayName="Calcium" /> <statusCode code="completed" /> < effectiveTime value="" /> <value unit="MG/DL" xsi:type="PQ " value="9.4" /> <referenceRange> <observationRange> <text>8.4-10.2</text> </observationRange> </ referenceRange> </observation> </component> <component> <observation moodCode="EVN" classCode="OBS"> <templateId root= "16.840.1.296521..22.4.2" /> <id nullFlavor="NA" /> < code codeSystem="local" code="BUN" displayName="BUN" /> <statusCode code="completed" /> <effectiveTime value="" /> < value unit="MG/DL" xsi:type="PQ" value="28" /> <interpretationCode codeSystem="local" code="H" /> <referenceRange> < observationRange> <text>7-26</text> </observationRange> </referenceRange> </observation> </component> < component> <observation moodCode="EVN" classCode="OBS"> < templateId root="05.22.840.1.478106.10.20.22.4.2" /> <id nullFlavor="NA " /> <code codeSystem="local" code="CL" displayName="Chloride" /> <statusCode code="completed" /> <effectiveTime value=" " /> <value unit="MMOLL" xsi:type="PQ" value="103" /> < referenceRange> <observationRange> <text>98-107</text> </observationRange> </referenceRange> </observation> </component> <component> <observation moodCode="EVN" classCode ="OBS"> <templateId root="216.840.1.017062.10..22.4.2" /> < id nullFlavor="NA" /> <code codeSystem="local" code="AST" displayName= "AST" /> <statusCode code="completed" /> <effectiveTime value= "" /> <value unit="U/L" xsi:type="PQ" value="16" /> <referenceRange> <observationRange> <text>5-34</text > </observationRange> </referenceRange> </observation > </component> <component> <observation moodCode="EVN" classCode="OBS"> <templateId root="05.22.840.1.259863.10...4.2" /> <id nullFlavor="NA" /> <code codeSystem="local" code="ALT" displayName="ALT" /> <statusCode code="completed" /> < effectiveTime value="" /> <value unit="U/L" xsi:type="PQ" value="18" /> <referenceRange> <observationRange> <text>0-55</text> </observationRange> </referenceRange> </observation> </component> <component> <observation moodCode="EVN" classCode="OBS"> <templateId root= "05.22.840.1.294398.10...4.2" /> <id nullFlavor="NA" /> < code codeSystem="local" code="ALB" displayName="Albumin" /> < statusCode code="completed" /> <effectiveTime value="" /> <value unit="G/DL" xsi:type="PQ" value="3.2" /> < interpretationCode codeSystem="local" code="L" /> <referenceRange> <observationRange> <text>3.5-5.0</text> </ observationRange> </referenceRange> </observation> </ component> <component> <observation moodCode="EVN" classCode="OBS"> <templateId root="16.840.1.903424.10.22.4.2" /> <id nullFlavor="NA" /> <code codeSystem="local" code="AG" displayName="A/G Ratio" /> <statusCode code="completed" /> <effectiveTime value ="[id number]" /> <value unit="RATIO" xsi:type="PQ" value="1.1" /> <interpretationCode codeSystem="local" code="L" /> < referenceRange> <observationRange> <text>1.2-2.2</text> </observationRange> </referenceRange> </observation > </component> <component> <observation moodCode="EVN" classCode="OBS"> <templateId root="05.22.840.1.005799.10..4.2" /> <id nullFlavor="NA" /> <code codeSystem="local" code="BCR" displayName="Bun/Creat" /> <statusCode code="completed" /> < effectiveTime value="100353333260" /> <value unit="RATIO" xsi:type="PQ " value="16" /> <referenceRange> <observationRange> <text>7-25</text> </observationRange> </referenceRange > </observation> </component> <component> <observation moodCode="EVN" classCode="OBS"> <templateId root= "16.840.1.998865.10...4.2" /> <id nullFlavor="NA" /> < code codeSystem="local" code="ALP" displayName="Alk Phos" /> < statusCode code="completed" /> <effectiveTime value="" /> <value unit="U/L" xsi:type="PQ" value="67" /> <referenceRange > <observationRange> <text>40-150</text> </ observationRange> </referenceRange> </observation> </ component> <component> <observation moodCode="EVN" classCode="OBS"> <templateId root="2.16.840.1.748405.10...4.2" /> <id nullFlavor="NA" /> <code codeSystem="local" code="CO2" displayName="CO2 " /> <statusCode code="completed" /> <effectiveTime value= "" /> <value unit="MMOLL" xsi:type="PQ" value="30" /> <interpretationCode codeSystem="local" code="H" /> <referenceRange > <observationRange> <text>22-29</text> </ observationRange> </referenceRange> </observation> </ component> <component> <observation moodCode="EVN" classCode="OBS"> <templateId root="2.16.840.1.875923.10...4.2" /> <id nullFlavor="NA" /> <code codeSystem="local" code="GLU" displayName= "Glucose" /> <statusCode code="completed" /> <effectiveTime value="" /> <value unit="MG/DL" xsi:type="PQ" value="101" / > <interpretationCode codeSystem="local" code="H" /> < referenceRange> <observationRange> <text>70-99</text> </observationRange> </referenceRange> </observation> </component> <component> <observation moodCode="EVN" classCode= "OBS"> <templateId root="216.840.1.638825.10..4.2" /> < id nullFlavor="NA" /> <code codeSystem="local" code="GLOB" displayName= "Globulin" /> <statusCode code="completed" /> <effectiveTime value="" /> <value unit="G/DL" xsi:type="PQ" value="2.9" / > <referenceRange> <observationRange> <text>2.4 -3.5</text> </observationRange> </referenceRange> </ observation> </component> <component> <observation moodCode= "EVN" classCode="OBS"> <templateId root="16.840.1.595046.01.23.22.4.2 " /> <id nullFlavor="NA" /> <code codeSystem="local" code= "CREAT" displayName="Creatinine" /> <statusCode code="completed" /> <effectiveTime value="" /> <value unit="MG/DL" xsi: type="PQ" value="1.7" /> <interpretationCode codeSystem="local" code="H " /> <referenceRange> <observationRange> <text> 0.6-1.3</text> </observationRange> </referenceRange> </observation> </component> </organizer> </entry> <entry> < organizer moodCode="EVN" classCode="BATTERY"> <templateId root= "16.840.1.392015.10..4.1" /> <id nullFlavor="NA" /> <code codeSystem="local" code="RYAN" displayName="Amylase" /> <statusCode code= "completed" /> <component> <observation moodCode="EVN" classCode= "OBS"> <templateId root="05.22.840.1.968939.10..22.4.2" /> < id nullFlavor="NA" /> <code codeSystem="local" code="RYAN" displayName= "Amylase" /> <statusCode code="completed" /> <effectiveTime value="" /> <value unit="U/L" xsi:type="PQ" value="29" /> <referenceRange> <observationRange> <text>25- 125</text> </observationRange> </referenceRange> </ observation> </component> </organizer> </entry> <entry> <organizer moodCode="EVN" classCode="BATTERY"> <templateId root= "16.840.1.354394.10...4.1" /> <id nullFlavor="NA" /> <code codeSystem="local" code="LIP" displayName="Lipase" /> <statusCode code= "completed" /> <component> <observation moodCode="EVN" classCode= "OBS"> <templateId root="216.840.1.326086.10...4.2" /> < id nullFlavor="NA" /> <code codeSystem="local" code="LIP" displayName= "Lipase" /> <statusCode code="completed" /> <effectiveTime value="[id number]" /> <value unit="U/L" xsi:type="PQ" value="16" /> <referenceRange> <observationRange> <text>8-78< /text> </observationRange> </referenceRange> </ observation> </component> </organizer> </entry> <entry> <organizer moodCode="EVN" classCode="BATTERY"> <templateId root= "216.840.1.571964.10..4.1" /> <id nullFlavor="NA" /> <code codeSystem="local" code="CBC" displayName="COMPLETE BLOOD COUNT" /> < statusCode code="completed" /> <component> <observation moodCode= "EVN" classCode="OBS"> <templateId root="05.22.840.1.140288.10..22.4.2 " /> <id nullFlavor="NA" /> <code codeSystem="local" code="PLT " displayName="Platelet" /> <statusCode code="completed" /> < effectiveTime value="" /> <value unit="10^3u" xsi:type="PQ " value="228" /> <referenceRange> <observationRange> <text>142-424</text> </observationRange> </ referenceRange> </observation> </component> <component> <observation moodCode="EVN" classCode="OBS"> <templateId root= "05.22.840.1.278443.10.22.4.2" /> <id nullFlavor="NA" /> < code codeSystem="local" code="MPV" displayName="MPV" /> <statusCode code="completed" /> <effectiveTime value="[id number]" /> < value unit="FL" xsi:type="PQ" value="8.6" /> <interpretationCode codeSystem="local" code="L" /> <referenceRange> < observationRange> <text>9.4-12.4</text> </ observationRange> </referenceRange> </observation> </ component> <component> <observation moodCode="EVN" classCode="OBS"> <templateId root="05.22.840.1.443233.10.20.22.4.2" /> <id nullFlavor="NA" /> <code codeSystem="local" code="MONO#" displayName= "Breath[place] #" /> <statusCode code="completed" /> <effectiveTime value="" /> <value unit="10^3u" xsi:type="PQ" value="1.10" /> <interpretationCode codeSystem="local" code="H" /> < referenceRange> <observationRange> <text>0.0-1.0</text> </observationRange> </referenceRange> </observation > </component> <component> <observation moodCode="EVN" classCode="OBS"> <templateId root="216.840.1.104169.10.20.22.4.2" /> <id nullFlavor="NA" /> <code codeSystem="local" code="RBC" displayName="RBC" /> <statusCode code="completed" /> < effectiveTime value="" /> <value unit="10^6u" xsi:type="PQ " value="2.94" /> <interpretationCode codeSystem="local" code="L" /> <referenceRange> <observationRange> <text>4.04- 6.13</text> </observationRange> </referenceRange> </ observation> </component> <component> <observation moodCode= "EVN" classCode="OBS"> <templateId root="16.840.1.764183.10.20.22.4.2 " /> <id nullFlavor="NA" /> <code codeSystem="local" code= "MONO%" displayName="[place] %" /> <statusCode code="completed" / > <effectiveTime value="" /> <value unit="%" xsi:type="PQ" value="14.4" /> <interpretationCode codeSystem="local" code="H" /> <referenceRange> <observationRange> <text>0-12</text> </observationRange> </referenceRange> </observation> </component> <component> <observation moodCode="EVN" classCode="OBS"> <templateId root= "216.840.1.866022.102022.4.2" /> <id nullFlavor="NA" /> < code codeSystem="local" code="RDW" displayName="RDW" /> <statusCode code="completed" /> <effectiveTime value="" /> < value unit="%" xsi:type="PQ" value="12.7" /> <referenceRange> <observationRange> <text>11.6-14.8</text> </ observationRange> </referenceRange> </observation> </ component> <component> <observation moodCode="EVN" classCode="OBS"> <templateId root="05.22.840.1.275631.1022.4.2" /> <id nullFlavor="NA" /> <code codeSystem="local" code="SEG#" displayName= "Neut #" /> <statusCode code="completed" /> <effectiveTime value="" /> <value unit="10^3u" xsi:type="PQ" value="4.79" /> <referenceRange> <observationRange> <text> 2.0-6.9</text> </observationRange> </referenceRange> </observation> </component> <component> <observation moodCode= "EVN" classCode="OBS"> <templateId root="216.840.1.039215.102022.4.2 " /> <id nullFlavor="NA" /> <code codeSystem="local" code="SEG %" displayName="Neut %" /> <statusCode code="completed" /> <effectiveTime value="" /> <value unit="%" xsi: type="PQ" value="62.8" /> <referenceRange> <observationRange > <text>37-80</text> </observationRange> </ referenceRange> </observation> </component> <component> <observation moodCode="EVN" classCode="OBS"> <templateId root= "16.840.1.092856.10.20.22.4.2" /> <id nullFlavor="NA" /> < code codeSystem="local" code="WBC" displayName="WBC" /> <statusCode code="completed" /> <effectiveTime value="[id number]" /> < value unit="10^3u" xsi:type="PQ" value="7.63" /> <referenceRange> <observationRange> <text>4.60-10.20</text> </ observationRange> </referenceRange> </observation> </ component> <component> <observation moodCode="EVN" classCode="OBS"> <templateId root="05.22.840.1.411861.10..22.4.2" /> <id nullFlavor="NA" /> <code codeSystem="local" code="MCV" displayName="MCV " /> <statusCode code="completed" /> <effectiveTime value= "[id number]" /> <value unit="FL" xsi:type="PQ" value="103.4" /> <interpretationCode codeSystem="local" code="H" /> <referenceRange > <observationRange> <text>80.0-97.0</text> < /observationRange> </referenceRange> </observation> </ component> <component> <observation moodCode="EVN" classCode="OBS"> <templateId root="05.22.840.1.690529.10.20.22.4.2" /> <id nullFlavor="NA" /> <code codeSystem="local" code="BASO#" displayName= "Baso #" /> <statusCode code="completed" /> <effectiveTime value="" /> <value unit="10^3u" xsi:type="PQ" value="0.02" /> <referenceRange> <observationRange> <text> 0.0-0.1</text> </observationRange> </referenceRange> </observation> </component> <component> <observation moodCode= "EVN" classCode="OBS"> <templateId root="216.840.1.188387.10...4.2 " /> <id nullFlavor="NA" /> <code codeSystem="local" code= "BASO%" displayName="Baso %" /> <statusCode code="completed" / > <effectiveTime value="" /> <value unit="%" xsi:type="PQ" value="0.3" /> <referenceRange> < observationRange> <text>0-2</text> </observationRange> </referenceRange> </observation> </component> < component> <observation moodCode="EVN" classCode="OBS"> < templateId root="216.840.1.955828.10...4.2" /> <id nullFlavor="NA " /> <code codeSystem="local" code="EOS#" displayName="Eos #" /> <statusCode code="completed" /> <effectiveTime value=" " /> <value unit="10^3u" xsi:type="PQ" value="0.26" /> < referenceRange> <observationRange> <text>0-0.7</text> </observationRange> </referenceRange> </observation> </component> <component> <observation moodCode="EVN" classCode= "OBS"> <templateId root="16.840.1.083926.10..22.4.2" /> < id nullFlavor="NA" /> <code codeSystem="local" code="EOS%" displayName="Eos %" /> <statusCode code="completed" /> < effectiveTime value="" /> <value unit="%" xsi:type="PQ " value="3.4" /> <referenceRange> <observationRange> <text>0-7</text> </observationRange> </referenceRange > </observation> </component> <component> <observation moodCode="EVN" classCode="OBS"> <templateId root= "16.840.1.276417.10..4.2" /> <id nullFlavor="NA" /> < code codeSystem="local" code="LYMPH%" displayName="Lymph %" /> <statusCode code="completed" /> <effectiveTime value="" /> <value unit="%" xsi:type="PQ" value="19.1" /> < referenceRange> <observationRange> <text>10-50</text> </observationRange> </referenceRange> </observation> </component> <component> <observation moodCode="EVN" classCode= "OBS"> <templateId root="16.840.1.478951.10.20.22.4.2" /> < id nullFlavor="NA" /> <code codeSystem="local" code="MCHC" displayName= "MCHC" /> <statusCode code="completed" /> <effectiveTime value ="" /> <value unit="G/DL" xsi:type="PQ" value="33.6" /> <referenceRange> <observationRange> <text>31.8- 35.4</text> </observationRange> </referenceRange> </ observation> </component> <component> <observation moodCode= "EVN" classCode="OBS"> <templateId root="05.22.840.1.589174.10.20.22.4.2 " /> <id nullFlavor="NA" /> <code codeSystem="local" code="MCH " displayName="MCH" /> <statusCode code="completed" /> < effectiveTime value="" /> <value unit="PG" xsi:type="PQ" value="34.7" /> <interpretationCode codeSystem="local" code="H" /> <referenceRange> <observationRange> <text>27.0- 31.2</text> </observationRange> </referenceRange> </ observation> </component> <component> <observation moodCode= "EVN" classCode="OBS"> <templateId root="840.1.244851.10.22.4.2 " /> <id nullFlavor="NA" /> <code codeSystem="local" code= "LYMPH#" displayName="Lymph #" /> <statusCode code="completed" /> <effectiveTime value="" /> <value unit="10^3u" xsi: type="PQ" value="1.46" /> <referenceRange> <observationRange > <text>0.6-3.4</text> </observationRange> </ referenceRange> </observation> </component> <component> <observation moodCode="EVN" classCode="OBS"> <templateId root= "840.1.428357.10.20.22.4.2" /> <id nullFlavor="NA" /> < code codeSystem="local" code="HGB" displayName="HGB" /> <statusCode code="completed" /> <effectiveTime value="" /> < value unit="G/DL" xsi:type="PQ" value="10.2" /> <interpretationCode codeSystem="local" code="L" /> <referenceRange> < observationRange> <text>12.2-18.1</text> </ observationRange> </referenceRange> </observation> </ component> <component> <observation moodCode="EVN" classCode="OBS"> <templateId root="840.1.003911.10.22.4.2" /> <id nullFlavor="NA" /> <code codeSystem="local" code="HCT" displayName="HCT " /> <statusCode code="completed" /> <effectiveTime value= "" /> <value unit="%" xsi:type="PQ" value="30.4" /> <interpretationCode codeSystem="local" code="L" /> < referenceRange> <observationRange> <text>37.7-53.7</text > </observationRange> </referenceRange> </observation > </component> </organizer> </entry> <entry> <organizer moodCode= "EVN" classCode="BATTERY"> <templateId root="840.1.780215.22.4.1 " /> <id nullFlavor="NA" /> <code codeSystem="local" code="UAD" displayName="Urinalysis" /> <statusCode code="completed" /> <component > <observation moodCode="EVN" classCode="OBS"> <templateId root= "840.1.093992.10.2022.4.2" /> <id nullFlavor="NA" /> < code codeSystem="local" code="UAGLU" displayName="Glucose" /> < statusCode code="completed" /> <effectiveTime value="" /> <value unit="" xsi:type="PQ" value="Negative" /> < referenceRange> <observationRange> <text>Negative</text > </observationRange> </referenceRange> </observation > </component> <component> <observation moodCode="EVN" classCode="OBS"> <templateId root="216.840.1.844949.01.23.22.4.2" /> <id nullFlavor="NA" /> <code codeSystem="local" code="UALEUK" displayName="Leukocyte" /> <statusCode code="completed" /> < effectiveTime value="[id number]" /> <value unit="" xsi:type="PQ" value="Trace" /> <interpretationCode codeSystem="local" code="AB" /> <referenceRange> <observationRange> <text> Negative</text> </observationRange> </referenceRange> </observation> </component> <component> <observation moodCode ="EVN" classCode="OBS"> <templateId root= "16.840.1.699191.10.4.2" /> <id nullFlavor="NA" /> < code codeSystem="local" code="UANIT" displayName="Nitrite" /> < statusCode code="completed" /> <effectiveTime value="[id number]" /> <value unit="" xsi:type="PQ" value="Positive" /> < interpretationCode codeSystem="local" code="AB" /> <referenceRange> <observationRange> <text>Negative</text> </ observationRange> </referenceRange> </observation> </ component> <component> <observation moodCode="EVN" classCode="OBS"> <templateId root="16.840.1.714737.01.23.22.4.2" /> <id nullFlavor="NA" /> <code codeSystem="local" code="UAPH" displayName="pH " /> <statusCode code="completed" /> <effectiveTime value= "" /> <value unit="" xsi:type="PQ" value="7.0" /> <referenceRange> <observationRange> <text>5.5-7.5</text > </observationRange> </referenceRange> </observation > </component> <component> <observation moodCode="EVN" classCode="OBS"> <templateId root="216.840.1.159221.01.23.22.4.2" /> <id nullFlavor="NA" /> <code codeSystem="local" code="UAPP" displayName="Urine Appearance" /> <statusCode code="completed" /> <effectiveTime value="" /> <value unit="" xsi:type="PQ " value="Clear" /> <referenceRange> <observationRange> <text>Clear</text> </observationRange> </ referenceRange> </observation> </component> <component> <observation moodCode="EVN" classCode="OBS"> <templateId root= "216.840.1.212313.01.23.22.4.2" /> <id nullFlavor="NA" /> < code codeSystem="local" code="UAPRO" displayName="Protein" /> < statusCode code="completed" /> <effectiveTime value="" /> <value unit="" xsi:type="PQ" value="Negative" /> < referenceRange> <observationRange> <text>Negative</text > </observationRange> </referenceRange> </observation > </component> <component> <observation moodCode="EVN" classCode="OBS"> <templateId root="216.840.1.060265.10..22.4.2" /> <id nullFlavor="NA" /> <code codeSystem="local" code="UAKET" displayName="Ketones" /> <statusCode code="completed" /> < effectiveTime value="" /> <value unit="" xsi:type="PQ" value="Negative" /> <referenceRange> <observationRange> <text>Negative</text> </observationRange> </ referenceRange> </observation> </component> <component> <observation moodCode="EVN" classCode="OBS"> <templateId root= "216.840.1.459608.01.23.22.4.2" /> <id nullFlavor="NA" /> < code codeSystem="local" code="UAURO" displayName="Urobilinogen" /> < statusCode code="completed" /> <effectiveTime value="" /> <value unit="" xsi:type="PQ" value="0.2" /> <referenceRange> <observationRange> <text>0.2-1.0</text> </ observationRange> </referenceRange> </observation> </ component> <component> <observation moodCode="EVN" classCode="OBS"> <templateId root="16.840.1.398489.10.4.2" /> <id nullFlavor="NA" /> <code codeSystem="local" code="URBC" displayName= "Urine RBC" /> <statusCode code="completed" /> <effectiveTime value="" /> <value unit="" xsi:type="PQ" value="N0-2" /> <referenceRange> <observationRange> <text /> </observationRange> </referenceRange> </observation> </component> <component> <observation moodCode="EVN" classCode= "OBS"> <templateId root="216.840.1.647920.10..22.4.2" /> < id nullFlavor="NA" /> <code codeSystem="local" code="USG" displayName= "Specific [place]" /> <statusCode code="completed" /> < effectiveTime value="" /> <value unit="" xsi:type="PQ" value="1.010" /> <referenceRange> <observationRange> <text>1.010-1.020</text> </observationRange> </ referenceRange> </observation> </component> <component> <observation moodCode="EVN" classCode="OBS"> <templateId root= "216.840.1.482096.10...4.2" /> <id nullFlavor="NA" /> < code codeSystem="local" code="UWBC" displayName="Urine WBC" /> < statusCode code="completed" /> <effectiveTime value="" /> <value unit="" xsi:type="PQ" value="N11-15" /> <referenceRange > <observationRange> <text /> </ observationRange> </referenceRange> </observation> </ component> <component> <observation moodCode="EVN" classCode="OBS"> <templateId root="216.840.1.140099.10..22.4.2" /> <id nullFlavor="NA" /> <code codeSystem="local" code="UBACT+" displayName= "Urine Bacteria" /> <statusCode code="completed" /> < effectiveTime value="" /> <value unit="" xsi:type="PQ" value="4+" /> <referenceRange> <observationRange> <text /> </observationRange> </referenceRange> </ observation> </component> <component> <observation moodCode= "EVN" classCode="OBS"> <templateId root="16.840.1.885052.01.23.22.4.2 " /> <id nullFlavor="NA" /> <code codeSystem="local" code= "UABLD" displayName="Blood" /> <statusCode code="completed" /> <effectiveTime value="" /> <value unit="" xsi:type="PQ" value="Trace" /> <interpretationCode codeSystem="local" code="AB" /> <referenceRange> <observationRange> <text> Negative</text> </observationRange> </referenceRange> </observation> </component> <component> <observation moodCode ="EVN" classCode="OBS"> <templateId root= "05.22.840.1.964191.01.23.22.4.2" /> <id nullFlavor="NA" /> < code codeSystem="local" code="UACOLOR" displayName="Color" /> < statusCode code="completed" /> <effectiveTime value="" /> <value unit="" xsi:type="PQ" value="Yellow" /> <referenceRange > <observationRange> <text>Yellow</text> </ observationRange> </referenceRange> </observation> </ component> <component> <observation moodCode="EVN" classCode="OBS"> <templateId root="16.840.1.936197.01.23.22.4.2" /> <id nullFlavor="NA" /> <code codeSystem="local" code="UABILI" displayName= "Bilirubin" /> <statusCode code="completed" /> <effectiveTime value="" /> <value unit="" xsi:type="PQ" value="Negative" / > <referenceRange> <observationRange> <text> Negative</text> </observationRange> </referenceRange> </observation> </component> <component> <observation moodCode ="EVN" classCode="OBS"> <templateId root= "2.16.840.1.426423.10.20.22.4.2" /> <id nullFlavor="NA" /> < code codeSystem="local" code="UASITE" displayName="Site" /> < statusCode code="completed" /> <effectiveTime value="[id number]" /> <value unit="" xsi:type="PQ" value="VOID" /> <referenceRange> <observationRange> <text /> </ observationRange> </referenceRange> </observation> </ component> </organizer> </entry></section> Encounters ACCT No. Visit Date/Time Discharge Status Pt. Type Provider Facility Loc./Unit Complaint [id number] 11/11/2012 14:53:00 11/16/2012 16:37:00 DIS Inpatient Kassidy RENTERIA, [facility] W.10TN [id number] 04/03/2016 15:15:00 04/03/2016 18:05:00 DIS Emergency ANISH [facility] ER [id number] 02/25/2016 16:10:00 02/25/2016 16[facility]40[facility] [id number]/07/2015 17:05:00 12/07/2015 23:34:00 DIS Emergency LAURA RENTERIA, [facility] ER [id number] 12/07/2015 17:25:00 12/07/2015 17:25:00 DIS Outpatient LAURA RENTERIA, [facility] OTHER [id number] 12/07/2015 17:10:00 12/07/2015 17:10:00 DIS Outpatient LAURA RENTERIA, [facility] OTHER [id number] 12/07/2015 16:40:00 12/07/2015 16:40:00 DIS Outpatient LAURA RENTERIA, [facility] OTHER [id number] 12/02/2015 13:16:00 12/03/2015 01:02:00 DIS Emergency [facility] ER [id number] 12/02/2015 10:36:00 12/02/2015 10:36:00 DIS Outpatient [facility] OTHER [id number] 06/03/2013 10:35:00 06/03/2013 12:05:00 DIS Emergency [facility] ER [id number] 06/03/2013 11:05:00 06/03/2013 11:05:00 DIS Outpatient [facility] OTHER [id number] 11/11/2012 11:38:00 11/11/2012 23:59:59 CLS Outpatient [facility] OTHER [id number] 11/11/2012 11:08:00 11/11/2012 12:45:00 DIS Emergency [facility] ER [id number] 11/11/2012 11:08:00 11/11/2012 11:08:00 DIS Outpatient [facility] OTHER [id number] 11/11/2012 10:40:00 11/11/2012 10:40:00 DIS Outpatient [facility] OTHER [id number] 02/17/2011 10:45:00 Document Registration
[2017-06-16 08:29] LABS: HEMOGLOBIN 9.3 G/DL (13.3-17.7); MEAN PLATELET VOLUME 9.9 FL (7.4-10.4); RED BLOOD COUNT 2.69 10^6/uL (4.35-5.85); RED CELL DISTRIBUTION WIDTH 12.5 % (10.0-14.5); WHITE BLOOD COUNT 9.7 10^3/uL (4.3-11.0)
--- OUTSIDE RECORDS SUMMARY | 2017-06-16 09:37 | XMS REPORT | Continuity of Care Document ---
Author Author [facility] Organization [facility] Address Unknown Phone Unavailable Allergies Active Description Code Type Severity Reaction Onset Reported/Identified Relationship to Patient Clinical Status Yes [place] 1532 Drug Allergy N/A N/A 06/03/2013 Yes [...] encounter 04/03/2016 DONALD GONZÁLES Y92.003 Bedroom of [facility] non-institut (private) residence as place 04/03/2016 DONALD GONZÁLES Y93.9 Activity, unspecified 04/03/2016 DONALD GONZÁLES Y99.9 Unspecified external cause status Procedures Code Description [place] [address] REPAIR EYELID WOUND SIMI SAVAGE DO 02/17/2011 69123 IMMUNIZATION ADMIN SIMI SAVAGE DO 02/17/2011 35034 TD VACCINE > 7, IM SIMI SAVAGE DO 02/17/2011 04376 EMERGENCY DEPT VISIT SIMI SAVAGE DO 02/17/2011 47200 ROUTINE VENIPUNCTURE SIMI SAVAGE DO 11/11/2012 01553 INSERT TEMP BLADDER CATH SIMI SAVAGE DO 11/11/2012 34571 CHEST X-RAY SIMI SAVAGE DO 11/11/2012 80341 X-RAY EXAM OF ABDOMEN SIMI SAVAGE DO 11/11/2012 79703 COMPREHEN METABOLIC PANEL SIMI SAVAGE DO 11/11/2012 93367 URINALYSIS, AUTO W/SCOPE SIMI SAVAGE DO 11/11/2012 20786 ASSAY OF CK (CPK) SIMI SAVAGE DO 11/11/2012 63419 CREATINE, MB FRACTION SIMI SAVAGE DO 11/11/2012 28111 NATRIURETIC PEPTIDE SIMI SAVAGE DO 11/11/2012 61010 ASSAY OF TROPONIN, QUANT SIMI SAVAGE DO 11/11/2012 54716 COMPLETE CBC W/AUTO DIFF WBC SIMI SAVAGE DO 11/11/2012 92622 BLOOD CULTURE FOR BACTERIA SIMI SAVAGE DO 11/11/2012 29492 URINE CULTURE/COLONY COUNT SIMI SAVAGE DO 11/11/2012 12421 URINE BACTERIA CULTURE SIMI SAVAGE DO 11/11/2012 99950 CULTURE TYPE, IMMUNOLOGIC SIMI SAVAGE DO 11/11/2012 20018 MICROBE SUSCEPTIBLE, DWAIN SIMI SAVAGE DO 11/11/2012 31121 ELECTROCARDIOGRAM, TRACING SIMI SAVAGE DO 11/11/2012 40488 HYDRATE IV INFUSION, ADD-ON SIMI SAVAGE DO 11/11/2012 96667 THER/PROPH/DIAG INJ, IV PUSH SIMI SAVAGE DO 11/11/2012 97412 EMERGENCY DEPT VISIT SIMI SAVAGE DO 11/11/2012 J1265 DOPAMINE INJECTION SIMI SAVAGE DO 11/11/2012 J3370 VANCOMYCIN HCL INJECTION SIMI SAVAGE DO 11/11/2012 A0425 GROUND MILEAGE SIMI SAVAGE DO 11/11/2012 A0427 ALS1 EMERGENCY SIMI SAVAGE DO 11/11/2012 58834 ELECTROCARDIOGRAM REPORT FABIO RENTERIAMARIIA 11/11/2012 52316 EMERGENCY DEPT VISIT SIMI SAVAGE DO 11/11/2012 38.97 CENTRAL VENOUS CATHETER PLACEMENT WITH GUIDANCE Gopal De Los Santos MD 11/11/2012 35203 COMPREHEN METABOLIC PANEL SIMI SAVAGE DO 06/03/2013 57814 NATRIURETIC PEPTIDE SIMI SAVAGE DO 06/03/2013 48403 COMPLETE CBC W/AUTO DIFF WBC SIMI SAVAGE DO 06/03/2013 69963 HYDRATION IV INFUSION, INIT SIMI SAVAGE DO 06/03/2013 36872 EMERGENCY DEPT VISIT SIMI SAVAGE DO 06/03/2013 A9270 Non-covered item or service SIMI SAVAGE DO 06/03/2013 83061 EMERGENCY DEPT VISIT SIMI SAVAGE DO 06/03/2013 94387 EMERGENCY DEPT VISIT SIMI SAVAGE DO 12/02/2015 56524 EMERGENCY DEPT VISIT SIMI SAVAGE DO 12/02/2015 60747 CHEST X-RAY 1 VIEW FRONTAL THOR SANCHEZ MD 12/07/2015 93104 COMPREHEN METABOLIC PANEL THOR SANCHEZ MD 12/07/2015 60575 ASSAY OF CK (CPK) THOR SANCHEZ MD 12/07/2015 16812 CREATINE MB FRACTION THOR SANCHEZ MD 12/07/2015 05920 ASSAY OF MAGNESIUM THOR SANCHEZ MD 12/07/2015 57563 ASSAY OF MYOGLOBIN THOR SANCHEZ MD 12/07/2015 07044 ASSAY OF NATRIURETIC PEPTIDE THOR SANCHEZ MD 12/07/2015 33304 ASSAY OF TROPONIN QUANT THOR SANCHEZ MD 12/07/2015 09848 COMPLETE CBC W/AUTO DIFF WBC THOR SANCHEZ MD 12/07/2015 95357 ELECTROCARDIOGRAM TRACING THOR SANCHEZ MD 12/07/2015 03304 HYDRATION IV INFUSION INIT THOR SANCHEZ MD 12/07/2015 16135 EMERGENCY DEPT VISIT THOR SANCHEZ MD 12/07/2015 J7040 NORMAL SALINE SOLUTION INFUS THOR SANCHEZ MD 12/07/2015 A0425 [facility] THOR SANCHEZ MD 12/07/2015 A0427 ALS1-EMERGENCY THOR SANCHEZ MD 12/07/2015 63233 ELECTROCARDIOGRAM REPORT FABIO RENTERIA, MARIIA Reilly 12/07/2015 45451 EMERGENCY DEPT VISIT THOR SANCHEZ MD 12/07/2015 49307 EMERGENCY DEPT VISIT DONALD GONZÁLES 02/25/2016 43051 ROUTINE VENIPUNCTURE ANISH KRAMERDONALD Boothe 04/03/2016 90366 X-RAY EXAM OF HUMERUS ANISH DONALD NARANJO 04/03/2016 08071 X-RAY EXAM OF WRIST ANISH DONALD NARANJO 04/03/[address] ABD & PELVIS W/O CONTRAST ANISH DONALD NARANJO 04/03/2016 46758 COMPREHEN METABOLIC PANEL ANISH DONALD NARANJO 04/03/2016 30861 URINALYSIS AUTO W/SCOPE ANISH KRAMERDONALD Boothe 04/03/2016 50450 ASSAY OF AMYLASE ANISH DONALD NARANJO 04/03/2016 57297 ASSAY OF LIPASE ANISH KRAMERDONALD Boothe D 04/03/2016 45980 COMPLETE CBC W/AUTO DIFF WBC ANISH KRAMERDONALD Boothe D 04/03/2016 65601 CULTURE AEROBIC IDENTIFY ANISH DONALD NARANJO 04/03/2016 60568 URINE CULTURE/COLONY COUNT ANISH KRAMERDONALD Boothe D 04/03/2016 38244 MICROBE SUSCEPTIBLE DWAIN ANISH DONALD NARANJO D 04/03/2016 07628 THER/PROPH/DIAG INJ IV PUSH ANISH KRAMERDONALD Boothe 04/03/2016 39679 EMERGENCY DEPT VISIT DONALD GONZÁLES 04/03/2016 J0696 CEFTRIAXONE SODIUM INJECTION ANISH KRAMERDONALD Boothe 04/03/2016 J1885 KETOROLAC TROMETHAMINE INJ ANISH KRAMERDONALD Boothe 04/03/2016 J7050 NORMAL SALINE SOLUTION INFUS ANISH DONALD NARANJO 04/03/2016 < section xmlns="urn:hl7-org:v3" xmlns:xsi="http://www.3.org/2001/XMLSchema- instance"> <templateId root="2.16.840.1.472306.10.20.22.2.3" /> <templateId root="2.16.840.1.504141.10.20.22.2.3.1" /> <code codeSystemName="LOINC" codeSystem="2.16.840.1.734852.6.1" code="50645-8" displayName="Results" /> < title>Results</title> <text> <table> <thead> [...] <td>CKMB</td> <td>5.5 NG/ML</td> <td><=6</td> </tr> <tr> <th colspan="10">[facility] - 11/11/12 11:29</th> </tr> <tr> <td>Osmo Calculated</td> [...] <td>MPV</td> <td>8.9 FL</td> < td>9.4-12.4</td> </tr> <tr> <td>Craig #</td> <td> 0.29 10^3u</td> <td>0.0-1.0</td> </tr> <tr> <td> RBC</td> <td>3.67 10^6u</td> <td>4.04-6.13</td> </tr> <tr> <td>Craig %</td> <td>4.5 %</td> < td>0-12</td> </tr> <tr> [...] <td>0.2 </td> <td>0.2-1.0</td> </tr> <tr> <td> Specific Speculator</td> <td>1.010 </td> <td>1.010-1.020</td> </tr> <tr> <td>Urine WBC</td> [...] <tr> <td>MPV</td> <td>8.8 FL</td> <td>9.4-12.4</td> </tr> <tr> <td>Craig #</td> <td>0.65 10^3u</td> <td>0.0-1.0</td> </tr> <tr> <td>RBC</td> <td>3.45 10^6u</td> <td>4.04-6.13</td> </tr> <tr> <td>Craig %</td> <td>8.9 %</td> <td>0-12</td> </tr> <tr> <td>RDW</td> [...] <td>HCT</td> <td>33.3 %</td> <td>37.7-53.7</td> </tr> <tr> <th colspan="10">[facility] - 06/03/13 10:55</th> </tr> <tr> <td>Osmo Calculated</td> [...] <td>MPV</td> <td>9.9 FL</td> < td>9.4-12.4</td> </tr> <tr> <td>Craig #</td> <td> 0.96 10^3u</td> <td>0.0-1.0</td> </tr> <tr> <td> RBC</td> <td>3.55 10^6u</td> <td>4.04-6.13</td> </tr> <tr> <td>Craig %</td> <td>12.0 %</td> < td>0-12</td> </tr> <tr> [...] </td> <td /> </tr> <tr> <th colspan="10"> [facility] - 04/03/16 16:22</th> </tr> <tr> <td>Osmo Calculated< [...] <td>MPV</td> <td>8.6 FL</td> <td >9.4-12.4</td> </tr> <tr> <td>Craig #</td> <td> 1.10 10^3u</td> <td>0.0-1.0</td> </tr> <tr> <td> RBC</td> <td>2.94 10^6u</td> <td>4.04-6.13</td> </tr> <tr> <td>Craig %</td> <td>14.4 %</td> < td>0-12</td> </tr> <tr> [...] <td>N0-2 </td> <td /> </tr> <tr> <td>Specific Speculator</td> <td>1.010 </td> <td>1.010- 1.020</td> </tr> <tr> <td>Urine WBC</td> <td>N11 -15 </td> <td /> </tr> <tr> <td>Urine Bacteria</ td> <td>4+ </td> <td /> </tr> <tr> <td> Blood</td> <td>Trace </td> <td>Negative</td> </tr> <tr> <td>Color</td> <td>Yellow </td> <td>Yellow</ td> </tr> <tr> <td>Bilirubin</td> <td>Negative < /td> <td>Negative</td> </tr> <tr> <td>Site</td> <td>VOID </td> <td /> </tr> </tbody> </table> </text> <entry> <organizer moodCode="EVN" classCode="BATTERY"> < templateId root="05.22.840.1.144257.10..4.1" /> <id nullFlavor="NA" /> <code codeSystem="local" code="CBLDR" displayName="Blood Culture" /> <statusCode code="completed" /> <component> <observation moodCode= "EVN" classCode="OBS"> <templateId root="16.840.1.358561.10...4.2 " /> <id nullFlavor="NA" /> <code codeSystem="local" code= "CBLDR" displayName="Blood Culture" /> <statusCode code="completed" /> <effectiveTime value="745817319391" /> <value unit="" xsi: type="PQ" value="SMR" /> <referenceRange> <observationRange > <text /> </observationRange> </referenceRange > </observation> </component> </organizer> </entry> <entry> <organizer moodCode="EVN" classCode="BATTERY"> <templateId root= "16.840.1.164235.01.23.22.4.1" /> <id nullFlavor="NA" /> <code codeSystem="local" code="CBLDR" displayName="Blood Culture" /> <statusCode code="completed" /> <component> <observation moodCode="EVN" classCode="OBS"> <templateId root="16.840.1.033479.01.23.22.4.2" /> <id nullFlavor="NA" /> <code codeSystem="local" code="CBLDR" displayName="Blood Culture" /> <statusCode code="completed" /> <effectiveTime value="" /> <value unit="" xsi:type="PQ" value="SMR" /> <referenceRange> <observationRange> <text /> </observationRange> </referenceRange> < /observation> </component> </organizer> </entry> <entry> < organizer moodCode="EVN" classCode="BATTERY"> <templateId root= "05.22.840.1.876279.01.23.22.4.1" /> <id nullFlavor="NA" /> <code codeSystem="local" code="TROP" displayName="Troponin I" /> <statusCode code ="completed" /> <component> <observation moodCode="EVN" classCode= "OBS"> <templateId root="05.22.840.1.539651.01.23.22.4.2" /> < id nullFlavor="NA" /> <code codeSystem="local" code="TROP" displayName= "Troponin I" /> <statusCode code="completed" /> < effectiveTime value="769599280495" /> <value unit="NG/ML" xsi:type="PQ " value="0.01" /> <referenceRange> <observationRange> <text><=0.20</text> </observationRange> </ referenceRange> </observation> </component> </organizer> </entry > <entry> <organizer moodCode="EVN" classCode="BATTERY"> <templateId root="16.840.1.418101.10..22.4.1" /> <id nullFlavor="NA" /> <code codeSystem="local" code="CK" displayName="CPK" /> <statusCode code= "completed" /> <component> <observation moodCode="EVN" classCode= "OBS"> <templateId root="16.840.1.619630.10..22.4.2" /> < id nullFlavor="NA" /> <code codeSystem="local" code="CK" displayName= "CPK" /> <statusCode code="completed" /> <effectiveTime value= "149053791549" /> <value unit="U/L" xsi:type="PQ" value="126" /> <referenceRange> <observationRange> <text>30-170</ text> </observationRange> </referenceRange> </ observation> </component> </organizer> </entry> <entry> <organizer moodCode="EVN" classCode="BATTERY"> <templateId root= "16.840.1.997864.10..22.4.1" /> <id nullFlavor="NA" /> <code codeSystem="local" code="MB" displayName="CKMB" /> <statusCode code= "completed" /> <component> <observation moodCode="EVN" classCode= "OBS"> <templateId root="16.840.1.603025.10...4.2" /> < id nullFlavor="NA" /> <code codeSystem="local" code="MB" displayName= "CKMB" /> <statusCode code="completed" /> <effectiveTime value ="234783194107" /> <value unit="NG/ML" xsi:type="PQ" value="5.5" /> <referenceRange> <observationRange> <text><=6< /text> </observationRange> </referenceRange> </ observation> </component> </organizer> </entry> <entry> <organizer moodCode="EVN" classCode="BATTERY"> <templateId root= "05.22.840.1.545940.10...4.1" /> <id nullFlavor="NA" /> <code codeSystem="local" code="CMP11" displayName="CMP" /> <statusCode code= "completed" /> <component> <observation moodCode="EVN" classCode= "OBS"> <templateId root="05.22.840.1.483077.10...4.2" /> < id nullFlavor="NA" /> <code codeSystem="local" code="OSMCAL" displayName="Osmo Calculated" /> <statusCode code="completed" /> <effectiveTime value="250937146517" /> <value unit="MOSM" xsi:type= "PQ" value="261" /> <referenceRange> <observationRange> <text>261-280</text> </observationRange> </ referenceRange> </observation> </component> <component> <observation moodCode="EVN" classCode="OBS"> <templateId root= "16.840.1.837586.10..22.4.2" /> <id nullFlavor="NA" /> < code codeSystem="local" code="NA" displayName="Sodium" /> <statusCode code="completed" /> <effectiveTime value="" /> < value unit="MMOLL" xsi:type="PQ" value="130" /> <interpretationCode codeSystem="local" code="L" /> <referenceRange> < observationRange> <text>137-145</text> </ observationRange> </referenceRange> </observation> </ component> <component> <observation moodCode="EVN" classCode="OBS"> <templateId root="16.840.1.469308...4.2" /> <id nullFlavor="NA" /> <code codeSystem="local" code="TP" displayName="T. Protein" /> <statusCode code="completed" /> <effectiveTime value="" /> <value unit="G/DL" xsi:type="PQ" value="6.6" / > <referenceRange> <observationRange> <text>6.3 -8.2</text> </observationRange> </referenceRange> </ observation> </component> <component> <observation moodCode= "EVN" classCode="OBS"> <templateId root="05.22.840.1.576747.10.20.22.4.2 " /> <id nullFlavor="NA" /> <code codeSystem="local" code="K" displayName="Potassium" /> <statusCode code="completed" /> < effectiveTime value="" /> <value unit="MMOLL" xsi:type="PQ " value="3.5" /> <interpretationCode codeSystem="local" code="L" /> <referenceRange> <observationRange> <text>3.6-5.0 </text> </observationRange> </referenceRange> </ observation> </component> <component> <observation moodCode= "EVN" classCode="OBS"> <templateId root="16.840.1.273999.10..22.4.2 " /> <id nullFlavor="NA" /> <code codeSystem="local" code= "TBIL" displayName="T Bili" /> <statusCode code="completed" /> <effectiveTime value="351548155310" /> <value unit="MG/DL" xsi:type= "PQ" value="1.1" /> <referenceRange> <observationRange> <text>0.2-1.3</text> </observationRange> </ referenceRange> </observation> </component> <component> <observation moodCode="EVN" classCode="OBS"> <templateId root= "05.22.840.1.453466.10...4.2" /> <id nullFlavor="NA" /> < code codeSystem="local" code="CA" displayName="Calcium" /> <statusCode code="completed" /> <effectiveTime value="512149131651" /> < value unit="MG/DL" xsi:type="PQ" value="9.5" /> <referenceRange> <observationRange> <text>8.4-10.2</text> </ observationRange> </referenceRange> </observation> </ component> <component> <observation moodCode="EVN" classCode="OBS"> <templateId root="05.22.840.1.295843.10..22.4.2" /> <id nullFlavor="NA" /> <code codeSystem="local" code="BUN" displayName="BUN " /> <statusCode code="completed" /> <effectiveTime value= "342812200185" /> <value unit="MG/DL" xsi:type="PQ" value="37" /> <interpretationCode codeSystem="local" code="H" /> <referenceRange > <observationRange> <text>7-21</text> </ observationRange> </referenceRange> </observation> </ component> <component> <observation moodCode="EVN" classCode="OBS"> <templateId root="216.840.1.868873.10..22.4.2" /> <id nullFlavor="NA" /> <code codeSystem="local" code="CL" displayName= "Chloride" /> <statusCode code="completed" /> <effectiveTime value="377859899466" /> <value unit="MMOLL" xsi:type="PQ" value="93" / > <interpretationCode codeSystem="local" code="L" /> < referenceRange> <observationRange> <text>98-107</text> </observationRange> </referenceRange> </observation> </component> <component> <observation moodCode="EVN" classCode ="OBS"> <templateId root="16.840.1.851055.10.20.22.4.2" /> < id nullFlavor="NA" /> <code codeSystem="local" code="AST" displayName= "AST" /> <statusCode code="completed" /> <effectiveTime value= "499890975663" /> <value unit="U/L" xsi:type="PQ" value="34" /> <referenceRange> <observationRange> <text>15-46</text > </observationRange> </referenceRange> </observation > </component> <component> <observation moodCode="EVN" classCode="OBS"> <templateId root="16.840.1.103806.10..22.4.2" /> <id nullFlavor="NA" /> <code codeSystem="local" code="ALT" displayName="ALT" /> <statusCode code="completed" /> < effectiveTime value="" /> <value unit="U/L" xsi:type="PQ" value="27" /> <referenceRange> <observationRange> <text>7-56</text> </observationRange> </referenceRange> </observation> </component> <component> <observation moodCode="EVN" classCode="OBS"> <templateId root= "16.840.1.475306.01.23.22.4.2" /> <id nullFlavor="NA" /> < code codeSystem="local" code="ALB" displayName="Albumin" /> < statusCode code="completed" /> <effectiveTime value="" /> <value unit="G/DL" xsi:type="PQ" value="3.7" /> < referenceRange> <observationRange> <text>3.5-5.0</text> </observationRange> </referenceRange> </observation > </component> <component> <observation moodCode="EVN" classCode="OBS"> <templateId root="05.22.840.1.945810.22.4.2" /> <id nullFlavor="NA" /> <code codeSystem="local" code="AG" displayName="A/G Ratio" /> <statusCode code="completed" /> < effectiveTime value="" /> <value unit="RATIO" xsi:type="PQ " value="1.3" /> <referenceRange> <observationRange> <text>1.2-2.2</text> </observationRange> </ referenceRange> </observation> </component> <component> <observation moodCode="EVN" classCode="OBS"> <templateId root= "216.840.1.980843.10.22.4.2" /> <id nullFlavor="NA" /> < code codeSystem="local" code="BCR" displayName="Bun/Creat" /> < statusCode code="completed" /> <effectiveTime value="" /> <value unit="RATIO" xsi:type="PQ" value="20.2" /> < referenceRange> <observationRange> <text>7-25</text> </observationRange> </referenceRange> </observation> </component> <component> <observation moodCode="EVN" classCode= "OBS"> <templateId root="2.840.1.528813.22.4.2" /> < id nullFlavor="NA" /> <code codeSystem="local" code="ALP" displayName= "Alk Phos" /> <statusCode code="completed" /> <effectiveTime value="" /> <value unit="U/L" xsi:type="PQ" value="94" /> <referenceRange> <observationRange> <text>38- 126</text> </observationRange> </referenceRange> </ observation> </component> <component> <observation moodCode= "EVN" classCode="OBS"> <templateId root="216.840.1.057887.10.22.4.2 " /> <id nullFlavor="NA" /> <code codeSystem="local" code="CO2 " displayName="CO2" /> <statusCode code="completed" /> < effectiveTime value="" /> <value unit="MMOLL" xsi:type="PQ " value="23" /> <referenceRange> <observationRange> <text>22-30</text> </observationRange> </ referenceRange> </observation> </component> <component> <observation moodCode="EVN" classCode="OBS"> <templateId root= "05.22.840.1.373464.10.20.22.4.2" /> <id nullFlavor="NA" /> < code codeSystem="local" code="GLU" displayName="Glucose" /> < statusCode code="completed" /> <effectiveTime value="431653956188" /> <value unit="MG/DL" xsi:type="PQ" value="119" /> < interpretationCode codeSystem="local" code="H" /> <referenceRange> <observationRange> <text>65-110</text> </ observationRange> </referenceRange> </observation> </ component> <component> <observation moodCode="EVN" classCode="OBS"> <templateId root="840.1.987151.1022.4.2" /> <id nullFlavor="NA" /> <code codeSystem="local" code="GLOB" displayName= "Globulin" /> <statusCode code="completed" /> <effectiveTime value="122583385485" /> <value unit="" xsi:type="PQ" value="2.9" /> <referenceRange> <observationRange> <text>2.4-3.5 </text> </observationRange> </referenceRange> </ observation> </component> <component> <observation moodCode= "EVN" classCode="OBS"> <templateId root="05.22.840.1.027139.10.20.22.4.2 " /> <id nullFlavor="NA" /> <code codeSystem="local" code= "CREAT" displayName="Creatinine" /> <statusCode code="completed" /> <effectiveTime value="418787278227" /> <value unit="MG/DL" xsi: type="PQ" value="1.8" /> <interpretationCode codeSystem="local" code="H " /> <referenceRange> <observationRange> <text> 0.7-1.5</text> </observationRange> </referenceRange> </observation> </component> </organizer> </entry> <entry> < organizer moodCode="EVN" classCode="BATTERY"> <templateId root= "216.840.1.723796.10..22.4.1" /> <id nullFlavor="NA" /> <code codeSystem="local" code="BNP" displayName="BNP" /> <statusCode code= "completed" /> <component> <observation moodCode="EVN" classCode= "OBS"> <templateId root="216.840.1.393452.10..22.4.2" /> < id nullFlavor="NA" /> <code codeSystem="local" code="BNP" displayName= "BNP" /> <statusCode code="completed" /> <effectiveTime value= "238581283628" /> <value unit="PG/ML" xsi:type="PQ" value="33.3" /> <referenceRange> <observationRange> <text><= 100</text> </observationRange> </referenceRange> </ observation> </component> </organizer> </entry> <entry> <organizer moodCode="EVN" classCode="BATTERY"> <templateId root= "216.840.1.638377.10..22.4.1" /> <id nullFlavor="NA" /> <code codeSystem="local" code="CBC" displayName="COMPLETE BLOOD COUNT" /> < statusCode code="completed" /> <component> <observation moodCode= "EVN" classCode="OBS"> <templateId root="05.22.840.1.875869.10.2022.4.2 " /> <id nullFlavor="NA" /> <code codeSystem="local" code="PLT " displayName="Platelet" /> <statusCode code="completed" /> < effectiveTime value="" /> <value unit="10^3u" xsi:type="PQ " value="246" /> <referenceRange> <observationRange> <text>142-424</text> </observationRange> </ referenceRange> </observation> </component> <component> <observation moodCode="EVN" classCode="OBS"> <templateId root= "840.1.404490.22.4.2" /> <id nullFlavor="NA" /> < code codeSystem="local" code="MPV" displayName="MPV" /> <statusCode code="completed" /> <effectiveTime value="" /> < value unit="FL" xsi:type="PQ" value="8.9" /> <interpretationCode codeSystem="local" code="L" /> <referenceRange> < observationRange> <text>9.4-12.4</text> </ observationRange> </referenceRange> </observation> </ component> <component> <observation moodCode="EVN" classCode="OBS"> <templateId root="05.22.840.1.414167.10.20.22.4.2" /> <id nullFlavor="NA" /> <code codeSystem="local" code="MONO#" displayName= "Craig #" /> <statusCode code="completed" /> <effectiveTime value="" /> <value unit="10^3u" xsi:type="PQ" value="0.29" /> <referenceRange> <observationRange> <text> 0.0-1.0</text> </observationRange> </referenceRange> </observation> </component> <component> <observation moodCode= "EVN" classCode="OBS"> <templateId root="216.840.1.004484.10..22.4.2 " /> <id nullFlavor="NA" /> <code codeSystem="local" code="RBC " displayName="RBC" /> <statusCode code="completed" /> < effectiveTime value="[id number]" /> <value unit="10^6u" xsi:type="PQ " value="3.67" /> <interpretationCode codeSystem="local" code="L" /> <referenceRange> <observationRange> <text>4.04- 6.13</text> </observationRange> </referenceRange> </ observation> </component> <component> <observation moodCode= "EVN" classCode="OBS"> <templateId root="[id number]...4.2 " /> <id nullFlavor="NA" /> <code codeSystem="local" code= "MONO%" displayName="Craig %" /> <statusCode code="completed" / > <effectiveTime value="[id number]" /> <value unit="%" xsi:type="PQ" value="4.5" /> <referenceRange> < observationRange> <text>0-12</text> </observationRange> </referenceRange> </observation> </component> < component> <observation moodCode="EVN" classCode="OBS"> < templateId root="[id number]..22.4.2" /> <id nullFlavor="NA " /> <code codeSystem="local" code="RDW" displayName="RDW" /> <statusCode code="completed" /> <effectiveTime value="[id number]" /> <value unit="%" xsi:type="PQ" value="11.9" /> < referenceRange> <observationRange> <text>11.6-14.8</text > </observationRange> </referenceRange> </observation > </component> <component> <observation moodCode="EVN" classCode="OBS"> <templateId root="[id number]" /> <id nullFlavor="NA" /> <code codeSystem="local" code="SEG#" displayName="Neut #" /> <statusCode code="completed" /> < effectiveTime value="[id number]" /> <value unit="10^3u" xsi:type="PQ " value="5.08" /> <referenceRange> <observationRange> <text>2.0-6.9</text> </observationRange> </ referenceRange> </observation> </component> <component> <observation moodCode="EVN" classCode="OBS"> <templateId root= "[id number]" /> <id nullFlavor="NA" /> < code codeSystem="local" code="SEG%" displayName="Neut %" /> < statusCode code="completed" /> <effectiveTime value="[id number]" /> <value unit="%" xsi:type="PQ" value="78.7" /> < referenceRange> <observationRange> <text>37-80</text> </observationRange> </referenceRange> </observation> </component> <component> <observation moodCode="EVN" classCode= "OBS"> <templateId root="[id number]" /> < id nullFlavor="NA" /> <code codeSystem="local" code="WBC" displayName= "WBC" /> <statusCode code="completed" /> <effectiveTime value= "" /> <value unit="10^3u" xsi:type="PQ" value="6.45" /> <referenceRange> <observationRange> <text>4.60- 10.20</text> </observationRange> </referenceRange> </ observation> </component> <component> <observation moodCode= "EVN" classCode="OBS"> <templateId root="840.1.663857.102022.4.2 " /> <id nullFlavor="NA" /> <code codeSystem="local" code="MCV " displayName="MCV" /> <statusCode code="completed" /> < effectiveTime value="" /> <value unit="FL" xsi:type="PQ" value="92.4" /> <referenceRange> <observationRange> <text>80.0-97.0</text> </observationRange> </ referenceRange> </observation> </component> <component> <observation moodCode="EVN" classCode="OBS"> <templateId root= "840.1.470845.10.20.22.4.2" /> <id nullFlavor="NA" /> < code codeSystem="local" code="BASO#" displayName="Baso #" /> < statusCode code="completed" /> <effectiveTime value="" /> <value unit="10^3u" xsi:type="PQ" value="0.03" /> < referenceRange> <observationRange> <text>0.0-0.1</text> </observationRange> </referenceRange> </observation > </component> <component> <observation moodCode="EVN" classCode="OBS"> <templateId root="216.840.1.969696.10..4.2" /> <id nullFlavor="NA" /> <code codeSystem="local" code="BASO&#37 ;" displayName="Baso %" /> <statusCode code="completed" /> <effectiveTime value="[id number]" /> <value unit="%" xsi:type= "PQ" value="0.5" /> <referenceRange> <observationRange> <text>0-2</text> </observationRange> </ referenceRange> </observation> </component> <component> <observation moodCode="EVN" classCode="OBS"> <templateId root= "05.22.840.1.909941.01.23.22.4.2" /> <id nullFlavor="NA" /> < code codeSystem="local" code="EOS#" displayName="Eos #" /> <statusCode code="completed" /> <effectiveTime value="190165038478" /> < value unit="10^3u" xsi:type="PQ" value="0.27" /> <referenceRange> <observationRange> <text>0-0.7</text> </ observationRange> </referenceRange> </observation> </ component> <component> <observation moodCode="EVN" classCode="OBS"> <templateId root="216.840.1.716934.10..4.2" /> <id nullFlavor="NA" /> <code codeSystem="local" code="EOS%" displayName ="Eos %" /> <statusCode code="completed" /> < effectiveTime value="099305509258" /> <value unit="%" xsi:type="PQ " value="4.2" /> <referenceRange> <observationRange> <text>0-7</text> </observationRange> </referenceRange > </observation> </component> <component> <observation moodCode="EVN" classCode="OBS"> <templateId root= "216.840.1.891964.10..4.2" /> <id nullFlavor="NA" /> < code codeSystem="local" code="LYMPH%" displayName="Lymph %" /> <statusCode code="completed" /> <effectiveTime value="205657866297" /> <value unit="%" xsi:type="PQ" value="12.1" /> < referenceRange> <observationRange> <text>10-50</text> </observationRange> </referenceRange> </observation> </component> <component> <observation moodCode="EVN" classCode= "OBS"> <templateId root="216.840.1.100998.10...4.2" /> < id nullFlavor="NA" /> <code codeSystem="local" code="MCHC" displayName= "MCHC" /> <statusCode code="completed" /> <effectiveTime value ="482588516198" /> <value unit="G/DL" xsi:type="PQ" value="36.6" /> <interpretationCode codeSystem="local" code="H" /> < referenceRange> <observationRange> <text>31.8-35.4</text > </observationRange> </referenceRange> </observation > </component> <component> <observation moodCode="EVN" classCode="OBS"> <templateId root="05.22.840.1.423386.10..22.4.2" /> <id nullFlavor="NA" /> <code codeSystem="local" code="MCH" displayName="MCH" /> <statusCode code="completed" /> < effectiveTime value="" /> <value unit="PG" xsi:type="PQ" value="33.8" /> <interpretationCode codeSystem="local" code="H" /> <referenceRange> <observationRange> <text>27.0- 31.2</text> </observationRange> </referenceRange> </ observation> </component> <component> <observation moodCode= "EVN" classCode="OBS"> <templateId root="840.1.252981..22.4.2 " /> <id nullFlavor="NA" /> <code codeSystem="local" code= "LYMPH#" displayName="Lymph #" /> <statusCode code="completed" /> <effectiveTime value="" /> <value unit="10^3u" xsi: type="PQ" value="0.78" /> <referenceRange> <observationRange > <text>0.6-3.4</text> </observationRange> </ referenceRange> </observation> </component> <component> <observation moodCode="EVN" classCode="OBS"> <templateId root= "840.1.331698.10.20.22.4.2" /> <id nullFlavor="NA" /> < code codeSystem="local" code="HGB" displayName="HGB" /> <statusCode code="completed" /> <effectiveTime value="" /> < value unit="G/DL" xsi:type="PQ" value="12.4" /> <referenceRange> <observationRange> <text>12.2-18.1</text> </ observationRange> </referenceRange> </observation> </ component> <component> <observation moodCode="EVN" classCode="OBS"> <templateId root="05.22.840.1.514852.1022.4.2" /> <id nullFlavor="NA" /> <code codeSystem="local" code="HCT" displayName="HCT " /> <statusCode code="completed" /> <effectiveTime value= "621299856979" /> <value unit="%" xsi:type="PQ" value="33.9" /> <interpretationCode codeSystem="local" code="L" /> < referenceRange> <observationRange> <text>37.7-53.7</text > </observationRange> </referenceRange> </observation > </component> </organizer> </entry> <entry> <organizer moodCode= "EVN" classCode="BATTERY"> <templateId root="05.22.840.1.039773.10...4.1 " /> <id nullFlavor="NA" /> <code codeSystem="local" code="EKG" displayName="EKG" /> <statusCode code="completed" /> <component> <observation moodCode="EVN" classCode="OBS"> <templateId root= "05.22.840.1.937838.10.22.4.2" /> <id nullFlavor="NA" /> < code codeSystem="local" code="EKG" displayName="EKG" /> <statusCode code="completed" /> <effectiveTime value="446210440065" /> < value unit="" xsi:type="PQ" value="SMR" /> <referenceRange> <observationRange> <text /> </observationRange> </referenceRange> </observation> </component> </organizer> </ entry> <entry> <organizer moodCode="EVN" classCode="BATTERY"> < templateId root="840.1.928936.10.22.4.1" /> <id nullFlavor="NA" /> <code codeSystem="local" code="UAD" displayName="Urinalysis" /> < statusCode code="completed" /> <component> <observation moodCode= "EVN" classCode="OBS"> <templateId root="05.22.840.1.002948.10..4.2 " /> <id nullFlavor="NA" /> <code codeSystem="local" code= "UAGLU" displayName="Glucose" /> <statusCode code="completed" /> <effectiveTime value="178568213525" /> <value unit="" xsi:type="PQ " value="Negative" /> <referenceRange> <observationRange> <text>Negative</text> </observationRange> </ referenceRange> </observation> </component> <component> <observation moodCode="EVN" classCode="OBS"> <templateId root= "840.1.084247...4.2" /> <id nullFlavor="NA" /> < code codeSystem="local" code="UALEUK" displayName="Leukocyte" /> < statusCode code="completed" /> <effectiveTime value="582652887241" /> <value unit="" xsi:type="PQ" value="1+" /> < interpretationCode codeSystem="local" code="AB" /> <referenceRange> <observationRange> <text>Negative</text> </ observationRange> </referenceRange> </observation> </ component> <component> <observation moodCode="EVN" classCode="OBS"> <templateId root=".1.312733.10.4.2" /> <id nullFlavor="NA" /> <code codeSystem="local" code="UANIT" displayName= "Nitrite" /> <statusCode code="completed" /> <effectiveTime value="807553532983" /> <value unit="" xsi:type="PQ" value="Positive" / > <interpretationCode codeSystem="local" code="AB" /> < referenceRange> <observationRange> <text>Negative</text > </observationRange> </referenceRange> </observation > </component> <component> <observation moodCode="EVN" classCode="OBS"> <templateId root="16.840.1.962590.01.23.22.4.2" /> <id nullFlavor="NA" /> <code codeSystem="local" code="UAPH" displayName="pH" /> <statusCode code="completed" /> < effectiveTime value="" /> <value unit="" xsi:type="PQ" value="6.5" /> <referenceRange> <observationRange> <text>5.5-7.5</text> </observationRange> </ referenceRange> </observation> </component> <component> <observation moodCode="EVN" classCode="OBS"> <templateId root= "16.840.1.424432.01.23.22.4.2" /> <id nullFlavor="NA" /> < code codeSystem="local" code="UAPP" displayName="Urine Appearance" /> < statusCode code="completed" /> <effectiveTime value="" /> <value unit="" xsi:type="PQ" value="Clear" /> <referenceRange > <observationRange> <text>Clear</text> </ observationRange> </referenceRange> </observation> </ component> <component> <observation moodCode="EVN" classCode="OBS"> <templateId root="216.840.1.780294.10..4.2" /> <id nullFlavor="NA" /> <code codeSystem="local" code="UAPRO" displayName= "Protein" /> <statusCode code="completed" /> <effectiveTime value="" /> <value unit="" xsi:type="PQ" value="Negative" / > <referenceRange> <observationRange> <text> Negative</text> </observationRange> </referenceRange> </observation> </component> <component> <observation moodCode ="EVN" classCode="OBS"> <templateId root= "216.840.1.979816...4.2" /> <id nullFlavor="NA" /> < code codeSystem="local" code="UAKET" displayName="Ketones" /> < statusCode code="completed" /> <effectiveTime value="" /> <value unit="" xsi:type="PQ" value="Negative" /> < referenceRange> <observationRange> <text>Negative</text > </observationRange> </referenceRange> </observation > </component> <component> <observation moodCode="EVN" classCode="OBS"> <templateId root="16.840.1.096441.10.22.4.2" /> <id nullFlavor="NA" /> <code codeSystem="local" code="UAURO" displayName="Urobilinogen" /> <statusCode code="completed" /> <effectiveTime value="" /> <value unit="" xsi:type="PQ" value="0.2" /> <referenceRange> <observationRange> <text>0.2-1.0</text> </observationRange> </ referenceRange> </observation> </component> <component> <observation moodCode="EVN" classCode="OBS"> <templateId root= "16.840.1.072098.01.23.22.4.2" /> <id nullFlavor="NA" /> < code codeSystem="local" code="USG" displayName="Specific Speculator" /> < statusCode code="completed" /> <effectiveTime value="" /> <value unit="" xsi:type="PQ" value="1.010" /> <referenceRange > <observationRange> <text>1.010-1.020</text> </observationRange> </referenceRange> </observation> </ component> <component> <observation moodCode="EVN" classCode="OBS"> <templateId root="05.22.840.1.990628.01.23.22.4.2" /> <id nullFlavor="NA" /> <code codeSystem="local" code="UWBC" displayName= "Urine WBC" /> <statusCode code="completed" /> <effectiveTime value="" /> <value unit="" xsi:type="PQ" value="N3-5" /> <referenceRange> <observationRange> <text /> </observationRange> </referenceRange> </observation> </component> <component> <observation moodCode="EVN" classCode= "OBS"> <templateId root="16.840.1.000199.01.23.22.4.2" /> < id nullFlavor="NA" /> <code codeSystem="local" code="UBACT+" displayName="Urine Bacteria" /> <statusCode code="completed" /> <effectiveTime value="" /> <value unit="" xsi:type="PQ" value="3+" /> <referenceRange> <observationRange> <text /> </observationRange> </referenceRange> </ observation> </component> <component> <observation moodCode= "EVN" classCode="OBS"> <templateId root="16.840.1.992854.10..4.2 " /> <id nullFlavor="NA" /> <code codeSystem="local" code= "UABLD" displayName="Blood" /> <statusCode code="completed" /> <effectiveTime value="" /> <value unit="" xsi:type="PQ" value="Negative" /> <referenceRange> <observationRange> <text>Negative</text> </observationRange> </ referenceRange> </observation> </component> <component> <observation moodCode="EVN" classCode="OBS"> <templateId root= "05.22.840.1.829329.10.4.2" /> <id nullFlavor="NA" /> < code codeSystem="local" code="UACOLOR" displayName="Color" /> < statusCode code="completed" /> <effectiveTime value="733437716425" /> <value unit="" xsi:type="PQ" value="Yellow" /> <referenceRange > <observationRange> <text>Yellow</text> </ observationRange> </referenceRange> </observation> </ component> <component> <observation moodCode="EVN" classCode="OBS"> <templateId root="05.22.840.1.178856.10.4.2" /> <id nullFlavor="NA" /> <code codeSystem="local" code="UABILI" displayName= "Bilirubin" /> <statusCode code="completed" /> <effectiveTime value="283278026701" /> <value unit="" xsi:type="PQ" value="Negative" / > <referenceRange> <observationRange> <text> Negative</text> </observationRange> </referenceRange> </observation> </component> </organizer> </entry> <entry> < organizer moodCode="EVN" classCode="BATTERY"> <templateId root= "840.1.355594.10..22.4.1" /> <id nullFlavor="NA" /> <code codeSystem="local" code="CUAR" displayName="Urine Culture" /> <statusCode code="completed" /> <component> <observation moodCode="EVN" classCode="OBS"> <templateId root="840.1.328669.10...4.2" /> <id nullFlavor="NA" /> <code codeSystem="local" code="CUAR" displayName="Urine Culture" /> <statusCode code="completed" /> <effectiveTime value="710972934328" /> <value unit="" xsi:type="PQ" value="SMR" /> <referenceRange> <observationRange> <text /> </observationRange> </referenceRange> < /observation> </component> </organizer> </entry> <entry> < organizer moodCode="EVN" classCode="BATTERY"> <templateId root= "05.22.840.1.891918.10..22.4.1" /> <id nullFlavor="NA" /> <code codeSystem="local" code="iCHEM8" displayName="CHEM/HEM PROFILE-BEDSIDE" /> <statusCode code="completed" /> <component> <observation moodCode= "EVN" classCode="OBS"> <templateId root="05.22.840.1.757929.10...4.2 " /> <id nullFlavor="NA" /> <code codeSystem="local" code="K" displayName="POTASSIUM" /> <statusCode code="completed" /> < effectiveTime value="" /> <value unit="mmol/L" xsi:type="PQ " value="3.6" /> <referenceRange> <observationRange> <text>3.5-5.3</text> </observationRange> </ referenceRange> </observation> </component> <component> <observation moodCode="EVN" classCode="OBS"> <templateId root= "216.840.1.231537.10..22.4.2" /> <id nullFlavor="NA" /> < code codeSystem="local" code="CMETHOD" displayName="METHOD" /> < statusCode code="completed" /> <effectiveTime value="" /> <value unit="" xsi:type="PQ" value="Bedside" /> < referenceRange> <observationRange> <text /> < /observationRange> </referenceRange> </observation> </ component> <component> <observation moodCode="EVN" classCode="OBS"> <templateId root="16.840.1.309069.10..22.4.2" /> <id nullFlavor="NA" /> <code codeSystem="local" code="GAP" displayName= "ANION GAP" /> <statusCode code="completed" /> <effectiveTime value="" /> <value unit="mmol/L" xsi:type="PQ" value="16" / > <referenceRange> <observationRange> <text>10- 20</text> </observationRange> </referenceRange> </ observation> </component> <component> <observation moodCode= "EVN" classCode="OBS"> <templateId root="840.1.393789.10..22.4.2 " /> <id nullFlavor="NA" /> <code codeSystem="local" code= "HMETHOD" displayName="METHOD" /> <statusCode code="completed" /> <effectiveTime value="" /> <value unit="" xsi:type="PQ " value="Bedside" /> <referenceRange> <observationRange> <text /> </observationRange> </referenceRange> </observation> </component> <component> <observation moodCode="EVN" classCode="OBS"> <templateId root= "216.840.1.695639...4.2" /> <id nullFlavor="NA" /> < code codeSystem="local" code="GLU" displayName="GLUCOSE" /> < statusCode code="completed" /> <effectiveTime value="" /> <value unit="mg/dL" xsi:type="PQ" value="154" /> < interpretationCode codeSystem="local" code="*" /> <referenceRange> <observationRange> <text>70-99</text> </ observationRange> </referenceRange> </observation> </ component> <component> <observation moodCode="EVN" classCode="OBS"> <templateId root="216.840.1.259156...4.2" /> <id nullFlavor="NA" /> <code codeSystem="local" code="BUN" displayName= "BLOOD UREA NITROGEN" /> <statusCode code="completed" /> < effectiveTime value="" /> <value unit="mg/dL" xsi:type="PQ " value="40" /> <interpretationCode codeSystem="local" code="*" /> <referenceRange> <observationRange> <text>7-20</ text> </observationRange> </referenceRange> </ observation> </component> <component> <observation moodCode= "EVN" classCode="OBS"> <templateId root="16.840.1.776558.10.22.4.2 " /> <id nullFlavor="NA" /> <code codeSystem="local" code= "CREAT" displayName="CREATININE" /> <statusCode code="completed" /> <effectiveTime value="" /> <value unit="mg/dL" xsi: type="PQ" value="2.2" /> <interpretationCode codeSystem="local" code="* " /> <referenceRange> <observationRange> <text> 0.8-1.3</text> </observationRange> </referenceRange> </observation> </component> <component> <observation moodCode= "EVN" classCode="OBS"> <templateId root="05.22.840.1.970698.22.4.2 " /> <id nullFlavor="NA" /> <code codeSystem="local" code= "HGBT" displayName="HEMOGLOBIN" /> <statusCode code="completed" /> <effectiveTime value="" /> <value unit="gm/dL" xsi: type="PQ" value="13.3" /> <interpretationCode codeSystem="local" code= "*" /> <referenceRange> <observationRange> < text>14.0-18.0</text> </observationRange> </referenceRange> </observation> </component> <component> <observation moodCode="EVN" classCode="OBS"> <templateId root= "05.22.840.1.994880.10.2022.4.2" /> <id nullFlavor="NA" /> < code codeSystem="local" code="HCTT" displayName="HEMATOCRIT" /> < statusCode code="completed" /> <effectiveTime value="" /> <value unit="%" xsi:type="PQ" value="39.0" /> < interpretationCode codeSystem="local" code="*" /> <referenceRange> <observationRange> <text>40.0-54.0</text> </ observationRange> </referenceRange> </observation> </ component> <component> <observation moodCode="EVN" classCode="OBS"> <templateId root="2.16.840.1.752347.10.20.22.4.2" /> <id nullFlavor="NA" /> <code codeSystem="local" code="NA" displayName= "SODIUM" /> <statusCode code="completed" /> <effectiveTime value="" /> <value unit="mmol/L" xsi:type="PQ" value="132" /> <interpretationCode codeSystem="local" code="*" /> < referenceRange> <observationRange> <text>135-148</text> </observationRange> </referenceRange> </observation > </component> <component> <observation moodCode="EVN" classCode="OBS"> <templateId root="2.16.840.1.656027.10.20.22.4.2" /> <id nullFlavor="NA" /> <code codeSystem="local" code="CL" displayName="CHLORIDE" /> <statusCode code="completed" /> < effectiveTime value="" /> <value unit="mmol/L" xsi:type="PQ " value="98" /> <referenceRange> <observationRange> <text>98-110</text> </observationRange> </ referenceRange> </observation> </component> <component> <observation moodCode="EVN" classCode="OBS"> <templateId root= "05.22.840.1.128208.10.22.4.2" /> <id nullFlavor="NA" /> < code codeSystem="local" code="CO2" displayName="CARBON DIOXIDE" /> < statusCode code="completed" /> <effectiveTime value="694670179221" /> <value unit="mmol/L" xsi:type="PQ" value="22" /> < referenceRange> <observationRange> <text>21-32</text> </observationRange> </referenceRange> </observation> </component> <component> <observation moodCode="EVN" classCode= "OBS"> <templateId root="840.1.823265.01.23.22.4.2" /> < id nullFlavor="NA" /> <code codeSystem="local" code="CAION" displayName ="CALCIUM IONIZED" /> <statusCode code="completed" /> < effectiveTime value="732659492186" /> <value unit="mg/dL" xsi:type="PQ " value="4.7" /> <referenceRange> <observationRange> <text>4.5-5.3</text> </observationRange> </ referenceRange> </observation> </component> </organizer> </entry > <entry> <organizer moodCode="EVN" classCode="BATTERY"> <templateId root="05.22.840.1.383142.22.4.1" /> <id nullFlavor="NA" /> <code codeSystem="local" code="iTROPI" displayName="TROPONIN I BEDSIDE" /> < statusCode code="completed" /> <component> <observation moodCode= "EVN" classCode="OBS"> <templateId root="05.22.840.1.427232.22.4.2 " /> <id nullFlavor="NA" /> <code codeSystem="local" code= "CMETHOD" displayName="METHOD" /> <statusCode code="completed" /> <effectiveTime value="" /> <value unit="" xsi:type="PQ " value="Bedside" /> <referenceRange> <observationRange> <text /> </observationRange> </referenceRange> </observation> </component> <component> <observation moodCode="EVN" classCode="OBS"> <templateId root= "840.1.504336.01.23.22.4.2" /> <id nullFlavor="NA" /> < code codeSystem="local" code="TROPI" displayName="TROPONIN I" /> < statusCode code="completed" /> <effectiveTime value="" /> <value unit="ng/mL" xsi:type="PQ" value="< 0.04" /> < referenceRange> <observationRange> <text>< 0.11</text > </observationRange> </referenceRange> </observation > </component> </organizer> </entry> <entry> <organizer moodCode= "EVN" classCode="BATTERY"> <templateId root="05.22.840.1.890537.01.23.22.4.1 " /> <id nullFlavor="NA" /> <code codeSystem="local" code="CBCD" displayName="CBC W/DIFF" /> <statusCode code="completed" /> <component > <observation moodCode="EVN" classCode="OBS"> <templateId root= "05.22.840.1.352062.01.23.22.4.2" /> <id nullFlavor="NA" /> < code codeSystem="local" code="GR#" displayName="GRANULOCYTE #" /> < statusCode code="completed" /> <effectiveTime value="" /> <value unit="k/cumm" xsi:type="PQ" value="16.8" /> < interpretationCode codeSystem="local" code="*" /> <referenceRange> <observationRange> <text>2.0-9.0</text> </ observationRange> </referenceRange> </observation> </ component> <component> <observation moodCode="EVN" classCode="OBS"> <templateId root="16.840.1.244997.10..22.4.2" /> <id nullFlavor="NA" /> <code codeSystem="local" code="LY#" displayName= "LYMPHOCYTE #" /> <statusCode code="completed" /> < effectiveTime value="" /> <value unit="k/cumm" xsi:type="PQ " value="0.9" /> <interpretationCode codeSystem="local" code="*" /> <referenceRange> <observationRange> <text>1.0-4.0 </text> </observationRange> </referenceRange> </ observation> </component> <component> <observation moodCode= "EVN" classCode="OBS"> <templateId root="16.840.1.575423.10.22.4.2 " /> <id nullFlavor="NA" /> <code codeSystem="local" code="LY& #37;" displayName="LYMPHOCYTE %" /> <statusCode code="completed" / > <effectiveTime value="" /> <value unit="%" xsi:type="PQ" value="5" /> <interpretationCode codeSystem="local" code= "*" /> <referenceRange> <observationRange> < text>20-30</text> </observationRange> </referenceRange> </observation> </component> <component> <observation moodCode="EVN" classCode="OBS"> <templateId root= "216.840.1.841938.10..4.2" /> <id nullFlavor="NA" /> < code codeSystem="local" code="MCH" displayName="MEAN CELL HGB" /> < statusCode code="completed" /> <effectiveTime value="" /> <value unit="pg" xsi:type="PQ" value="33.3" /> < interpretationCode codeSystem="local" code="*" /> <referenceRange> <observationRange> <text>27.0-33.0</text> </ observationRange> </referenceRange> </observation> </ component> <component> <observation moodCode="EVN" classCode="OBS"> <templateId root="05.22.840.1.862211.01.23.22.4.2" /> <id nullFlavor="NA" /> <code codeSystem="local" code="MCHC" displayName= "MEAN CELL HGB CONCENTRATION" /> <statusCode code="completed" /> <effectiveTime value="" /> <value unit="g/dL" xsi:type= "PQ" value="35.5" /> <referenceRange> <observationRange> <text>32.0-37.0</text> </observationRange> </ referenceRange> </observation> </component> <component> <observation moodCode="EVN" classCode="OBS"> <templateId root= "216.840.1.390926.01.23.22.4.2" /> <id nullFlavor="NA" /> < code codeSystem="local" code="MCV" displayName="MEAN CELL VOLUME" /> < statusCode code="completed" /> <effectiveTime value="" /> <value unit="fl" xsi:type="PQ" value="93.7" /> <referenceRange > <observationRange> <text>80.0-100.0</text> </observationRange> </referenceRange> </observation> </ component> <component> <observation moodCode="EVN" classCode="OBS"> <templateId root="216.840.1.687793.01.23.22.4.2" /> <id nullFlavor="NA" /> <code codeSystem="local" code="MO#" displayName= "MONOCYTE #" /> <statusCode code="completed" /> < effectiveTime value="" /> <value unit="k/cumm" xsi:type="PQ " value="0.2" /> <referenceRange> <observationRange> <text>0.1-1.0</text> </observationRange> </ referenceRange> </observation> </component> <component> <observation moodCode="EVN" classCode="OBS"> <templateId root= "216.840.1.432968.01.23.22.4.2" /> <id nullFlavor="NA" /> < code codeSystem="local" code="MO%" displayName="MONOCYTE %" /> <statusCode code="completed" /> <effectiveTime value="" /> <value unit="%" xsi:type="PQ" value="1" /> < interpretationCode codeSystem="local" code="*" /> <referenceRange> <observationRange> <text>4-6</text> </ observationRange> </referenceRange> </observation> </ component> <component> <observation moodCode="EVN" classCode="OBS"> <templateId root="216.840.1.855206.01.23.22.4.2" /> <id nullFlavor="NA" /> <code codeSystem="local" code="RBC" displayName=" RED BLOOD CELL" /> <statusCode code="completed" /> < effectiveTime value="" /> <value unit="m/cumm" xsi:type="PQ " value="4.12" /> <referenceRange> <observationRange> <text>4.00-6.00</text> </observationRange> </ referenceRange> </observation> </component> <component> <observation moodCode="EVN" classCode="OBS"> <templateId root= "2.16.840.1.642125.01.23.22.4.2" /> <id nullFlavor="NA" /> < code codeSystem="local" code="RDW" displayName="RED CELL DISTRIBUTION WIDTH" /> <statusCode code="completed" /> <effectiveTime value= "" /> <value unit="%" xsi:type="PQ" value="12.0" /> <referenceRange> <observationRange> <text>11.0- 15.6</text> </observationRange> </referenceRange> </ observation> </component> <component> <observation moodCode= "EVN" classCode="OBS"> <templateId root="2.16.840.1.361757.01.23.22.4.2 " /> <id nullFlavor="NA" /> <code codeSystem="local" code="WBC " displayName="WHITE BLOOD CELL" /> <statusCode code="completed" /> <effectiveTime value="" /> <value unit="k/cumm" xsi: type="PQ" value="17.9" /> <interpretationCode codeSystem="local" code= "*" /> <referenceRange> <observationRange> < text>5.0-10.0</text> </observationRange> </referenceRange> </observation> </component> <component> <observation moodCode="EVN" classCode="OBS"> <templateId root= "216.840.1.214505.10..4.2" /> <id nullFlavor="NA" /> < code codeSystem="local" code="HGBT" displayName="HEMOGLOBIN" /> < statusCode code="completed" /> <effectiveTime value="" /> <value unit="gm/dL" xsi:type="PQ" value="13.7" /> < interpretationCode codeSystem="local" code="*" /> <referenceRange> <observationRange> <text>14.0-18.0</text> </ observationRange> </referenceRange> </observation> </ component> <component> <observation moodCode="EVN" classCode="OBS"> <templateId root="05.22.840.1.545124...4.2" /> <id nullFlavor="NA" /> <code codeSystem="local" code="HCTT" displayName= "HEMATOCRIT" /> <statusCode code="completed" /> < effectiveTime value="" /> <value unit="%" xsi:type="PQ " value="38.6" /> <interpretationCode codeSystem="local" code="*" /> <referenceRange> <observationRange> <text>40.0- 54.0</text> </observationRange> </referenceRange> </ observation> </component> <component> <observation moodCode= "EVN" classCode="OBS"> <templateId root="16.840.1.613445.10.2022.4.2 " /> <id nullFlavor="NA" /> <code codeSystem="local" code="PLT " displayName="PLATELET COUNT" /> <statusCode code="completed" /> <effectiveTime value="" /> <value unit="k/cumm" xsi: type="PQ" value="246" /> <referenceRange> <observationRange > <text>150-400</text> </observationRange> </ referenceRange> </observation> </component> </organizer> </entry > <entry> <organizer moodCode="EVN" classCode="BATTERY"> <templateId root="216.840.1.744228.10...4.1" /> <id nullFlavor="NA" /> <code codeSystem="local" code="DIFFM" displayName="MANUAL DIFF(R)" /> < statusCode code="completed" /> <component> <observation moodCode= "EVN" classCode="OBS"> <templateId root="216.840.1.404213.10..4.2 " /> <id nullFlavor="NA" /> <code codeSystem="local" code= "BAND%" displayName="BAND %" /> <statusCode code="completed" / > <effectiveTime value="" /> <value unit="%" xsi:type="PQ" value="8" /> <referenceRange> < observationRange> <text>0-10</text> </observationRange> </referenceRange> </observation> </component> < component> <observation moodCode="EVN" classCode="OBS"> < templateId root="216.840.1.473957....4.2" /> <id nullFlavor="NA " /> <code codeSystem="local" code="MANDIFF" displayName="DIFFERENTIAL " /> <statusCode code="completed" /> <effectiveTime value= "" /> <value unit="" xsi:type="PQ" value="MANUAL" /> <referenceRange> <observationRange> <text /> </observationRange> </referenceRange> </observation> < /component> <component> <observation moodCode="EVN" classCode="OBS" > <templateId root="16.840.1.174628.10...4.2" /> <id nullFlavor="NA" /> <code codeSystem="local" code="RMORPH" displayName= "RBC MORPH" /> <statusCode code="completed" /> <effectiveTime value="" /> <value unit="" xsi:type="PQ" value="NOTED" /> <referenceRange> <observationRange> <text /> </observationRange> </referenceRange> </observation> </component> <component> <observation moodCode="EVN" classCode= "OBS"> <templateId root="16.840.1.647177.10...4.2" /> < id nullFlavor="NA" /> <code codeSystem="local" code="SEG%" displayName="SEGMENTED NEUTROPHIL %" /> <statusCode code="completed " /> <effectiveTime value="" /> <value unit="% " xsi:type="PQ" value="86" /> <interpretationCode codeSystem="local" code="*" /> <referenceRange> <observationRange> <text>50-70</text> </observationRange> </referenceRange> </observation> </component> </organizer> </entry> <entry> < organizer moodCode="EVN" classCode="BATTERY"> <templateId root= "16.840.1.680106.10..22.4.1" /> <id nullFlavor="NA" /> <code codeSystem="local" code="METABC" displayName="METABOLIC PANEL, COMPREHN" /> <statusCode code="completed" /> <component> <observation moodCode= "EVN" classCode="OBS"> <templateId root="05.22.840.1.292346.10..4.2 " /> <id nullFlavor="NA" /> <code codeSystem="local" code="K" displayName="POTASSIUM" /> <statusCode code="completed" /> < effectiveTime value="" /> <value unit="mmol/L" xsi:type="PQ " value="3.6" /> <referenceRange> <observationRange> <text>3.5-5.3</text> </observationRange> </ referenceRange> </observation> </component> <component> <observation moodCode="EVN" classCode="OBS"> <templateId root= "840.1.021156.01.23.22.4.2" /> <id nullFlavor="NA" /> < code codeSystem="local" code="eGFR" displayName="EST GFR (MDRD)" /> < statusCode code="completed" /> <effectiveTime value="" /> <value unit="mL/min" xsi:type="PQ" value="33" /> < interpretationCode codeSystem="local" code="*" /> <referenceRange> <observationRange> <text>> 59</text> </ observationRange> </referenceRange> </observation> </ component> <component> <observation moodCode="EVN" classCode="OBS"> <templateId root="05.22.840.1.711189.01.23.22.4.2" /> <id nullFlavor="NA" /> <code codeSystem="local" code="GAP" displayName= "ANION GAP" /> <statusCode code="completed" /> <effectiveTime value="" /> <value unit="mmol/L" xsi:type="PQ" value="11" / > <referenceRange> <observationRange> <text>5- 15</text> </observationRange> </referenceRange> </ observation> </component> <component> <observation moodCode= "EVN" classCode="OBS"> <templateId root="216.840.1.690903.10..4.2 " /> <id nullFlavor="NA" /> <code codeSystem="local" code="GLU " displayName="GLUCOSE" /> <statusCode code="completed" /> < effectiveTime value="" /> <value unit="mg/dL" xsi:type="PQ " value="161" /> <interpretationCode codeSystem="local" code="*" /> <referenceRange> <observationRange> <text>70-99</ text> </observationRange> </referenceRange> </ observation> </component> <component> <observation moodCode= "EVN" classCode="OBS"> <templateId root="05.22.840.1.527743.22.4.2 " /> <id nullFlavor="NA" /> <code codeSystem="local" code="CA " displayName="CALCIUM" /> <statusCode code="completed" /> < effectiveTime value="" /> <value unit="mg/dL" xsi:type="PQ " value="9.1" /> <referenceRange> <observationRange> <text>8.5-10.1</text> </observationRange> </ referenceRange> </observation> </component> <component> <observation moodCode="EVN" classCode="OBS"> <templateId root= "216.840.1.124568.01.23.22.4.2" /> <id nullFlavor="NA" /> < code codeSystem="local" code="BUN" displayName="BLOOD UREA NITROGEN" /> <statusCode code="completed" /> <effectiveTime value="" / > <value unit="mg/dL" xsi:type="PQ" value="43" /> < interpretationCode codeSystem="local" code="*" /> <referenceRange> <observationRange> <text>7-20</text> </ observationRange> </referenceRange> </observation> </ component> <component> <observation moodCode="EVN" classCode="OBS"> <templateId root="216.840.1.590236.01.23.22.4.2" /> <id nullFlavor="NA" /> <code codeSystem="local" code="CREAT" displayName= "CREATININE" /> <statusCode code="completed" /> < effectiveTime value="" /> <value unit="mg/dL" xsi:type="PQ " value="2.2" /> <interpretationCode codeSystem="local" code="*" /> <referenceRange> <observationRange> <text>0.8-1.3 </text> </observationRange> </referenceRange> </ observation> </component> <component> <observation moodCode= "EVN" classCode="OBS"> <templateId root="16.840.1.993070...4.2 " /> <id nullFlavor="NA" /> <code codeSystem="local" code="NA " displayName="SODIUM" /> <statusCode code="completed" /> < effectiveTime value="" /> <value unit="mmol/L" xsi:type="PQ " value="131" /> <interpretationCode codeSystem="local" code="*" /> <referenceRange> <observationRange> <text>135-148 </text> </observationRange> </referenceRange> </ observation> </component> <component> <observation moodCode= "EVN" classCode="OBS"> <templateId root="16.840.1.908792.10.20.22.4.2 " /> <id nullFlavor="NA" /> <code codeSystem="local" code="CL " displayName="CHLORIDE" /> <statusCode code="completed" /> < effectiveTime value="" /> <value unit="mmol/L" xsi:type="PQ " value="96" /> <interpretationCode codeSystem="local" code="*" /> <referenceRange> <observationRange> <text>98-110</ text> </observationRange> </referenceRange> </ observation> </component> <component> <observation moodCode= "EVN" classCode="OBS"> <templateId root="05.22.840.1.153071.10..4.2 " /> <id nullFlavor="NA" /> <code codeSystem="local" code="AST " displayName="AST/SGOT" /> <statusCode code="completed" /> < effectiveTime value="" /> <value unit="Units/L" xsi:type= "PQ" value="29" /> <referenceRange> <observationRange> <text>10-37</text> </observationRange> </ referenceRange> </observation> </component> <component> <observation moodCode="EVN" classCode="OBS"> <templateId root= "05.22.840.1.469151.10...4.2" /> <id nullFlavor="NA" /> < code codeSystem="local" code="ALT" displayName="ALT/SGPT" /> < statusCode code="completed" /> <effectiveTime value="" /> <value unit="Units/L" xsi:type="PQ" value="26" /> < referenceRange> <observationRange> <text>< 66</text> </observationRange> </referenceRange> </observation > </component> <component> <observation moodCode="EVN" classCode="OBS"> <templateId root="216.840.1.449241.1022.4.2" /> <id nullFlavor="NA" /> <code codeSystem="local" code="CO2" displayName="CARBON DIOXIDE" /> <statusCode code="completed" /> <effectiveTime value="" /> <value unit="mmol/L" xsi:type ="PQ" value="24" /> <referenceRange> <observationRange> <text>21-32</text> </observationRange> </ referenceRange> </observation> </component> <component> <observation moodCode="EVN" classCode="OBS"> <templateId root= "05.22.840.1.119941.22.4.2" /> <id nullFlavor="NA" /> < code codeSystem="local" code="TP" displayName="TOTAL PROTEIN" /> < statusCode code="completed" /> <effectiveTime value="" /> <value unit="gm/dL" xsi:type="PQ" value="6.9" /> < referenceRange> <observationRange> <text>6.4-8.2</text> </observationRange> </referenceRange> </observation > </component> <component> <observation moodCode="EVN" classCode="OBS"> <templateId root="216.840.1.086078..22.4.2" /> <id nullFlavor="NA" /> <code codeSystem="local" code="ALB" displayName="ALBUMIN" /> <statusCode code="completed" /> < effectiveTime value="" /> <value unit="gm/dL" xsi:type="PQ " value="3.6" /> <referenceRange> <observationRange> <text>3.4-5.0</text> </observationRange> </ referenceRange> </observation> </component> <component> <observation moodCode="EVN" classCode="OBS"> <templateId root= "2.16.840.1.522288.10..22.4.2" /> <id nullFlavor="NA" /> < code codeSystem="local" code="BILTOT" displayName="BILI TOTAL" /> < statusCode code="completed" /> <effectiveTime value="" /> <value unit="mg/dL" xsi:type="PQ" value="1.1" /> < interpretationCode codeSystem="local" code="*" /> <referenceRange> <observationRange> <text>0.0-1.0</text> </ observationRange> </referenceRange> </observation> </ component> <component> <observation moodCode="EVN" classCode="OBS"> <templateId root="2.16.840.1.376635.10..22.4.2" /> <id nullFlavor="NA" /> <code codeSystem="local" code="ALKP" displayName= "ALKALINE PHOSPHATASE TOTAL" /> <statusCode code="completed" /> <effectiveTime value="" /> <value unit="Units/L" xsi: type="PQ" value="125" /> <referenceRange> <observationRange > <text>50-136</text> </observationRange> </ referenceRange> </observation> </component> </organizer> </entry > <entry> <organizer moodCode="EVN" classCode="BATTERY"> <templateId root="216.840.1.956570.10...4.1" /> <id nullFlavor="NA" /> <code codeSystem="local" code="BC" displayName="BLOOD CULTURE" /> <statusCode code="completed" /> <component> <observation moodCode="EVN" classCode="OBS"> <templateId root="05.22.840.1.207151.10..4.2" /> <id nullFlavor="NA" /> <code codeSystem="local" code="UNC" displayName="Uncategorized" /> <statusCode code="completed" /> <effectiveTime value="[id number]" /> <value xsi:type="ST" value="< pre><b>BLOOD CULTURE</b> See BelowBLOOD CULTURE(F) Albaro Date/Time : 11/11/2012 14:40 Liza Date/Time: 11/17/2012 01: 25SOURCE: BLOODSPEC DESC: [id number] [phone] [place] [address]</pre>" /> <referenceRange> <observationRange> <text /> </observationRange> </referenceRange> </observation> </component> </ organizer> </entry> <entry> <organizer moodCode="EVN" classCode="BATTERY"> <templateId root="216.840.1.237439.10...4.1" /> <id nullFlavor= "NA" /> <code codeSystem="local" code="BC" displayName="BLOOD CULTURE" /> <statusCode code="completed" /> <component> <observation moodCode="EVN" classCode="OBS"> <templateId root= "216.840.1.760735.10..22.4.2" /> <id nullFlavor="NA" /> < code codeSystem="local" code="UNC" displayName="Uncategorized" /> < statusCode code="completed" /> <effectiveTime value="[id number]" /> <value xsi:type="ST" value="<pre><b>BLOOD CULTURE</b> See BelowBLOOD CULTURE(F) Albaro Date/Time: 11/11/2012 14:45 Liza Date/Time: 11/17/2012 01:25SOURCE: BLOODSPEC DESC: [phone] [place] [address]</ pre>" /> <referenceRange> <observationRange> < text /> </observationRange> </referenceRange> </ observation> </component> </organizer> </entry> <entry> <organizer moodCode="EVN" classCode="BATTERY"> <templateId root= "2.16.840.1.327376.10..22.4.1" /> <id nullFlavor="NA" /> <code codeSystem="local" code="UA" displayName="URINALYSIS, ROUTINE" /> < statusCode code="completed" /> <component> <observation moodCode= "EVN" classCode="OBS"> <templateId root="2.16.840.1.483744.10..22.4.2 " /> <id nullFlavor="NA" /> <code codeSystem="local" code= "LEUESU" displayName="UA LEUKOCYTE ESTERASE DIPSTICK" /> <statusCode code="completed" /> <effectiveTime value="[id number]" /> < value unit="" xsi:type="PQ" value="TRACE" /> <interpretationCode codeSystem="local" code="*" /> <referenceRange> < observationRange> <text>NEGATIVE</text> </ observationRange> </referenceRange> </observation> </ component> <component> <observation moodCode="EVN" classCode="OBS"> <templateId root="216.840.1.280104.10..4.2" /> <id nullFlavor="NA" /> <code codeSystem="local" code="NITRIU" displayName= "UA NITRITE DIPSTICK" /> <statusCode code="completed" /> < effectiveTime value="" /> <value unit="" xsi:type="PQ" value="NEGATIVE" /> <referenceRange> <observationRange> <text>NEGATIVE</text> </observationRange> </ referenceRange> </observation> </component> <component> <observation moodCode="EVN" classCode="OBS"> <templateId root= "216.840.1.806525.01.23.22.4.2" /> <id nullFlavor="NA" /> < code codeSystem="local" code="PROTEIU" displayName="UA PROTEIN DIPSTICK" /> <statusCode code="completed" /> <effectiveTime value= "" /> <value unit="" xsi:type="PQ" value="1+" /> < interpretationCode codeSystem="local" code="*" /> <referenceRange> <observationRange> <text>NEGATIVE</text> </ observationRange> </referenceRange> </observation> </ component> <component> <observation moodCode="EVN" classCode="OBS"> <templateId root="216.840.1.659924...4.2" /> <id nullFlavor="NA" /> <code codeSystem="local" code="DGLUU" displayName= "UA GLUCOSE DIPSTICK" /> <statusCode code="completed" /> < effectiveTime value="" /> <value unit="" xsi:type="PQ" value="NEGATIVE" /> <referenceRange> <observationRange> <text>NEGATIVE</text> </observationRange> </ referenceRange> </observation> </component> <component> <observation moodCode="EVN" classCode="OBS"> <templateId root= "16.840.1.376970.10..22.4.2" /> <id nullFlavor="NA" /> < code codeSystem="local" code="KETONU" displayName="UA KETONE DIPSTICK" /> <statusCode code="completed" /> <effectiveTime value="[id number] " /> <value unit="" xsi:type="PQ" value="NEGATIVE" /> < referenceRange> <observationRange> <text>NEGATIVE</text > </observationRange> </referenceRange> </observation > </component> <component> <observation moodCode="EVN" classCode="OBS"> <templateId root="05.22.840.1.184317.10..22.4.2" /> <id nullFlavor="NA" /> <code codeSystem="local" code="UROBILU " displayName="UA UROBILINOGEN DIPSTICK" /> <statusCode code="completed " /> <effectiveTime value="" /> <value unit="" xsi :type="PQ" value="2+" /> <interpretationCode codeSystem="local" code="* " /> <referenceRange> <observationRange> <text> NORMAL</text> </observationRange> </referenceRange> < /observation> </component> <component> <observation moodCode= "EVN" classCode="OBS"> <templateId root="05.22.840.1.971229.10..22.4.2 " /> <id nullFlavor="NA" /> <code codeSystem="local" code= "BILU" displayName="UA BILIRUBIN DIPSTICK" /> <statusCode code= "completed" /> <effectiveTime value="" /> <value unit="" xsi:type="PQ" value="POSITIVE" /> <interpretationCode codeSystem="local" code="*" /> <referenceRange> < observationRange> <text>NEGATIVE</text> </ observationRange> </referenceRange> </observation> </ component> <component> <observation moodCode="EVN" classCode="OBS"> <templateId root="2.16.840.1.911320.10..22.4.2" /> <id nullFlavor="NA" /> <code codeSystem="local" code="HEIDI" displayName="UA BLOOD DIPSTICK" /> <statusCode code="completed" /> < effectiveTime value="" /> <value unit="" xsi:type="PQ" value="2+" /> <interpretationCode codeSystem="local" code="*" /> <referenceRange> <observationRange> <text>NEGATIVE</ text> </observationRange> </referenceRange> </ observation> </component> <component> <observation moodCode= "EVN" classCode="OBS"> <templateId root="2.16.840.1.480936.10..22.4.2 " /> <id nullFlavor="NA" /> <code codeSystem="local" code= "COMU" displayName="UA COMMENT" /> <statusCode code="completed" /> <effectiveTime value="" /> <value unit="" xsi:type= "PQ" value="" /> <referenceRange> <observationRange> <text /> </observationRange> </referenceRange> </observation> </component> <component> <observation moodCode="EVN" classCode="OBS"> <templateId root= "05.22.840.1.804508.10..22.4.2" /> <id nullFlavor="NA" /> < code codeSystem="local" code="SPGRU" displayName="UA SPECIFIC GRAVITY" /> <statusCode code="completed" /> <effectiveTime value=" " /> <value unit="" xsi:type="PQ" value="1.007" /> < interpretationCode codeSystem="local" code="*" /> <referenceRange> <observationRange> <text>1.015-1.025</text> </ observationRange> </referenceRange> </observation> </ component> <component> <observation moodCode="EVN" classCode="OBS"> <templateId root="05.22.840.1.672156.01.23.22.4.2" /> <id nullFlavor="NA" /> <code codeSystem="local" code="MARISA" displayName="UR PH" /> <statusCode code="completed" /> <effectiveTime value= "" /> <value unit="" xsi:type="PQ" value="7.0" /> <referenceRange> <observationRange> <text>5.0-7.0</text > </observationRange> </referenceRange> </observation > </component> </organizer> </entry> <entry> <organizer moodCode= "EVN" classCode="BATTERY"> <templateId root="05.22.840.1.197027.10..22.4.1 " /> <id nullFlavor="NA" /> <code codeSystem="local" code="UAMICRONRC " displayName="UA MICROSCOPIC, NO REFLEX CULT" /> <statusCode code= "completed" /> <component> <observation moodCode="EVN" classCode= "OBS"> <templateId root="2.16.840.1.580503.10.22.4.2" /> < id nullFlavor="NA" /> <code codeSystem="local" code="EPIU" displayName= "UA EPITHELIAL CELLS" /> <statusCode code="completed" /> < effectiveTime value="" /> <value unit="epi/hpf" xsi:type= "PQ" value="4+" /> <interpretationCode codeSystem="local" code="*" /> <referenceRange> <observationRange> <text>0 - 1 +</text> </observationRange> </referenceRange> </ observation> </component> <component> <observation moodCode= "EVN" classCode="OBS"> <templateId root="840.1.983241.01.23.22.4.2 " /> <id nullFlavor="NA" /> <code codeSystem="local" code= "HYALU" displayName="UA HYALINE CAST" /> <statusCode code="completed" / > <effectiveTime value="" /> <value unit="cast/lpf " xsi:type="PQ" value="5-10" /> <interpretationCode codeSystem="local" code="*" /> <referenceRange> <observationRange> <text>0 - 1</text> </observationRange> </referenceRange> </observation> </component> <component> <observation moodCode="EVN" classCode="OBS"> <templateId root= "05.22.840.1.883611.10.22.4.2" /> <id nullFlavor="NA" /> < code codeSystem="local" code="MUCUSU" displayName="UA MUCUS" /> < statusCode code="completed" /> <effectiveTime value="" /> <value unit="" xsi:type="PQ" value="4+" /> < interpretationCode codeSystem="local" code="*" /> <referenceRange> <observationRange> <text>NEG TO 1+</text> </ observationRange> </referenceRange> </observation> </ component> <component> <observation moodCode="EVN" classCode="OBS"> <templateId root="216.840.1.840473.10.20.22.4.2" /> <id nullFlavor="NA" /> <code codeSystem="local" code="RBCU" displayName=" UA RBC" /> <statusCode code="completed" /> <effectiveTime value="" /> <value unit="rbc/hpf" xsi:type="PQ" value="> 100" /> <interpretationCode codeSystem="local" code="*" /> < referenceRange> <observationRange> <text>0 - 3</text> </observationRange> </referenceRange> </observation> </component> <component> <observation moodCode="EVN" classCode= "OBS"> <templateId root="05.22.840.1.811209...4.2" /> < id nullFlavor="NA" /> <code codeSystem="local" code="UAVOL" displayName ="UA VOLUME FOR EXAM" /> <statusCode code="completed" /> < effectiveTime value="" /> <value unit="mL" xsi:type="PQ" value="12.0" /> <referenceRange> <observationRange> <text>(12mL STD)</text> </observationRange> </ referenceRange> </observation> </component> <component> <observation moodCode="EVN" classCode="OBS"> <templateId root= "216.840.1.135521.10.20.22.4.2" /> <id nullFlavor="NA" /> < code codeSystem="local" code="WBCU" displayName="UA WBC" /> < statusCode code="completed" /> <effectiveTime value="[id number]" /> <value unit="wbc/hpf" xsi:type="PQ" value="2-5" /> < referenceRange> <observationRange> <text>0 - 5</text> </observationRange> </referenceRange> </observation> </component> </organizer> </entry> <entry> <organizer moodCode="EVN " classCode="BATTERY"> <templateId root="2.16.840.1.382734.10.20.22.4.1" / > <id nullFlavor="NA" /> <code codeSystem="local" code="UC" displayName="URINE CULTURE" /> <statusCode code="completed" /> < component> <observation moodCode="EVN" classCode="OBS"> < templateId root="2.16.840.1.234422.10.20.22.4.2" /> <id nullFlavor="NA " /> <code codeSystem="local" code="UNC" displayName="Uncategorized" / > <statusCode code="completed" /> <effectiveTime value= "[id number]" /> <value xsi:type="ST" value="<pre><b>URINE CULTURE</b > See BelowURINE CULTURE(F) Albaro Date/Time: 11/11/2012 15:10 Liza Date/Time: 11/13/2012 10:47SOURCE: URINESPEC DESC: CATHETERTREATMENT OF ASYMPTOMATIC BACTERIURIA IS NOT USUALLYCLINICALLY INDICATED.MIXED GRAM POSITIVE?[facility] [phone] [place] [address]</pre>" /> <referenceRange> <observationRange> <text /> </observationRange> </referenceRange> </observation> </component> </ organizer> </entry> <entry> <organizer moodCode="EVN" classCode="BATTERY"> <templateId root="216.840.1.112246.10..22.4.1" /> <id nullFlavor= "NA" /> <code codeSystem="local" code="CDTOX" displayName="CLOSTRIDIUM DIFFICILE DNA" /> <statusCode code="completed" /> <component> < observation moodCode="EVN" classCode="OBS"> <templateId root= "216.840.1.969811.10...4.2" /> <id nullFlavor="NA" /> < code codeSystem="local" code="UNC" displayName="Uncategorized" /> < statusCode code="completed" /> <effectiveTime value="[id number]" /> <value xsi:type="ST" value="<pre><b>CLOSTRIDIUM DIFFICILE DNA</b> See BelowCLOSTRIDIUM DIFFICILE DNA(F) Albaro Date/Time: 11/11/2012 16:09 Liza Date/Time: 11/12/2012 11:09SOURCE: STOOLSPEC DESC: LIQUIDC.DIFFICILE TOXINNEGATIVE FOR CLOSTRIDIUM DIFFICILE TOXIN B GENE [facility] - [phone] [place] [address]</pre>" /> <referenceRange> <observationRange> <text /> </observationRange> </referenceRange> </observation> </ component> </organizer> </entry> <entry> <organizer moodCode="EVN" classCode="BATTERY"> <templateId root="216.840.1.086516.10..22.4.1" /> <id nullFlavor="NA" /> <code codeSystem="local" code="MRSAS" displayName="MRSA SURVEILLANCE SCREEN" /> <statusCode code="completed" /> <component> <observation moodCode="EVN" classCode="OBS"> < templateId root="216.840.1.058922.10..22.4.2" /> <id nullFlavor="NA " /> <code codeSystem="local" code="UNC" displayName="Uncategorized" / > <statusCode code="completed" /> <effectiveTime value= "[id number]" /> <value xsi:type="ST" value="<pre><b>MRSA SURVEILLANCE SCREEN</b> See BelowMRSA SURVEILLANCE SCREEN(F) Albaro Date/Time: 11/11/2012 17:58 Liza Date/Time: 11/13/2012 07: 26SOURCE: ANTERIOR NARESSPEC DESC: NNO METHICILLIN RESISTANT STAPH [facility] - [id number] [place] [address]</pre>" /> <referenceRange> <observationRange> <text /> </observationRange> </referenceRange> </observation> </component> </organizer> </entry> <entry> <organizer moodCode="EVN " classCode="BATTERY"> <templateId root="2.16.840.1.525581.10..22.4.1" / > <id nullFlavor="NA" /> <code codeSystem="local" code="ABG" displayName="ARTERIAL BLOOD GAS" /> <statusCode code="completed" /> < component> <observation moodCode="EVN" classCode="OBS"> < templateId root="2.16.840.1.683578.10..22.4.2" /> <id nullFlavor="NA " /> <code codeSystem="local" code="RICCI" displayName="ABG BASE EXCESS" /> <statusCode code="completed" /> <effectiveTime value= "101921154081" /> <value unit="meq/L" xsi:type="PQ" value="-7.3" /> <interpretationCode codeSystem="local" code="*" /> < referenceRange> <observationRange> <text>-3.0-3.0</text > </observationRange> </referenceRange> </observation > </component> <component> <observation moodCode="EVN" classCode="OBS"> <templateId root="216.840.1.807048.10...4.2" /> <id nullFlavor="NA" /> <code codeSystem="local" code="JN" displayName="ABG DEVICE" /> <statusCode code="completed" /> < effectiveTime value="" /> <value unit="" xsi:type="PQ" value="NC" /> <referenceRange> <observationRange> <text /> </observationRange> </referenceRange> </ observation> </component> <component> <observation moodCode= "EVN" classCode="OBS"> <templateId root="2.840.1.167635...4.2 " /> <id nullFlavor="NA" /> <code codeSystem="local" code= "HCO3A" displayName="ABG BICARBONATE" /> <statusCode code="completed" / > <effectiveTime value="" /> <value unit="meq/L" xsi:type="PQ" value="17.2" /> <interpretationCode codeSystem="local" code="*" /> <referenceRange> <observationRange> <text>23.0-28.0</text> </observationRange> </ referenceRange> </observation> </component> <component> <observation moodCode="EVN" classCode="OBS"> <templateId root= "216.840.1.218952.10...4.2" /> <id nullFlavor="NA" /> < code codeSystem="local" code="L/MA" displayName="ABG L/M" /> < statusCode code="completed" /> <effectiveTime value="" /> <value unit="" xsi:type="PQ" value="4.0" /> <referenceRange> <observationRange> <text /> </ observationRange> </referenceRange> </observation> </ component> <component> <observation moodCode="EVN" classCode="OBS"> <templateId root="216.840.1.352144.10..22.4.2" /> <id nullFlavor="NA" /> <code codeSystem="local" code="PCO2A" displayName= "ABG PCO2" /> <statusCode code="completed" /> <effectiveTime value="" /> <value unit="mmHg" xsi:type="PQ" value="32" /> <interpretationCode codeSystem="local" code="*" /> < referenceRange> <observationRange> <text>34-45</text> </observationRange> </referenceRange> </observation> </component> <component> <observation moodCode="EVN" classCode= "OBS"> <templateId root="05.22.840.1.816006.10.22.4.2" /> < id nullFlavor="NA" /> <code codeSystem="local" code="PHAX" displayName= "ABG PH" /> <statusCode code="completed" /> <effectiveTime value="" /> <value unit="" xsi:type="PQ" value="7.35" /> <referenceRange> <observationRange> <text>7.35- 7.45</text> </observationRange> </referenceRange> </ observation> </component> <component> <observation moodCode= "EVN" classCode="OBS"> <templateId root="16.840.1.378781.10.20.22.4.2 " /> <id nullFlavor="NA" /> <code codeSystem="local" code= "PO2A" displayName="ABG PO2" /> <statusCode code="completed" /> <effectiveTime value="" /> <value unit="mmHg" xsi:type= "PQ" value="98" /> <referenceRange> <observationRange> <text>75-100</text> </observationRange> </ referenceRange> </observation> </component> <component> <observation moodCode="EVN" classCode="OBS"> <templateId root= "16.840.1.758345.10.20.22.4.2" /> <id nullFlavor="NA" /> < code codeSystem="local" code="SATA" displayName="ABG O2 SATURATION" /> <statusCode code="completed" /> <effectiveTime value="" /> <value unit="%" xsi:type="PQ" value="97" /> < referenceRange> <observationRange> <text>93-100</text> </observationRange> </referenceRange> </observation> </component> <component> <observation moodCode="EVN" classCode ="OBS"> <templateId root="05.22.840.1.017304.10.20.22.4.2" /> < id nullFlavor="NA" /> <code codeSystem="local" code="SITEA" displayName ="ABG SITE" /> <statusCode code="completed" /> <effectiveTime value="" /> <value unit="" xsi:type="PQ" value="ART LINE" / > <referenceRange> <observationRange> <text /> </observationRange> </referenceRange> </observation > </component> </organizer> </entry> <entry> <organizer moodCode= "EVN" classCode="BATTERY"> <templateId root="05.22.840.1.698285.10..4.1 " /> <id nullFlavor="NA" /> <code codeSystem="local" code="LACT" displayName="LACTIC ACID" /> <statusCode code="completed" /> < component> <observation moodCode="EVN" classCode="OBS"> < templateId root="05.22.840.1.364071.01.23.22.4.2" /> <id nullFlavor="NA " /> <code codeSystem="local" code="LACT" displayName="LACTIC ACID" /> <statusCode code="completed" /> <effectiveTime value= "000099902742" /> <value unit="mmol/L" xsi:type="PQ" value="0.7" /> <referenceRange> <observationRange> <text>0.5-2.2 </text> </observationRange> </referenceRange> </ observation> </component> </organizer> </entry> <entry> <organizer moodCode="EVN" classCode="BATTERY"> <templateId root= "05.22.840.1.458050.01.23.22.4.1" /> <id nullFlavor="NA" /> <code codeSystem="local" code="VALP" displayName="VALPROIC ACID (DEPAKENE)" /> < statusCode code="completed" /> <component> <observation moodCode= "EVN" classCode="OBS"> <templateId root="05.22.840.1.523499.10..4.2 " /> <id nullFlavor="NA" /> <code codeSystem="local" code= "VALP" displayName="VALPROIC ACID (DEPAKENE)" /> <statusCode code= "completed" /> <effectiveTime value="372521261977" /> <value unit="mcg/mL" xsi:type="PQ" value="< 3" /> <interpretationCode codeSystem="local" code="*" /> <referenceRange> < observationRange> <text>50-100</text> </observationRange > </referenceRange> </observation> </component> </ organizer> </entry> <entry> <organizer moodCode="EVN" classCode="BATTERY"> <templateId root="216.840.1.328991.10.20.22.4.1" /> <id nullFlavor= "NA" /> <code codeSystem="local" code="SPNAG" displayName="AG STREPTOCOCCUS PNEUMONIAE" /> <statusCode code="completed" /> < component> <observation moodCode="EVN" classCode="OBS"> < templateId root="2.16.840.1.749400.10..22.4.2" /> <id nullFlavor="NA " /> <code codeSystem="local" code="UNC" displayName="Uncategorized" / > <statusCode code="completed" /> <effectiveTime value= "068767505745" /> <value xsi:type="ST" value="<pre><b>AG STREPTOCOCCUS PNEUMONIAE</b> See BelowAG STREPTOCOCCUS PNEUMONIAE(F) Albaro Date/Time: 2012 20:08 Liza Date/Time: 11/11/2012 22:06SOURCE : URINESPEC DESC: STREPTOCOCCUS PNEUMONIAENEGATIVE FOR STREPTOCOCCUS [facility]ONIAE[facility] - [id number] [place] [address]</pre>" /> <referenceRange> <observationRange> <text /> </observationRange> </referenceRange> </observation> </component> </organizer> </entry> <entry> <organizer moodCode= "EVN" classCode="BATTERY"> <templateId root="216.840.1.630422.10..22.4.1 " /> <id nullFlavor="NA" /> <code codeSystem="local" code="UA" displayName="URINALYSIS, ROUTINE" /> <statusCode code="completed" /> < component> <observation moodCode="EVN" classCode="OBS"> < templateId root="16.840.1.901024.10.4.2" /> <id nullFlavor="NA " /> <code codeSystem="local" code="LEUESU" displayName="UA LEUKOCYTE ESTERASE DIPSTICK" /> <statusCode code="completed" /> < effectiveTime value="230554340359" /> <value unit="" xsi:type="PQ" value="NEGATIVE" /> <referenceRange> <observationRange> <text>NEGATIVE</text> </observationRange> </ referenceRange> </observation> </component> <component> <observation moodCode="EVN" classCode="OBS"> <templateId root= "05.22.840.1.625972.01.23.224.2" /> <id nullFlavor="NA" /> < code codeSystem="local" code="NITRIU" displayName="UA NITRITE DIPSTICK" /> <statusCode code="completed" /> <effectiveTime value="982293923840 " /> <value unit="" xsi:type="PQ" value="NEGATIVE" /> < referenceRange> <observationRange> <text>NEGATIVE</text > </observationRange> </referenceRange> </observation > </component> <component> <observation moodCode="EVN" classCode="OBS"> <templateId root="05.22.840.1.072850.01.23.22.4.2" /> <id nullFlavor="NA" /> <code codeSystem="local" code="PROTEIU " displayName="UA PROTEIN DIPSTICK" /> <statusCode code="completed" /> <effectiveTime value="760589171504" /> <value unit="" xsi: type="PQ" value="NEGATIVE" /> <referenceRange> < observationRange> <text>NEGATIVE</text> </ observationRange> </referenceRange> </observation> </ component> <component> <observation moodCode="EVN" classCode="OBS"> <templateId root="16.840.1.491487.10..4.2" /> <id nullFlavor="NA" /> <code codeSystem="local" code="DGLUU" displayName= "UA GLUCOSE DIPSTICK" /> <statusCode code="completed" /> < effectiveTime value="300735672581" /> <value unit="" xsi:type="PQ" value="NEGATIVE" /> <referenceRange> <observationRange> <text>NEGATIVE</text> </observationRange> </ referenceRange> </observation> </component> <component> <observation moodCode="EVN" classCode="OBS"> <templateId root= "840.1.823447.01.23.22.4.2" /> <id nullFlavor="NA" /> < code codeSystem="local" code="KETONU" displayName="UA KETONE DIPSTICK" /> <statusCode code="completed" /> <effectiveTime value="114879125133 " /> <value unit="" xsi:type="PQ" value="NEGATIVE" /> < referenceRange> <observationRange> <text>NEGATIVE</text > </observationRange> </referenceRange> </observation > </component> <component> <observation moodCode="EVN" classCode="OBS"> <templateId root="05.22.840.1.707075.22.4.2" /> <id nullFlavor="NA" /> <code codeSystem="local" code="UROBILU " displayName="UA UROBILINOGEN DIPSTICK" /> <statusCode code="completed " /> <effectiveTime value="525653426594" /> <value unit="" xsi :type="PQ" value="NORMAL" /> <referenceRange> < observationRange> <text>NORMAL</text> </observationRange > </referenceRange> </observation> </component> < component> <observation moodCode="EVN" classCode="OBS"> < templateId root="216.840.1.850459.01.23.22.4.2" /> <id nullFlavor="NA " /> <code codeSystem="local" code="BILU" displayName="UA BILIRUBIN DIPSTICK" /> <statusCode code="completed" /> <effectiveTime value="064815449010" /> <value unit="" xsi:type="PQ" value="NEGATIVE" / > <referenceRange> <observationRange> <text> NEGATIVE</text> </observationRange> </referenceRange> </observation> </component> <component> <observation moodCode ="EVN" classCode="OBS"> <templateId root= "216.840.1.498597.01.23.22.4.2" /> <id nullFlavor="NA" /> < code codeSystem="local" code="HEIDI" displayName="UA BLOOD DIPSTICK" /> < statusCode code="completed" /> <effectiveTime value="582588339081" /> <value unit="" xsi:type="PQ" value="4+" /> < interpretationCode codeSystem="local" code="*" /> <referenceRange> <observationRange> <text>NEGATIVE</text> </ observationRange> </referenceRange> </observation> </ component> <component> <observation moodCode="EVN" classCode="OBS"> <templateId root="216.840.1.155909.01.23.22.4.2" /> <id nullFlavor="NA" /> <code codeSystem="local" code="EPIU" displayName=" UA EPITHELIAL CELLS" /> <statusCode code="completed" /> < effectiveTime value="564807626324" /> <value unit="epi/hpf" xsi:type= "PQ" value="1+" /> <referenceRange> <observationRange> <text>0 - 1+</text> </observationRange> </ referenceRange> </observation> </component> <component> <observation moodCode="EVN" classCode="OBS"> <templateId root= "216.840.1.866181.01.23.22.4.2" /> <id nullFlavor="NA" /> < code codeSystem="local" code="MUCUSU" displayName="UA MUCUS" /> < statusCode code="completed" /> <effectiveTime value="444083027203" /> <value unit="" xsi:type="PQ" value="1+" /> <referenceRange> <observationRange> <text>NEG TO 1+</text> </ observationRange> </referenceRange> </observation> </ component> <component> <observation moodCode="EVN" classCode="OBS"> <templateId root="2.16.840.1.418405...4.2" /> <id nullFlavor="NA" /> <code codeSystem="local" code="RBCU" displayName=" UA RBC" /> <statusCode code="completed" /> <effectiveTime value="735224988036" /> <value unit="rbc/hpf" xsi:type="PQ" value="> 100" /> <interpretationCode codeSystem="local" code="*" /> < referenceRange> <observationRange> <text>0 - 3</text> </observationRange> </referenceRange> </observation> </component> <component> <observation moodCode="EVN" classCode= "OBS"> <templateId root="216.840.1.899611.10..4.2" /> < id nullFlavor="NA" /> <code codeSystem="local" code="UAVOL" displayName ="UA VOLUME FOR EXAM" /> <statusCode code="completed" /> < effectiveTime value="734857043989" /> <value unit="mL" xsi:type="PQ" value="12.0" /> <referenceRange> <observationRange> <text>(12mL STD)</text> </observationRange> </ referenceRange> </observation> </component> <component> <observation moodCode="EVN" classCode="OBS"> <templateId root= "216.840.1.888169.01.23.22.4.2" /> <id nullFlavor="NA" /> < code codeSystem="local" code="WBCU" displayName="UA WBC" /> < statusCode code="completed" /> <effectiveTime value="130940301105" /> <value unit="wbc/hpf" xsi:type="PQ" value="0-1" /> < referenceRange> <observationRange> <text>0 - 5</text> </observationRange> </referenceRange> </observation> </component> <component> <observation moodCode="EVN" classCode= "OBS"> <templateId root="16.840.1.710998.10...4.2" /> < id nullFlavor="NA" /> <code codeSystem="local" code="SPGRU" displayName ="UA SPECIFIC GRAVITY" /> <statusCode code="completed" /> < effectiveTime value="491396409492" /> <value unit="" xsi:type="PQ" value="1.005" /> <interpretationCode codeSystem="local" code="*" /> <referenceRange> <observationRange> <text>1.015- 1.025</text> </observationRange> </referenceRange> </ observation> </component> <component> <observation moodCode= "EVN" classCode="OBS"> <templateId root="216.840.1.340379.10.4.2 " /> <id nullFlavor="NA" /> <code codeSystem="local" code="MARISA " displayName="UR PH" /> <statusCode code="completed" /> < effectiveTime value="818980717666" /> <value unit="" xsi:type="PQ" value="5.0" /> <referenceRange> <observationRange> <text>5.0-7.0</text> </observationRange> </ referenceRange> </observation> </component> </organizer> </entry > <entry> <organizer moodCode="EVN" classCode="BATTERY"> <templateId root="05.22.840.1.221199.01.23.22.4.1" /> <id nullFlavor="NA" /> <code codeSystem="local" code="GLUMON" displayName="GLUCOSE (POC)" /> < statusCode code="completed" /> <component> <observation moodCode= "EVN" classCode="OBS"> <templateId root="16.840.1.473962.10..4.2 " /> <id nullFlavor="NA" /> <code codeSystem="local" code= "GLUMON" displayName="GLUCOSE (POC)" /> <statusCode code="completed" / > <effectiveTime value="535124854913" /> <value unit="mg/dL" xsi:type="PQ" value="160" /> <interpretationCode codeSystem="local" code="*" /> <referenceRange> <observationRange> <text>70-99</text> </observationRange> </referenceRange> </observation> </component> </organizer> </entry> <entry> < organizer moodCode="EVN" classCode="BATTERY"> <templateId root= "16.840.1.376637.10...4.1" /> <id nullFlavor="NA" /> <code codeSystem="local" code="GLUMON" displayName="GLUCOSE (POC)" /> < statusCode code="completed" /> <component> <observation moodCode= "EVN" classCode="OBS"> <templateId root="05.22.840.1.530019.10..4.2 " /> <id nullFlavor="NA" /> <code codeSystem="local" code= "GLUMON" displayName="GLUCOSE (POC)" /> <statusCode code="completed" / > <effectiveTime value="713486973193" /> <value unit="mg/dL" xsi:type="PQ" value="203" /> <interpretationCode codeSystem="local" code="*" /> <referenceRange> <observationRange> <text>70-99</text> </observationRange> </referenceRange> </observation> </component> </organizer> </entry> <entry> < organizer moodCode="EVN" classCode="BATTERY"> <templateId root= "05.22.840.1.799620.10..4.1" /> <id nullFlavor="NA" /> <code codeSystem="local" code="GLUMON" displayName="GLUCOSE (POC)" /> < statusCode code="completed" /> <component> <observation moodCode= "EVN" classCode="OBS"> <templateId root="05.22.840.1.047337.01.23.22.4.2 " /> <id nullFlavor="NA" /> <code codeSystem="local" code= "GLUMON" displayName="GLUCOSE (POC)" /> <statusCode code="completed" / > <effectiveTime value="368270001742" /> <value unit="mg/dL" xsi:type="PQ" value="140" /> <interpretationCode codeSystem="local" code="*" /> <referenceRange> <observationRange> <text>70-99</text> </observationRange> </referenceRange> </observation> </component> </organizer> </entry> <entry> < organizer moodCode="EVN" classCode="BATTERY"> <templateId root= "05.22.840.1.861268.22.4.1" /> <id nullFlavor="NA" /> <code codeSystem="local" code="CBCD" displayName="CBC W/DIFF" /> <statusCode code ="completed" /> <component> <observation moodCode="EVN" classCode= "OBS"> <templateId root="05.22.840.1.808216.01.23.22.4.2" /> < id nullFlavor="NA" /> <code codeSystem="local" code="CBCCOM" displayName="COMMENT" /> <statusCode code="completed" /> < effectiveTime value="407676272481" /> <value unit="" xsi:type="PQ" value="REVIEWED" /> <referenceRange> <observationRange> <text /> </observationRange> </referenceRange> </observation> </component> <component> <observation moodCode="EVN" classCode="OBS"> <templateId root= "05.22.840.1.363143.10.22.4.2" /> <id nullFlavor="NA" /> < code codeSystem="local" code="GR#" displayName="GRANULOCYTE #" /> < statusCode code="completed" /> <effectiveTime value="" /> <value unit="k/cumm" xsi:type="PQ" value="12.5" /> < interpretationCode codeSystem="local" code="*" /> <referenceRange> <observationRange> <text>2.0-9.0</text> </ observationRange> </referenceRange> </observation> </ component> <component> <observation moodCode="EVN" classCode="OBS"> <templateId root="216.840.1.930466.10.4.2" /> <id nullFlavor="NA" /> <code codeSystem="local" code="GR%" displayName= "GRANULOCYTE %" /> <statusCode code="completed" /> < effectiveTime value="" /> <value unit="%" xsi:type="PQ " value="88" /> <interpretationCode codeSystem="local" code="*" /> <referenceRange> <observationRange> <text>50-75</ text> </observationRange> </referenceRange> </ observation> </component> <component> <observation moodCode= "EVN" classCode="OBS"> <templateId root="16.840.1.491511.10.4.2 " /> <id nullFlavor="NA" /> <code codeSystem="local" code="LY# " displayName="LYMPHOCYTE #" /> <statusCode code="completed" /> <effectiveTime value="" /> <value unit="k/cumm" xsi:type ="PQ" value="0.7" /> <interpretationCode codeSystem="local" code="*" / > <referenceRange> <observationRange> <text>1.0 -4.0</text> </observationRange> </referenceRange> </ observation> </component> <component> <observation moodCode= "EVN" classCode="OBS"> <templateId root="05.22.840.1.535565.10.20.22.4.2 " /> <id nullFlavor="NA" /> <code codeSystem="local" code="LY& #37;" displayName="LYMPHOCYTE %" /> <statusCode code="completed" / > <effectiveTime value="251203692195" /> <value unit="%" xsi:type="PQ" value="5" /> <interpretationCode codeSystem="local" code= "*" /> <referenceRange> <observationRange> < text>20-30</text> </observationRange> </referenceRange> </observation> </component> <component> <observation moodCode="EVN" classCode="OBS"> <templateId root= "05.22.840.1.480286.10.2022.4.2" /> <id nullFlavor="NA" /> < code codeSystem="local" code="MCH" displayName="MEAN CELL HGB" /> < statusCode code="completed" /> <effectiveTime value="921592987323" /> <value unit="pg" xsi:type="PQ" value="33.5" /> < interpretationCode codeSystem="local" code="*" /> <referenceRange> <observationRange> <text>27.0-33.0</text> </ observationRange> </referenceRange> </observation> </ component> <component> <observation moodCode="EVN" classCode="OBS"> <templateId root="05.22.840.1.733717.10.20.22.4.2" /> <id nullFlavor="NA" /> <code codeSystem="local" code="MCHC" displayName= "MEAN CELL HGB CONCENTRATION" /> <statusCode code="completed" /> <effectiveTime value="" /> <value unit="g/dL" xsi:type= "PQ" value="35.5" /> <referenceRange> <observationRange> <text>32.0-37.0</text> </observationRange> </ referenceRange> </observation> </component> <component> <observation moodCode="EVN" classCode="OBS"> <templateId root= "216.840.1.980385.10.20.22.4.2" /> <id nullFlavor="NA" /> < code codeSystem="local" code="MCV" displayName="MEAN CELL VOLUME" /> < statusCode code="completed" /> <effectiveTime value="" /> <value unit="fl" xsi:type="PQ" value="94.5" /> <referenceRange > <observationRange> <text>80.0-100.0</text> </observationRange> </referenceRange> </observation> </ component> <component> <observation moodCode="EVN" classCode="OBS"> <templateId root="216.840.1.343892.10.20.22.4.2" /> <id nullFlavor="NA" /> <code codeSystem="local" code="MO#" displayName= "MONOCYTE #" /> <statusCode code="completed" /> < effectiveTime value="" /> <value unit="k/cumm" xsi:type="PQ " value="1.0" /> <referenceRange> <observationRange> <text>0.1-1.0</text> </observationRange> </ referenceRange> </observation> </component> <component> <observation moodCode="EVN" classCode="OBS"> <templateId root= "216.840.1.640228.10..22.4.2" /> <id nullFlavor="NA" /> < code codeSystem="local" code="MO%" displayName="MONOCYTE %" /> <statusCode code="completed" /> <effectiveTime value="" /> <value unit="%" xsi:type="PQ" value="7" /> < interpretationCode codeSystem="local" code="*" /> <referenceRange> <observationRange> <text>4-6</text> </ observationRange> </referenceRange> </observation> </ component> <component> <observation moodCode="EVN" classCode="OBS"> <templateId root="05.22.840.1.438110.10..4.2" /> <id nullFlavor="NA" /> <code codeSystem="local" code="RBC" displayName=" RED BLOOD CELL" /> <statusCode code="completed" /> < effectiveTime value="" /> <value unit="m/cumm" xsi:type="PQ " value="3.10" /> <interpretationCode codeSystem="local" code="*" /> <referenceRange> <observationRange> <text>4.00- 6.00</text> </observationRange> </referenceRange> </ observation> </component> <component> <observation moodCode= "EVN" classCode="OBS"> <templateId root="16.840.1.153408.10.20.22.4.2 " /> <id nullFlavor="NA" /> <code codeSystem="local" code="RDW " displayName="RED CELL DISTRIBUTION WIDTH" /> <statusCode code= "completed" /> <effectiveTime value="" /> <value unit="%" xsi:type="PQ" value="12.1" /> <referenceRange> <observationRange> <text>11.0-15.6</text> </ observationRange> </referenceRange> </observation> </ component> <component> <observation moodCode="EVN" classCode="OBS"> <templateId root="216.840.1.083960.01.23.22.4.2" /> <id nullFlavor="NA" /> <code codeSystem="local" code="WBC" displayName= "WHITE BLOOD CELL" /> <statusCode code="completed" /> < effectiveTime value="454332635117" /> <value unit="k/cumm" xsi:type="PQ " value="14.3" /> <interpretationCode codeSystem="local" code="*" /> <referenceRange> <observationRange> <text>5.0- 10.0</text> </observationRange> </referenceRange> </ observation> </component> <component> <observation moodCode= "EVN" classCode="OBS"> <templateId root="216.840.1.242899.01.23.22.4.2 " /> <id nullFlavor="NA" /> <code codeSystem="local" code= "HGBT" displayName="HEMOGLOBIN" /> <statusCode code="completed" /> <effectiveTime value="[id number]" /> <value unit="gm/dL" xsi: type="PQ" value="10.4" /> <interpretationCode codeSystem="local" code= "*" /> <referenceRange> <observationRange> < text>14.0-18.0</text> </observationRange> </referenceRange> </observation> </component> <component> <observation moodCode="EVN" classCode="OBS"> <templateId root= "216.840.1.223319.01.23.22.4.2" /> <id nullFlavor="NA" /> < code codeSystem="local" code="HCTT" displayName="HEMATOCRIT" /> < statusCode code="completed" /> <effectiveTime value="[id number]" /> <value unit="%" xsi:type="PQ" value="29.3" /> < interpretationCode codeSystem="local" code="*" /> <referenceRange> <observationRange> <text>40.0-54.0</text> </ observationRange> </referenceRange> </observation> </ component> <component> <observation moodCode="EVN" classCode="OBS"> <templateId root="840.1.045003.01.23.22.4.2" /> <id nullFlavor="NA" /> <code codeSystem="local" code="PLT" displayName= "PLATELET COUNT" /> <statusCode code="completed" /> < effectiveTime value="" /> <value unit="k/cumm" xsi:type="PQ " value="176" /> <referenceRange> <observationRange> <text>150-400</text> </observationRange> </ referenceRange> </observation> </component> </organizer> </entry > <entry> <organizer moodCode="EVN" classCode="BATTERY"> <templateId root="840.1.542252.22.4.1" /> <id nullFlavor="NA" /> <code codeSystem="local" code="PT" displayName="PROTHROMBIN TIME WITH INR" /> < statusCode code="completed" /> <component> <observation moodCode= "EVN" classCode="OBS"> <templateId root="05.22.840.1.078332.22.4.2 " /> <id nullFlavor="NA" /> <code codeSystem="local" code= "INRX" displayName="INTERNATIONAL NORMAL RATIO" /> <statusCode code= "completed" /> <effectiveTime value="702615412680" /> <value unit="" xsi:type="PQ" value="1.1" /> <referenceRange> < observationRange> <text>0.9-1.1</text> </ observationRange> </referenceRange> </observation> </ component> <component> <observation moodCode="EVN" classCode="OBS"> <templateId root="840.1.864192.01.23.22.4.2" /> <id nullFlavor="NA" /> <code codeSystem="local" code="PTPAT" displayName= "PROTHROMBIN TIME" /> <statusCode code="completed" /> < effectiveTime value="508485473465" /> <value unit="sec" xsi:type="PQ" value="12.4" /> <interpretationCode codeSystem="local" code="*" /> <referenceRange> <observationRange> <text>9.3-12.2 </text> </observationRange> </referenceRange> </ observation> </component> </organizer> </entry> <entry> <organizer moodCode="EVN" classCode="BATTERY"> <templateId root= "840.1.246839.22.4.1" /> <id nullFlavor="NA" /> <code codeSystem="local" code="LACT" displayName="LACTIC ACID" /> <statusCode code="completed" /> <component> <observation moodCode="EVN" classCode="OBS"> <templateId root="840.1.376991.2022.4.2" /> <id nullFlavor="NA" /> <code codeSystem="local" code="LACT" displayName="LACTIC ACID" /> <statusCode code="completed" /> < effectiveTime value="[id number]" /> <value unit="mmol/L" xsi:type="PQ " value="0.8" /> <referenceRange> <observationRange> <text>0.5-2.2</text> </observationRange> </ referenceRange> </observation> </component> </organizer> </entry > <entry> <organizer moodCode="EVN" classCode="BATTERY"> <templateId root="05.22.840.1.518806.10...4.1" /> <id nullFlavor="NA" /> <code codeSystem="local" code="RENAL" displayName="RENAL FUNCTION PANEL" /> < statusCode code="completed" /> <component> <observation moodCode= "EVN" classCode="OBS"> <templateId root="05.22.840.1.428594.10..22.4.2 " /> <id nullFlavor="NA" /> <code codeSystem="local" code="K" displayName="POTASSIUM" /> <statusCode code="completed" /> < effectiveTime value="353728976127" /> <value unit="mmol/L" xsi:type="PQ " value="2.9" /> <interpretationCode codeSystem="local" code="*" /> <referenceRange> <observationRange> <text>3.5-5.3 </text> </observationRange> </referenceRange> </ observation> </component> <component> <observation moodCode= "EVN" classCode="OBS"> <templateId root="05.22.840.1.610196.10..22.4.2 " /> <id nullFlavor="NA" /> <code codeSystem="local" code= "eGFR" displayName="EST GFR (MDRD)" /> <statusCode code="completed" /> <effectiveTime value="" /> <value unit="mL/min" xsi:type="PQ" value="41" /> <interpretationCode codeSystem="local" code ="*" /> <referenceRange> <observationRange> < text>> 59</text> </observationRange> </referenceRange> </observation> </component> <component> <observation moodCode="EVN" classCode="OBS"> <templateId root= "216.840.1.314910.10.20.22.4.2" /> <id nullFlavor="NA" /> < code codeSystem="local" code="GAP" displayName="ANION GAP" /> < statusCode code="completed" /> <effectiveTime value="" /> <value unit="mmol/L" xsi:type="PQ" value="12" /> < referenceRange> <observationRange> <text>5-15</text> </observationRange> </referenceRange> </observation> </component> <component> <observation moodCode="EVN" classCode= "OBS"> <templateId root="216.840.1.337767.10..22.4.2" /> < id nullFlavor="NA" /> <code codeSystem="local" code="GLU" displayName= "GLUCOSE" /> <statusCode code="completed" /> <effectiveTime value="" /> <value unit="mg/dL" xsi:type="PQ" value="100" / > <interpretationCode codeSystem="local" code="*" /> < referenceRange> <observationRange> <text>70-99</text> </observationRange> </referenceRange> </observation> </component> <component> <observation moodCode="EVN" classCode= "OBS"> <templateId root="216.840.1.720599.10.20.22.4.2" /> < id nullFlavor="NA" /> <code codeSystem="local" code="CA" displayName= "CALCIUM" /> <statusCode code="completed" /> <effectiveTime value="" /> <value unit="mg/dL" xsi:type="PQ" value="7.0" / > <interpretationCode codeSystem="local" code="*" /> < referenceRange> <observationRange> <text>8.5-10.1</text > </observationRange> </referenceRange> </observation > </component> <component> <observation moodCode="EVN" classCode="OBS"> <templateId root="16.840.1.285483.10..22.4.2" /> <id nullFlavor="NA" /> <code codeSystem="local" code="BUN" displayName="BLOOD UREA NITROGEN" /> <statusCode code="completed" /> <effectiveTime value="" /> <value unit="mg/dL" xsi: type="PQ" value="31" /> <interpretationCode codeSystem="local" code="* " /> <referenceRange> <observationRange> <text> 7-20</text> </observationRange> </referenceRange> </ observation> </component> <component> <observation moodCode= "EVN" classCode="OBS"> <templateId root="16.840.1.064766.10.20.22.4.2 " /> <id nullFlavor="NA" /> <code codeSystem="local" code= "CREAT" displayName="CREATININE" /> <statusCode code="completed" /> <effectiveTime value="" /> <value unit="mg/dL" xsi: type="PQ" value="1.8" /> <interpretationCode codeSystem="local" code="* " /> <referenceRange> <observationRange> <text> 0.8-1.3</text> </observationRange> </referenceRange> </observation> </component> <component> <observation moodCode= "EVN" classCode="OBS"> <templateId root="216.840.1.821813.10..22.4.2 " /> <id nullFlavor="NA" /> <code codeSystem="local" code="NA " displayName="SODIUM" /> <statusCode code="completed" /> < effectiveTime value="" /> <value unit="mmol/L" xsi:type="PQ " value="140" /> <referenceRange> <observationRange> <text>135-148</text> </observationRange> </ referenceRange> </observation> </component> <component> <observation moodCode="EVN" classCode="OBS"> <templateId root= "05.22.840.1.918698...4.2" /> <id nullFlavor="NA" /> < code codeSystem="local" code="CL" displayName="CHLORIDE" /> < statusCode code="completed" /> <effectiveTime value="" /> <value unit="mmol/L" xsi:type="PQ" value="108" /> < referenceRange> <observationRange> <text>98-110</text> </observationRange> </referenceRange> </observation> </component> <component> <observation moodCode="EVN" classCode ="OBS"> <templateId root="05.22.840.1.223178.10.22.4.2" /> < id nullFlavor="NA" /> <code codeSystem="local" code="CO2" displayName= "CARBON DIOXIDE" /> <statusCode code="completed" /> < effectiveTime value="" /> <value unit="mmol/L" xsi:type="PQ " value="20" /> <interpretationCode codeSystem="local" code="*" /> <referenceRange> <observationRange> <text>21-32</ text> </observationRange> </referenceRange> </ observation> </component> <component> <observation moodCode= "EVN" classCode="OBS"> <templateId root="216.840.1.544369.10..22.4.2 " /> <id nullFlavor="NA" /> <code codeSystem="local" code="ALB " displayName="ALBUMIN" /> <statusCode code="completed" /> < effectiveTime value="" /> <value unit="gm/dL" xsi:type="PQ " value="2.5" /> <interpretationCode codeSystem="local" code="*" /> <referenceRange> <observationRange> <text>3.4-5.0 </text> </observationRange> </referenceRange> </ observation> </component> <component> <observation moodCode= "EVN" classCode="OBS"> <templateId root="216.840.1.165919.10.20.22.4.2 " /> <id nullFlavor="NA" /> <code codeSystem="local" code= "PHOS" displayName="PHOSPHORUS" /> <statusCode code="completed" /> <effectiveTime value="" /> <value unit="mg/dL" xsi: type="PQ" value="4.5" /> <referenceRange> <observationRange > <text>2.5-4.9</text> </observationRange> </ referenceRange> </observation> </component> </organizer> </entry > <entry> <organizer moodCode="EVN" classCode="BATTERY"> <templateId root="05.22.840.1.226960.10...4.1" /> <id nullFlavor="NA" /> <code codeSystem="local" code="HDLPRO" displayName="LIPID PANEL" /> <statusCode code="completed" /> <component> <observation moodCode="EVN" classCode="OBS"> <templateId root="05.22.840.1.292354...4.2" /> <id nullFlavor="NA" /> <code codeSystem="local" code="CHOL/HDL " displayName="CHOLESTEROL/HDL RATIO" /> <statusCode code="completed" / > <effectiveTime value="" /> <value unit="" xsi: type="PQ" value="1.8" /> <referenceRange> <observationRange > <text> < 5.0</text> </observationRange> </ referenceRange> </observation> </component> <component> <observation moodCode="EVN" classCode="OBS"> <templateId root= "05.22.840.1.602885.01.23.22.4.2" /> <id nullFlavor="NA" /> < code codeSystem="local" code="LDLX" displayName="LDL CHOLESTEROL" /> < statusCode code="completed" /> <effectiveTime value="" /> <value unit="mg/dL" xsi:type="PQ" value="31" /> < referenceRange> <observationRange> <text>< 100</text > </observationRange> </referenceRange> </observation > </component> <component> <observation moodCode="EVN" classCode="OBS"> <templateId root="05.22.840.1.897242...4.2" /> <id nullFlavor="NA" /> <code codeSystem="local" code="VLDL" displayName="VLDL CHOLESTEROL" /> <statusCode code="completed" /> <effectiveTime value="" /> <value unit="mg/dL" xsi: type="PQ" value="6" /> <referenceRange> <observationRange> <text>< 30</text> </observationRange> </ referenceRange> </observation> </component> <component> <observation moodCode="EVN" classCode="OBS"> <templateId root= "216.840.1.829831.10..4.2" /> <id nullFlavor="NA" /> < code codeSystem="local" code="TRIG" displayName="TRIGLYCERIDES" /> < statusCode code="completed" /> <effectiveTime value="" /> <value unit="mg/dL" xsi:type="PQ" value="31" /> < referenceRange> <observationRange> <text>< 150</text > </observationRange> </referenceRange> </observation > </component> <component> <observation moodCode="EVN" classCode="OBS"> <templateId root="216.840.1.637338.10...4.2" /> <id nullFlavor="NA" /> <code codeSystem="local" code="CHOL" displayName="CHOLESTEROL" /> <statusCode code="completed" /> < effectiveTime value="" /> <value unit="mg/dL" xsi:type="PQ " value="82" /> <referenceRange> <observationRange> <text>< 200</text> </observationRange> </ referenceRange> </observation> </component> <component> <observation moodCode="EVN" classCode="OBS"> <templateId root= "216.840.1.522261.10..4.2" /> <id nullFlavor="NA" /> < code codeSystem="local" code="HDL" displayName="HDL CHOLESTEROL" /> < statusCode code="completed" /> <effectiveTime value="" /> <value unit="mg/dL" xsi:type="PQ" value="45" /> < referenceRange> <observationRange> <text>> 39</text> </observationRange> </referenceRange> </observation > </component> </organizer> </entry> <entry> <organizer moodCode= "EVN" classCode="BATTERY"> <templateId root="216.840.1.540692.10...4.1 " /> <id nullFlavor="NA" /> <code codeSystem="local" code="MAG" displayName="MAGNESIUM" /> <statusCode code="completed" /> <component > <observation moodCode="EVN" classCode="OBS"> <templateId root= "216.840.1.258412.10..22.4.2" /> <id nullFlavor="NA" /> < code codeSystem="local" code="MAG" displayName="MAGNESIUM" /> < statusCode code="completed" /> <effectiveTime value="" /> <value unit="mg/dL" xsi:type="PQ" value="1.4" /> < interpretationCode codeSystem="local" code="*" /> <referenceRange> <observationRange> <text>1.8-2.4</text> </ observationRange> </referenceRange> </observation> </ component> </organizer> </entry> <entry> <organizer moodCode="EVN" classCode="BATTERY"> <templateId root="216.840.1.211499.10.20.22.4.1" /> <id nullFlavor="NA" /> <code codeSystem="local" code="AMANDA" displayName="CAMPYLOBACTER ANTIGEN" /> <statusCode code="completed" /> <component> <observation moodCode="EVN" classCode="OBS"> < templateId root="2.16.840.1.835656.10.20.22.4.2" /> <id nullFlavor="NA " /> <code codeSystem="local" code="UNC" displayName="Uncategorized" / > <statusCode code="completed" /> <effectiveTime value= "738503873099" /> <value xsi:type="ST" value="<pre><b>CAMPYLOBACTER ANTIGEN - STOOL CULTURE - E. COLI SHIGA-LIKE TOXIN</b> See BelowCAMPYLOBACTER ANTIGEN(F) Albaro Date/Time: 11/12/2012 09:30 Liza Date/Time: 11/14/2012 08:27SOURCE: STOOLSPEC DESC: CAMPYLOBACTER ANTIGENNEGATIVEST. [facility] [id number] [place], [place] [address]See BelowSTOOL CULTURE(F) Albaro Date/Time: 11/12/2012 09:30 Liza Date/Time: 11/14/2012 08:27SOURCE: STOOLSPEC DESC: NO ANTONETTE OR SHIGNEGATIVE FOR SALMONELLA AND SHIGELLANO E. COLI 0157NO E. COLI 0157 :H7 ISOLATEDST. MARY'S [facility] [id number] [place], [place] [id number] BelowE. COLI SHIGA-LIKE TOXIN(F) Albaro Date/Time: 11/12/2012 09:30 Liza Date/Time: 11/14/2012 08:27SOURCE: STOOLSPEC DESC: SHIGA-TOXIN 1NEGATIVESHIGA-TOXIN 2NEGATIVEST. MARY'S H[facility] [id number] [place] [address]</pre>" /> <referenceRange> < observationRange> <text /> </observationRange> </referenceRange> </observation> </component> </organizer> </ entry> <entry> <organizer moodCode="EVN" classCode="BATTERY"> < templateId root="05.22.840.1.495209.10..22.4.1" /> <id nullFlavor="NA" /> <code codeSystem="local" code="STWBC" displayName="STOOL LEUKOCYTES" /> <statusCode code="completed" /> <component> <observation moodCode="EVN" classCode="OBS"> <templateId root= "05.22.840.1.605077.10...4.2" /> <id nullFlavor="NA" /> < code codeSystem="local" code="UNC" displayName="Uncategorized" /> < statusCode code="completed" /> <effectiveTime value="256161634834" /> <value xsi:type="ST" value="<pre><b>STOOL LEUKOCYTES</b> See BelowSTOOL LEUKOCYTES(F) Albaro Date/Time: 11/12/2012 09:30 Liza Date/Time: 11/12/2012 11:47SOURCE: STOOLSPEC DESC: UNKNOWNSTWBC RESULT (Abnormal)MANY NEUTROPHILS SEEN (Abnormal)[facility] - [id number] [place] [address]</pre>" /> <referenceRange> <observationRange> <text /> </observationRange > </referenceRange> </observation> </component> </ organizer> </entry> <entry> <organizer moodCode="EVN" classCode="BATTERY"> <templateId root="2.840.1.007569.10...4.1" /> <id nullFlavor= "NA" /> <code codeSystem="local" code="OP" displayName="OVA AND PARASITES" /> <statusCode code="completed" /> <component> <observation moodCode="EVN" classCode="OBS"> <templateId root= "05.22.830.1.977471.10.20.22.4.2" /> <id nullFlavor="NA" /> < code codeSystem="local" code="UNC" displayName="Uncategorized" /> < statusCode code="completed" /> <effectiveTime value="476405655427" /> <value xsi:type="ST" value="<pre><b>OVA AND PARASITES</b> See BelowOVA AND PARASITES(F) Albaro Date/Time: 11/12/2012 09:30 Liza Date/Time: 11/12/2012 14:20SOURCE: STOOLSPEC DESC: CRYPTOSPORIDIUM, CYCLOSPORA AND MICROSPORIDIA WILL NOT BEDETECTED BY THIS METHOD.OP REPORTMODERATE BLASTOCYSTIS HOMINIS (Abnormal)[facility] - [id number] [place] [address]</pre>" /> <referenceRange> <observationRange> <text /> </observationRange> </referenceRange> </observation> </component> </ organizer> </entry> <entry> <organizer moodCode="EVN" classCode="BATTERY"> <templateId root="2.16.840.1.165588.10.20.22.4.1" /> <id nullFlavor= "NA" /> <code codeSystem="local" code="GLUMON" displayName="GLUCOSE (POC)" /> <statusCode code="completed" /> <component> <observation moodCode="EVN" classCode="OBS"> <templateId root= "2.16.840.1.496498.10.20.22.4.2" /> <id nullFlavor="NA" /> < code codeSystem="local" code="GLUMON" displayName="GLUCOSE (POC)" /> < statusCode code="completed" /> <effectiveTime value="136157405030" /> <value unit="mg/dL" xsi:type="PQ" value="131" /> < interpretationCode codeSystem="local" code="*" /> <referenceRange> <observationRange> <text>70-99</text> </ observationRange> </referenceRange> </observation> </ component> </organizer> </entry> <entry> <organizer moodCode="EVN" classCode="BATTERY"> <templateId root="16.840.1.267966.10..4.1" /> <id nullFlavor="NA" /> <code codeSystem="local" code="CBCD" displayName="CBC W/DIFF" /> <statusCode code="completed" /> <component > <observation moodCode="EVN" classCode="OBS"> <templateId root= "16.840.1.076923...4.2" /> <id nullFlavor="NA" /> < code codeSystem="local" code="EO#" displayName="EOSINOPHIL #" /> < statusCode code="completed" /> <effectiveTime value="" /> <value unit="k/cumm" xsi:type="PQ" value="0.1" /> < referenceRange> <observationRange> <text>0.1-0.5</text> </observationRange> </referenceRange> </observation > </component> <component> <observation moodCode="EVN" classCode="OBS"> <templateId root="05.22.840.1.186599.01.23.22.4.2" /> <id nullFlavor="NA" /> <code codeSystem="local" code="EO% " displayName="EOSINOPHIL %" /> <statusCode code="completed" /> <effectiveTime value="" /> <value unit="%" xsi: type="PQ" value="1" /> <interpretationCode codeSystem="local" code="*" /> <referenceRange> <observationRange> <text>2- 4</text> </observationRange> </referenceRange> </ observation> </component> <component> <observation moodCode= "EVN" classCode="OBS"> <templateId root="16.840.1.902443.10.20.22.4.2 " /> <id nullFlavor="NA" /> <code codeSystem="local" code="GR# " displayName="GRANULOCYTE #" /> <statusCode code="completed" /> <effectiveTime value="121927221841" /> <value unit="k/cumm" xsi: type="PQ" value="9.2" /> <interpretationCode codeSystem="local" code="* " /> <referenceRange> <observationRange> <text> 2.0-9.0</text> </observationRange> </referenceRange> </observation> </component> <component> <observation moodCode= "EVN" classCode="OBS"> <templateId root="05.22.840.1.025433.10..22.4.2 " /> <id nullFlavor="NA" /> <code codeSystem="local" code="GR& #37;" displayName="GRANULOCYTE %" /> <statusCode code="completed" / > <effectiveTime value="681410405063" /> <value unit="%" xsi:type="PQ" value="82" /> <interpretationCode codeSystem="local" code ="*" /> <referenceRange> <observationRange> < text>50-75</text> </observationRange> </referenceRange> </observation> </component> <component> <observation moodCode="EVN" classCode="OBS"> <templateId root= "05.22.840.1.888925.10.20.22.4.2" /> <id nullFlavor="NA" /> < code codeSystem="local" code="LY#" displayName="LYMPHOCYTE #" /> < statusCode code="completed" /> <effectiveTime value="744977737856" /> <value unit="k/cumm" xsi:type="PQ" value="1.0" /> < referenceRange> <observationRange> <text>1.0-4.0</text> </observationRange> </referenceRange> </observation > </component> <component> <observation moodCode="EVN" classCode="OBS"> <templateId root="2.16.840.1.438929.10..4.2" /> <id nullFlavor="NA" /> <code codeSystem="local" code="LY% " displayName="LYMPHOCYTE %" /> <statusCode code="completed" /> <effectiveTime value="907994806803" /> <value unit="%" xsi: type="PQ" value="9" /> <interpretationCode codeSystem="local" code="*" /> <referenceRange> <observationRange> <text>20 -30</text> </observationRange> </referenceRange> </ observation> </component> <component> <observation moodCode= "EVN" classCode="OBS"> <templateId root="216.840.1.520600.10.2022.4.2 " /> <id nullFlavor="NA" /> <code codeSystem="local" code="MCH " displayName="MEAN CELL HGB" /> <statusCode code="completed" /> <effectiveTime value="194697423933" /> <value unit="pg" xsi:type= "PQ" value="33.4" /> <interpretationCode codeSystem="local" code="*" / > <referenceRange> <observationRange> <text> 27.0-33.0</text> </observationRange> </referenceRange> </observation> </component> <component> <observation moodCode="EVN" classCode="OBS"> <templateId root= "216.840.1.305886.10.4.2" /> <id nullFlavor="NA" /> < code codeSystem="local" code="MCHC" displayName="MEAN CELL HGB CONCENTRATION" / > <statusCode code="completed" /> <effectiveTime value= "" /> <value unit="g/dL" xsi:type="PQ" value="34.9" /> <referenceRange> <observationRange> <text>32.0- 37.0</text> </observationRange> </referenceRange> </ observation> </component> <component> <observation moodCode= "EVN" classCode="OBS"> <templateId root="05.22.840.1.389498.01.23.22.4.2 " /> <id nullFlavor="NA" /> <code codeSystem="local" code="MCV " displayName="MEAN CELL VOLUME" /> <statusCode code="completed" /> <effectiveTime value="" /> <value unit="fl" xsi:type ="PQ" value="95.8" /> <referenceRange> <observationRange> <text>80.0-100.0</text> </observationRange> </ referenceRange> </observation> </component> <component> <observation moodCode="EVN" classCode="OBS"> <templateId root= "05.22.840.1.277313.01.23.22.4.2" /> <id nullFlavor="NA" /> < code codeSystem="local" code="MO#" displayName="MONOCYTE #" /> < statusCode code="completed" /> <effectiveTime value="" /> <value unit="k/cumm" xsi:type="PQ" value="0.9" /> < referenceRange> <observationRange> <text>0.1-1.0</text> </observationRange> </referenceRange> </observation > </component> <component> <observation moodCode="EVN" classCode="OBS"> <templateId root="2.16.840.1.757778.01.23.22.4.2" /> <id nullFlavor="NA" /> <code codeSystem="local" code="MO% " displayName="MONOCYTE %" /> <statusCode code="completed" /> <effectiveTime value="152185861933" /> <value unit="%" xsi: type="PQ" value="8" /> <interpretationCode codeSystem="local" code="*" /> <referenceRange> <observationRange> <text>4- 6</text> </observationRange> </referenceRange> </ observation> </component> <component> <observation moodCode= "EVN" classCode="OBS"> <templateId root="2.16.840.1.584334.01.23.22.4.2 " /> <id nullFlavor="NA" /> <code codeSystem="local" code="RBC " displayName="RED BLOOD CELL" /> <statusCode code="completed" /> <effectiveTime value="953698652681" /> <value unit="m/cumm" xsi: type="PQ" value="3.11" /> <interpretationCode codeSystem="local" code= "*" /> <referenceRange> <observationRange> < text>4.00-6.00</text> </observationRange> </referenceRange> </observation> </component> <component> <observation moodCode="EVN" classCode="OBS"> <templateId root= "05.22.840.1.987158.102022.4.2" /> <id nullFlavor="NA" /> < code codeSystem="local" code="RDW" displayName="RED CELL DISTRIBUTION WIDTH" /> <statusCode code="completed" /> <effectiveTime value= "" /> <value unit="%" xsi:type="PQ" value="12.5" /> <referenceRange> <observationRange> <text>11.0- 15.6</text> </observationRange> </referenceRange> </ observation> </component> <component> <observation moodCode= "EVN" classCode="OBS"> <templateId root="840.1.198122.22.4.2 " /> <id nullFlavor="NA" /> <code codeSystem="local" code="WBC " displayName="WHITE BLOOD CELL" /> <statusCode code="completed" /> <effectiveTime value="" /> <value unit="k/cumm" xsi: type="PQ" value="11.2" /> <interpretationCode codeSystem="local" code= "*" /> <referenceRange> <observationRange> < text>5.0-10.0</text> </observationRange> </referenceRange> </observation> </component> <component> <observation moodCode="EVN" classCode="OBS"> <templateId root= "840.1.249114.1022.4.2" /> <id nullFlavor="NA" /> < code codeSystem="local" code="HGBT" displayName="HEMOGLOBIN" /> < statusCode code="completed" /> <effectiveTime value="" /> <value unit="gm/dL" xsi:type="PQ" value="10.4" /> < interpretationCode codeSystem="local" code="*" /> <referenceRange> <observationRange> <text>14.0-18.0</text> </ observationRange> </referenceRange> </observation> </ component> <component> <observation moodCode="EVN" classCode="OBS"> <templateId root="216.840.1.249522.10.20.22.4.2" /> <id nullFlavor="NA" /> <code codeSystem="local" code="HCTT" displayName= "HEMATOCRIT" /> <statusCode code="completed" /> < effectiveTime value="052208922450" /> <value unit="%" xsi:type="PQ " value="29.8" /> <interpretationCode codeSystem="local" code="*" /> <referenceRange> <observationRange> <text>40.0- 54.0</text> </observationRange> </referenceRange> </ observation> </component> <component> <observation moodCode= "EVN" classCode="OBS"> <templateId root="16.840.1.931662.10...4.2 " /> <id nullFlavor="NA" /> <code codeSystem="local" code="PLT " displayName="PLATELET COUNT" /> <statusCode code="completed" /> <effectiveTime value="964553372662" /> <value unit="k/cumm" xsi: type="PQ" value="166" /> <referenceRange> <observationRange > <text>150-400</text> </observationRange> </ referenceRange> </observation> </component> </organizer> </entry > <entry> <organizer moodCode="EVN" classCode="BATTERY"> <templateId root="216.840.1.420085.10..22.4.1" /> <id nullFlavor="NA" /> <code codeSystem="local" code="RENAL" displayName="RENAL FUNCTION PANEL" /> < statusCode code="completed" /> <component> <observation moodCode= "EVN" classCode="OBS"> <templateId root="840.1.499625.10..4.2 " /> <id nullFlavor="NA" /> <code codeSystem="local" code="K" displayName="POTASSIUM" /> <statusCode code="completed" /> < effectiveTime value="070588635944" /> <value unit="mmol/L" xsi:type="PQ " value="2.8" /> <interpretationCode codeSystem="local" code="*" /> <referenceRange> <observationRange> <text>3.5-5.3 </text> </observationRange> </referenceRange> </ observation> </component> <component> <observation moodCode= "EVN" classCode="OBS"> <templateId root="840.1.549356.10.4.2 " /> <id nullFlavor="NA" /> <code codeSystem="local" code= "eGFR" displayName="EST GFR (MDRD)" /> <statusCode code="completed" /> <effectiveTime value="112373371090" /> <value unit="mL/min" xsi:type="PQ" value="47" /> <interpretationCode codeSystem="local" code ="*" /> <referenceRange> <observationRange> < text>> 59</text> </observationRange> </referenceRange> </observation> </component> <component> <observation moodCode="EVN" classCode="OBS"> <templateId root= "05.22.840.1.481589.10..22.4.2" /> <id nullFlavor="NA" /> < code codeSystem="local" code="GAP" displayName="ANION GAP" /> < statusCode code="completed" /> <effectiveTime value="945657467642" /> <value unit="mmol/L" xsi:type="PQ" value="9" /> < referenceRange> <observationRange> <text>5-15</text> </observationRange> </referenceRange> </observation> </component> <component> <observation moodCode="EVN" classCode= "OBS"> <templateId root="216.840.1.949277.10.20.22.4.2" /> < id nullFlavor="NA" /> <code codeSystem="local" code="GLU" displayName= "GLUCOSE" /> <statusCode code="completed" /> <effectiveTime value="236196958558" /> <value unit="mg/dL" xsi:type="PQ" value="193" / > <interpretationCode codeSystem="local" code="*" /> < referenceRange> <observationRange> <text>70-99</text> </observationRange> </referenceRange> </observation> </component> <component> <observation moodCode="EVN" classCode= "OBS"> <templateId root="216.840.1.412269.10.20.22.4.2" /> < id nullFlavor="NA" /> <code codeSystem="local" code="CA" displayName= "CALCIUM" /> <statusCode code="completed" /> <effectiveTime value="110084265134" /> <value unit="mg/dL" xsi:type="PQ" value="7.9" / > <interpretationCode codeSystem="local" code="*" /> < referenceRange> <observationRange> <text>8.5-10.1</text > </observationRange> </referenceRange> </observation > </component> <component> <observation moodCode="EVN" classCode="OBS"> <templateId root="16.840.1.860319.10...4.2" /> <id nullFlavor="NA" /> <code codeSystem="local" code="BUN" displayName="BLOOD UREA NITROGEN" /> <statusCode code="completed" /> <effectiveTime value="953145868150" /> <value unit="mg/dL" xsi: type="PQ" value="25" /> <interpretationCode codeSystem="local" code="* " /> <referenceRange> <observationRange> <text> 7-20</text> </observationRange> </referenceRange> </ observation> </component> <component> <observation moodCode= "EVN" classCode="OBS"> <templateId root="05.22.840.1.271449.01.23.22.4.2 " /> <id nullFlavor="NA" /> <code codeSystem="local" code= "CREAT" displayName="CREATININE" /> <statusCode code="completed" /> <effectiveTime value="919936047730" /> <value unit="mg/dL" xsi: type="PQ" value="1.6" /> <interpretationCode codeSystem="local" code="* " /> <referenceRange> <observationRange> <text> 0.8-1.3</text> </observationRange> </referenceRange> </observation> </component> <component> <observation moodCode= "EVN" classCode="OBS"> <templateId root="05.22.840.1.534874...4.2 " /> <id nullFlavor="NA" /> <code codeSystem="local" code="NA " displayName="SODIUM" /> <statusCode code="completed" /> < effectiveTime value="719699835971" /> <value unit="mmol/L" xsi:type="PQ " value="140" /> <referenceRange> <observationRange> <text>135-148</text> </observationRange> </ referenceRange> </observation> </component> <component> <observation moodCode="EVN" classCode="OBS"> <templateId root= "16.840.1.919274.10...4.2" /> <id nullFlavor="NA" /> < code codeSystem="local" code="CL" displayName="CHLORIDE" /> < statusCode code="completed" /> <effectiveTime value="247883125302" /> <value unit="mmol/L" xsi:type="PQ" value="108" /> < referenceRange> <observationRange> <text>98-110</text> </observationRange> </referenceRange> </observation> </component> <component> <observation moodCode="EVN" classCode ="OBS"> <templateId root="05.22.840.1.056646.10..4.2" /> < id nullFlavor="NA" /> <code codeSystem="local" code="CO2" displayName= "CARBON DIOXIDE" /> <statusCode code="completed" /> < effectiveTime value="931763237998" /> <value unit="mmol/L" xsi:type="PQ " value="23" /> <referenceRange> <observationRange> <text>21-32</text> </observationRange> </ referenceRange> </observation> </component> <component> <observation moodCode="EVN" classCode="OBS"> <templateId root= "05.22.840.1.937534.10..22.4.2" /> <id nullFlavor="NA" /> < code codeSystem="local" code="ALB" displayName="ALBUMIN" /> < statusCode code="completed" /> <effectiveTime value="828348035211" /> <value unit="gm/dL" xsi:type="PQ" value="2.3" /> < interpretationCode codeSystem="local" code="*" /> <referenceRange> <observationRange> <text>3.4-5.0</text> </ observationRange> </referenceRange> </observation> </ component> <component> <observation moodCode="EVN" classCode="OBS"> <templateId root="840.1.834468.01.23.22.4.2" /> <id nullFlavor="NA" /> <code codeSystem="local" code="PHOS" displayName= "PHOSPHORUS" /> <statusCode code="completed" /> < effectiveTime value="740583786024" /> <value unit="mg/dL" xsi:type="PQ " value="0.9" /> <interpretationCode codeSystem="local" code="" /> <referenceRange> <observationRange> <text>2.5- 4.9</text> </observationRange> </referenceRange> </ observation> </component> </organizer> </entry> <entry> <organizer moodCode="EVN" classCode="BATTERY"> <templateId root= "840.1.110742.01.23.22.4.1" /> <id nullFlavor="NA" /> <code codeSystem="local" code="MAG" displayName="MAGNESIUM" /> <statusCode code= "completed" /> <component> <observation moodCode="EVN" classCode= "OBS"> <templateId root="05.22.840.1.119023.22.4.2" /> < id nullFlavor="NA" /> <code codeSystem="local" code="MAG" displayName= "MAGNESIUM" /> <statusCode code="completed" /> <effectiveTime value="206706560130" /> <value unit="mg/dL" xsi:type="PQ" value="1.7" / > <interpretationCode codeSystem="local" code="*" /> < referenceRange> <observationRange> <text>1.8-2.4</text> </observationRange> </referenceRange> </observation > </component> </organizer> </entry> <entry> <organizer moodCode= "EVN" classCode="BATTERY"> <templateId root="16.840.1.289740.10..22.4.1 " /> <id nullFlavor="NA" /> <code codeSystem="local" code="GLUMON" displayName="GLUCOSE (POC)" /> <statusCode code="completed" /> < component> <observation moodCode="EVN" classCode="OBS"> < templateId root="05.22.840.1.880879.10.20.22.4.2" /> <id nullFlavor="NA " /> <code codeSystem="local" code="GLUMON" displayName="GLUCOSE (POC) " /> <statusCode code="completed" /> <effectiveTime value= "222812838480" /> <value unit="mg/dL" xsi:type="PQ" value="219" /> <interpretationCode codeSystem="local" code="*" /> < referenceRange> <observationRange> <text>70-99</text> </observationRange> </referenceRange> </observation> </component> </organizer> </entry> <entry> <organizer moodCode="EVN " classCode="BATTERY"> <templateId root="05.22.840.1.212851.10.20.22.4.1" / > <id nullFlavor="NA" /> <code codeSystem="local" code="GLUMON" displayName="GLUCOSE (POC)" /> <statusCode code="completed" /> < component> <observation moodCode="EVN" classCode="OBS"> < templateId root="216.840.1.646823.10.4.2" /> <id nullFlavor="NA " /> <code codeSystem="local" code="GLUMON" displayName="GLUCOSE (POC) " /> <statusCode code="completed" /> <effectiveTime value= "967060215189" /> <value unit="mg/dL" xsi:type="PQ" value="67" /> <interpretationCode codeSystem="local" code="*" /> <referenceRange > <observationRange> <text>70-99</text> </ observationRange> </referenceRange> </observation> </ component> </organizer> </entry> <entry> <organizer moodCode="EVN" classCode="BATTERY"> <templateId root="216.840.1.923386.10..4.1" /> <id nullFlavor="NA" /> <code codeSystem="local" code="RENAL" displayName="RENAL FUNCTION PANEL" /> <statusCode code="completed" /> <component> <observation moodCode="EVN" classCode="OBS"> < templateId root="216.840.1.742421.10.22.4.2" /> <id nullFlavor="NA " /> <code codeSystem="local" code="K" displayName="POTASSIUM" /> <statusCode code="completed" /> <effectiveTime value="292006876283 " /> <value unit="mmol/L" xsi:type="PQ" value="3.6" /> < referenceRange> <observationRange> <text>3.5-5.3</text> </observationRange> </referenceRange> </observation > </component> <component> <observation moodCode="EVN" classCode="OBS"> <templateId root="2.16.840.1.415335.10..22.4.2" /> <id nullFlavor="NA" /> <code codeSystem="local" code="eGFR" displayName="EST GFR (MDRD)" /> <statusCode code="completed" /> <effectiveTime value="" /> <value unit="mL/min" xsi:type ="PQ" value="51" /> <interpretationCode codeSystem="local" code="*" /> <referenceRange> <observationRange> <text>&gt ; 59</text> </observationRange> </referenceRange> </ observation> </component> <component> <observation moodCode= "EVN" classCode="OBS"> <templateId root="216.840.1.498761.01.23.22.4.2 " /> <id nullFlavor="NA" /> <code codeSystem="local" code="GAP " displayName="ANION GAP" /> <statusCode code="completed" /> < effectiveTime value="" /> <value unit="mmol/L" xsi:type="PQ " value="8" /> <referenceRange> <observationRange> <text>5-15</text> </observationRange> </referenceRange > </observation> </component> <component> <observation moodCode="EVN" classCode="OBS"> <templateId root= "216.840.1.018546.10..22.4.2" /> <id nullFlavor="NA" /> < code codeSystem="local" code="GLU" displayName="GLUCOSE" /> < statusCode code="completed" /> <effectiveTime value="" /> <value unit="mg/dL" xsi:type="PQ" value="167" /> < interpretationCode codeSystem="local" code="*" /> <referenceRange> <observationRange> <text>70-99</text> </ observationRange> </referenceRange> </observation> </ component> <component> <observation moodCode="EVN" classCode="OBS"> <templateId root="216.840.1.256474.1022.4.2" /> <id nullFlavor="NA" /> <code codeSystem="local" code="CA" displayName= "CALCIUM" /> <statusCode code="completed" /> <effectiveTime value="275711556894" /> <value unit="mg/dL" xsi:type="PQ" value="7.8" / > <interpretationCode codeSystem="local" code="*" /> < referenceRange> <observationRange> <text>8.5-10.1</text > </observationRange> </referenceRange> </observation > </component> <component> <observation moodCode="EVN" classCode="OBS"> <templateId root="05.22.840.1.909179.22.4.2" /> <id nullFlavor="NA" /> <code codeSystem="local" code="BUN" displayName="BLOOD UREA NITROGEN" /> <statusCode code="completed" /> <effectiveTime value="748059947582" /> <value unit="mg/dL" xsi: type="PQ" value="19" /> <referenceRange> <observationRange> <text>7-20</text> </observationRange> </ referenceRange> </observation> </component> <component> <observation moodCode="EVN" classCode="OBS"> <templateId root= "05.22.840.1.450926..20.22.4.2" /> <id nullFlavor="NA" /> < code codeSystem="local" code="CREAT" displayName="CREATININE" /> < statusCode code="completed" /> <effectiveTime value="" /> <value unit="mg/dL" xsi:type="PQ" value="1.5" /> < interpretationCode codeSystem="local" code="*" /> <referenceRange> <observationRange> <text>0.8-1.3</text> </ observationRange> </referenceRange> </observation> </ component> <component> <observation moodCode="EVN" classCode="OBS"> <templateId root="2.16.840.1.692457.10...4.2" /> <id nullFlavor="NA" /> <code codeSystem="local" code="NA" displayName= "SODIUM" /> <statusCode code="completed" /> <effectiveTime value="" /> <value unit="mmol/L" xsi:type="PQ" value="137" /> <referenceRange> <observationRange> <text> 135-148</text> </observationRange> </referenceRange> </observation> </component> <component> <observation moodCode= "EVN" classCode="OBS"> <templateId root="2.16.840.1.287836.10..22.4.2 " /> <id nullFlavor="NA" /> <code codeSystem="local" code="CL " displayName="CHLORIDE" /> <statusCode code="completed" /> < effectiveTime value="" /> <value unit="mmol/L" xsi:type="PQ " value="104" /> <referenceRange> <observationRange> <text>98-110</text> </observationRange> </ referenceRange> </observation> </component> <component> <observation moodCode="EVN" classCode="OBS"> <templateId root= "16.840.1.232925.10..22.4.2" /> <id nullFlavor="NA" /> < code codeSystem="local" code="CO2" displayName="CARBON DIOXIDE" /> < statusCode code="completed" /> <effectiveTime value="" /> <value unit="mmol/L" xsi:type="PQ" value="25" /> < referenceRange> <observationRange> <text>21-32</text> </observationRange> </referenceRange> </observation> </component> <component> <observation moodCode="EVN" classCode= "OBS"> <templateId root="05.22.840.1.367504.01.23.22.4.2" /> < id nullFlavor="NA" /> <code codeSystem="local" code="ALB" displayName= "ALBUMIN" /> <statusCode code="completed" /> <effectiveTime value="" /> <value unit="gm/dL" xsi:type="PQ" value="2.4" / > <interpretationCode codeSystem="local" code="*" /> < referenceRange> <observationRange> <text>3.4-5.0</text> </observationRange> </referenceRange> </observation > </component> <component> <observation moodCode="EVN" classCode="OBS"> <templateId root="05.22.840.1.136334.10.2022.4.2" /> <id nullFlavor="NA" /> <code codeSystem="local" code="PHOS" displayName="PHOSPHORUS" /> <statusCode code="completed" /> < effectiveTime value="" /> <value unit="mg/dL" xsi:type="PQ " value="2.8" /> <referenceRange> <observationRange> <text>2.5-4.9</text> </observationRange> </ referenceRange> </observation> </component> </organizer> </entry > <entry> <organizer moodCode="EVN" classCode="BATTERY"> <templateId root="05.22.840.1.767308.10..22.4.1" /> <id nullFlavor="NA" /> <code codeSystem="local" code="GLUMON" displayName="GLUCOSE (POC)" /> < statusCode code="completed" /> <component> <observation moodCode= "EVN" classCode="OBS"> <templateId root="840.1.087044...4.2 " /> <id nullFlavor="NA" /> <code codeSystem="local" code= "GLUMON" displayName="GLUCOSE (POC)" /> <statusCode code="completed" / > <effectiveTime value="148747198839" /> <value unit="mg/dL" xsi:type="PQ" value="107" /> <interpretationCode codeSystem="local" code="*" /> <referenceRange> <observationRange> <text>70-99</text> </observationRange> </referenceRange> </observation> </component> </organizer> </entry> <entry> < organizer moodCode="EVN" classCode="BATTERY"> <templateId root= "05.22.840.1.160822.10.22.4.1" /> <id nullFlavor="NA" /> <code codeSystem="local" code="GLUMON" displayName="GLUCOSE (POC)" /> < statusCode code="completed" /> <component> <observation moodCode= "EVN" classCode="OBS"> <templateId root="05.22.840.1.049480.10..4.2 " /> <id nullFlavor="NA" /> <code codeSystem="local" code= "GLUMON" displayName="GLUCOSE (POC)" /> <statusCode code="completed" / > <effectiveTime value="844788178403" /> <value unit="mg/dL" xsi:type="PQ" value="87" /> <referenceRange> < observationRange> <text>70-99</text> </observationRange > </referenceRange> </observation> </component> </ organizer> </entry> <entry> <organizer moodCode="EVN" classCode="BATTERY"> <templateId root="216.840.1.406925.10..4.1" /> <id nullFlavor= "NA" /> <code codeSystem="local" code="GLUMON" displayName="GLUCOSE (POC)" /> <statusCode code="completed" /> <component> <observation moodCode="EVN" classCode="OBS"> <templateId root= "216.840.1.238471.10..22.4.2" /> <id nullFlavor="NA" /> < code codeSystem="local" code="GLUMON" displayName="GLUCOSE (POC)" /> < statusCode code="completed" /> <effectiveTime value="375806542020" /> <value unit="mg/dL" xsi:type="PQ" value="115" /> < interpretationCode codeSystem="local" code="*" /> <referenceRange> <observationRange> <text>70-99</text> </ observationRange> </referenceRange> </observation> </ component> </organizer> </entry> <entry> <organizer moodCode="EVN" classCode="BATTERY"> <templateId root="216.840.1.821129.10..4.1" /> <id nullFlavor="NA" /> <code codeSystem="local" code="GLUMON" displayName="GLUCOSE (POC)" /> <statusCode code="completed" /> < component> <observation moodCode="EVN" classCode="OBS"> < templateId root="16.840.1.696605.10..22.4.2" /> <id nullFlavor="NA " /> <code codeSystem="local" code="GLUMON" displayName="GLUCOSE (POC) " /> <statusCode code="completed" /> <effectiveTime value= "523265565110" /> <value unit="mg/dL" xsi:type="PQ" value="51" /> <interpretationCode codeSystem="local" code="*" /> <referenceRange > <observationRange> <text>70-99</text> </ observationRange> </referenceRange> </observation> </ component> </organizer> </entry> <entry> <organizer moodCode="EVN" classCode="BATTERY"> <templateId root="05.22.840.1.305692.10..4.1" /> <id nullFlavor="NA" /> <code codeSystem="local" code="GLUMON" displayName="GLUCOSE (POC)" /> <statusCode code="completed" /> < component> <observation moodCode="EVN" classCode="OBS"> < templateId root="05.22.840.1.931268.10..22.4.2" /> <id nullFlavor="NA " /> <code codeSystem="local" code="GLUMON" displayName="GLUCOSE (POC) " /> <statusCode code="completed" /> <effectiveTime value= "366610539555" /> <value unit="mg/dL" xsi:type="PQ" value="102" /> <interpretationCode codeSystem="local" code="*" /> < referenceRange> <observationRange> <text>70-99</text> </observationRange> </referenceRange> </observation> </component> </organizer> </entry> <entry> <organizer moodCode="EVN " classCode="BATTERY"> <templateId root="16.840.1.731261.10...4.1" / > <id nullFlavor="NA" /> <code codeSystem="local" code="CBCD" displayName="CBC W/DIFF" /> <statusCode code="completed" /> <component > <observation moodCode="EVN" classCode="OBS"> <templateId root= "216.840.1.544178.10...4.2" /> <id nullFlavor="NA" /> < code codeSystem="local" code="EO#" displayName="EOSINOPHIL #" /> < statusCode code="completed" /> <effectiveTime value="316105833873" /> <value unit="k/cumm" xsi:type="PQ" value="0.3" /> < referenceRange> <observationRange> <text>0.1-0.5</text> </observationRange> </referenceRange> </observation > </component> <component> <observation moodCode="EVN" classCode="OBS"> <templateId root="05.22.840.1.306152.01.23.22.4.2" /> <id nullFlavor="NA" /> <code codeSystem="local" code="EO% " displayName="EOSINOPHIL %" /> <statusCode code="completed" /> <effectiveTime value="041064265570" /> <value unit="%" xsi: type="PQ" value="4" /> <referenceRange> <observationRange> <text>2-4</text> </observationRange> </ referenceRange> </observation> </component> <component> <observation moodCode="EVN" classCode="OBS"> <templateId root= "216.840.1.222514.10.4.2" /> <id nullFlavor="NA" /> < code codeSystem="local" code="GR#" displayName="GRANULOCYTE #" /> < statusCode code="completed" /> <effectiveTime value="452644160706" /> <value unit="k/cumm" xsi:type="PQ" value="6.8" /> < referenceRange> <observationRange> <text>2.0-9.0</text> </observationRange> </referenceRange> </observation > </component> <component> <observation moodCode="EVN" classCode="OBS"> <templateId root="05.22.840.1.384895.01.23.224.2" /> <id nullFlavor="NA" /> <code codeSystem="local" code="GR% " displayName="GRANULOCYTE %" /> <statusCode code="completed" /> <effectiveTime value="835489220714" /> <value unit="%" xsi: type="PQ" value="74" /> <referenceRange> <observationRange> <text>50-75</text> </observationRange> </ referenceRange> </observation> </component> <component> <observation moodCode="EVN" classCode="OBS"> <templateId root= "16.840.1.025472.01.23.22.4.2" /> <id nullFlavor="NA" /> < code codeSystem="local" code="LY#" displayName="LYMPHOCYTE #" /> < statusCode code="completed" /> <effectiveTime value="423119513547" /> <value unit="k/cumm" xsi:type="PQ" value="1.4" /> < referenceRange> <observationRange> <text>1.0-4.0</text> </observationRange> </referenceRange> </observation > </component> <component> <observation moodCode="EVN" classCode="OBS"> <templateId root="216.840.1.003704.01.23.22.4.2" /> <id nullFlavor="NA" /> <code codeSystem="local" code="LY% " displayName="LYMPHOCYTE %" /> <statusCode code="completed" /> <effectiveTime value="364830889857" /> <value unit="%" xsi: type="PQ" value="15" /> <interpretationCode codeSystem="local" code="* " /> <referenceRange> <observationRange> <text> 20-30</text> </observationRange> </referenceRange> </ observation> </component> <component> <observation moodCode= "EVN" classCode="OBS"> <templateId root="05.22.840.1.438625.01.23.22.4.2 " /> <id nullFlavor="NA" /> <code codeSystem="local" code="MCH " displayName="MEAN CELL HGB" /> <statusCode code="completed" /> <effectiveTime value="021364618162" /> <value unit="pg" xsi:type= "PQ" value="32.9" /> <referenceRange> <observationRange> <text>27.0-33.0</text> </observationRange> </ referenceRange> </observation> </component> <component> <observation moodCode="EVN" classCode="OBS"> <templateId root= "05.22.840.1.961428.01.23.22.4.2" /> <id nullFlavor="NA" /> < code codeSystem="local" code="MCHC" displayName="MEAN CELL HGB CONCENTRATION" / > <statusCode code="completed" /> <effectiveTime value= "863438413798" /> <value unit="g/dL" xsi:type="PQ" value="34.1" /> <referenceRange> <observationRange> <text>32.0- 37.0</text> </observationRange> </referenceRange> </ observation> </component> <component> <observation moodCode= "EVN" classCode="OBS"> <templateId root="2.16.840.1.484416.10..4.2 " /> <id nullFlavor="NA" /> <code codeSystem="local" code="MCV " displayName="MEAN CELL VOLUME" /> <statusCode code="completed" /> <effectiveTime value="757124084859" /> <value unit="fl" xsi:type ="PQ" value="96.3" /> <referenceRange> <observationRange> <text>80.0-100.0</text> </observationRange> </ referenceRange> </observation> </component> <component> <observation moodCode="EVN" classCode="OBS"> <templateId root= "2.16.840.1.919202.01.23.22.4.2" /> <id nullFlavor="NA" /> < code codeSystem="local" code="MO#" displayName="MONOCYTE #" /> < statusCode code="completed" /> <effectiveTime value="557761891717" /> <value unit="k/cumm" xsi:type="PQ" value="0.7" /> < referenceRange> <observationRange> <text>0.1-1.0</text> </observationRange> </referenceRange> </observation > </component> <component> <observation moodCode="EVN" classCode="OBS"> <templateId root="2.16.840.1.196587.10..4.2" /> <id nullFlavor="NA" /> <code codeSystem="local" code="MO% " displayName="MONOCYTE %" /> <statusCode code="completed" /> <effectiveTime value="054461697870" /> <value unit="%" xsi: type="PQ" value="7" /> <interpretationCode codeSystem="local" code="*" /> <referenceRange> <observationRange> <text>4- 6</text> </observationRange> </referenceRange> </ observation> </component> <component> <observation moodCode= "EVN" classCode="OBS"> <templateId root="216.840.1.742822.01.23.22.4.2 " /> <id nullFlavor="NA" /> <code codeSystem="local" code="RBC " displayName="RED BLOOD CELL" /> <statusCode code="completed" /> <effectiveTime value="992269470726" /> <value unit="m/cumm" xsi: type="PQ" value="3.47" /> <interpretationCode codeSystem="local" code= "*" /> <referenceRange> <observationRange> < text>4.00-6.00</text> </observationRange> </referenceRange> </observation> </component> <component> <observation moodCode="EVN" classCode="OBS"> <templateId root= "216.840.1.449698.10..4.2" /> <id nullFlavor="NA" /> < code codeSystem="local" code="RDW" displayName="RED CELL DISTRIBUTION WIDTH" /> <statusCode code="completed" /> <effectiveTime value= "124036942298" /> <value unit="%" xsi:type="PQ" value="13.0" /> <referenceRange> <observationRange> <text>11.0- 15.6</text> </observationRange> </referenceRange> </ observation> </component> <component> <observation moodCode= "EVN" classCode="OBS"> <templateId root="2.16.840.1.034591.01.23.22.4.2 " /> <id nullFlavor="NA" /> <code codeSystem="local" code="WBC " displayName="WHITE BLOOD CELL" /> <statusCode code="completed" /> <effectiveTime value="859066378709" /> <value unit="k/cumm" xsi: type="PQ" value="9.2" /> <referenceRange> <observationRange > <text>5.0-10.0</text> </observationRange> </ referenceRange> </observation> </component> <component> <observation moodCode="EVN" classCode="OBS"> <templateId root= "2.16.840.1.347516.01.23.22.4.2" /> <id nullFlavor="NA" /> < code codeSystem="local" code="HGBT" displayName="HEMOGLOBIN" /> < statusCode code="completed" /> <effectiveTime value="260928999288" /> <value unit="gm/dL" xsi:type="PQ" value="11.4" /> < interpretationCode codeSystem="local" code="*" /> <referenceRange> <observationRange> <text>14.0-18.0</text> </ observationRange> </referenceRange> </observation> </ component> <component> <observation moodCode="EVN" classCode="OBS"> <templateId root="2.16840.1.862997.01.23.22.4.2" /> <id nullFlavor="NA" /> <code codeSystem="local" code="HCTT" displayName= "HEMATOCRIT" /> <statusCode code="completed" /> < effectiveTime value="332725078637" /> <value unit="%" xsi:type="PQ " value="33.4" /> <interpretationCode codeSystem="local" code="*" /> <referenceRange> <observationRange> <text>40.0- 54.0</text> </observationRange> </referenceRange> </ observation> </component> <component> <observation moodCode= "EVN" classCode="OBS"> <templateId root="840.1.525123.01.23.22.4.2 " /> <id nullFlavor="NA" /> <code codeSystem="local" code="PLT " displayName="PLATELET COUNT" /> <statusCode code="completed" /> <effectiveTime value="319849550140" /> <value unit="k/cumm" xsi: type="PQ" value="181" /> <referenceRange> <observationRange > <text>150-400</text> </observationRange> </ referenceRange> </observation> </component> </organizer> </entry > <entry> <organizer moodCode="EVN" classCode="BATTERY"> <templateId root="05.22.840.1.565565.22.4.1" /> <id nullFlavor="NA" /> <code codeSystem="local" code="RENAL" displayName="RENAL FUNCTION PANEL" /> < statusCode code="completed" /> <component> <observation moodCode= "EVN" classCode="OBS"> <templateId root="05.22.840.1.976067.22.4.2 " /> <id nullFlavor="NA" /> <code codeSystem="local" code="K" displayName="POTASSIUM" /> <statusCode code="completed" /> < effectiveTime value="105633022663" /> <value unit="mmol/L" xsi:type="PQ " value="4.0" /> <referenceRange> <observationRange> <text>3.5-5.3</text> </observationRange> </ referenceRange> </observation> </component> <component> <observation moodCode="EVN" classCode="OBS"> <templateId root= "2.16.840.1.488697.10..22.4.2" /> <id nullFlavor="NA" /> < code codeSystem="local" code="eGFR" displayName="EST GFR (MDRD)" /> < statusCode code="completed" /> <effectiveTime value="131164316452" /> <value unit="mL/min" xsi:type="PQ" value="60" /> < referenceRange> <observationRange> <text>> 59</text> </observationRange> </referenceRange> </observation > </component> <component> <observation moodCode="EVN" classCode="OBS"> <templateId root="2.16.840.1.778322.10..22.4.2" /> <id nullFlavor="NA" /> <code codeSystem="local" code="GAP" displayName="ANION GAP" /> <statusCode code="completed" /> < effectiveTime value="405351253018" /> <value unit="mmol/L" xsi:type="PQ " value="9" /> <referenceRange> <observationRange> <text>5-15</text> </observationRange> </referenceRange > </observation> </component> <component> <observation moodCode="EVN" classCode="OBS"> <templateId root= "16.840.1.638774.10.20.22.4.2" /> <id nullFlavor="NA" /> < code codeSystem="local" code="GLU" displayName="GLUCOSE" /> < statusCode code="completed" /> <effectiveTime value="034765361611" /> <value unit="mg/dL" xsi:type="PQ" value="107" /> < interpretationCode codeSystem="local" code="*" /> <referenceRange> <observationRange> <text>70-99</text> </ observationRange> </referenceRange> </observation> </ component> <component> <observation moodCode="EVN" classCode="OBS"> <templateId root="05.22.840.1.699557..22.4.2" /> <id nullFlavor="NA" /> <code codeSystem="local" code="CA" displayName= "CALCIUM" /> <statusCode code="completed" /> <effectiveTime value="549224662985" /> <value unit="mg/dL" xsi:type="PQ" value="8.7" / > <referenceRange> <observationRange> <text>8.5 -10.1</text> </observationRange> </referenceRange> </ observation> </component> <component> <observation moodCode= "EVN" classCode="OBS"> <templateId root="05.22.840.1.578185.10.20.22.4.2 " /> <id nullFlavor="NA" /> <code codeSystem="local" code="BUN " displayName="BLOOD UREA NITROGEN" /> <statusCode code="completed" /> <effectiveTime value="889261738627" /> <value unit="mg/dL" xsi:type="PQ" value="17" /> <referenceRange> < observationRange> <text>7-20</text> </observationRange> </referenceRange> </observation> </component> < component> <observation moodCode="EVN" classCode="OBS"> < templateId root="216.840.1.961123.10..22.4.2" /> <id nullFlavor="NA " /> <code codeSystem="local" code="CREAT" displayName="CREATININE" /> <statusCode code="completed" /> <effectiveTime value= "533032864639" /> <value unit="mg/dL" xsi:type="PQ" value="1.3" /> <referenceRange> <observationRange> <text>0.8-1.3< /text> </observationRange> </referenceRange> </ observation> </component> <component> <observation moodCode= "EVN" classCode="OBS"> <templateId root="05.22.840.1.662846.01.23.22.4.2 " /> <id nullFlavor="NA" /> <code codeSystem="local" code="NA " displayName="SODIUM" /> <statusCode code="completed" /> < effectiveTime value="073217787317" /> <value unit="mmol/L" xsi:type="PQ " value="137" /> <referenceRange> <observationRange> <text>135-148</text> </observationRange> </ referenceRange> </observation> </component> <component> <observation moodCode="EVN" classCode="OBS"> <templateId root= "16.840.1.523694....4.2" /> <id nullFlavor="NA" /> < code codeSystem="local" code="CL" displayName="CHLORIDE" /> < statusCode code="completed" /> <effectiveTime value="728958410408" /> <value unit="mmol/L" xsi:type="PQ" value="101" /> < referenceRange> <observationRange> <text>98-110</text> </observationRange> </referenceRange> </observation> </component> <component> <observation moodCode="EVN" classCode ="OBS"> <templateId root="05.22.840.1.915201.10.20.22.4.2" /> < id nullFlavor="NA" /> <code codeSystem="local" code="CO2" displayName= "CARBON DIOXIDE" /> <statusCode code="completed" /> < effectiveTime value="757264858026" /> <value unit="mmol/L" xsi:type="PQ " value="27" /> <referenceRange> <observationRange> <text>21-32</text> </observationRange> </ referenceRange> </observation> </component> <component> <observation moodCode="EVN" classCode="OBS"> <templateId root= "05.22.840.1.978946.10...4.2" /> <id nullFlavor="NA" /> < code codeSystem="local" code="ALB" displayName="ALBUMIN" /> < statusCode code="completed" /> <effectiveTime value="487235701442" /> <value unit="gm/dL" xsi:type="PQ" value="3.0" /> < interpretationCode codeSystem="local" code="*" /> <referenceRange> <observationRange> <text>3.4-5.0</text> </ observationRange> </referenceRange> </observation> </ component> <component> <observation moodCode="EVN" classCode="OBS"> <templateId root="05.22.840.1.484403.10.20.22.4.2" /> <id nullFlavor="NA" /> <code codeSystem="local" code="PHOS" displayName= "PHOSPHORUS" /> <statusCode code="completed" /> < effectiveTime value="719317983478" /> <value unit="mg/dL" xsi:type="PQ " value="2.9" /> <referenceRange> <observationRange> <text>2.5-4.9</text> </observationRange> </ referenceRange> </observation> </component> </organizer> </entry > <entry> <organizer moodCode="EVN" classCode="BATTERY"> <templateId root="05.22.840.1.982515.10.20.22.4.1" /> <id nullFlavor="NA" /> <code codeSystem="local" code="MAG" displayName="MAGNESIUM" /> <statusCode code= "completed" /> <component> <observation moodCode="EVN" classCode= "OBS"> <templateId root="05.22.840.1.593642.10.20.22.4.2" /> < id nullFlavor="NA" /> <code codeSystem="local" code="MAG" displayName= "MAGNESIUM" /> <statusCode code="completed" /> <effectiveTime value="879234719545" /> <value unit="mg/dL" xsi:type="PQ" value="1.5" / > <interpretationCode codeSystem="local" code="*" /> < referenceRange> <observationRange> <text>1.8-2.4</text> </observationRange> </referenceRange> </observation > </component> </organizer> </entry> <entry> <organizer moodCode= "EVN" classCode="BATTERY"> <templateId root="05.22.840.1.723731.10.20.22.4.1 " /> <id nullFlavor="NA" /> <code codeSystem="local" code="GLUMON" displayName="GLUCOSE (POC)" /> <statusCode code="completed" /> < component> <observation moodCode="EVN" classCode="OBS"> < templateId root="216.840.1.118109.10.4.2" /> <id nullFlavor="NA " /> <code codeSystem="local" code="GLUMON" displayName="GLUCOSE (POC) " /> <statusCode code="completed" /> <effectiveTime value= "" /> <value unit="mg/dL" xsi:type="PQ" value="63" /> <interpretationCode codeSystem="local" code="*" /> <referenceRange > <observationRange> <text>70-99</text> </ observationRange> </referenceRange> </observation> </ component> </organizer> </entry> <entry> <organizer moodCode="EVN" classCode="BATTERY"> <templateId root="16.840.1.223529.10..4.1" /> <id nullFlavor="NA" /> <code codeSystem="local" code="GLUMON" displayName="GLUCOSE (POC)" /> <statusCode code="completed" /> < component> <observation moodCode="EVN" classCode="OBS"> < templateId root="16.840.1.653524.10.4.2" /> <id nullFlavor="NA " /> <code codeSystem="local" code="GLUMON" displayName="GLUCOSE (POC) " /> <statusCode code="completed" /> <effectiveTime value= "043010428254" /> <value unit="mg/dL" xsi:type="PQ" value="40" /> <interpretationCode codeSystem="local" code="" /> < referenceRange> <observationRange> <text>70-99</text> </observationRange> </referenceRange> </observation> </component> </organizer> </entry> <entry> <organizer moodCode="EVN " classCode="BATTERY"> <templateId root="05.22.840.1.430773.10..22.4.1" / > <id nullFlavor="NA" /> <code codeSystem="local" code="GLUMON" displayName="GLUCOSE (POC)" /> <statusCode code="completed" /> < component> <observation moodCode="EVN" classCode="OBS"> < templateId root="840.1.930071...4.2" /> <id nullFlavor="NA " /> <code codeSystem="local" code="GLUMON" displayName="GLUCOSE (POC) " /> <statusCode code="completed" /> <effectiveTime value= "885236643368" /> <value unit="mg/dL" xsi:type="PQ" value="88" /> <referenceRange> <observationRange> <text>70-99</ text> </observationRange> </referenceRange> </ observation> </component> </organizer> </entry> <entry> <organizer moodCode="EVN" classCode="BATTERY"> <templateId root= "840.1.310522.01.23.22.4.1" /> <id nullFlavor="NA" /> <code codeSystem="local" code="GLUMON" displayName="GLUCOSE (POC)" /> < statusCode code="completed" /> <component> <observation moodCode= "EVN" classCode="OBS"> <templateId root="05.22.840.1.872548.10..22.4.2 " /> <id nullFlavor="NA" /> <code codeSystem="local" code= "GLUMON" displayName="GLUCOSE (POC)" /> <statusCode code="completed" / > <effectiveTime value="286863002072" /> <value unit="mg/dL" xsi:type="PQ" value="97" /> <referenceRange> < observationRange> <text>70-99</text> </observationRange > </referenceRange> </observation> </component> </ organizer> </entry> <entry> <organizer moodCode="EVN" classCode="BATTERY"> <templateId root="16.840.1.877993.10.20.22.4.1" /> <id nullFlavor= "NA" /> <code codeSystem="local" code="GLUMON" displayName="GLUCOSE (POC)" /> <statusCode code="completed" /> <component> <observation moodCode="EVN" classCode="OBS"> <templateId root= "05.22.840.1.942848.10.20.22.4.2" /> <id nullFlavor="NA" /> < code codeSystem="local" code="GLUMON" displayName="GLUCOSE (POC)" /> < statusCode code="completed" /> <effectiveTime value="007570374461" /> <value unit="mg/dL" xsi:type="PQ" value="148" /> < interpretationCode codeSystem="local" code="*" /> <referenceRange> <observationRange> <text>70-99</text> </ observationRange> </referenceRange> </observation> </ component> </organizer> </entry> <entry> <organizer moodCode="EVN" classCode="BATTERY"> <templateId root="05.22.840.1.798232.10.20.22.4.1" /> <id nullFlavor="NA" /> <code codeSystem="local" code="CBCD" displayName="CBC W/DIFF" /> <statusCode code="completed" /> <component > <observation moodCode="EVN" classCode="OBS"> <templateId root= "216.840.1.108978.10.22.4.2" /> <id nullFlavor="NA" /> < code codeSystem="local" code="EO#" displayName="EOSINOPHIL #" /> < statusCode code="completed" /> <effectiveTime value="" /> <value unit="k/cumm" xsi:type="PQ" value="0.4" /> < referenceRange> <observationRange> <text>0.1-0.5</text> </observationRange> </referenceRange> </observation > </component> <component> <observation moodCode="EVN" classCode="OBS"> <templateId root="05.22.840.1.129968.104.2" /> <id nullFlavor="NA" /> <code codeSystem="local" code="EO% " displayName="EOSINOPHIL %" /> <statusCode code="completed" /> <effectiveTime value="" /> <value unit="%" xsi: type="PQ" value="5" /> <interpretationCode codeSystem="local" code="*" /> <referenceRange> <observationRange> <text>2- 4</text> </observationRange> </referenceRange> </ observation> </component> <component> <observation moodCode= "EVN" classCode="OBS"> <templateId root="16.840.1.678016.10.22.4.2 " /> <id nullFlavor="NA" /> <code codeSystem="local" code="GR# " displayName="GRANULOCYTE #" /> <statusCode code="completed" /> <effectiveTime value="" /> <value unit="k/cumm" xsi: type="PQ" value="5.2" /> <referenceRange> <observationRange > <text>2.0-9.0</text> </observationRange> </ referenceRange> </observation> </component> <component> <observation moodCode="EVN" classCode="OBS"> <templateId root= "05.22.840.1.031194.10.2022.4.2" /> <id nullFlavor="NA" /> < code codeSystem="local" code="GR%" displayName="GRANULOCYTE %" /> <statusCode code="completed" /> <effectiveTime value=" " /> <value unit="%" xsi:type="PQ" value="67" /> < referenceRange> <observationRange> <text>50-75</text> </observationRange> </referenceRange> </observation> </component> <component> <observation moodCode="EVN" classCode= "OBS"> <templateId root="05.22.840.1.281120.22.4.2" /> < id nullFlavor="NA" /> <code codeSystem="local" code="LY#" displayName= "LYMPHOCYTE #" /> <statusCode code="completed" /> < effectiveTime value="" /> <value unit="k/cumm" xsi:type="PQ " value="1.3" /> <referenceRange> <observationRange> <text>1.0-4.0</text> </observationRange> </ referenceRange> </observation> </component> <component> <observation moodCode="EVN" classCode="OBS"> <templateId root= "16.840.1.794348.10.20.22.4.2" /> <id nullFlavor="NA" /> < code codeSystem="local" code="LY%" displayName="LYMPHOCYTE %" /> <statusCode code="completed" /> <effectiveTime value="" /> <value unit="%" xsi:type="PQ" value="17" /> < interpretationCode codeSystem="local" code="*" /> <referenceRange> <observationRange> <text>20-30</text> </ observationRange> </referenceRange> </observation> </ component> <component> <observation moodCode="EVN" classCode="OBS"> <templateId root="2.16.840.1.844053.10..4.2" /> <id nullFlavor="NA" /> <code codeSystem="local" code="MCH" displayName= "MEAN CELL HGB" /> <statusCode code="completed" /> < effectiveTime value="" /> <value unit="pg" xsi:type="PQ" value="32.6" /> <referenceRange> <observationRange> <text>27.0-33.0</text> </observationRange> </ referenceRange> </observation> </component> <component> <observation moodCode="EVN" classCode="OBS"> <templateId root= "2.16.840.1.000897.10.22.4.2" /> <id nullFlavor="NA" /> < code codeSystem="local" code="MCHC" displayName="MEAN CELL HGB CONCENTRATION" / > <statusCode code="completed" /> <effectiveTime value= "" /> <value unit="g/dL" xsi:type="PQ" value="34.1" /> <referenceRange> <observationRange> <text>32.0- 37.0</text> </observationRange> </referenceRange> </ observation> </component> <component> <observation moodCode= "EVN" classCode="OBS"> <templateId root="05.22.840.1.956347.01.23.22.4.2 " /> <id nullFlavor="NA" /> <code codeSystem="local" code="MCV " displayName="MEAN CELL VOLUME" /> <statusCode code="completed" /> <effectiveTime value="" /> <value unit="fl" xsi:type ="PQ" value="95.3" /> <referenceRange> <observationRange> <text>80.0-100.0</text> </observationRange> </ referenceRange> </observation> </component> <component> <observation moodCode="EVN" classCode="OBS"> <templateId root= "840.1.816601.01.23.22.4.2" /> <id nullFlavor="NA" /> < code codeSystem="local" code="MO#" displayName="MONOCYTE #" /> < statusCode code="completed" /> <effectiveTime value="" /> <value unit="k/cumm" xsi:type="PQ" value="0.8" /> < referenceRange> <observationRange> <text>0.1-1.0</text> </observationRange> </referenceRange> </observation > </component> <component> <observation moodCode="EVN" classCode="OBS"> <templateId root="840.1.052995.10.2022.4.2" /> <id nullFlavor="NA" /> <code codeSystem="local" code="MO% " displayName="MONOCYTE %" /> <statusCode code="completed" /> <effectiveTime value="" /> <value unit="%" xsi: type="PQ" value="10" /> <interpretationCode codeSystem="local" code="* " /> <referenceRange> <observationRange> <text> 4-6</text> </observationRange> </referenceRange> </ observation> </component> <component> <observation moodCode= "EVN" classCode="OBS"> <templateId root="216.840.1.822285.10.22.4.2 " /> <id nullFlavor="NA" /> <code codeSystem="local" code="RBC " displayName="RED BLOOD CELL" /> <statusCode code="completed" /> <effectiveTime value="182464443245" /> <value unit="m/cumm" xsi: type="PQ" value="3.44" /> <interpretationCode codeSystem="local" code= "*" /> <referenceRange> <observationRange> < text>4.00-6.00</text> </observationRange> </referenceRange> </observation> </component> <component> <observation moodCode="EVN" classCode="OBS"> <templateId root= "05.22.840.1.503909.01.23.22.4.2" /> <id nullFlavor="NA" /> < code codeSystem="local" code="RDW" displayName="RED CELL DISTRIBUTION WIDTH" /> <statusCode code="completed" /> <effectiveTime value= "864856526275" /> <value unit="%" xsi:type="PQ" value="12.9" /> <referenceRange> <observationRange> <text>11.0- 15.6</text> </observationRange> </referenceRange> </ observation> </component> <component> <observation moodCode= "EVN" classCode="OBS"> <templateId root="216.840.1.819366.22.4.2 " /> <id nullFlavor="NA" /> <code codeSystem="local" code="WBC " displayName="WHITE BLOOD CELL" /> <statusCode code="completed" /> <effectiveTime value="" /> <value unit="k/cumm" xsi: type="PQ" value="7.8" /> <referenceRange> <observationRange > <text>5.0-10.0</text> </observationRange> </ referenceRange> </observation> </component> <component> <observation moodCode="EVN" classCode="OBS"> <templateId root= "2.16.840.1.125785.10..22.4.2" /> <id nullFlavor="NA" /> < code codeSystem="local" code="HGBT" displayName="HEMOGLOBIN" /> < statusCode code="completed" /> <effectiveTime value="" /> <value unit="gm/dL" xsi:type="PQ" value="11.2" /> < interpretationCode codeSystem="local" code="*" /> <referenceRange> <observationRange> <text>14.0-18.0</text> </ observationRange> </referenceRange> </observation> </ component> <component> <observation moodCode="EVN" classCode="OBS"> <templateId root="2.16.840.1.953220.10.20.22.4.2" /> <id nullFlavor="NA" /> <code codeSystem="local" code="HCTT" displayName= "HEMATOCRIT" /> <statusCode code="completed" /> < effectiveTime value="" /> <value unit="%" xsi:type="PQ " value="32.8" /> <interpretationCode codeSystem="local" code="*" /> <referenceRange> <observationRange> <text>40.0- 54.0</text> </observationRange> </referenceRange> </ observation> </component> <component> <observation moodCode= "EVN" classCode="OBS"> <templateId root="216.840.1.609213.10..22.4.2 " /> <id nullFlavor="NA" /> <code codeSystem="local" code="PLT " displayName="PLATELET COUNT" /> <statusCode code="completed" /> <effectiveTime value="979479695264" /> <value unit="k/cumm" xsi: type="PQ" value="202" /> <referenceRange> <observationRange > <text>150-400</text> </observationRange> </ referenceRange> </observation> </component> </organizer> </entry > <entry> <organizer moodCode="EVN" classCode="BATTERY"> <templateId root="216.840.1.980141.10..22.4.1" /> <id nullFlavor="NA" /> <code codeSystem="local" code="RENAL" displayName="RENAL FUNCTION PANEL" /> < statusCode code="completed" /> <component> <observation moodCode= "EVN" classCode="OBS"> <templateId root="216.840.1.612512.10..22.4.2 " /> <id nullFlavor="NA" /> <code codeSystem="local" code="K" displayName="POTASSIUM" /> <statusCode code="completed" /> < effectiveTime value="010173727110" /> <value unit="mmol/L" xsi:type="PQ " value="3.9" /> <referenceRange> <observationRange> <text>3.5-5.3</text> </observationRange> </ referenceRange> </observation> </component> <component> <observation moodCode="EVN" classCode="OBS"> <templateId root= "05.22.840.1.927257.10..22.4.2" /> <id nullFlavor="NA" /> < code codeSystem="local" code="eGFR" displayName="EST GFR (MDRD)" /> < statusCode code="completed" /> <effectiveTime value="" /> <value unit="mL/min" xsi:type="PQ" value="> 60" /> < referenceRange> <observationRange> <text>> 59</text> </observationRange> </referenceRange> </observation > </component> <component> <observation moodCode="EVN" classCode="OBS"> <templateId root="05.22.840.1.024888.01.23.22.4.2" /> <id nullFlavor="NA" /> <code codeSystem="local" code="GAP" displayName="ANION GAP" /> <statusCode code="completed" /> < effectiveTime value="" /> <value unit="mmol/L" xsi:type="PQ " value="10" /> <referenceRange> <observationRange> <text>5-15</text> </observationRange> </referenceRange > </observation> </component> <component> <observation moodCode="EVN" classCode="OBS"> <templateId root= "05.22.840.1.013210.10..22.4.2" /> <id nullFlavor="NA" /> < code codeSystem="local" code="GLU" displayName="GLUCOSE" /> < statusCode code="completed" /> <effectiveTime value="" /> <value unit="mg/dL" xsi:type="PQ" value="107" /> < interpretationCode codeSystem="local" code="*" /> <referenceRange> <observationRange> <text>70-99</text> </ observationRange> </referenceRange> </observation> </ component> <component> <observation moodCode="EVN" classCode="OBS"> <templateId root="16.840.1.392799.10...4.2" /> <id nullFlavor="NA" /> <code codeSystem="local" code="CA" displayName= "CALCIUM" /> <statusCode code="completed" /> <effectiveTime value="" /> <value unit="mg/dL" xsi:type="PQ" value="8.9" / > <referenceRange> <observationRange> <text>8.5 -10.1</text> </observationRange> </referenceRange> </ observation> </component> <component> <observation moodCode= "EVN" classCode="OBS"> <templateId root="05.22.840.1.356110.01.23.22.4.2 " /> <id nullFlavor="NA" /> <code codeSystem="local" code="BUN " displayName="BLOOD UREA NITROGEN" /> <statusCode code="completed" /> <effectiveTime value="" /> <value unit="mg/dL" xsi:type="PQ" value="21" /> <interpretationCode codeSystem="local" code ="*" /> <referenceRange> <observationRange> < text>7-20</text> </observationRange> </referenceRange> </observation> </component> <component> <observation moodCode="EVN" classCode="OBS"> <templateId root= "05.22.840.1.498144...4.2" /> <id nullFlavor="NA" /> < code codeSystem="local" code="CREAT" displayName="CREATININE" /> < statusCode code="completed" /> <effectiveTime value="" /> <value unit="mg/dL" xsi:type="PQ" value="1.2" /> < referenceRange> <observationRange> <text>0.8-1.3</text> </observationRange> </referenceRange> </observation > </component> <component> <observation moodCode="EVN" classCode="OBS"> <templateId root="216.840.1.345092.10.22.4.2" /> <id nullFlavor="NA" /> <code codeSystem="local" code="NA" displayName="SODIUM" /> <statusCode code="completed" /> < effectiveTime value="" /> <value unit="mmol/L" xsi:type="PQ " value="141" /> <referenceRange> <observationRange> <text>135-148</text> </observationRange> </ referenceRange> </observation> </component> <component> <observation moodCode="EVN" classCode="OBS"> <templateId root= "05.22.840.1.322246..22.4.2" /> <id nullFlavor="NA" /> < code codeSystem="local" code="CL" displayName="CHLORIDE" /> < statusCode code="completed" /> <effectiveTime value="" /> <value unit="mmol/L" xsi:type="PQ" value="106" /> < referenceRange> <observationRange> <text>98-110</text> </observationRange> </referenceRange> </observation> </component> <component> <observation moodCode="EVN" classCode ="OBS"> <templateId root="16.840.1.690696.10.2022.4.2" /> < id nullFlavor="NA" /> <code codeSystem="local" code="CO2" displayName= "CARBON DIOXIDE" /> <statusCode code="completed" /> < effectiveTime value="" /> <value unit="mmol/L" xsi:type="PQ " value="25" /> <referenceRange> <observationRange> <text>21-32</text> </observationRange> </ referenceRange> </observation> </component> <component> <observation moodCode="EVN" classCode="OBS"> <templateId root= "2.16.840.1.256706.10.20.22.4.2" /> <id nullFlavor="NA" /> < code codeSystem="local" code="ALB" displayName="ALBUMIN" /> < statusCode code="completed" /> <effectiveTime value="" /> <value unit="gm/dL" xsi:type="PQ" value="2.9" /> < interpretationCode codeSystem="local" code="*" /> <referenceRange> <observationRange> <text>3.4-5.0</text> </ observationRange> </referenceRange> </observation> </ component> <component> <observation moodCode="EVN" classCode="OBS"> <templateId root="2.16.840.1.994796.10.20.22.4.2" /> <id nullFlavor="NA" /> <code codeSystem="local" code="PHOS" displayName= "PHOSPHORUS" /> <statusCode code="completed" /> < effectiveTime value="" /> <value unit="mg/dL" xsi:type="PQ " value="3.7" /> <referenceRange> <observationRange> <text>2.5-4.9</text> </observationRange> </ referenceRange> </observation> </component> </organizer> </entry > <entry> <organizer moodCode="EVN" classCode="BATTERY"> <templateId root="840.1.663847.22.4.1" /> <id nullFlavor="NA" /> <code codeSystem="local" code="MAG" displayName="MAGNESIUM" /> <statusCode code= "completed" /> <component> <observation moodCode="EVN" classCode= "OBS"> <templateId root="840.1.062753.01.23.22.4.2" /> < id nullFlavor="NA" /> <code codeSystem="local" code="MAG" displayName= "MAGNESIUM" /> <statusCode code="completed" /> <effectiveTime value="[id number]" /> <value unit="mg/dL" xsi:type="PQ" value="1.4" / > <interpretationCode codeSystem="local" code="*" /> < referenceRange> <observationRange> <text>1.8-2.4</text> </observationRange> </referenceRange> </observation > </component> </organizer> </entry> <entry> <organizer moodCode= "EVN" classCode="BATTERY"> <templateId root="840.1.094727.01.23.22.4.1 " /> <id nullFlavor="NA" /> <code codeSystem="local" code="GLUMON" displayName="GLUCOSE (POC)" /> <statusCode code="completed" /> < component> <observation moodCode="EVN" classCode="OBS"> < templateId root="840.1.297004.01.23.22.4.2" /> <id nullFlavor="NA " /> <code codeSystem="local" code="GLUMON" displayName="GLUCOSE (POC) " /> <statusCode code="completed" /> <effectiveTime value= "363230400128" /> <value unit="mg/dL" xsi:type="PQ" value="59" /> <interpretationCode codeSystem="local" code="*" /> <referenceRange > <observationRange> <text>70-99</text> </ observationRange> </referenceRange> </observation> </ component> </organizer> </entry> <entry> <organizer moodCode="EVN" classCode="BATTERY"> <templateId root="216.840.1.908310.10..22.4.1" /> <id nullFlavor="NA" /> <code codeSystem="local" code="GLUMON" displayName="GLUCOSE (POC)" /> <statusCode code="completed" /> < component> <observation moodCode="EVN" classCode="OBS"> < templateId root="216.840.1.086479.10..22.4.2" /> <id nullFlavor="NA " /> <code codeSystem="local" code="GLUMON" displayName="GLUCOSE (POC) " /> <statusCode code="completed" /> <effectiveTime value= "697243135649" /> <value unit="mg/dL" xsi:type="PQ" value="104" /> <interpretationCode codeSystem="local" code="*" /> < referenceRange> <observationRange> <text>70-99</text> </observationRange> </referenceRange> </observation> </component> </organizer> </entry> <entry> <organizer moodCode="EVN " classCode="BATTERY"> <templateId root="2.16.840.1.063371.10..22.4.1" / > <id nullFlavor="NA" /> <code codeSystem="local" code="GLUMON" displayName="GLUCOSE (POC)" /> <statusCode code="completed" /> < component> <observation moodCode="EVN" classCode="OBS"> < templateId root="2.16.840.1.338535.10..22.4.2" /> <id nullFlavor="NA " /> <code codeSystem="local" code="GLUMON" displayName="GLUCOSE (POC) " /> <statusCode code="completed" /> <effectiveTime value= "900785241764" /> <value unit="mg/dL" xsi:type="PQ" value="101" /> <interpretationCode codeSystem="local" code="*" /> < referenceRange> <observationRange> <text>70-99</text> </observationRange> </referenceRange> </observation> </component> </organizer> </entry> <entry> <organizer moodCode="EVN " classCode="BATTERY"> <templateId root="216.840.1.514461.10..22.4.1" / > <id nullFlavor="NA" /> <code codeSystem="local" code="GLUMON" displayName="GLUCOSE (POC)" /> <statusCode code="completed" /> < component> <observation moodCode="EVN" classCode="OBS"> < templateId root="2.16.840.1.725773.10..22.4.2" /> <id nullFlavor="NA " /> <code codeSystem="local" code="GLUMON" displayName="GLUCOSE (POC) " /> <statusCode code="completed" /> <effectiveTime value= "612888497682" /> <value unit="mg/dL" xsi:type="PQ" value="57" /> <interpretationCode codeSystem="local" code="*" /> <referenceRange > <observationRange> <text>70-99</text> </ observationRange> </referenceRange> </observation> </ component> </organizer> </entry> <entry> <organizer moodCode="EVN" classCode="BATTERY"> <templateId root="840.1.736232.01.23.22.4.1" /> <id nullFlavor="NA" /> <code codeSystem="local" code="GLUMON" displayName="GLUCOSE (POC)" /> <statusCode code="completed" /> < component> <observation moodCode="EVN" classCode="OBS"> < templateId root="840.1.150596.01.23.22.4.2" /> <id nullFlavor="NA " /> <code codeSystem="local" code="GLUMON" displayName="GLUCOSE (POC) " /> <statusCode code="completed" /> <effectiveTime value= "670601728108" /> <value unit="mg/dL" xsi:type="PQ" value="108" /> <interpretationCode codeSystem="local" code="*" /> < referenceRange> <observationRange> <text>70-99</text> </observationRange> </referenceRange> </observation> </component> </organizer> </entry> <entry> <organizer moodCode="EVN " classCode="BATTERY"> <templateId root="840.1.975148.01.23.22.4.1" / > <id nullFlavor="NA" /> <code codeSystem="local" code="CBCD" displayName="CBC W/DIFF" /> <statusCode code="completed" /> <component > <observation moodCode="EVN" classCode="OBS"> <templateId root= "840.1.895901.01.23.22.4.2" /> <id nullFlavor="NA" /> < code codeSystem="local" code="BA#" displayName="BASOPHIL #" /> < statusCode code="completed" /> <effectiveTime value="" /> <value unit="k/cumm" xsi:type="PQ" value="0.0" /> < referenceRange> <observationRange> <text>0.0-0.2</text> </observationRange> </referenceRange> </observation > </component> <component> <observation moodCode="EVN" classCode="OBS"> <templateId root="216.840.1.619058.10..22.4.2" /> <id nullFlavor="NA" /> <code codeSystem="local" code="BA% " displayName="BASOPHIL %" /> <statusCode code="completed" /> <effectiveTime value="" /> <value unit="%" xsi: type="PQ" value="1" /> <referenceRange> <observationRange> <text>0-1</text> </observationRange> </ referenceRange> </observation> </component> <component> <observation moodCode="EVN" classCode="OBS"> <templateId root= "216.840.1.987605.10...4.2" /> <id nullFlavor="NA" /> < code codeSystem="local" code="EO#" displayName="EOSINOPHIL #" /> < statusCode code="completed" /> <effectiveTime value="" /> <value unit="k/cumm" xsi:type="PQ" value="0.6" /> < interpretationCode codeSystem="local" code="*" /> <referenceRange> <observationRange> <text>0.1-0.5</text> </ observationRange> </referenceRange> </observation> </ component> <component> <observation moodCode="EVN" classCode="OBS"> <templateId root="16.840.1.880313.10.20.22.4.2" /> <id nullFlavor="NA" /> <code codeSystem="local" code="EO%" displayName= "EOSINOPHIL %" /> <statusCode code="completed" /> < effectiveTime value="" /> <value unit="%" xsi:type="PQ " value="7" /> <interpretationCode codeSystem="local" code="*" /> <referenceRange> <observationRange> <text>2-4</text > </observationRange> </referenceRange> </observation > </component> <component> <observation moodCode="EVN" classCode="OBS"> <templateId root="05.22.840.1.348825...4.2" /> <id nullFlavor="NA" /> <code codeSystem="local" code="GR#" displayName="GRANULOCYTE #" /> <statusCode code="completed" /> <effectiveTime value="" /> <value unit="k/cumm" xsi:type= "PQ" value="4.5" /> <referenceRange> <observationRange> <text>2.0-9.0</text> </observationRange> </ referenceRange> </observation> </component> <component> <observation moodCode="EVN" classCode="OBS"> <templateId root= "05.22.840.1.009451.10.2022.4.2" /> <id nullFlavor="NA" /> < code codeSystem="local" code="GR%" displayName="GRANULOCYTE %" /> <statusCode code="completed" /> <effectiveTime value=" " /> <value unit="%" xsi:type="PQ" value="53" /> < referenceRange> <observationRange> <text>50-75</text> </observationRange> </referenceRange> </observation> </component> <component> <observation moodCode="EVN" classCode= "OBS"> <templateId root="05.22.840.1.015375.10..4.2" /> < id nullFlavor="NA" /> <code codeSystem="local" code="LY#" displayName= "LYMPHOCYTE #" /> <statusCode code="completed" /> < effectiveTime value="546464344487" /> <value unit="k/cumm" xsi:type="PQ " value="2.1" /> <referenceRange> <observationRange> <text>1.0-4.0</text> </observationRange> </ referenceRange> </observation> </component> <component> <observation moodCode="EVN" classCode="OBS"> <templateId root= "840.1.955459.10.4.2" /> <id nullFlavor="NA" /> < code codeSystem="local" code="LY%" displayName="LYMPHOCYTE %" /> <statusCode code="completed" /> <effectiveTime value="874798315757" /> <value unit="%" xsi:type="PQ" value="25" /> < referenceRange> <observationRange> <text>20-30</text> </observationRange> </referenceRange> </observation> </component> <component> <observation moodCode="EVN" classCode= "OBS"> <templateId root="05.22.840.1.331530.10.20.4.2" /> < id nullFlavor="NA" /> <code codeSystem="local" code="MCH" displayName= "MEAN CELL HGB" /> <statusCode code="completed" /> < effectiveTime value="" /> <value unit="pg" xsi:type="PQ" value="32.3" /> <referenceRange> <observationRange> <text>27.0-33.0</text> </observationRange> </ referenceRange> </observation> </component> <component> <observation moodCode="EVN" classCode="OBS"> <templateId root= "216.840.1.617126.10..22.4.2" /> <id nullFlavor="NA" /> < code codeSystem="local" code="MCHC" displayName="MEAN CELL HGB CONCENTRATION" / > <statusCode code="completed" /> <effectiveTime value= "" /> <value unit="g/dL" xsi:type="PQ" value="33.8" /> <referenceRange> <observationRange> <text>32.0- 37.0</text> </observationRange> </referenceRange> </ observation> </component> <component> <observation moodCode= "EVN" classCode="OBS"> <templateId root="216.840.1.898028.10...4.2 " /> <id nullFlavor="NA" /> <code codeSystem="local" code="MCV " displayName="MEAN CELL VOLUME" /> <statusCode code="completed" /> <effectiveTime value="" /> <value unit="fl" xsi:type ="PQ" value="95.4" /> <referenceRange> <observationRange> <text>80.0-100.0</text> </observationRange> </ referenceRange> </observation> </component> <component> <observation moodCode="EVN" classCode="OBS"> <templateId root= "216.840.1.555081.10..22.4.2" /> <id nullFlavor="NA" /> < code codeSystem="local" code="MO#" displayName="MONOCYTE #" /> < statusCode code="completed" /> <effectiveTime value="643520335978" /> <value unit="k/cumm" xsi:type="PQ" value="1.1" /> < interpretationCode codeSystem="local" code="*" /> <referenceRange> <observationRange> <text>0.1-1.0</text> </ observationRange> </referenceRange> </observation> </ component> <component> <observation moodCode="EVN" classCode="OBS"> <templateId root="216.840.1.750517.01.23.224.2" /> <id nullFlavor="NA" /> <code codeSystem="local" code="MO%" displayName= "MONOCYTE %" /> <statusCode code="completed" /> < effectiveTime value="" /> <value unit="%" xsi:type="PQ " value="13" /> <interpretationCode codeSystem="local" code="*" /> <referenceRange> <observationRange> <text>4-6</ text> </observationRange> </referenceRange> </ observation> </component> <component> <observation moodCode= "EVN" classCode="OBS"> <templateId root="16.840.1.247860.10.4.2 " /> <id nullFlavor="NA" /> <code codeSystem="local" code="RBC " displayName="RED BLOOD CELL" /> <statusCode code="completed" /> <effectiveTime value="650412943014" /> <value unit="m/cumm" xsi: type="PQ" value="3.47" /> <interpretationCode codeSystem="local" code= "*" /> <referenceRange> <observationRange> < text>4.00-6.00</text> </observationRange> </referenceRange> </observation> </component> <component> <observation moodCode="EVN" classCode="OBS"> <templateId root= "16.840.1.580754.10.20.22.4.2" /> <id nullFlavor="NA" /> < code codeSystem="local" code="RDW" displayName="RED CELL DISTRIBUTION WIDTH" /> <statusCode code="completed" /> <effectiveTime value= "216446237127" /> <value unit="%" xsi:type="PQ" value="12.8" /> <referenceRange> <observationRange> <text>11.0- 15.6</text> </observationRange> </referenceRange> </ observation> </component> <component> <observation moodCode= "EVN" classCode="OBS"> <templateId root="840.1.739954.10.2022.4.2 " /> <id nullFlavor="NA" /> <code codeSystem="local" code="WBC " displayName="WHITE BLOOD CELL" /> <statusCode code="completed" /> <effectiveTime value="" /> <value unit="k/cumm" xsi: type="PQ" value="8.4" /> <referenceRange> <observationRange > <text>5.0-10.0</text> </observationRange> </ referenceRange> </observation> </component> <component> <observation moodCode="EVN" classCode="OBS"> <templateId root= "840.1.503841.10.20.22.4.2" /> <id nullFlavor="NA" /> < code codeSystem="local" code="HGBT" displayName="HEMOGLOBIN" /> < statusCode code="completed" /> <effectiveTime value="" /> <value unit="gm/dL" xsi:type="PQ" value="11.2" /> < interpretationCode codeSystem="local" code="*" /> <referenceRange> <observationRange> <text>14.0-18.0</text> </ observationRange> </referenceRange> </observation> </ component> <component> <observation moodCode="EVN" classCode="OBS"> <templateId root="2.16.840.1.787179.10.20.22.4.2" /> <id nullFlavor="NA" /> <code codeSystem="local" code="HCTT" displayName= "HEMATOCRIT" /> <statusCode code="completed" /> < effectiveTime value="" /> <value unit="%" xsi:type="PQ " value="33.1" /> <interpretationCode codeSystem="local" code="*" /> <referenceRange> <observationRange> <text>40.0- 54.0</text> </observationRange> </referenceRange> </ observation> </component> <component> <observation moodCode= "EVN" classCode="OBS"> <templateId root="2.16.840.1.612804.10.20.22.4.2 " /> <id nullFlavor="NA" /> <code codeSystem="local" code="PLT " displayName="PLATELET COUNT" /> <statusCode code="completed" /> <effectiveTime value="" /> <value unit="k/cumm" xsi: type="PQ" value="231" /> <referenceRange> <observationRange > <text>150-400</text> </observationRange> </ referenceRange> </observation> </component> </organizer> </entry > <entry> <organizer moodCode="EVN" classCode="BATTERY"> <templateId root="05.22.840.1.819408.10..4.1" /> <id nullFlavor="NA" /> <code codeSystem="local" code="METAB" displayName="METABOLIC PANEL, BASIC" /> < statusCode code="completed" /> <component> <observation moodCode= "EVN" classCode="OBS"> <templateId root="840.1.002389.01.23.22.4.2 " /> <id nullFlavor="NA" /> <code codeSystem="local" code="K" displayName="POTASSIUM" /> <statusCode code="completed" /> < effectiveTime value="119620637768" /> <value unit="mmol/L" xsi:type="PQ " value="3.9" /> <referenceRange> <observationRange> <text>3.5-5.3</text> </observationRange> </ referenceRange> </observation> </component> <component> <observation moodCode="EVN" classCode="OBS"> <templateId root= "840.1.716137.01.23.22.4.2" /> <id nullFlavor="NA" /> < code codeSystem="local" code="eGFR" displayName="EST GFR (MDRD)" /> < statusCode code="completed" /> <effectiveTime value="823636383069" /> <value unit="mL/min" xsi:type="PQ" value="60" /> < referenceRange> <observationRange> <text>> 59</text> </observationRange> </referenceRange> </observation > </component> <component> <observation moodCode="EVN" classCode="OBS"> <templateId root="05.22.840.1.333444.01.23.22.4.2" /> <id nullFlavor="NA" /> <code codeSystem="local" code="GAP" displayName="ANION GAP" /> <statusCode code="completed" /> < effectiveTime value="" /> <value unit="mmol/L" xsi:type="PQ " value="10" /> <referenceRange> <observationRange> <text>5-15</text> </observationRange> </referenceRange > </observation> </component> <component> <observation moodCode="EVN" classCode="OBS"> <templateId root= "216.840.1.541874.10..22.4.2" /> <id nullFlavor="NA" /> < code codeSystem="local" code="GLU" displayName="GLUCOSE" /> < statusCode code="completed" /> <effectiveTime value="" /> <value unit="mg/dL" xsi:type="PQ" value="78" /> < referenceRange> <observationRange> <text>70-99</text> </observationRange> </referenceRange> </observation> </component> <component> <observation moodCode="EVN" classCode= "OBS"> <templateId root="216.840.1.606874.10.20.22.4.2" /> < id nullFlavor="NA" /> <code codeSystem="local" code="CA" displayName= "CALCIUM" /> <statusCode code="completed" /> <effectiveTime value="" /> <value unit="mg/dL" xsi:type="PQ" value="9.1" / > <referenceRange> <observationRange> <text>8.5 -10.1</text> </observationRange> </referenceRange> </ observation> </component> <component> <observation moodCode= "EVN" classCode="OBS"> <templateId root="2.16.840.1.428503.10.20.22.4.2 " /> <id nullFlavor="NA" /> <code codeSystem="local" code="BUN " displayName="BLOOD UREA NITROGEN" /> <statusCode code="completed" /> <effectiveTime value="057219553247" /> <value unit="mg/dL" xsi:type="PQ" value="24" /> <interpretationCode codeSystem="local" code ="*" /> <referenceRange> <observationRange> < text>7-20</text> </observationRange> </referenceRange> </observation> </component> <component> <observation moodCode="EVN" classCode="OBS"> <templateId root= "16.840.1.313402.10.22.4.2" /> <id nullFlavor="NA" /> < code codeSystem="local" code="CREAT" displayName="CREATININE" /> < statusCode code="completed" /> <effectiveTime value="108866613345" /> <value unit="mg/dL" xsi:type="PQ" value="1.3" /> < referenceRange> <observationRange> <text>0.8-1.3</text> </observationRange> </referenceRange> </observation > </component> <component> <observation moodCode="EVN" classCode="OBS"> <templateId root="05.22.840.1.993388.10.20.22.4.2" /> <id nullFlavor="NA" /> <code codeSystem="local" code="NA" displayName="SODIUM" /> <statusCode code="completed" /> < effectiveTime value="513800861005" /> <value unit="mmol/L" xsi:type="PQ " value="128" /> <interpretationCode codeSystem="local" code="*" /> <referenceRange> <observationRange> <text>135-148 </text> </observationRange> </referenceRange> </ observation> </component> <component> <observation moodCode= "EVN" classCode="OBS"> <templateId root="16.840.1.202496.10.20.22.4.2 " /> <id nullFlavor="NA" /> <code codeSystem="local" code="CL " displayName="CHLORIDE" /> <statusCode code="completed" /> < effectiveTime value="081719592748" /> <value unit="mmol/L" xsi:type="PQ " value="93" /> <interpretationCode codeSystem="local" code="*" /> <referenceRange> <observationRange> <text>98-110</ text> </observationRange> </referenceRange> </ observation> </component> <component> <observation moodCode= "EVN" classCode="OBS"> <templateId root="05.22.840.1.445587.10...4.2 " /> <id nullFlavor="NA" /> <code codeSystem="local" code="CO2 " displayName="CARBON DIOXIDE" /> <statusCode code="completed" /> <effectiveTime value="979803208010" /> <value unit="mmol/L" xsi: type="PQ" value="25" /> <referenceRange> <observationRange> <text>21-32</text> </observationRange> </ referenceRange> </observation> </component> </organizer> </entry > <entry> <organizer moodCode="EVN" classCode="BATTERY"> <templateId root="16.840.1.177877.10..22.4.1" /> <id nullFlavor="NA" /> <code codeSystem="local" code="MAG" displayName="MAGNESIUM" /> <statusCode code= "completed" /> <component> <observation moodCode="EVN" classCode= "OBS"> <templateId root="216.840.1.553682.10..22.4.2" /> < id nullFlavor="NA" /> <code codeSystem="local" code="MAG" displayName= "MAGNESIUM" /> <statusCode code="completed" /> <effectiveTime value="133971400582" /> <value unit="mg/dL" xsi:type="PQ" value="1.6" / > <interpretationCode codeSystem="local" code="*" /> < referenceRange> <observationRange> <text>1.8-2.4</text> </observationRange> </referenceRange> </observation > </component> </organizer> </entry> <entry> <organizer moodCode= "EVN" classCode="BATTERY"> <templateId root="216.840.1.672494.10..22.4.1 " /> <id nullFlavor="NA" /> <code codeSystem="local" code="GLUMON" displayName="GLUCOSE (POC)" /> <statusCode code="completed" /> < component> <observation moodCode="EVN" classCode="OBS"> < templateId root="216.840.1.647455.10..22.4.2" /> <id nullFlavor="NA " /> <code codeSystem="local" code="GLUMON" displayName="GLUCOSE (POC) " /> <statusCode code="completed" /> <effectiveTime value= "068370824922" /> <value unit="mg/dL" xsi:type="PQ" value="43" /> <interpretationCode codeSystem="local" code="" /> < referenceRange> <observationRange> <text>70-99</text> </observationRange> </referenceRange> </observation> </component> </organizer> </entry> <entry> <organizer moodCode="EVN " classCode="BATTERY"> <templateId root="05.22.840.1.421593.01.23.22.4.1" / > <id nullFlavor="NA" /> <code codeSystem="local" code="GLUMON" displayName="GLUCOSE (POC)" /> <statusCode code="completed" /> < component> <observation moodCode="EVN" classCode="OBS"> < templateId root="840.1.052660.01.23.224.2" /> <id nullFlavor="NA " /> <code codeSystem="local" code="GLUMON" displayName="GLUCOSE (POC) " /> <statusCode code="completed" /> <effectiveTime value= "438898582583" /> <value unit="mg/dL" xsi:type="PQ" value="34" /> <interpretationCode codeSystem="local" code="" /> < referenceRange> <observationRange> <text>70-99</text> </observationRange> </referenceRange> </observation> </component> </organizer> </entry> <entry> <organizer moodCode="EVN " classCode="BATTERY"> <templateId root="840.1.152200.01.23.22.4.1" / > <id nullFlavor="NA" /> <code codeSystem="local" code="GLUMON" displayName="GLUCOSE (POC)" /> <statusCode code="completed" /> < component> <observation moodCode="EVN" classCode="OBS"> < templateId root="05.22.840.1.119268.1022.4.2" /> <id nullFlavor="NA " /> <code codeSystem="local" code="GLUMON" displayName="GLUCOSE (POC) " /> <statusCode code="completed" /> <effectiveTime value= "826352173754" /> <value unit="mg/dL" xsi:type="PQ" value="39" /> <interpretationCode codeSystem="local" code="" /> < referenceRange> <observationRange> <text>70-99</text> </observationRange> </referenceRange> </observation> </component> </organizer> </entry> <entry> <organizer moodCode="EVN " classCode="BATTERY"> <templateId root="216.840.1.814638.10..22.4.1" / > <id nullFlavor="NA" /> <code codeSystem="local" code="GLUMON" displayName="GLUCOSE (POC)" /> <statusCode code="completed" /> < component> <observation moodCode="EVN" classCode="OBS"> < templateId root="16.840.1.991994.10..22.4.2" /> <id nullFlavor="NA " /> <code codeSystem="local" code="GLUMON" displayName="GLUCOSE (POC) " /> <statusCode code="completed" /> <effectiveTime value= "054414512126" /> <value unit="mg/dL" xsi:type="PQ" value="88" /> <referenceRange> <observationRange> <text>70-99</ text> </observationRange> </referenceRange> </ observation> </component> </organizer> </entry> <entry> <organizer moodCode="EVN" classCode="BATTERY"> <templateId root= "16.840.1.963101.10..22.4.1" /> <id nullFlavor="NA" /> <code codeSystem="local" code="METAB" displayName="METABOLIC PANEL, BASIC" /> < statusCode code="completed" /> <component> <observation moodCode= "EVN" classCode="OBS"> <templateId root="05.22.840.1.928489.10.4.2 " /> <id nullFlavor="NA" /> <code codeSystem="local" code="K" displayName="POTASSIUM" /> <statusCode code="completed" /> < effectiveTime value="" /> <value unit="mmol/L" xsi:type="PQ " value="3.8" /> <referenceRange> <observationRange> <text>3.5-5.3</text> </observationRange> </ referenceRange> </observation> </component> <component> <observation moodCode="EVN" classCode="OBS"> <templateId root= "840.1.613767.01.23.22.4.2" /> <id nullFlavor="NA" /> < code codeSystem="local" code="eGFR" displayName="EST GFR (MDRD)" /> < statusCode code="completed" /> <effectiveTime value="" /> <value unit="mL/min" xsi:type="PQ" value="60" /> < referenceRange> <observationRange> <text>> 59</text> </observationRange> </referenceRange> </observation > </component> <component> <observation moodCode="EVN" classCode="OBS"> <templateId root="05.22.840.1.052978.01.23.22.4.2" /> <id nullFlavor="NA" /> <code codeSystem="local" code="GAP" displayName="ANION GAP" /> <statusCode code="completed" /> < effectiveTime value="821481291053" /> <value unit="mmol/L" xsi:type="PQ " value="10" /> <referenceRange> <observationRange> <text>5-15</text> </observationRange> </referenceRange > </observation> </component> <component> <observation moodCode="EVN" classCode="OBS"> <templateId root= "16.840.1.246868.10.20.22.4.2" /> <id nullFlavor="NA" /> < code codeSystem="local" code="GLU" displayName="GLUCOSE" /> < statusCode code="completed" /> <effectiveTime value="058268691616" /> <value unit="mg/dL" xsi:type="PQ" value="82" /> < referenceRange> <observationRange> <text>70-99</text> </observationRange> </referenceRange> </observation> </component> <component> <observation moodCode="EVN" classCode= "OBS"> <templateId root="05.22.840.1.921312.1022.4.2" /> < id nullFlavor="NA" /> <code codeSystem="local" code="CA" displayName= "CALCIUM" /> <statusCode code="completed" /> <effectiveTime value="090292638562" /> <value unit="mg/dL" xsi:type="PQ" value="9.0" / > <referenceRange> <observationRange> <text>8.5 -10.1</text> </observationRange> </referenceRange> </ observation> </component> <component> <observation moodCode= "EVN" classCode="OBS"> <templateId root="05.22.840.1.072886.10.20.22.4.2 " /> <id nullFlavor="NA" /> <code codeSystem="local" code="BUN " displayName="BLOOD UREA NITROGEN" /> <statusCode code="completed" /> <effectiveTime value="687399985738" /> <value unit="mg/dL" xsi:type="PQ" value="28" /> <interpretationCode codeSystem="local" code ="*" /> <referenceRange> <observationRange> < text>7-20</text> </observationRange> </referenceRange> </observation> </component> <component> <observation moodCode="EVN" classCode="OBS"> <templateId root= "05.22.840.1.166943.10..22.4.2" /> <id nullFlavor="NA" /> < code codeSystem="local" code="CREAT" displayName="CREATININE" /> < statusCode code="completed" /> <effectiveTime value="645452839571" /> <value unit="mg/dL" xsi:type="PQ" value="1.3" /> < referenceRange> <observationRange> <text>0.8-1.3</text> </observationRange> </referenceRange> </observation > </component> <component> <observation moodCode="EVN" classCode="OBS"> <templateId root="05.22.840.1.561937.10..22.4.2" /> <id nullFlavor="NA" /> <code codeSystem="local" code="NA" displayName="SODIUM" /> <statusCode code="completed" /> < effectiveTime value="929486731073" /> <value unit="mmol/L" xsi:type="PQ " value="132" /> <interpretationCode codeSystem="local" code="*" /> <referenceRange> <observationRange> <text>135-148 </text> </observationRange> </referenceRange> </ observation> </component> <component> <observation moodCode= "EVN" classCode="OBS"> <templateId root="840.1.311939.1022.4.2 " /> <id nullFlavor="NA" /> <code codeSystem="local" code="CL " displayName="CHLORIDE" /> <statusCode code="completed" /> < effectiveTime value="865384710774" /> <value unit="mmol/L" xsi:type="PQ " value="94" /> <interpretationCode codeSystem="local" code="*" /> <referenceRange> <observationRange> <text>98-110</ text> </observationRange> </referenceRange> </ observation> </component> <component> <observation moodCode= "EVN" classCode="OBS"> <templateId root="840.1.718026.01.23.22.4.2 " /> <id nullFlavor="NA" /> <code codeSystem="local" code="CO2 " displayName="CARBON DIOXIDE" /> <statusCode code="completed" /> <effectiveTime value="707015489901" /> <value unit="mmol/L" xsi: type="PQ" value="28" /> <referenceRange> <observationRange> <text>21-32</text> </observationRange> </ referenceRange> </observation> </component> </organizer> </entry > <entry> <organizer moodCode="EVN" classCode="BATTERY"> <templateId root="840.1.630233.10.22.4.1" /> <id nullFlavor="NA" /> <code codeSystem="local" code="CBC" displayName="COMPLETE BLOOD COUNT" /> < statusCode code="completed" /> <component> <observation moodCode= "EVN" classCode="OBS"> <templateId root="840.1.732710.102022.4.2 " /> <id nullFlavor="NA" /> <code codeSystem="local" code="PLT " displayName="Platelet" /> <statusCode code="completed" /> < effectiveTime value="908996063828" /> <value unit="10^3u" xsi:type="PQ " value="217" /> <referenceRange> <observationRange> <text>142-424</text> </observationRange> </ referenceRange> </observation> </component> <component> <observation moodCode="EVN" classCode="OBS"> <templateId root= "216.840.1.511443.10..22.4.2" /> <id nullFlavor="NA" /> < code codeSystem="local" code="MPV" displayName="MPV" /> <statusCode code="completed" /> <effectiveTime value="371026547467" /> < value unit="FL" xsi:type="PQ" value="8.8" /> <interpretationCode codeSystem="local" code="L" /> <referenceRange> < observationRange> <text>9.4-12.4</text> </ observationRange> </referenceRange> </observation> </ component> <component> <observation moodCode="EVN" classCode="OBS"> <templateId root="16.840.1.882866.10..22.4.2" /> <id nullFlavor="NA" /> <code codeSystem="local" code="MONO#" displayName= "Craig #" /> <statusCode code="completed" /> <effectiveTime value="134065895446" /> <value unit="10^3u" xsi:type="PQ" value="0.65" /> <referenceRange> <observationRange> <text> 0.0-1.0</text> </observationRange> </referenceRange> </observation> </component> <component> <observation moodCode= "EVN" classCode="OBS"> <templateId root="2.16.840.1.224521.10..22.4.2 " /> <id nullFlavor="NA" /> <code codeSystem="local" code="RBC " displayName="RBC" /> <statusCode code="completed" /> < effectiveTime value="191936902335" /> <value unit="10^6u" xsi:type="PQ " value="3.45" /> <interpretationCode codeSystem="local" code="L" /> <referenceRange> <observationRange> <text>4.04- 6.13</text> </observationRange> </referenceRange> </ observation> </component> <component> <observation moodCode= "EVN" classCode="OBS"> <templateId root="216.840.1.453868.01.23.22.4.2 " /> <id nullFlavor="NA" /> <code codeSystem="local" code= "MONO%" displayName="Craig %" /> <statusCode code="completed" / > <effectiveTime value="201295092150" /> <value unit="%" xsi:type="PQ" value="8.9" /> <referenceRange> < observationRange> <text>0-12</text> </observationRange> </referenceRange> </observation> </component> < component> <observation moodCode="EVN" classCode="OBS"> < templateId root="2.16.840.1.719143.10...4.2" /> <id nullFlavor="NA " /> <code codeSystem="local" code="RDW" displayName="RDW" /> <statusCode code="completed" /> <effectiveTime value="502921852553" /> <value unit="%" xsi:type="PQ" value="12.6" /> < referenceRange> <observationRange> <text>11.6-14.8</text > </observationRange> </referenceRange> </observation > </component> <component> <observation moodCode="EVN" classCode="OBS"> <templateId root="216.840.1.136536.10...4.2" /> <id nullFlavor="NA" /> <code codeSystem="local" code="SEG#" displayName="Neut #" /> <statusCode code="completed" /> < effectiveTime value="830967714165" /> <value unit="10^3u" xsi:type="PQ " value="4.81" /> <referenceRange> <observationRange> <text>2.0-6.9</text> </observationRange> </ referenceRange> </observation> </component> <component> <observation moodCode="EVN" classCode="OBS"> <templateId root= "16.840.1.924669.10..4.2" /> <id nullFlavor="NA" /> < code codeSystem="local" code="SEG%" displayName="Neut %" /> < statusCode code="completed" /> <effectiveTime value="318507172930" /> <value unit="%" xsi:type="PQ" value="65.6" /> < referenceRange> <observationRange> <text>37-80</text> </observationRange> </referenceRange> </observation> </component> <component> <observation moodCode="EVN" classCode= "OBS"> <templateId root="16.840.1.287233.10..22.4.2" /> < id nullFlavor="NA" /> <code codeSystem="local" code="WBC" displayName= "WBC" /> <statusCode code="completed" /> <effectiveTime value= "994984235983" /> <value unit="10^3u" xsi:type="PQ" value="7.33" /> <referenceRange> <observationRange> <text>4.60- 10.20</text> </observationRange> </referenceRange> </ observation> </component> <component> <observation moodCode= "EVN" classCode="OBS"> <templateId root="05.22.840.1.755611.10.20.22.4.2 " /> <id nullFlavor="NA" /> <code codeSystem="local" code="MCV " displayName="MCV" /> <statusCode code="completed" /> < effectiveTime value="797250895897" /> <value unit="FL" xsi:type="PQ" value="96.5" /> <referenceRange> <observationRange> <text>80.0-97.0</text> </observationRange> </ referenceRange> </observation> </component> <component> <observation moodCode="EVN" classCode="OBS"> <templateId root= "05.22.840.1.557070.10.20.22.4.2" /> <id nullFlavor="NA" /> < code codeSystem="local" code="BASO#" displayName="Baso #" /> < statusCode code="completed" /> <effectiveTime value="089613666842" /> <value unit="10^3u" xsi:type="PQ" value="0.04" /> < referenceRange> <observationRange> <text>0.0-0.1</text> </observationRange> </referenceRange> </observation > </component> <component> <observation moodCode="EVN" classCode="OBS"> <templateId root="16.840.1.543133.10.22.4.2" /> <id nullFlavor="NA" /> <code codeSystem="local" code="BASO&#37 ;" displayName="Baso %" /> <statusCode code="completed" /> <effectiveTime value="872445902115" /> <value unit="%" xsi:type= "PQ" value="0.5" /> <referenceRange> <observationRange> <text>0-2</text> </observationRange> </ referenceRange> </observation> </component> <component> <observation moodCode="EVN" classCode="OBS"> <templateId root= "05.22.840.1.816743.10.22.4.2" /> <id nullFlavor="NA" /> < code codeSystem="local" code="EOS#" displayName="Eos #" /> <statusCode code="completed" /> <effectiveTime value="305830577745" /> < value unit="10^3u" xsi:type="PQ" value="0.38" /> <referenceRange> <observationRange> <text>0-0.7</text> </ observationRange> </referenceRange> </observation> </ component> <component> <observation moodCode="EVN" classCode="OBS"> <templateId root="05.22.840.1.290873.10.20.22.4.2" /> <id nullFlavor="NA" /> <code codeSystem="local" code="EOS%" displayName ="Eos %" /> <statusCode code="completed" /> < effectiveTime value="322382480772" /> <value unit="%" xsi:type="PQ " value="5.2" /> <referenceRange> <observationRange> <text>0-7</text> </observationRange> </referenceRange > </observation> </component> <component> <observation moodCode="EVN" classCode="OBS"> <templateId root= "216.840.1.808463.10.22.4.2" /> <id nullFlavor="NA" /> < code codeSystem="local" code="LYMPH%" displayName="Lymph %" /> <statusCode code="completed" /> <effectiveTime value="588043087623" /> <value unit="%" xsi:type="PQ" value="19.8" /> < referenceRange> <observationRange> <text>10-50</text> </observationRange> </referenceRange> </observation> </component> <component> <observation moodCode="EVN" classCode= "OBS"> <templateId root="05.22.840.1.463790.01.23.22.4.2" /> < id nullFlavor="NA" /> <code codeSystem="local" code="MCHC" displayName= "MCHC" /> <statusCode code="completed" /> <effectiveTime value ="014251777163" /> <value unit="G/DL" xsi:type="PQ" value="34.5" /> <referenceRange> <observationRange> <text>31.8- 35.4</text> </observationRange> </referenceRange> </ observation> </component> <component> <observation moodCode= "EVN" classCode="OBS"> <templateId root="216.840.1.294779.22.4.2 " /> <id nullFlavor="NA" /> <code codeSystem="local" code="MCH " displayName="MCH" /> <statusCode code="completed" /> < effectiveTime value="489966906093" /> <value unit="PG" xsi:type="PQ" value="33.3" /> <interpretationCode codeSystem="local" code="H" /> <referenceRange> <observationRange> <text>27.0- 31.2</text> </observationRange> </referenceRange> </ observation> </component> <component> <observation moodCode= "EVN" classCode="OBS"> <templateId root="16.840.1.717004.01.23.22.4.2 " /> <id nullFlavor="NA" /> <code codeSystem="local" code= "LYMPH#" displayName="Lymph #" /> <statusCode code="completed" /> <effectiveTime value="232132388129" /> <value unit="10^3u" xsi: type="PQ" value="1.45" /> <referenceRange> <observationRange > <text>0.6-3.4</text> </observationRange> </ referenceRange> </observation> </component> <component> <observation moodCode="EVN" classCode="OBS"> <templateId root= "05.22.840.1.309700.01.23.22.4.2" /> <id nullFlavor="NA" /> < code codeSystem="local" code="HGB" displayName="HGB" /> <statusCode code="completed" /> <effectiveTime value="589753698088" /> < value unit="G/DL" xsi:type="PQ" value="11.5" /> <interpretationCode codeSystem="local" code="L" /> <referenceRange> < observationRange> <text>12.2-18.1</text> </ observationRange> </referenceRange> </observation> </ component> <component> <observation moodCode="EVN" classCode="OBS"> <templateId root="05.22.840.1.469580.10..4.2" /> <id nullFlavor="NA" /> <code codeSystem="local" code="HCT" displayName="HCT " /> <statusCode code="completed" /> <effectiveTime value= "900872755303" /> <value unit="%" xsi:type="PQ" value="33.3" /> <interpretationCode codeSystem="local" code="L" /> < referenceRange> <observationRange> <text>37.7-53.7</text > </observationRange> </referenceRange> </observation > </component> </organizer> </entry> <entry> <organizer moodCode= "EVN" classCode="BATTERY"> <templateId root="05.22.840.1.478056.10..4.1 " /> <id nullFlavor="NA" /> <code codeSystem="local" code="CMP11" displayName="CMP" /> <statusCode code="completed" /> <component> <observation moodCode="EVN" classCode="OBS"> <templateId root= "05.22.840.1.290111.10...4.2" /> <id nullFlavor="NA" /> < code codeSystem="local" code="OSMCAL" displayName="Osmo Calculated" /> <statusCode code="completed" /> <effectiveTime value="611470047050" /> <value unit="MOSM" xsi:type="PQ" value="267" /> < referenceRange> <observationRange> <text>261-280</text> </observationRange> </referenceRange> </observation > </component> <component> <observation moodCode="EVN" classCode="OBS"> <templateId root="05.22.840.1.888370.01.23.22.4.2" /> <id nullFlavor="NA" /> <code codeSystem="local" code="NA" displayName="Sodium" /> <statusCode code="completed" /> < effectiveTime value="979662988989" /> <value unit="MMOLL" xsi:type="PQ " value="135" /> <interpretationCode codeSystem="local" code="L" /> <referenceRange> <observationRange> <text>137-145 </text> </observationRange> </referenceRange> </ observation> </component> <component> <observation moodCode= "EVN" classCode="OBS"> <templateId root="2.16.840.1.627915.01.23.224.2 " /> <id nullFlavor="NA" /> <code codeSystem="local" code="TP " displayName="T. Protein" /> <statusCode code="completed" /> <effectiveTime value="462612014288" /> <value unit="G/DL" xsi:type="PQ " value="6.3" /> <referenceRange> <observationRange> <text>6.3-8.2</text> </observationRange> </ referenceRange> </observation> </component> <component> <observation moodCode="EVN" classCode="OBS"> <templateId root= "2.16.840.1.776546.01.23.22.4.2" /> <id nullFlavor="NA" /> < code codeSystem="local" code="K" displayName="Potassium" /> < statusCode code="completed" /> <effectiveTime value="272023529550" /> <value unit="MMOLL" xsi:type="PQ" value="4.0" /> < referenceRange> <observationRange> <text>3.6-5.0</text> </observationRange> </referenceRange> </observation > </component> <component> <observation moodCode="EVN" classCode="OBS"> <templateId root="16.840.1.350051.10.4.2" /> <id nullFlavor="NA" /> <code codeSystem="local" code="TBIL" displayName="T Bili" /> <statusCode code="completed" /> < effectiveTime value="102902469623" /> <value unit="MG/DL" xsi:type="PQ " value="0.3" /> <referenceRange> <observationRange> <text>0.2-1.3</text> </observationRange> </ referenceRange> </observation> </component> <component> <observation moodCode="EVN" classCode="OBS"> <templateId root= "05.22.840.1.173964.01.23.22.4.2" /> <id nullFlavor="NA" /> < code codeSystem="local" code="CA" displayName="Calcium" /> <statusCode code="completed" /> <effectiveTime value="569663473447" /> < value unit="MG/DL" xsi:type="PQ" value="9.2" /> <referenceRange> <observationRange> <text>8.4-10.2</text> </ observationRange> </referenceRange> </observation> </ component> <component> <observation moodCode="EVN" classCode="OBS"> <templateId root="05.22.840.1.006961...4.2" /> <id nullFlavor="NA" /> <code codeSystem="local" code="BUN" displayName="BUN " /> <statusCode code="completed" /> <effectiveTime value= "569795621513" /> <value unit="MG/DL" xsi:type="PQ" value="30" /> <interpretationCode codeSystem="local" code="H" /> <referenceRange > <observationRange> <text>7-21</text> </ observationRange> </referenceRange> </observation> </ component> <component> <observation moodCode="EVN" classCode="OBS"> <templateId root="05.22.840.1.273894.10..4.2" /> <id nullFlavor="NA" /> <code codeSystem="local" code="CL" displayName= "Chloride" /> <statusCode code="completed" /> <effectiveTime value="" /> <value unit="MMOLL" xsi:type="PQ" value="99" / > <referenceRange> <observationRange> <text>98- 107</text> </observationRange> </referenceRange> </ observation> </component> <component> <observation moodCode= "EVN" classCode="OBS"> <templateId root="840.1.723815.01.23.22.4.2 " /> <id nullFlavor="NA" /> <code codeSystem="local" code="AST " displayName="AST" /> <statusCode code="completed" /> < effectiveTime value="" /> <value unit="U/L" xsi:type="PQ" value="20" /> <referenceRange> <observationRange> <text>15-46</text> </observationRange> </referenceRange > </observation> </component> <component> <observation moodCode="EVN" classCode="OBS"> <templateId root= "05.22.840.1.701750.10.4.2" /> <id nullFlavor="NA" /> < code codeSystem="local" code="ALT" displayName="ALT" /> <statusCode code="completed" /> <effectiveTime value="174537694273" /> < value unit="U/L" xsi:type="PQ" value="28" /> <referenceRange> <observationRange> <text>7-56</text> </ observationRange> </referenceRange> </observation> </ component> <component> <observation moodCode="EVN" classCode="OBS"> <templateId root="16.840.1.314020.10.22.4.2" /> <id nullFlavor="NA" /> <code codeSystem="local" code="ALB" displayName= "Albumin" /> <statusCode code="completed" /> <effectiveTime value="135383244779" /> <value unit="G/DL" xsi:type="PQ" value="3.6" / > <referenceRange> <observationRange> <text>3.5 -5.0</text> </observationRange> </referenceRange> </ observation> </component> <component> <observation moodCode= "EVN" classCode="OBS"> <templateId root="05.22.840.1.365846.22.4.2 " /> <id nullFlavor="NA" /> <code codeSystem="local" code="AG " displayName="A/G Ratio" /> <statusCode code="completed" /> < effectiveTime value="645560685835" /> <value unit="RATIO" xsi:type="PQ " value="1.4" /> <referenceRange> <observationRange> <text>1.2-2.2</text> </observationRange> </ referenceRange> </observation> </component> <component> <observation moodCode="EVN" classCode="OBS"> <templateId root= "16.840.1.040182.10.2022.4.2" /> <id nullFlavor="NA" /> < code codeSystem="local" code="BCR" displayName="Bun/Creat" /> < statusCode code="completed" /> <effectiveTime value="256223443065" /> <value unit="RATIO" xsi:type="PQ" value="18.5" /> < referenceRange> <observationRange> <text>7-25</text> </observationRange> </referenceRange> </observation> </component> <component> <observation moodCode="EVN" classCode= "OBS"> <templateId root="216.840.1.011924.10.20.22.4.2" /> < id nullFlavor="NA" /> <code codeSystem="local" code="ALP" displayName= "Alk Phos" /> <statusCode code="completed" /> <effectiveTime value="128101999397" /> <value unit="U/L" xsi:type="PQ" value="88" /> <referenceRange> <observationRange> <text>38- 126</text> </observationRange> </referenceRange> </ observation> </component> <component> <observation moodCode= "EVN" classCode="OBS"> <templateId root="16.840.1.069499.10.20.22.4.2 " /> <id nullFlavor="NA" /> <code codeSystem="local" code="CO2 " displayName="CO2" /> <statusCode code="completed" /> < effectiveTime value="140941474437" /> <value unit="MMOLL" xsi:type="PQ " value="29" /> <referenceRange> <observationRange> <text>22-30</text> </observationRange> </ referenceRange> </observation> </component> <component> <observation moodCode="EVN" classCode="OBS"> <templateId root= "16.840.1.258955.01.23.22.4.2" /> <id nullFlavor="NA" /> < code codeSystem="local" code="GLU" displayName="Glucose" /> < statusCode code="completed" /> <effectiveTime value="309266505156" /> <value unit="MG/DL" xsi:type="PQ" value="73" /> < referenceRange> <observationRange> <text>65-110</text> </observationRange> </referenceRange> </observation> </component> <component> <observation moodCode="EVN" classCode ="OBS"> <templateId root="16.840.1.475487.01.23.22.4.2" /> < id nullFlavor="NA" /> <code codeSystem="local" code="GLOB" displayName= "Globulin" /> <statusCode code="completed" /> <effectiveTime value="592095616875" /> <value unit="" xsi:type="PQ" value="2.7" /> <referenceRange> <observationRange> <text>2.4-3.5 </text> </observationRange> </referenceRange> </ observation> </component> <component> <observation moodCode= "EVN" classCode="OBS"> <templateId root="16.840.1.311032.01.23.22.4.2 " /> <id nullFlavor="NA" /> <code codeSystem="local" code= "CREAT" displayName="Creatinine" /> <statusCode code="completed" /> <effectiveTime value="937868504870" /> <value unit="MG/DL" xsi: type="PQ" value="1.6" /> <interpretationCode codeSystem="local" code="H " /> <referenceRange> <observationRange> <text> 0.7-1.5</text> </observationRange> </referenceRange> </observation> </component> </organizer> </entry> <entry> < organizer moodCode="EVN" classCode="BATTERY"> <templateId root= "05.22.840.1.917685.01.23.22.4.1" /> <id nullFlavor="NA" /> <code codeSystem="local" code="BNP" displayName="BNP" /> <statusCode code= "completed" /> <component> <observation moodCode="EVN" classCode= "OBS"> <templateId root="840.1.623143.01.23.224.2" /> < id nullFlavor="NA" /> <code codeSystem="local" code="BNP" displayName= "BNP" /> <statusCode code="completed" /> <effectiveTime value= "509413242150" /> <value unit="PG/ML" xsi:type="PQ" value="57.0" /> <referenceRange> <observationRange> <text><= 100</text> </observationRange> </referenceRange> </ observation> </component> </organizer> </entry> <entry> <organizer moodCode="EVN" classCode="BATTERY"> <templateId root= "840.1.963235.01.23.22.4.1" /> <id nullFlavor="NA" /> <code codeSystem="local" code="CBC" displayName="COMPLETE BLOOD COUNT" /> < statusCode code="completed" /> <component> <observation moodCode= "EVN" classCode="OBS"> <templateId root="05.22.840.1.992198.01.23.22.4.2 " /> <id nullFlavor="NA" /> <code codeSystem="local" code="PLT " displayName="Platelet" /> <statusCode code="completed" /> < effectiveTime value="" /> <value unit="10^3u" xsi:type="PQ " value="227" /> <referenceRange> <observationRange> <text>142-424</text> </observationRange> </ referenceRange> </observation> </component> <component> <observation moodCode="EVN" classCode="OBS"> <templateId root= "16.840.1.762910.22.4.2" /> <id nullFlavor="NA" /> < code codeSystem="local" code="MPV" displayName="MPV" /> <statusCode code="completed" /> <effectiveTime value="" /> < value unit="FL" xsi:type="PQ" value="9.9" /> <referenceRange> <observationRange> <text>9.4-12.4</text> </ observationRange> </referenceRange> </observation> </ component> <component> <observation moodCode="EVN" classCode="OBS"> <templateId root="05.22.840.1.484427.01.23.22.4.2" /> <id nullFlavor="NA" /> <code codeSystem="local" code="MONO#" displayName= "Craig #" /> <statusCode code="completed" /> <effectiveTime value="" /> <value unit="10^3u" xsi:type="PQ" value="0.96" /> <referenceRange> <observationRange> <text> 0.0-1.0</text> </observationRange> </referenceRange> </observation> </component> <component> <observation moodCode= "EVN" classCode="OBS"> <templateId root="16.840.1.063562..2022.4.2 " /> <id nullFlavor="NA" /> <code codeSystem="local" code="RBC " displayName="RBC" /> <statusCode code="completed" /> < effectiveTime value="" /> <value unit="10^6u" xsi:type="PQ " value="3.55" /> <interpretationCode codeSystem="local" code="L" /> <referenceRange> <observationRange> <text>4.04- 6.13</text> </observationRange> </referenceRange> </ observation> </component> <component> <observation moodCode= "EVN" classCode="OBS"> <templateId root="2.16.840.1.429864...4.2 " /> <id nullFlavor="NA" /> <code codeSystem="local" code= "MONO%" displayName="Craig %" /> <statusCode code="completed" / > <effectiveTime value="" /> <value unit="%" xsi:type="PQ" value="12.0" /> <referenceRange> < observationRange> <text>0-12</text> </observationRange> </referenceRange> </observation> </component> < component> <observation moodCode="EVN" classCode="OBS"> < templateId root="2.16.840.1.572153.01.23.22.4.2" /> <id nullFlavor="NA " /> <code codeSystem="local" code="RDW" displayName="RDW" /> <statusCode code="completed" /> <effectiveTime value="" /> <value unit="%" xsi:type="PQ" value="12.9" /> < referenceRange> <observationRange> <text>11.6-14.8</text > </observationRange> </referenceRange> </observation > </component> <component> <observation moodCode="EVN" classCode="OBS"> <templateId root="16.840.1.810872.10.4.2" /> <id nullFlavor="NA" /> <code codeSystem="local" code="SEG#" displayName="Neut #" /> <statusCode code="completed" /> < effectiveTime value="" /> <value unit="10^3u" xsi:type="PQ " value="4.23" /> <referenceRange> <observationRange> <text>2.0-6.9</text> </observationRange> </ referenceRange> </observation> </component> <component> <observation moodCode="EVN" classCode="OBS"> <templateId root= "05.22.840.1.820265.01.23.22.4.2" /> <id nullFlavor="NA" /> < code codeSystem="local" code="SEG%" displayName="Neut %" /> < statusCode code="completed" /> <effectiveTime value="" /> <value unit="%" xsi:type="PQ" value="52.9" /> < referenceRange> <observationRange> <text>37-80</text> </observationRange> </referenceRange> </observation> </component> <component> <observation moodCode="EVN" classCode= "OBS"> <templateId root="16.840.1.685368..22.4.2" /> < id nullFlavor="NA" /> <code codeSystem="local" code="WBC" displayName= "WBC" /> <statusCode code="completed" /> <effectiveTime value= "" /> <value unit="10^3u" xsi:type="PQ" value="7.99" /> <referenceRange> <observationRange> <text>4.60- 10.20</text> </observationRange> </referenceRange> </ observation> </component> <component> <observation moodCode= "EVN" classCode="OBS"> <templateId root="216.840.1.884549.1022.4.2 " /> <id nullFlavor="NA" /> <code codeSystem="local" code="MCV " displayName="MCV" /> <statusCode code="completed" /> < effectiveTime value="" /> <value unit="FL" xsi:type="PQ" value="101.1" /> <interpretationCode codeSystem="local" code="H" /> <referenceRange> <observationRange> <text>80.0- 97.0</text> </observationRange> </referenceRange> </ observation> </component> <component> <observation moodCode= "EVN" classCode="OBS"> <templateId root="05.22.840.1.750561.01.23.22.4.2 " /> <id nullFlavor="NA" /> <code codeSystem="local" code= "BASO#" displayName="Baso #" /> <statusCode code="completed" /> <effectiveTime value="" /> <value unit="10^3u" xsi:type= "PQ" value="0.03" /> <referenceRange> <observationRange> <text>0.0-0.1</text> </observationRange> </ referenceRange> </observation> </component> <component> <observation moodCode="EVN" classCode="OBS"> <templateId root= "16.840.1.923239..22.4.2" /> <id nullFlavor="NA" /> < code codeSystem="local" code="BASO%" displayName="Baso %" /> < statusCode code="completed" /> <effectiveTime value="[id number]" /> <value unit="%" xsi:type="PQ" value="0.4" /> < referenceRange> <observationRange> <text>0-2</text> </observationRange> </referenceRange> </observation> </component> <component> <observation moodCode="EVN" classCode= "OBS"> <templateId root="2.16.840.1.485800...4.2" /> < id nullFlavor="NA" /> <code codeSystem="local" code="EOS#" displayName= "Eos #" /> <statusCode code="completed" /> <effectiveTime value="" /> <value unit="10^3u" xsi:type="PQ" value="0.51" /> <referenceRange> <observationRange> <text>0- 0.7</text> </observationRange> </referenceRange> </ observation> </component> <component> <observation moodCode= "EVN" classCode="OBS"> <templateId root="2.16.840.1.596993.10.22.4.2 " /> <id nullFlavor="NA" /> <code codeSystem="local" code="EOS %" displayName="Eos %" /> <statusCode code="completed" /> <effectiveTime value="[id number]" /> <value unit="%" xsi: type="PQ" value="6.4" /> <referenceRange> <observationRange > <text>0-7</text> </observationRange> </ referenceRange> </observation> </component> <component> <observation moodCode="EVN" classCode="OBS"> <templateId root= "216.840.1.901494.10..22.4.2" /> <id nullFlavor="NA" /> < code codeSystem="local" code="LYMPH%" displayName="Lymph %" /> <statusCode code="completed" /> <effectiveTime value="" /> <value unit="%" xsi:type="PQ" value="28.3" /> < referenceRange> <observationRange> <text>10-50</text> </observationRange> </referenceRange> </observation> </component> <component> <observation moodCode="EVN" classCode= "OBS"> <templateId root="16.840.1.987291.10..4.2" /> < id nullFlavor="NA" /> <code codeSystem="local" code="MCHC" displayName= "MCHC" /> <statusCode code="completed" /> <effectiveTime value ="" /> <value unit="G/DL" xsi:type="PQ" value="34.5" /> <referenceRange> <observationRange> <text>31.8- 35.4</text> </observationRange> </referenceRange> </ observation> </component> <component> <observation moodCode= "EVN" classCode="OBS"> <templateId root="16.840.1.649092.10..22.4.2 " /> <id nullFlavor="NA" /> <code codeSystem="local" code="MCH " displayName="MCH" /> <statusCode code="completed" /> < effectiveTime value="" /> <value unit="PG" xsi:type="PQ" value="34.9" /> <interpretationCode codeSystem="local" code="H" /> <referenceRange> <observationRange> <text>27.0- 31.2</text> </observationRange> </referenceRange> </ observation> </component> <component> <observation moodCode= "EVN" classCode="OBS"> <templateId root="05.22.840.1.509774.10.20.22.4.2 " /> <id nullFlavor="NA" /> <code codeSystem="local" code= "LYMPH#" displayName="Lymph #" /> <statusCode code="completed" /> <effectiveTime value="" /> <value unit="10^3u" xsi: type="PQ" value="2.26" /> <referenceRange> <observationRange > <text>0.6-3.4</text> </observationRange> </ referenceRange> </observation> </component> <component> <observation moodCode="EVN" classCode="OBS"> <templateId root= "840.1.566692.10.2022.4.2" /> <id nullFlavor="NA" /> < code codeSystem="local" code="HGB" displayName="HGB" /> <statusCode code="completed" /> <effectiveTime value="" /> < value unit="G/DL" xsi:type="PQ" value="12.4" /> <referenceRange> <observationRange> <text>12.2-18.1</text> </ observationRange> </referenceRange> </observation> </ component> <component> <observation moodCode="EVN" classCode="OBS"> <templateId root="05.22.840.1.635242.10.20.22.4.2" /> <id nullFlavor="NA" /> <code codeSystem="local" code="HCT" displayName="HCT " /> <statusCode code="completed" /> <effectiveTime value= "[id number]" /> <value unit="%" xsi:type="PQ" value="35.9" /> <interpretationCode codeSystem="local" code="L" /> < referenceRange> <observationRange> <text>37.7-53.7</text > </observationRange> </referenceRange> </observation > </component> </organizer> </entry> <entry> <organizer moodCode= "EVN" classCode="BATTERY"> <templateId root="216.840.1.600324.10..22.4.1 " /> <id nullFlavor="NA" /> <code codeSystem="local" code="BNP" displayName="BNP" /> <statusCode code="completed" /> <component> <observation moodCode="EVN" classCode="OBS"> <templateId root= "216.840.1.340915.10..22.4.2" /> <id nullFlavor="NA" /> < code codeSystem="local" code="BNP" displayName="BNP" /> <statusCode code="completed" /> <effectiveTime value="[id number]" /> < value unit="PG/ML" xsi:type="PQ" value="17.6" /> <referenceRange> <observationRange> <text><=100</text> </ observationRange> </referenceRange> </observation> </ component> </organizer> </entry> <entry> <organizer moodCode="EVN" classCode="BATTERY"> <templateId root="216.840.1.012319.10.20.22.4.1" /> <id nullFlavor="NA" /> <code codeSystem="local" code="TROP" displayName="Troponin I" /> <statusCode code="completed" /> <component > <observation moodCode="EVN" classCode="OBS"> <templateId root= "2.16.840.1.954916.10..22.4.2" /> <id nullFlavor="NA" /> < code codeSystem="local" code="TROP" displayName="Troponin I" /> < statusCode code="completed" /> <effectiveTime value="[id number]" /> <value unit="NG/ML" xsi:type="PQ" value="0.02" /> < referenceRange> <observationRange> <text><=0.20</text > </observationRange> </referenceRange> </observation > </component> </organizer> </entry> <entry> <organizer moodCode= "EVN" classCode="BATTERY"> <templateId root="2.16.840.1.534580.10..22.4.1 " /> <id nullFlavor="NA" /> <code codeSystem="local" code="CK" displayName="CPK" /> <statusCode code="completed" /> <component> <observation moodCode="EVN" classCode="OBS"> <templateId root= "2.16.840.1.176575.10..22.4.2" /> <id nullFlavor="NA" /> < code codeSystem="local" code="CK" displayName="CPK" /> <statusCode code ="completed" /> <effectiveTime value="[id number]" /> <value unit="U/L" xsi:type="PQ" value="66" /> <referenceRange> < observationRange> <text>30-170</text> </observationRange > </referenceRange> </observation> </component> </ organizer> </entry> <entry> <organizer moodCode="EVN" classCode="BATTERY"> <templateId root="05.22.840.1.788229.01.23.22.4.1" /> <id nullFlavor= "NA" /> <code codeSystem="local" code="MB" displayName="CKMB" /> < statusCode code="completed" /> <component> <observation moodCode= "EVN" classCode="OBS"> <templateId root="840.1.381925.01.23.22.4.2 " /> <id nullFlavor="NA" /> <code codeSystem="local" code="MB " displayName="CKMB" /> <statusCode code="completed" /> < effectiveTime value="" /> <value unit="NG/ML" xsi:type="PQ " value="3.5" /> <referenceRange> <observationRange> <text><=6</text> </observationRange> </ referenceRange> </observation> </component> </organizer> </entry > <entry> <organizer moodCode="EVN" classCode="BATTERY"> <templateId root="840.1.015646.01.23.22.4.1" /> <id nullFlavor="NA" /> <code codeSystem="local" code="CMP11" displayName="CMP" /> <statusCode code= "completed" /> <component> <observation moodCode="EVN" classCode= "OBS"> <templateId root="840.1.732707.01.23.22.4.2" /> < id nullFlavor="NA" /> <code codeSystem="local" code="OSMCAL" displayName="Osmo Calculated" /> <statusCode code="completed" /> <effectiveTime value="" /> <value unit="MOSM" xsi:type= "PQ" value="277" /> <referenceRange> <observationRange> <text>261-280</text> </observationRange> </ referenceRange> </observation> </component> <component> <observation moodCode="EVN" classCode="OBS"> <templateId root= "216.840.1.790315.10.20.22.4.2" /> <id nullFlavor="NA" /> < code codeSystem="local" code="NA" displayName="Sodium" /> <statusCode code="completed" /> <effectiveTime value="" /> < value unit="MMOLL" xsi:type="PQ" value="138" /> <referenceRange> <observationRange> <text>136-145</text> </ observationRange> </referenceRange> </observation> </ component> <component> <observation moodCode="EVN" classCode="OBS"> <templateId root="05.22.840.1.378354.10..4.2" /> <id nullFlavor="NA" /> <code codeSystem="local" code="TP" displayName="T. Protein" /> <statusCode code="completed" /> <effectiveTime value="" /> <value unit="G/DL" xsi:type="PQ" value="6.9" / > <referenceRange> <observationRange> <text>6.4 -8.3</text> </observationRange> </referenceRange> </ observation> </component> <component> <observation moodCode= "EVN" classCode="OBS"> <templateId root="05.22.840.1.564658.10.2022.4.2 " /> <id nullFlavor="NA" /> <code codeSystem="local" code="K" displayName="Potassium" /> <statusCode code="completed" /> < effectiveTime value="" /> <value unit="MMOLL" xsi:type="PQ " value="4.4" /> <referenceRange> <observationRange> <text>3.5-5.1</text> </observationRange> </ referenceRange> </observation> </component> <component> <observation moodCode="EVN" classCode="OBS"> <templateId root= "216.840.1.621887.10..22.4.2" /> <id nullFlavor="NA" /> < code codeSystem="local" code="TBIL" displayName="T Bili" /> < statusCode code="completed" /> <effectiveTime value="" /> <value unit="MG/DL" xsi:type="PQ" value="0.3" /> < referenceRange> <observationRange> <text>0.2-1.2</text> </observationRange> </referenceRange> </observation > </component> <component> <observation moodCode="EVN" classCode="OBS"> <templateId root="16.840.1.288821.10..22.4.2" /> <id nullFlavor="NA" /> <code codeSystem="local" code="CA" displayName="Calcium" /> <statusCode code="completed" /> < effectiveTime value="" /> <value unit="MG/DL" xsi:type="PQ " value="9.3" /> <referenceRange> <observationRange> <text>8.4-10.2</text> </observationRange> </ referenceRange> </observation> </component> <component> <observation moodCode="EVN" classCode="OBS"> <templateId root= "216.840.1.866044.10.20.22.4.2" /> <id nullFlavor="NA" /> < code codeSystem="local" code="BUN" displayName="BUN" /> <statusCode code="completed" /> <effectiveTime value="" /> < value unit="MG/DL" xsi:type="PQ" value="42" /> <interpretationCode codeSystem="local" code="H" /> <referenceRange> < observationRange> <text>7-26</text> </observationRange> </referenceRange> </observation> </component> < component> <observation moodCode="EVN" classCode="OBS"> < templateId root="216.840.1.785810.10..22.4.2" /> <id nullFlavor="NA " /> <code codeSystem="local" code="CL" displayName="Chloride" /> <statusCode code="completed" /> <effectiveTime value=" " /> <value unit="MMOLL" xsi:type="PQ" value="105" /> < referenceRange> <observationRange> <text>98-107</text> </observationRange> </referenceRange> </observation> </component> <component> <observation moodCode="EVN" classCode ="OBS"> <templateId root="216.840.1.647789.10..22.4.2" /> < id nullFlavor="NA" /> <code codeSystem="local" code="AST" displayName= "AST" /> <statusCode code="completed" /> <effectiveTime value= "" /> <value unit="U/L" xsi:type="PQ" value="17" /> <referenceRange> <observationRange> <text>5-34</text > </observationRange> </referenceRange> </observation > </component> <component> <observation moodCode="EVN" classCode="OBS"> <templateId root="2.16.840.1.783621.10..22.4.2" /> <id nullFlavor="NA" /> <code codeSystem="local" code="ALT" displayName="ALT" /> <statusCode code="completed" /> < effectiveTime value="" /> <value unit="U/L" xsi:type="PQ" value="12" /> <referenceRange> <observationRange> <text>0-55</text> </observationRange> </referenceRange> </observation> </component> <component> <observation moodCode="EVN" classCode="OBS"> <templateId root= "05.22.840.1.035975.10..4.2" /> <id nullFlavor="NA" /> < code codeSystem="local" code="ALB" displayName="Albumin" /> < statusCode code="completed" /> <effectiveTime value="" /> <value unit="G/DL" xsi:type="PQ" value="3.4" /> < interpretationCode codeSystem="local" code="L" /> <referenceRange> <observationRange> <text>3.5-5.0</text> </ observationRange> </referenceRange> </observation> </ component> <component> <observation moodCode="EVN" classCode="OBS"> <templateId root="05.22.840.1.063724.10.22.4.2" /> <id nullFlavor="NA" /> <code codeSystem="local" code="AG" displayName="A/G Ratio" /> <statusCode code="completed" /> <effectiveTime value ="" /> <value unit="RATIO" xsi:type="PQ" value="1.0" /> <interpretationCode codeSystem="local" code="L" /> < referenceRange> <observationRange> <text>1.2-2.2</text> </observationRange> </referenceRange> </observation > </component> <component> <observation moodCode="EVN" classCode="OBS"> <templateId root="216.840.1.091834.10.20.22.4.2" /> <id nullFlavor="NA" /> <code codeSystem="local" code="BCR" displayName="Bun/Creat" /> <statusCode code="completed" /> < effectiveTime value="" /> <value unit="RATIO" xsi:type="PQ " value="22" /> <referenceRange> <observationRange> <text>7-25</text> </observationRange> </referenceRange > </observation> </component> <component> <observation moodCode="EVN" classCode="OBS"> <templateId root= "05.22.840.1.910324.10.22.4.2" /> <id nullFlavor="NA" /> < code codeSystem="local" code="ALP" displayName="Alk Phos" /> < statusCode code="completed" /> <effectiveTime value="" /> <value unit="U/L" xsi:type="PQ" value="108" /> <referenceRange > <observationRange> <text>40-150</text> </ observationRange> </referenceRange> </observation> </ component> <component> <observation moodCode="EVN" classCode="OBS"> <templateId root="05.22.840.1.435608.10.2022.4.2" /> <id nullFlavor="NA" /> <code codeSystem="local" code="CO2" displayName="CO2 " /> <statusCode code="completed" /> <effectiveTime value= "" /> <value unit="MMOLL" xsi:type="PQ" value="25" /> <referenceRange> <observationRange> <text>22-29</ text> </observationRange> </referenceRange> </ observation> </component> <component> <observation moodCode= "EVN" classCode="OBS"> <templateId root="16.840.1.500872.10...4.2 " /> <id nullFlavor="NA" /> <code codeSystem="local" code="GLU " displayName="Glucose" /> <statusCode code="completed" /> < effectiveTime value="" /> <value unit="MG/DL" xsi:type="PQ " value="94" /> <referenceRange> <observationRange> <text>70-99</text> </observationRange> </ referenceRange> </observation> </component> <component> <observation moodCode="EVN" classCode="OBS"> <templateId root= "05.22.840.1.230863.10..4.2" /> <id nullFlavor="NA" /> < code codeSystem="local" code="GLOB" displayName="Globulin" /> < statusCode code="completed" /> <effectiveTime value="" /> <value unit="G/DL" xsi:type="PQ" value="3.5" /> < referenceRange> <observationRange> <text>2.4-3.5</text> </observationRange> </referenceRange> </observation > </component> <component> <observation moodCode="EVN" classCode="OBS"> <templateId root="16.840.1.174403.10.22.4.2" /> <id nullFlavor="NA" /> <code codeSystem="local" code="CREAT" displayName="Creatinine" /> <statusCode code="completed" /> < effectiveTime value="[id number]" /> <value unit="MG/DL" xsi:type="PQ " value="1.9" /> <interpretationCode codeSystem="local" code="H" /> <referenceRange> <observationRange> <text>0.6-1.3 </text> </observationRange> </referenceRange> </ observation> </component> </organizer> </entry> <entry> <organizer moodCode="EVN" classCode="BATTERY"> <templateId root= "216.840.1.307621.10..22.4.1" /> <id nullFlavor="NA" /> <code codeSystem="local" code="MG" displayName="Magnesium" /> <statusCode code= "completed" /> <component> <observation moodCode="EVN" classCode= "OBS"> <templateId root="16.840.1.107715.10..22.4.2" /> < id nullFlavor="NA" /> <code codeSystem="local" code="MG" displayName= "Magnesium" /> <statusCode code="completed" /> <effectiveTime value="[id number]" /> <value unit="MG/DL" xsi:type="PQ" value="2.3" / > <referenceRange> <observationRange> <text>1.6 -2.8</text> </observationRange> </referenceRange> </ observation> </component> </organizer> </entry> <entry> <organizer moodCode="EVN" classCode="BATTERY"> <templateId root= "16.840.1.160754.10..22.4.1" /> <id nullFlavor="NA" /> <code codeSystem="local" code="KE" displayName="Myoglobin" /> <statusCode code= "completed" /> <component> <observation moodCode="EVN" classCode= "OBS"> <templateId root="216.840.1.225048.10.4.2" /> < id nullFlavor="NA" /> <code codeSystem="local" code="KE" displayName= "Myoglobin" /> <statusCode code="completed" /> <effectiveTime value="[id number]" /> <value unit="NG/ML" xsi:type="PQ" value="127.1 " /> <interpretationCode codeSystem="local" code="H" /> < referenceRange> <observationRange> <text>10-</text> </observationRange> </referenceRange> </observation> </component> </organizer> </entry> <entry> <organizer moodCode="EVN " classCode="BATTERY"> <templateId root="216.840.1.993593.10..4.1" / > <id nullFlavor="NA" /> <code codeSystem="local" code="EKG" displayName="EKG" /> <statusCode code="completed" /> <component> <observation moodCode="EVN" classCode="OBS"> <templateId root= "216.840.1.197760.10...4.2" /> <id nullFlavor="NA" /> < code codeSystem="local" code="EKG" displayName="EKG" /> <statusCode code="completed" /> <effectiveTime value="023074122301" /> < value unit="" xsi:type="PQ" value="SMR" /> <referenceRange> <observationRange> <text /> </observationRange> </referenceRange> </observation> </component> </organizer> </ entry> <entry> <organizer moodCode="EVN" classCode="BATTERY"> < templateId root="216.840.1.952819.10...4.1" /> <id nullFlavor="NA" /> <code codeSystem="local" code="CMP11" displayName="CMP" /> < statusCode code="completed" /> <component> <observation moodCode= "EVN" classCode="OBS"> <templateId root="05.22.840.1.876072.01.23.22.4.2 " /> <id nullFlavor="NA" /> <code codeSystem="local" code= "OSMCAL" displayName="Osmo Calculated" /> <statusCode code="completed" /> <effectiveTime value="" /> <value unit="MOSM" xsi:type="PQ" value="272" /> <referenceRange> < observationRange> <text>261-280</text> </ observationRange> </referenceRange> </observation> </ component> <component> <observation moodCode="EVN" classCode="OBS"> <templateId root="05.22.840.1.524192.01.23.22.4.2" /> <id nullFlavor="NA" /> <code codeSystem="local" code="NA" displayName= "Sodium" /> <statusCode code="completed" /> <effectiveTime value="" /> <value unit="MMOLL" xsi:type="PQ" value="138" / > <referenceRange> <observationRange> <text>136 -145</text> </observationRange> </referenceRange> </ observation> </component> <component> <observation moodCode= "EVN" classCode="OBS"> <templateId root="16.840.1.405986...4.2 " /> <id nullFlavor="NA" /> <code codeSystem="local" code="TP " displayName="T. Protein" /> <statusCode code="completed" /> <effectiveTime value="" /> <value unit="G/DL" xsi:type="PQ " value="6.1" /> <interpretationCode codeSystem="local" code="L" /> <referenceRange> <observationRange> <text>6.4-8.3 </text> </observationRange> </referenceRange> </ observation> </component> <component> <observation moodCode= "EVN" classCode="OBS"> <templateId root="2.16.840.1.783084.10...4.2 " /> <id nullFlavor="NA" /> <code codeSystem="local" code="K" displayName="Potassium" /> <statusCode code="completed" /> < effectiveTime value="" /> <value unit="MMOLL" xsi:type="PQ " value="4.0" /> <referenceRange> <observationRange> <text>3.5-5.1</text> </observationRange> </ referenceRange> </observation> </component> <component> <observation moodCode="EVN" classCode="OBS"> <templateId root= "2.16.840.1.575650.10..22.4.2" /> <id nullFlavor="NA" /> < code codeSystem="local" code="TBIL" displayName="T Bili" /> < statusCode code="completed" /> <effectiveTime value="" /> <value unit="MG/DL" xsi:type="PQ" value="0.5" /> < referenceRange> <observationRange> <text>0.2-1.2</text> </observationRange> </referenceRange> </observation > </component> <component> <observation moodCode="EVN" classCode="OBS"> <templateId root="16.840.1.366756.10.22.4.2" /> <id nullFlavor="NA" /> <code codeSystem="local" code="CA" displayName="Calcium" /> <statusCode code="completed" /> < effectiveTime value="" /> <value unit="MG/DL" xsi:type="PQ " value="9.4" /> <referenceRange> <observationRange> <text>8.4-10.2</text> </observationRange> </ referenceRange> </observation> </component> <component> <observation moodCode="EVN" classCode="OBS"> <templateId root= "16.840.1.683280..22.4.2" /> <id nullFlavor="NA" /> < code codeSystem="local" code="BUN" displayName="BUN" /> <statusCode code="completed" /> <effectiveTime value="" /> < value unit="MG/DL" xsi:type="PQ" value="28" /> <interpretationCode codeSystem="local" code="H" /> <referenceRange> < observationRange> <text>7-26</text> </observationRange> </referenceRange> </observation> </component> < component> <observation moodCode="EVN" classCode="OBS"> < templateId root="05.22.840.1.416647.10.20.22.4.2" /> <id nullFlavor="NA " /> <code codeSystem="local" code="CL" displayName="Chloride" /> <statusCode code="completed" /> <effectiveTime value=" " /> <value unit="MMOLL" xsi:type="PQ" value="103" /> < referenceRange> <observationRange> <text>98-107</text> </observationRange> </referenceRange> </observation> </component> <component> <observation moodCode="EVN" classCode ="OBS"> <templateId root="216.840.1.374299.10..22.4.2" /> < id nullFlavor="NA" /> <code codeSystem="local" code="AST" displayName= "AST" /> <statusCode code="completed" /> <effectiveTime value= "" /> <value unit="U/L" xsi:type="PQ" value="16" /> <referenceRange> <observationRange> <text>5-34</text > </observationRange> </referenceRange> </observation > </component> <component> <observation moodCode="EVN" classCode="OBS"> <templateId root="05.22.840.1.100990.10...4.2" /> <id nullFlavor="NA" /> <code codeSystem="local" code="ALT" displayName="ALT" /> <statusCode code="completed" /> < effectiveTime value="" /> <value unit="U/L" xsi:type="PQ" value="18" /> <referenceRange> <observationRange> <text>0-55</text> </observationRange> </referenceRange> </observation> </component> <component> <observation moodCode="EVN" classCode="OBS"> <templateId root= "05.22.840.1.430711.10...4.2" /> <id nullFlavor="NA" /> < code codeSystem="local" code="ALB" displayName="Albumin" /> < statusCode code="completed" /> <effectiveTime value="" /> <value unit="G/DL" xsi:type="PQ" value="3.2" /> < interpretationCode codeSystem="local" code="L" /> <referenceRange> <observationRange> <text>3.5-5.0</text> </ observationRange> </referenceRange> </observation> </ component> <component> <observation moodCode="EVN" classCode="OBS"> <templateId root="16.840.1.375212.10.22.4.2" /> <id nullFlavor="NA" /> <code codeSystem="local" code="AG" displayName="A/G Ratio" /> <statusCode code="completed" /> <effectiveTime value ="[id number]" /> <value unit="RATIO" xsi:type="PQ" value="1.1" /> <interpretationCode codeSystem="local" code="L" /> < referenceRange> <observationRange> <text>1.2-2.2</text> </observationRange> </referenceRange> </observation > </component> <component> <observation moodCode="EVN" classCode="OBS"> <templateId root="05.22.840.1.347243.10..4.2" /> <id nullFlavor="NA" /> <code codeSystem="local" code="BCR" displayName="Bun/Creat" /> <statusCode code="completed" /> < effectiveTime value="[id number]" /> <value unit="RATIO" xsi:type="PQ " value="16" /> <referenceRange> <observationRange> <text>7-25</text> </observationRange> </referenceRange > </observation> </component> <component> <observation moodCode="EVN" classCode="OBS"> <templateId root= "16.840.1.072913.10...4.2" /> <id nullFlavor="NA" /> < code codeSystem="local" code="ALP" displayName="Alk Phos" /> < statusCode code="completed" /> <effectiveTime value="" /> <value unit="U/L" xsi:type="PQ" value="67" /> <referenceRange > <observationRange> <text>40-150</text> </ observationRange> </referenceRange> </observation> </ component> <component> <observation moodCode="EVN" classCode="OBS"> <templateId root="2.16.840.1.548157.10...4.2" /> <id nullFlavor="NA" /> <code codeSystem="local" code="CO2" displayName="CO2 " /> <statusCode code="completed" /> <effectiveTime value= "" /> <value unit="MMOLL" xsi:type="PQ" value="30" /> <interpretationCode codeSystem="local" code="H" /> <referenceRange > <observationRange> <text>22-29</text> </ observationRange> </referenceRange> </observation> </ component> <component> <observation moodCode="EVN" classCode="OBS"> <templateId root="2.16.840.1.136170.10...4.2" /> <id nullFlavor="NA" /> <code codeSystem="local" code="GLU" displayName= "Glucose" /> <statusCode code="completed" /> <effectiveTime value="" /> <value unit="MG/DL" xsi:type="PQ" value="101" / > <interpretationCode codeSystem="local" code="H" /> < referenceRange> <observationRange> <text>70-99</text> </observationRange> </referenceRange> </observation> </component> <component> <observation moodCode="EVN" classCode= "OBS"> <templateId root="216.840.1.075456.10..4.2" /> < id nullFlavor="NA" /> <code codeSystem="local" code="GLOB" displayName= "Globulin" /> <statusCode code="completed" /> <effectiveTime value="" /> <value unit="G/DL" xsi:type="PQ" value="2.9" / > <referenceRange> <observationRange> <text>2.4 -3.5</text> </observationRange> </referenceRange> </ observation> </component> <component> <observation moodCode= "EVN" classCode="OBS"> <templateId root="16.840.1.266439.01.23.22.4.2 " /> <id nullFlavor="NA" /> <code codeSystem="local" code= "CREAT" displayName="Creatinine" /> <statusCode code="completed" /> <effectiveTime value="" /> <value unit="MG/DL" xsi: type="PQ" value="1.7" /> <interpretationCode codeSystem="local" code="H " /> <referenceRange> <observationRange> <text> 0.6-1.3</text> </observationRange> </referenceRange> </observation> </component> </organizer> </entry> <entry> < organizer moodCode="EVN" classCode="BATTERY"> <templateId root= "16.840.1.509568.10..4.1" /> <id nullFlavor="NA" /> <code codeSystem="local" code="RYAN" displayName="Amylase" /> <statusCode code= "completed" /> <component> <observation moodCode="EVN" classCode= "OBS"> <templateId root="05.22.840.1.419887.10..22.4.2" /> < id nullFlavor="NA" /> <code codeSystem="local" code="RYAN" displayName= "Amylase" /> <statusCode code="completed" /> <effectiveTime value="" /> <value unit="U/L" xsi:type="PQ" value="29" /> <referenceRange> <observationRange> <text>25- 125</text> </observationRange> </referenceRange> </ observation> </component> </organizer> </entry> <entry> <organizer moodCode="EVN" classCode="BATTERY"> <templateId root= "16.840.1.187953.10...4.1" /> <id nullFlavor="NA" /> <code codeSystem="local" code="LIP" displayName="Lipase" /> <statusCode code= "completed" /> <component> <observation moodCode="EVN" classCode= "OBS"> <templateId root="216.840.1.293853.10...4.2" /> < id nullFlavor="NA" /> <code codeSystem="local" code="LIP" displayName= "Lipase" /> <statusCode code="completed" /> <effectiveTime value="[id number]" /> <value unit="U/L" xsi:type="PQ" value="16" /> <referenceRange> <observationRange> <text>8-78< /text> </observationRange> </referenceRange> </ observation> </component> </organizer> </entry> <entry> <organizer moodCode="EVN" classCode="BATTERY"> <templateId root= "216.840.1.902090.10..4.1" /> <id nullFlavor="NA" /> <code codeSystem="local" code="CBC" displayName="COMPLETE BLOOD COUNT" /> < statusCode code="completed" /> <component> <observation moodCode= "EVN" classCode="OBS"> <templateId root="05.22.840.1.061497.10..22.4.2 " /> <id nullFlavor="NA" /> <code codeSystem="local" code="PLT " displayName="Platelet" /> <statusCode code="completed" /> < effectiveTime value="" /> <value unit="10^3u" xsi:type="PQ " value="228" /> <referenceRange> <observationRange> <text>142-424</text> </observationRange> </ referenceRange> </observation> </component> <component> <observation moodCode="EVN" classCode="OBS"> <templateId root= "05.22.840.1.479547.10.22.4.2" /> <id nullFlavor="NA" /> < code codeSystem="local" code="MPV" displayName="MPV" /> <statusCode code="completed" /> <effectiveTime value="[id number]" /> < value unit="FL" xsi:type="PQ" value="8.6" /> <interpretationCode codeSystem="local" code="L" /> <referenceRange> < observationRange> <text>9.4-12.4</text> </ observationRange> </referenceRange> </observation> </ component> <component> <observation moodCode="EVN" classCode="OBS"> <templateId root="05.22.840.1.897443.10.20.22.4.2" /> <id nullFlavor="NA" /> <code codeSystem="local" code="MONO#" displayName= "Craig #" /> <statusCode code="completed" /> <effectiveTime value="" /> <value unit="10^3u" xsi:type="PQ" value="1.10" /> <interpretationCode codeSystem="local" code="H" /> < referenceRange> <observationRange> <text>0.0-1.0</text> </observationRange> </referenceRange> </observation > </component> <component> <observation moodCode="EVN" classCode="OBS"> <templateId root="216.840.1.874206.10.20.22.4.2" /> <id nullFlavor="NA" /> <code codeSystem="local" code="RBC" displayName="RBC" /> <statusCode code="completed" /> < effectiveTime value="" /> <value unit="10^6u" xsi:type="PQ " value="2.94" /> <interpretationCode codeSystem="local" code="L" /> <referenceRange> <observationRange> <text>4.04- 6.13</text> </observationRange> </referenceRange> </ observation> </component> <component> <observation moodCode= "EVN" classCode="OBS"> <templateId root="16.840.1.048774.10.20.22.4.2 " /> <id nullFlavor="NA" /> <code codeSystem="local" code= "MONO%" displayName="Craig %" /> <statusCode code="completed" / > <effectiveTime value="" /> <value unit="%" xsi:type="PQ" value="14.4" /> <interpretationCode codeSystem="local" code="H" /> <referenceRange> <observationRange> <text>0-12</text> </observationRange> </referenceRange> </observation> </component> <component> <observation moodCode="EVN" classCode="OBS"> <templateId root= "216.840.1.620340.102022.4.2" /> <id nullFlavor="NA" /> < code codeSystem="local" code="RDW" displayName="RDW" /> <statusCode code="completed" /> <effectiveTime value="" /> < value unit="%" xsi:type="PQ" value="12.7" /> <referenceRange> <observationRange> <text>11.6-14.8</text> </ observationRange> </referenceRange> </observation> </ component> <component> <observation moodCode="EVN" classCode="OBS"> <templateId root="05.22.840.1.585274.1022.4.2" /> <id nullFlavor="NA" /> <code codeSystem="local" code="SEG#" displayName= "Neut #" /> <statusCode code="completed" /> <effectiveTime value="" /> <value unit="10^3u" xsi:type="PQ" value="4.79" /> <referenceRange> <observationRange> <text> 2.0-6.9</text> </observationRange> </referenceRange> </observation> </component> <component> <observation moodCode= "EVN" classCode="OBS"> <templateId root="216.840.1.521887.102022.4.2 " /> <id nullFlavor="NA" /> <code codeSystem="local" code="SEG %" displayName="Neut %" /> <statusCode code="completed" /> <effectiveTime value="" /> <value unit="%" xsi: type="PQ" value="62.8" /> <referenceRange> <observationRange > <text>37-80</text> </observationRange> </ referenceRange> </observation> </component> <component> <observation moodCode="EVN" classCode="OBS"> <templateId root= "16.840.1.849344.10.20.22.4.2" /> <id nullFlavor="NA" /> < code codeSystem="local" code="WBC" displayName="WBC" /> <statusCode code="completed" /> <effectiveTime value="[id number]" /> < value unit="10^3u" xsi:type="PQ" value="7.63" /> <referenceRange> <observationRange> <text>4.60-10.20</text> </ observationRange> </referenceRange> </observation> </ component> <component> <observation moodCode="EVN" classCode="OBS"> <templateId root="05.22.840.1.145670.10..22.4.2" /> <id nullFlavor="NA" /> <code codeSystem="local" code="MCV" displayName="MCV " /> <statusCode code="completed" /> <effectiveTime value= "[id number]" /> <value unit="FL" xsi:type="PQ" value="103.4" /> <interpretationCode codeSystem="local" code="H" /> <referenceRange > <observationRange> <text>80.0-97.0</text> < /observationRange> </referenceRange> </observation> </ component> <component> <observation moodCode="EVN" classCode="OBS"> <templateId root="05.22.840.1.366579.10.20.22.4.2" /> <id nullFlavor="NA" /> <code codeSystem="local" code="BASO#" displayName= "Baso #" /> <statusCode code="completed" /> <effectiveTime value="" /> <value unit="10^3u" xsi:type="PQ" value="0.02" /> <referenceRange> <observationRange> <text> 0.0-0.1</text> </observationRange> </referenceRange> </observation> </component> <component> <observation moodCode= "EVN" classCode="OBS"> <templateId root="216.840.1.553593.10...4.2 " /> <id nullFlavor="NA" /> <code codeSystem="local" code= "BASO%" displayName="Baso %" /> <statusCode code="completed" / > <effectiveTime value="" /> <value unit="%" xsi:type="PQ" value="0.3" /> <referenceRange> < observationRange> <text>0-2</text> </observationRange> </referenceRange> </observation> </component> < component> <observation moodCode="EVN" classCode="OBS"> < templateId root="216.840.1.754442.10...4.2" /> <id nullFlavor="NA " /> <code codeSystem="local" code="EOS#" displayName="Eos #" /> <statusCode code="completed" /> <effectiveTime value=" " /> <value unit="10^3u" xsi:type="PQ" value="0.26" /> < referenceRange> <observationRange> <text>0-0.7</text> </observationRange> </referenceRange> </observation> </component> <component> <observation moodCode="EVN" classCode= "OBS"> <templateId root="16.840.1.476943.10..22.4.2" /> < id nullFlavor="NA" /> <code codeSystem="local" code="EOS%" displayName="Eos %" /> <statusCode code="completed" /> < effectiveTime value="" /> <value unit="%" xsi:type="PQ " value="3.4" /> <referenceRange> <observationRange> <text>0-7</text> </observationRange> </referenceRange > </observation> </component> <component> <observation moodCode="EVN" classCode="OBS"> <templateId root= "16.840.1.261998.10..4.2" /> <id nullFlavor="NA" /> < code codeSystem="local" code="LYMPH%" displayName="Lymph %" /> <statusCode code="completed" /> <effectiveTime value="" /> <value unit="%" xsi:type="PQ" value="19.1" /> < referenceRange> <observationRange> <text>10-50</text> </observationRange> </referenceRange> </observation> </component> <component> <observation moodCode="EVN" classCode= "OBS"> <templateId root="16.840.1.987747.10.20.22.4.2" /> < id nullFlavor="NA" /> <code codeSystem="local" code="MCHC" displayName= "MCHC" /> <statusCode code="completed" /> <effectiveTime value ="" /> <value unit="G/DL" xsi:type="PQ" value="33.6" /> <referenceRange> <observationRange> <text>31.8- 35.4</text> </observationRange> </referenceRange> </ observation> </component> <component> <observation moodCode= "EVN" classCode="OBS"> <templateId root="05.22.840.1.792876.10.20.22.4.2 " /> <id nullFlavor="NA" /> <code codeSystem="local" code="MCH " displayName="MCH" /> <statusCode code="completed" /> < effectiveTime value="" /> <value unit="PG" xsi:type="PQ" value="34.7" /> <interpretationCode codeSystem="local" code="H" /> <referenceRange> <observationRange> <text>27.0- 31.2</text> </observationRange> </referenceRange> </ observation> </component> <component> <observation moodCode= "EVN" classCode="OBS"> <templateId root="840.1.503319.10.22.4.2 " /> <id nullFlavor="NA" /> <code codeSystem="local" code= "LYMPH#" displayName="Lymph #" /> <statusCode code="completed" /> <effectiveTime value="" /> <value unit="10^3u" xsi: type="PQ" value="1.46" /> <referenceRange> <observationRange > <text>0.6-3.4</text> </observationRange> </ referenceRange> </observation> </component> <component> <observation moodCode="EVN" classCode="OBS"> <templateId root= "840.1.956932.10.20.22.4.2" /> <id nullFlavor="NA" /> < code codeSystem="local" code="HGB" displayName="HGB" /> <statusCode code="completed" /> <effectiveTime value="" /> < value unit="G/DL" xsi:type="PQ" value="10.2" /> <interpretationCode codeSystem="local" code="L" /> <referenceRange> < observationRange> <text>12.2-18.1</text> </ observationRange> </referenceRange> </observation> </ component> <component> <observation moodCode="EVN" classCode="OBS"> <templateId root="840.1.817273.10.22.4.2" /> <id nullFlavor="NA" /> <code codeSystem="local" code="HCT" displayName="HCT " /> <statusCode code="completed" /> <effectiveTime value= "" /> <value unit="%" xsi:type="PQ" value="30.4" /> <interpretationCode codeSystem="local" code="L" /> < referenceRange> <observationRange> <text>37.7-53.7</text > </observationRange> </referenceRange> </observation > </component> </organizer> </entry> <entry> <organizer moodCode= "EVN" classCode="BATTERY"> <templateId root="840.1.816137.22.4.1 " /> <id nullFlavor="NA" /> <code codeSystem="local" code="UAD" displayName="Urinalysis" /> <statusCode code="completed" /> <component > <observation moodCode="EVN" classCode="OBS"> <templateId root= "840.1.603467.10.2022.4.2" /> <id nullFlavor="NA" /> < code codeSystem="local" code="UAGLU" displayName="Glucose" /> < statusCode code="completed" /> <effectiveTime value="" /> <value unit="" xsi:type="PQ" value="Negative" /> < referenceRange> <observationRange> <text>Negative</text > </observationRange> </referenceRange> </observation > </component> <component> <observation moodCode="EVN" classCode="OBS"> <templateId root="216.840.1.967576.01.23.22.4.2" /> <id nullFlavor="NA" /> <code codeSystem="local" code="UALEUK" displayName="Leukocyte" /> <statusCode code="completed" /> < effectiveTime value="[id number]" /> <value unit="" xsi:type="PQ" value="Trace" /> <interpretationCode codeSystem="local" code="AB" /> <referenceRange> <observationRange> <text> Negative</text> </observationRange> </referenceRange> </observation> </component> <component> <observation moodCode ="EVN" classCode="OBS"> <templateId root= "16.840.1.930632.10.4.2" /> <id nullFlavor="NA" /> < code codeSystem="local" code="UANIT" displayName="Nitrite" /> < statusCode code="completed" /> <effectiveTime value="655620407202" /> <value unit="" xsi:type="PQ" value="Positive" /> < interpretationCode codeSystem="local" code="AB" /> <referenceRange> <observationRange> <text>Negative</text> </ observationRange> </referenceRange> </observation> </ component> <component> <observation moodCode="EVN" classCode="OBS"> <templateId root="16.840.1.552091.01.23.22.4.2" /> <id nullFlavor="NA" /> <code codeSystem="local" code="UAPH" displayName="pH " /> <statusCode code="completed" /> <effectiveTime value= "" /> <value unit="" xsi:type="PQ" value="7.0" /> <referenceRange> <observationRange> <text>5.5-7.5</text > </observationRange> </referenceRange> </observation > </component> <component> <observation moodCode="EVN" classCode="OBS"> <templateId root="216.840.1.138533.01.23.22.4.2" /> <id nullFlavor="NA" /> <code codeSystem="local" code="UAPP" displayName="Urine Appearance" /> <statusCode code="completed" /> <effectiveTime value="" /> <value unit="" xsi:type="PQ " value="Clear" /> <referenceRange> <observationRange> <text>Clear</text> </observationRange> </ referenceRange> </observation> </component> <component> <observation moodCode="EVN" classCode="OBS"> <templateId root= "216.840.1.856861.01.23.22.4.2" /> <id nullFlavor="NA" /> < code codeSystem="local" code="UAPRO" displayName="Protein" /> < statusCode code="completed" /> <effectiveTime value="" /> <value unit="" xsi:type="PQ" value="Negative" /> < referenceRange> <observationRange> <text>Negative</text > </observationRange> </referenceRange> </observation > </component> <component> <observation moodCode="EVN" classCode="OBS"> <templateId root="216.840.1.754853.10..22.4.2" /> <id nullFlavor="NA" /> <code codeSystem="local" code="UAKET" displayName="Ketones" /> <statusCode code="completed" /> < effectiveTime value="" /> <value unit="" xsi:type="PQ" value="Negative" /> <referenceRange> <observationRange> <text>Negative</text> </observationRange> </ referenceRange> </observation> </component> <component> <observation moodCode="EVN" classCode="OBS"> <templateId root= "216.840.1.816431.01.23.22.4.2" /> <id nullFlavor="NA" /> < code codeSystem="local" code="UAURO" displayName="Urobilinogen" /> < statusCode code="completed" /> <effectiveTime value="" /> <value unit="" xsi:type="PQ" value="0.2" /> <referenceRange> <observationRange> <text>0.2-1.0</text> </ observationRange> </referenceRange> </observation> </ component> <component> <observation moodCode="EVN" classCode="OBS"> <templateId root="16.840.1.115780.10.4.2" /> <id nullFlavor="NA" /> <code codeSystem="local" code="URBC" displayName= "Urine RBC" /> <statusCode code="completed" /> <effectiveTime value="" /> <value unit="" xsi:type="PQ" value="N0-2" /> <referenceRange> <observationRange> <text /> </observationRange> </referenceRange> </observation> </component> <component> <observation moodCode="EVN" classCode= "OBS"> <templateId root="216.840.1.712958.10..22.4.2" /> < id nullFlavor="NA" /> <code codeSystem="local" code="USG" displayName= "Specific Speculator" /> <statusCode code="completed" /> < effectiveTime value="" /> <value unit="" xsi:type="PQ" value="1.010" /> <referenceRange> <observationRange> <text>1.010-1.020</text> </observationRange> </ referenceRange> </observation> </component> <component> <observation moodCode="EVN" classCode="OBS"> <templateId root= "216.840.1.165514.10...4.2" /> <id nullFlavor="NA" /> < code codeSystem="local" code="UWBC" displayName="Urine WBC" /> < statusCode code="completed" /> <effectiveTime value="" /> <value unit="" xsi:type="PQ" value="N11-15" /> <referenceRange > <observationRange> <text /> </ observationRange> </referenceRange> </observation> </ component> <component> <observation moodCode="EVN" classCode="OBS"> <templateId root="216.840.1.352890.10..22.4.2" /> <id nullFlavor="NA" /> <code codeSystem="local" code="UBACT+" displayName= "Urine Bacteria" /> <statusCode code="completed" /> < effectiveTime value="" /> <value unit="" xsi:type="PQ" value="4+" /> <referenceRange> <observationRange> <text /> </observationRange> </referenceRange> </ observation> </component> <component> <observation moodCode= "EVN" classCode="OBS"> <templateId root="16.840.1.625602.01.23.22.4.2 " /> <id nullFlavor="NA" /> <code codeSystem="local" code= "UABLD" displayName="Blood" /> <statusCode code="completed" /> <effectiveTime value="" /> <value unit="" xsi:type="PQ" value="Trace" /> <interpretationCode codeSystem="local" code="AB" /> <referenceRange> <observationRange> <text> Negative</text> </observationRange> </referenceRange> </observation> </component> <component> <observation moodCode ="EVN" classCode="OBS"> <templateId root= "05.22.840.1.191810.01.23.22.4.2" /> <id nullFlavor="NA" /> < code codeSystem="local" code="UACOLOR" displayName="Color" /> < statusCode code="completed" /> <effectiveTime value="" /> <value unit="" xsi:type="PQ" value="Yellow" /> <referenceRange > <observationRange> <text>Yellow</text> </ observationRange> </referenceRange> </observation> </ component> <component> <observation moodCode="EVN" classCode="OBS"> <templateId root="16.840.1.551398.01.23.22.4.2" /> <id nullFlavor="NA" /> <code codeSystem="local" code="UABILI" displayName= "Bilirubin" /> <statusCode code="completed" /> <effectiveTime value="" /> <value unit="" xsi:type="PQ" value="Negative" / > <referenceRange> <observationRange> <text> Negative</text> </observationRange> </referenceRange> </observation> </component> <component> <observation moodCode ="EVN" classCode="OBS"> <templateId root= "2.16.840.1.021166.10.20.22.4.2" /> <id nullFlavor="NA" /> < code codeSystem="local" code="UASITE" displayName="Site" /> < statusCode code="completed" /> <effectiveTime value="[id number]" /> <value unit="" xsi:type="PQ" value="VOID" /> <referenceRange> <observationRange> <text /> </ observationRange> </referenceRange> </observation> </ component> </organizer> </entry></section> Encounters ACCT No. Visit Date/Time Discharge Status Pt. Type Provider Facility Loc./Unit Complaint [id number] 11/11/2012 14:53:00 11/16/2012 16:37:00 DIS Inpatient Kassidy RENTERIA, [facility] W.10TN [id number] 04/03/2016 15:15:00 04/03/2016 18:05:00 DIS Emergency ANISH [facility] ER [id number] 02/25/2016 16:10:00 02/25/2016 [id number] 17:05:00 12/07/2015 23:34:00 DIS Emergency LAURA RENTERIA, [facility] ER [id number] 12/07/2015 17:25:00 12/07/2015 17:25:00 DIS Outpatient LAURA RENTERIA, [facility] OTHER [id number] 12/07/2015 17:10:00 12/07/2015 17:10:00 DIS Outpatient LAURA RENTERIA, [facility] OTHER [id number] 12/07/2015 16:40:00 12/07/2015 16:40:00 DIS Outpatient LAURA RENTERIA, [facility] OTHER [id number] 12/02/2015 13:16:00 12/03/2015 01:02:00 DIS Emergency [facility] ER [id number] 12/02/2015 10:36:00 12/02/2015 10:36:00 DIS Outpatient [facility] OTHER [id number] 06/03/2013 10:35:00 06/03/2013 12:05:00 DIS Emergency [facility] ER [id number] 06/03/2013 11:05:00 06/03/2013 11:05:00 DIS Outpatient [facility] OTHER [id number] 11/11/2012 11:38:00 11/11/2012 23:59:59 CLS Outpatient [facility] OTHER [id number] 11/11/2012 11:08:00 11/11/2012 12:45:00 DIS Emergency [facility] ER [id number] 11/11/2012 11:08:00 11/11/2012 11:08:00 DIS Outpatient [facility] OTHER [id number] 11/11/2012 10:40:00 11/11/2012 10:40:00 DIS Outpatient [facility] OTHER [id number] 02/17/2011 10:45:00 Document Registration
[2017-06-16] MEDS ORDERED: LACTATED RINGERS 1,000 ML IV PRN (10:28)
[2017-06-16 10:29] VITALS: BP 144/82
[2017-06-16] MEDS ORDERED: NS IV 1000 ML 1,000 ML IV SCH (10:30)
[2017-06-16] MEDS ORDERED: CATHETER FLUSH 10 ML SYR IV PRN (10:30)
[2017-06-16] MEDS ORDERED: MUPIROCIN 2% OINT 22 GM (BACTROBAN) TUBE ONE (10:48)
[2017-06-16] MEDS ORDERED: PHENYLEPHRINE 0.5% NASAL SPR (NEO-SYNEPHRINE) REG ONE (10:48)
[2017-06-16] MEDS ORDERED: LIDOCAINE/EPI 1%-1:200,000 (XYLOCAINE) 10 ML VIAL ONE (10:48)
[2017-06-16] MEDS ORDERED: COCAINE HCL 4% 2 ML SYR ONE (10:48)
[2017-06-16] MEDS ORDERED: fentaNYL INJECTION 100 MCG/2 ML AMP ONE (11:42)
[2017-06-16] MEDS ORDERED: BUSP10TA95 PO (11:52)
[2017-06-16] MEDS ORDERED: BETH25TA PO (11:52)
[2017-06-16] MEDS ORDERED: CARV25TA PO (11:52)
[2017-06-16] MEDS ORDERED: BENZ2TAB6 PO ×2 (11:52→13:56)
[2017-06-16] MEDS ORDERED: DONE10TA41 PO (11:52)
[2017-06-16] MEDS ORDERED: ACET-2267 PO (11:52)
[2017-06-16] MEDS ORDERED: POTA-51 PO (11:52)
[2017-06-16] MEDS ORDERED: LISI40TA PO (11:52)
[2017-06-16] MEDS ORDERED: CLOM75CA2 PO (11:52)
[2017-06-16] MEDS ORDERED: MULT-166 PO (11:52)
[2017-06-16] MEDS ORDERED: CHOL10007 PO (11:52)
[2017-06-16] MEDS ORDERED: SODI325T PO (11:52)
[2017-06-16] MEDS ORDERED: AMLO5TAB2 PO (11:52)
[2017-06-16] MEDS ORDERED: CYAN100088 PO (11:52)
[2017-06-16] MEDS ORDERED: SEVOFLURANE (ULTANE) 15 ML INHAL SOLN ONE ×3 (11:54)
[2017-06-16] MEDS ORDERED: ONDANSETRON 4 MG/2 ML (SDV) Z0FRAN ONE (11:54)
[2017-06-16] MEDS ORDERED: SUCCINYLCHOLINE INJ 100 MG/5 ML SYR ONE (11:54)
[2017-06-16] MEDS ORDERED: DEXAMETHASONE 10 MG/ML (DECADRON) 1 ML VIAL ONE (11:54)
[2017-06-16] MEDS ORDERED: LIDOCAINE PF 2% 5 ML (XYLOCAINE) VIAL ONE (11:54)
[2017-06-16] MEDS ORDERED: proPOfol 200 MG/20 ML (DIPRIVAN) VIAL IV ONE (11:54)
--- NOTE | 2017-06-16 12:25 | Progress Note-Pre Operative ---
Pre-Operative Progress Note H&P Reviewed The H&P was reviewed, patient examined and no changes noted. Date Seen by Provider: Jun 16, 2017 Time Seen by Provider: 11:30 Date H&P Reviewed: Jun 16, 2017 Time H&P Reviewed: 11:30 Pre-Operative Diagnosis: Left Posterior Epistaxis LYNNETTE GARCIA MD Jun 16, 2017 12:25 pm
[2017-06-16] MEDS ORDERED: D5 1/2 NS W/KCL 20 MEQ/L 1,000 ML IV SCH (12:26)
--- NOTE | 2017-06-16 12:26 | Progress Note-Post Operative ---
Post-Operative Progess Note Surgeon (s)/City Attorney (s) Surgeon LYNNETTE GARCIA MD City Attorney n/a Pre-Operative Diagnosis Left Posterior Epistaxis Post-Operative Diagnosis same Post-Op Procedure Note Date of Procedure: Jun 16, 2017 Name of Procedure Performed: Endoscopic Repair of Left Posterior Epistaxis Description & Findings Description and Findings: n/a Anesthesia Type get Estimated Blood Loss minimal Packing none. Specimen(s) collected/removed none LYNNETTE GARCIA MD Jun 16, 2017 12:26 pm
[2017-06-16] MEDS ORDERED: HYDROcodone/APAP 5 MG/325 MG (LORTAB) TAB PO PRN (12:30)
[2017-06-16] MEDS ORDERED: PHENYLEPHRINE 0.5% NASAL SPR (NEO-SYNEPHRINE) REG PRN (12:30)
[2017-06-16] MEDS ORDERED: MEPERIDINE (DEMEROL) INJ 50 MG/ML IVP PRN (12:30)
[2017-06-16] MEDS ORDERED: morphine INJ 10 MG/ML 1ML (SYR OR VIAL) IVP PRN (12:30)
[2017-06-16] MEDS ORDERED: ONDANSETRON 4 MG/2 ML (SDV) Z0FRAN IVP PRN (12:30)
[2017-06-16] MEDS ORDERED: ACETAMINOPHEN 325 MG TABLET/CAPLET (TYLENOL) PO PRN (12:45)
[2017-06-16 13:00] VITALS: BP 152/65
[2017-06-16] MEDS ORDERED: AMLO10TA2 PO (13:56)
[2017-06-16] MEDS ORDERED: METH1TAB21 PO (13:56)
[2017-06-16] MEDS ORDERED: TAMS0.4C2 PO (13:56)
[2017-06-16] MEDS ORDERED: LISI-552 PO (13:56)
[2017-06-16] MEDS ORDERED: FERR324T PO (13:56)
[2017-06-16] MEDS ORDERED: ASPI-983 PO (13:56)
[2017-06-16] MEDS ORDERED: DOCU-143 PO (13:56)
[2017-06-16] MEDS ORDERED: CALC-676 PO ×2 (13:56)
[2017-06-16] MEDS ORDERED: LATA2.5D5 OU (14:10)
[2017-06-16] MEDS ORDERED: IPRA4AER IH (14:10)
[2017-06-16] MEDS ORDERED: FLUP25VI3 IJ (14:10)
[2017-06-16] MEDS ORDERED: ACETAMINOPHEN 500 MG TAB (TYLENOL) PO PRN (15:15)
[2017-06-16] MEDS ORDERED: BENZTROPINE MESYLATE 1 MG (COGENTIN) TAB PO PRN (15:15)
[2017-06-16 16:59] VITALS: BP 133/90
[2017-06-16] MEDS: BETHANECHOL 25 MG (URECHOLINE) TAB PO SCH ×2 (17:27→21:18)
[2017-06-16 20:00] VITALS: BP 123/78
[2017-06-16] MEDS ORDERED: DONEPEZIL 10 MG (ARICEPT) TAB PO SCH (21:00)
[2017-06-16] MEDS ORDERED: CLOMIPRAMINE HCL 75 MG PO SCH (21:00)
[2017-06-16] MEDS: busPIRone 10 MG (BUSPAR) TAB PO SCH (21:18)
[2017-06-16] MEDS: DOCUSATE SODIUM 100 MG (COLACE) CAP PO SCH (21:19)
[2017-06-16] MEDS: BENZTROPINE MESYLATE 1 MG (COGENTIN) TAB PO SCH (21:19)
[2017-06-16] MEDS: amLODIPine 5 MG (NORVASC) TAB PO SCH (21:19)
[2017-06-16] MEDS: CARVEDILOL 12.5 MG (COREG) TABLET PO SCH (21:19)
[2017-06-16 21:21] VITALS: BP 140/90
[2017-06-17] VITALS: BP 160/88
[2017-06-17 04:00] VITALS: BP 150/84
--- NOTE | 2017-06-17 06:11 | Progress Note-Standard ---
Standard Progress Note Progress Notes/Assess & Plan Date Seen by Provider: Jun 17, 2017 Time Seen by Provider: 06:10 Progress/Assessment & Plan ENT-Roberto no bleeding op-clear keely diet much more alert today will discharge after breakfast no retrun apt needed discharge precritpion in chart epistaxis discharge instructions Final Diagnosis left posterior epistaxis LYNNETTE GARCIA MD Jun 17, 2017 6:11 am
--- NOTE | 2017-06-17 07:17 | Anesthesia-General Post-Op ---
General Patient Condition Mental Status/LOC: Same as Preop Cardiovascular: Satisfactory Nausea/Vomiting: Absent Respiratory: Satisfactory Pain: Controlled Complications: Absent Post Op Complications Complications None Follow Up Care/Instructions Patient Instructions None needed. Anesthesia/Patient Condition Patient Condition Patient is doing well, no complaints, stable vital signs, no apparent adverse anesthesia problems. No complications reported per nursing. HUGO IBRAHIM CRNA Jun 17, 2017 07:17
[2017-06-17 07:51] VITALS: BP 137/76
[2017-06-17] MEDS ORDERED: METHENAMINE 1 GM TAB PO SCH (09:00)
[2017-06-17] MEDS ORDERED: TAMSULOSIN 0.4 MG (FLOMAX) CAP PO SCH (09:00)
[2017-06-17] MEDS ORDERED: SODIUM BICARBONATE 650 MG TABLET (NON-FORMULARY) PO SCH (09:00)
[2017-06-17] MEDS ORDERED: VITAMIN D3 1,000 UNITS (CHOLECALCIFEROL) TABLET PO SCH (09:00)
[2017-06-17] MEDS ORDERED: FERROUS SULF 325 MG (IRON) TAB PO SCH (09:00)
[2017-06-17] MEDS ORDERED: MULTIVIT W/MINERALS TAB (THERAGRAN M) PO SCH (09:00)
[2017-06-17] MEDS ORDERED: KCL 20 MEQ TAB (K-DUR) PO SCH (09:00)
[2017-06-17] MEDS ORDERED: CYANOCOBALAMIN 500 MCG TAB (VITAMIN B-12) PO SCH (09:00)
[2017-06-17] MEDS ORDERED: lisINopril 10 MG (PRINIVIL) TABLET PO SCH (09:00)
[2017-06-17] MEDS ORDERED: CALCIUM CARB + VIT D 600 MG (CALCARB + D) TAB PO SCH ×2 (09:00→12:00)
[2017-06-17] MEDS: BETHANECHOL 25 MG (URECHOLINE) TAB PO SCH (09:46)
[2017-06-17] MEDS: CARVEDILOL 12.5 MG (COREG) TABLET PO SCH (09:46)
[2017-06-17] MEDS: DOCUSATE SODIUM 100 MG (COLACE) CAP PO SCH (09:47)
[2017-06-17] MEDS: busPIRone 10 MG (BUSPAR) TAB PO SCH (09:47)
[2017-06-17] MEDS: BENZTROPINE MESYLATE 1 MG (COGENTIN) TAB PO SCH (09:47)
[2017-06-17] MEDS: amLODIPine 5 MG (NORVASC) TAB PO SCH (09:47)
== END 2017-06-17 10:50 | disposition designated cancer center or children's hospital (05) ==
LOC: ER 07:47 → SDC 09:08 → 4TH 09:09 → SDC 06-17 10:50
PROVIDERS: ATTEND Otolaryngology Otolaryngology/Facial Plastic Surgery
DX: R04.0 Epistaxis (principal); F20.0 Paranoid schizophrenia; F10.20 Alcohol dependence, uncomplicated; Z79.82 Long term (current) use of aspirin; Z79.899 Other long term (current) drug therapy
CPT/HCPCS: 36415; 85027; 93005; 94760; 99284